=== PATIENT | female | born 1945 | race Caucasian/White ===

== ENCOUNTER 2018-02-18 11:00 | Outpatient (RCR) | payer MEDICARE, SELFPAY | END 2018-02-18 11:01 | disposition home or self-care (01) | LOC: PT 11:00 | PROVIDERS: Visit Provider Orthopaedic Surgery Adult Reconstructive Orthopaedic Surgery | DX: I89.0 Lymphedema, not elsewhere classified (principal) | CPT/HCPCS: 97140; 97162; 97760 ==

== ENCOUNTER → 2018-02-18 11:51 | Outpatient (CLI) | payer MEDICARE, SELFPAY ==
--- NOTE | 2018-02-18 11:57 | XR_ITS ---
XR foot wt bearing LT 3V HISTORY: Foot pain ITS.REASON: pain ORDERING PHYSICIAN: Sofya Delong DPM PATIENT AGE: 72 years COMPARISON: None FINDINGS: There is moderate hallux valgus with a first metatarsophalangeal angle of 35 degrees with osteoarthritis of the first MTP joint and bony hypertrophic changes of the distal aspect of the first metatarsal. There is lateral subluxation of the proximal phalanx of the great toe by approximately 7 mm. There has been prior surgery with pes planus. A medial bone plate is present at the talonavicular region. 2 screws are present as extending from the posterior inferior calcaneus into the talus with fusion of the posterior subtalar joint. An additional screw which extends from the navicular superiorly into the talus is fractured at its superior aspect with mild angulation of the fractured screw posteriorly. Hypertrophic changes are present at the talonavicular joint dorsally. IMPRESSION: 1. Hallux valgus with osteoarthritis and bunion formation. 2. Prior fusion of the posterior talar calcaneal joint and the talonavicular area with a fractured screw within the anterior aspect of the talus extending from the navicular bone with pes planus
--- NOTE | 2018-02-18 11:57 | XR_ITS ---
XR foot wt bearing RT 3V HISTORY: ITS.REASON: Pain ORDERING PHYSICIAN: Sofya Delong DPM PATIENT AGE: 72 years COMPARISON: FINDINGS: There is moderate hallux valgus with first metatarsophalangeal angle of 27 degrees and osteoarthritic change. Metatarsophalangeal joint with bunion formation at the distal aspect of the first metatarsal. Osteoarthritic changes are present at the talonavicular joint with mild lateral and superior subluxation of the navicular with severe pes planus IMPRESSION: 1. Hallux valgus with osteoarthritis and bunion formation. 2. Pes planus
== END ==
PROVIDERS: PCP Internal Medicine Infectious Disease; Visit Provider Podiatrist
DX: M79.671 Pain in right foot (principal); M79.672 Pain in left foot
CPT/HCPCS: 73630

== ENCOUNTER → 2019-06-17 07:18 | Outpatient (CLI) | payer MEDICARE, SELFPAY ==
--- NOTE | 2019-06-17 | CA_ITS ---
APPROVED REPORT Exam: Pharmacologic Technologist: Onofre Sanchez, Ht: 5 ft 4 in Wt: 285 lbs BSA: 2.27 m2 HR: 63 bpm BP: 130/61 mmHg Rhythm: NORMAL SINUS RHYTHM Indications: Pre Op clearance, A-Fib Medical History Medical History: Diabetic ??? Insulin, HTN, Hyperlipidemia, Carotid artery disease, Atrial Fibrillation Medications: Lisinopril,,,,, Asa,,,,, Gabapentin,,,,, SyMBICORT,,,,, Montelukast,,,,, AtorvaASTATIN,,,,, Novalin,,,,, Allergies: No known drug allergies Cardiac Risk Factors: Hyperlipidemia, HTN, FHX of CAD, Diabetes (insulin) Stress Test Details Test: LEXISCAN HR Resting HR: 67 bpm Max Heart Rate (APMHR): 148 bpm Max HR Achieved: 81 bpm Target HR (85% APMHR): 125 bpm % of APMHR: 54 Recovery HR: 72 bpm BP Resting BP: 130.0/61.0 mmHg Max BP: 130.0/61.0 mmHg Recovery BP: 127.0/45.0 mmHg ECG Resting ECG: NORMAL SINUS RHYTHM Clinical Exercise duration: 04:01 min Highest Stage Achieved: Stress ECG Conclusion DURING INFUSION OF LEXISCAN PATIENT HAD MILD MALAISE. NO CHEST PAIN. NO ARRHYTHMIAS/ECTOPY. NO SIGNIFICANT ST-T CHANGES. UNREMARKABLE LEXISCAN STRESS. MYOVIEW IMAGES REPORTED SEPARATELY. Test Summary REST 15:09 . . 67 . 130/ 61 . . Stage 1 01:00 . . 80 . . . . Stage 2 01:00 . . 79 . 118/ 50 . . Stage 3 01:00 . . 72 . 124/ 46 . . Stage 4 01:00 . . 72 . 122/ 48 . . Stage 4 01:01 . . 72 . 122/ 48 . Stop exercise at 04:01 RECOVERY 01:00 . . 70 . . . . RECOVERY 02:00 . . 70 . 127/ 45 . . RECOVERY 03:00 . . 72 . 115/ 46 . . RECOVERY 04:00 . . 69 . 115/ 46 . . RECOVERY 04:46 . . 71 . 122/ 45 . . Electronically signed by : Stephane Morales, 06/17/2019 15:21:11
--- NOTE | 2019-06-17 07:20 | CA_ITS ---
APPROVED REPORT EXAM: Comprehensive 2D, Doppler, and color-flow Echocardiogram Manager Quality: Bess Gregory RDCS Ht: 5 ft 4 in Wt: 289lbs BSA: 2.29 BP: 125/59 mmHg Indications: Shortness of Breath, Atrial Fibrillation, Diabetes, Obesity, CAD, Hyperlipidemia 2D Dimensions RVID Base (AP4) 2.00 cm (M/F) 2.5-4.1 M-Mode Dimensions RVDd 2.08 cm (0.9-2.6) LA Diam 4.20 cm (1.9-4.0) LVDd 5.78 cm (3.5-5.7) Ao Diam 3.10 cm (2.0-3.7) LVDs 4.38 cm (3.5-5.7) AV Cusp 1.90 cm (1.5-2.6) IVSd 0.65 cm (0.6-1.1) PWd 0.79 cm (0.6-1.1) EF (Teich) 47.50% FS 24.20% EDV (Teich) 165.20 mL ESV (Teich) 86.80 mL Tricuspid Valve RVSP 45.00 mmHg Left Ventricle Left atrium is mildly enlarged, left ventricle is normal size, mild concentric left ventricular hypertrophy, visually estimated ejection fraction 55% with no regional wall motion abnormality, diastolic parameters are inconclusive. Right Ventricle Right atrium and right ventricle mildly enlarged with normal contractility. Aortic Valve Aortic valve is minimally thickened and calcified, there is no aortic stenosis, there is no aortic insufficiency. Mitral Valve Mitral valve is grossly normal, there is mild mitral regurgitation. Tricuspid Valve Tricuspid valve is grossly normal, there is mild tricuspid regurgitation. Pulmonic Valve Pulmonic valve is poorly visualized. Great Vessels Aortic root is normal size. Pericardium No significant pericardial effusion noted. Conclusion 1. Mildly enlarged left atrium, normal left ventricular size, mild concentric left ventricular hypertrophy, visually estimated ejection fraction 55% with no regional wall motion abnormality, diastolic parameters are inconclusive. 2. Mildly enlarged right ventricle with normal contractility. 3. Mild mitral and tricuspid regurgitation 4. No significant pericardial effusion noted. Electronically signed by : Stephane Morales, 06/17/2019 14:43:59
--- NOTE | 2019-06-17 07:20 | NM_ITS ---
APPROVED REPORT Exam: Nuclear Stress Test Indication: PALPITATIONS, FATIGUE AND PRE-OP Patient Location: Outpatient Stress Tech: Margot Teodora [place] Tech:Gabbie Eaton SHABBIR RT(R)(N) Ht: 5 ft 4 in Wt: 285 lbs Bra Size: 42C HR: 63 bpm BP: 130/61 mmHg BSA: 2.27 m2 BMI: 48.9 History: PALPITATIONS, FATIGUE AND PRE-OP Procedure: Patient received a 0.4 mg of intravenous Lexiscan, resting heart rate 63 bpm, resting blood pressure 130/61 mmHg, with Lexiscan maximum heart rate achived was 75 bpm which is Less than 85 % of the maximum predicted heart rate and blood pressure was 118/50 mmHg. Electrocardiogram Resting electrocardiogram showed sinus rhythm, with Lexiscan there is less than 1.[address] segment depression noted from the baseline EKG. The EKG portion of the Lexiscan Myoview is nondiagnostic. Cardiac Stress and Resting SPECT Images: Cardiac Stress and Resting SPECT images were obtained using technetium 99m Myoview 30.6 mCi stress and 10.42 mCi at rest. Gated SPECT with analysis of segmental wall motion and calculation of the ejection fraction also done. Cardiac stress and resting SPECT images show decreased tracer activity in the anterior anterolateral and anteroseptal wall which improves on the resting images suggestive of reversible ischemia, computer derived ejection fraction is over 65% with no regional wall motion abnormality, right ventricle is normal size and contractility. Conclusion: 1. The EKG portion of the Lexiscan Myoview is nondiagnostic. 2. Scintigraphic evidence of reversible ischemia involving the anterior anterolateral and anteroseptal wall. Computer derived ejection fraction is over 65% with no regional wall motion abnormality, right ventricle is normal size and contractility. 3. Abnormal Lexiscan Myoview study. Electronically signed by : Stephane Morales, 06/17/2019 15:24:48
--- NOTE | 2019-06-17 10:00 | HMH.ITSHM ---
Current Home Medications as stated by this patient Alicia Royal or marketing representative. [] lisonopril asa montelukast atorvastatin gabapentin novolin symicort
== END ==
PROVIDERS: PCP Internal Medicine Infectious Disease; Visit Provider Internal Medicine
DX: E11.9 Type 2 diabetes mellitus without complications (principal); I10 Essential (primary) hypertension; I25.10 Atherosclerotic heart disease of native coronary artery without angina pectoris; I48.20 Chronic atrial fibrillation, unspecified; R07.9 Chest pain, unspecified; R60.0 Localized edema; Z01.810 Encounter for preprocedural cardiovascular examination; Z79.01 Long term (current) use of anticoagulants; Z79.4 Long term (current) use of insulin; Z79.84 Long term (current) use of oral hypoglycemic drugs
CPT/HCPCS: 78452; 93017; 93306; A9502; J2785

== ENCOUNTER → 2019-07-19 12:37 | Outpatient (CLI) | payer MEDICARE, SELFPAY ==
[2019-07-19 13:34] LABS: Basophils # 0.1 K/mm3 (0-0.2); Basophils % 0.7 % (0.1-2.0); Eosinophils # 0.4 K/mm3 (0.0-0.4); Eosinophils % 3.4 % (0.1-12.0); Hemoglobin 10.2 g/dL (12.2-16.2); Lymphocytes # 2.4 K/mm3 (0.7-4.5); Lymphocytes % 23.5 % (10-50); Mean Corpuscular HGB Conc 29.9 g/dL (31.8-35.4); Mean Corpuscular Hemoglobin 25.3 pg (27.0-31.2); Mean Corpuscular Volume 84.7 fl (81-99); Mean Platelet Volume 7.7 fl (7.4-10.4); Monocytes # 0.5 K/mm3 (0.1-1.0); Monocytes % 5.1 % (1.7-9.3); Neutrophils # 6.9 K/mm3 (1.8-7.8); Neutrophils % 67.3 % (37.0-80.0); Platelet Count 413 K/mm3 (142-424); Red Blood Count 4.01 M/mm3 (4.20-5.40); Red Cell Distribution Width 15.8 % (11.5-17.5); White Blood Count 10.3 K/mm3 (4.8-10.8)
[2019-07-19 16:17] LABS: Anion Gap 15.8 mEq/L (5-15); Blood Urea Nitrogen 25 mg/dL (7-18); Calcium 8.4 mg/dL (8.5-10.1); Carbon Dioxide 25 mmol/L (21.0-32.0); Chloride 107 mmol/L (98-107); Creatinine,Serum 0.83 mg/dL (0.55-1.02); Estimated Glomerular Filt Rate 68 ml/min (>60); GFR (African American) 82 ML/MIN (>60); Glucose 98 mg/dL (74-106); Potassium 4.8 mmoL/L (3.5-5.1); Sodium 143 mmol/L (136-145)
== END ==
PROVIDERS: Visit Provider Urology
DX: I10 Essential (primary) hypertension (principal); I25.10 Atherosclerotic heart disease of native coronary artery without angina pectoris; I48.20 Chronic atrial fibrillation, unspecified; R94.39 Abnormal result of other cardiovascular function study
CPT/HCPCS: 36415; 80048; 85025

== ENCOUNTER 2019-07-26 13:57 | Outpatient (RCR) | payer MEDICARE, SELFPAY | END 2019-07-26 13:59 | disposition home or self-care (01) | LOC: PT 13:57 | PROVIDERS: Visit Provider Internal Medicine | DX: Z95.5 Presence of coronary angioplasty implant and graft (principal) | CPT/HCPCS: 93798 ==

== ENCOUNTER → 2020-04-08 11:31 | Outpatient (CLI) | payer MEDICARE, SELFPAY ==
[2020-04-08 15:22] LABS: Coronavirus 19 IgG Antibody Positive (Negative); Coronavirus 19 IgM Antibody Negative (Negative)
--- NOTE | 2020-04-10 08:57 | PC.NURSE ---
PATIENT IGG POSITIVE - REQUIRED FOR PRE TESTING FOR IN LAB SLEEP STUDY. CONTACTED XENIA FLORES OKAYED TO CONTINUE WITH SLEEP STUDY LONG PATIENT IS ASYMPATMATIC - CONTACTED PATIENT IS OKAYED TO CONTINUE WITH SLEEP STUDY.....
== END ==
PROVIDERS: Visit Provider Specialist
DX: Z20.828 Contact with and (suspected) exposure to other viral communicable diseases (principal)
CPT/HCPCS: 36415; 86328

== ENCOUNTER → 2020-04-10 19:49 | Outpatient (CLI) | payer MEDICARE, SELFPAY | PROVIDERS: PCP Physician Assistant; Visit Provider Specialist | DX: Z01.818 Encounter for other preprocedural examination (principal); G47.33 Obstructive sleep apnea (adult) (pediatric); R06.83 Snoring | CPT/HCPCS: 95810 ==

== ENCOUNTER → 2020-05-26 08:32 | Outpatient (CLI) | payer MEDICARE, SELFPAY ==
--- NOTE | 2020-05-26 08:34 | CA_ITS ---
APPROVED REPORT EXAM: Comprehensive 2D, Doppler, and color-flow Echocardiogram Electrical Products Sales Engineer: Carmen Bennett RVT Ht: 5 ft 4 in Wt: 274lbs BSA: 2.24 BP: 143/71 mmHg Indications: AFIB,EDEMA,OBESITY,CAD,HTN,HLD 2D Dimensions LVOT 1.82 cm (M/F) 1.5-2.5 M-Mode Dimensions RVDd 2.94 cm (0.9-2.6) LVDd 4.75 cm (3.5-5.7) LVDs 3.18 cm (3.5-5.7) IVSd 1.13 cm (0.6-1.1) PWd 0.97 cm (0.6-1.1) EF (Teich) 61.60% FS 33.10% EDV (Teich) 104.90 mL ESV (Teich) 40.30 mL Left Ventricle Left atrium is mildly enlarged, left ventricle is normal size, mild concentric left ventricular hypertrophy, visually estimated ejection fraction 55% with no regional wall motion abnormality, diastolic parameters are inconclusive. Right Ventricle Right atrium and right ventricle are mildly enlarged with normal contractility. Aortic Valve Aortic valve is minimally thickened and fibrosed, there is no aortic stenosis or aortic insufficiency. Mitral Valve Mitral valve is grossly normal, there is mild mitral regurgitation Tricuspid Valve Tricuspid valve is grossly normal, there is mild tricuspid regurgitation calculated right ventricular systolic pressure is 50 mmHg. Pulmonic Valve Pulmonic valve is poorly visualized. Great Vessels Aortic root is normal size. Pericardium No significant pericardial effusion noted. Conclusion 1. Biatrial enlargement, normal left ventricular size, mild concentric left ventricular hypertrophy, visually estimated ejection fraction 55% with no regional wall motion abnormality, diastolic parameters are inconclusive. 2. Mildly enlarged right ventricle with normal contractility. 3. Mild mitral and tricuspid regurgitation, calculated right ventricular systolic pressure is 50 mmHg. 4. No significant pericardial effusion noted. Electronically signed by : Stephane Morales, 05/26/2020 14:00:32
== END ==
PROVIDERS: PCP Physician Assistant; Visit Provider Urology
DX: I48.0 Paroxysmal atrial fibrillation (principal)
CPT/HCPCS: 93306

== ENCOUNTER → 2020-08-08 10:53 | Outpatient (CLI) | payer MEDICARE, SELFPAY ==
[2020-08-08 17:51] LABS: Anion Gap 12.9 mEq/L (5-15); Blood Urea Nitrogen 27 mg/dl (7-17); Calcium 9.7 mg/dl (8.4-10.2); Carbon Dioxide 30 mmol/L (22.0-30.0); Chloride 97 mmol/L (98-107); Estimated Glomerular Filt Rate 70 ml/min (>60); GFR (African American) 85 ML/MIN (>60); Glucose 154 mg/dl (74-100); Potassium 4.9 mmoL/L (3.5-5.1); Sodium 135 mmol/L (136-145)
== END ==
PROVIDERS: Visit Provider Urology
DX: E11.9 Type 2 diabetes mellitus without complications (principal); E78.5 Hyperlipidemia, unspecified; I10 Essential (primary) hypertension; I25.10 Atherosclerotic heart disease of native coronary artery without angina pectoris; I48.91 Unspecified atrial fibrillation; R60.0 Localized edema; Z79.01 Long term (current) use of anticoagulants; Z79.4 Long term (current) use of insulin
CPT/HCPCS: 36415; 80048

== ENCOUNTER → 2021-02-01 09:07 | Outpatient (POV) | payer MEDICARE, SELFPAY ==
[2021-02-01 09:34] VITALS: BP 154/98; PULSE 93; RESP 19; O2SAT 95; BMI 47.0
--- NOTE | 2021-02-01 09:54 | HMH.PMCON ---
Assessment and Plan (1) Peripheral neuropathy Status: Chronic Category: Medical Code(s): G62.9 - Polyneuropathy, unspecified (2) Bilateral foot pain Status: Chronic Category: Medical Code(s): M79.671 - Pain in right foot; M79.672 - Pain in left foot (3) Neck pain Status: Chronic Category: Medical Code(s): M54.2 - Cervicalgia - Assessment and plan all Dx Assessment and Plan for all problems:: Patient I had a discussion on treatment options in the clinic. She is not interested in injective therapy for her cervical spine. We did discuss possible implanted devices, however, given her blood glucose level of 405 100, we would not be able to do any type of surgical intervention on the patient. We did discuss stopping her gabapentin and starting Lyrica 75 mg 1 tablet p.o. twice daily. This may be beneficial for her neuropathic pain in her bilateral lower extremities. She is unable to take anti-inflammatories due to anticoagulation therapy. She takes anticoagulation therapy for atrial fibrillation. Patient was scheduled for physical therapy, however, Covid prevented her from completing the treatment. Patient is having pain extensively at this time to the point that physical therapy would likely not be beneficial for her at this time. We will order the patient Lyrica 75 mg 1 tablet p.o. twice daily and see her back in 2 weeks to see if it is helping. We also discussed a compounding cream that she can apply to the area to give her some relief to her neck. We will see the patient back in 2 weeks to reevaluate her symptoms. She has been advised to stop her gabapentin until we can determine if Lyrica is beneficial. Risks and benefits of the medication have been explained in detail to the patient. The patient has been advised to consult with his/her primary care provider and pharmacist regarding drug-drug interaction of medications currently prescribed. Patient has been instructed to contact the clinic with any concerns before the next appointment. Dr. Uribe has reviewed this note and agrees with this plan of care. This note was dictated using voice recognition software and make contain errors or omissions. HPI - Data of Consult Patient: new to practice Consult date: 02/01/21 Requesting Physician: Helen Bueno APRN Primary Care Provider: Chelsey Trejo - Consult Narrative Reason for consult: Bilateral foot pain, neck pain History of present illness: Ms. Royal is a 75 year old female who presents today for consultation for bilateral foot pain. She has had this pain for greater than a year. Patient says that she had deformities to bilateral feet for which she did undergo surgical intervention. She says that after surgery to her right foot, she did suffer from a fall and a fracture to the area that underwent surgical intervention. Unfortunately due to the patient's extensive past medical history, they are unable to repair the fracture. Patient is morbidly obese. She is unable to ambulate due to her bilateral foot pain. She has seen Dr. Horn in the past who did inform the patient that she would need specific shoes, however, was unable to get due to noncoverage of Medicare. Patient does have a history of atrial fibrillation is on 2 blood thinners at this time. She also reports to have blood glucose levels between 405 100. She says that her A1c is between 7 and 8, however. Patient I discussed that we would be very limited in doing any type of surgical intervention for the patient such as DRG or SCS due to her uncontrolled blood post levels. We did discuss her medications. The patient is currently on gabapentin 600 mg 2 tablets p.o. daily and Cymbalta. She says that she has been on gabapentin for many years which is no longer effective for her pain. She says she is having a burning sensation to her bilateral feet. She has swelling that is noted to be added 2+ today. She does deny any color changes, however. [place]
== END ==
PROVIDERS: PCP Physician Assistant; Visit Provider Clinical Nurse Specialist Family Health
DX: G62.9 Polyneuropathy, unspecified (principal); M79.671 Pain in right foot; M79.672 Pain in left foot; M54.2 Cervicalgia
CPT/HCPCS: 99202; G0463

== ENCOUNTER → 2021-02-15 11:18 | Outpatient (POV) | payer MEDICARE, SELFPAY ==
[2021-02-15 12:00] VITALS: BP 125/95; PULSE 69; RESP 20; O2SAT 96; BMI 58.3
--- NOTE | 2021-02-15 12:01 | HMH.PAINSOAP ---
[facility] Pain Management SOAP Note Subjective:: Patient is a 75-year-old white female who presents today for follow-up. Patient was seen in the clinic on 02/01/2021. She is being treated in the clinic for bilateral foot pain, neck pain and peripheral neuropathy. Patient has deformities to bilateral feet for which she has undergone surgical intervention and continues to have significant pain. She suffered from a fall and a fracture to her right foot and underwent surgical intervention and continues to have significant pain. Patient was previously on gabapentin for which she did not get much relief. She has seen Dr. Horn in the past who did inform the patient she would need specific shoes, however, the patient is unable to afford the shoes. She is currently on 2 and type coagulation therapy medications and is not comfortable undergoing injective therapy. She also has blood glucose levels that fluctuate between 200 and 400 which are being managed by her primary care provider. At her last visit, we started the patient on Lyrica 75 mg 1 tablet p.o. twice daily and order compounding cream. Patient says that she has gotten great relief, however, she notices the pain does return mid day. She takes her medication in the morning and before bedtime. The compounding cream is also giving her significant relief. She says her pain is tolerable at this time since starting the medicine. Her pain is a 3 out of 10 today. Review of Systems General: No recent weight changes, no fever, no sleep disturbances Respiratory: No cough, no shortness of air, no recurring pulmonary infections Cardiovascular/peripheral vascular: No chest pain, no palpitations, no edema, no shortness of breath Gastrointestinal: No new onset incontinence, normal bowel movements reported Genitourinary: No new onset incontinence Musculoskeletal: Bilateral foot pain Psychiatric: Normal mood/affect Neurological: Weakness lower extremities, balance issues Objective:: Physical exam General: Alert and oriented x3, no acute distress, pleasant and cooperative, [on room air] Lungs: Respirations even and unlabored, symmetrical chest expansion Eyes: PERRL Musculoskeletal: Movement of bilateral feet somewhat guarded secondary to pain, deep tendon reflexes normal, strength in upper and lower extremities [4/5], [abnormal gait noted] Neurological: Speech clear, supervisor travel information center equal, no gross sensory deficit Assessment:: Peripheral neuropathy, bilateral foot pain, neck pain Plan:: Patient is doing well overall with her medication regimen that was started at her last visit. She is noticing the medicine to be wearing off mid day, however. We will increase her Lyrica to 75 mg 1 tablet p.o. 3 times daily. She will continue with her compounding cream. We will plan to see the patient back in 3 months for reevaluation of her symptoms. She has been instructed to contact clinic if she has any concerns before next appointment. Risks and benefits of the medication have been explained in detail to the patient. The patient has been advised to consult with his/her primary care provider and pharmacist regarding drug-drug interaction of medications currently prescribed. Patient has been instructed to contact the clinic with any concerns before the next appointment. Dr. Uribe has reviewed this note and agrees with this plan of care. This note was dictated using voice recognition software and make contain errors or omissions. [facility] History I have reviewed the patient's past medical history: Yes Medical History: Reports:: Asthma, Atrial Fibrillation, Cancer, Coronary Artery Disease, Diabetes Mellitus Type 2, Hyperlipidemia, Hypertension *Have you ever received a pneumonia vaccine?: Yes *Have you received a flu vaccine this season?: No Other Medical History: Reports: Arthritis, Sinus Problems Laterality Cases: Left: Carpal Tunnel Release, Right: Lumpectomy, Bilateral: Tonsillectomy, Other Other Surgeries: Yes: Card
== END ==
PROVIDERS: PCP Physician Assistant; Visit Provider Clinical Nurse Specialist Family Health
DX: M79.671 Pain in right foot (principal); M54.2 Cervicalgia; G62.9 Polyneuropathy, unspecified; M79.672 Pain in left foot
CPT/HCPCS: 99212; G0463

== ENCOUNTER → 2021-05-08 09:15 | Outpatient (CLI) | payer MEDICARE, SELFPAY ==
[2021-05-08 09:40] LABS: Basophils # 0.1 K/mm3 (0-0.2); Basophils % 0.5 % (0.1-2.0); Eosinophils # 0.6 K/mm3 (0.0-0.4); Eosinophils % 5.3 % (0.1-12.0); Hematocrit 36.7 % (37.0-47.0); Lymphocytes # 2.4 K/mm3 (0.7-4.5); Lymphocytes % 21.1 % (10-50); Mean Corpuscular HGB Conc 29.8 g/dL (31.8-35.4); Mean Corpuscular Hemoglobin 25.9 pg (27.0-31.2); Mean Corpuscular Volume 86.8 fl (81-99); Mean Platelet Volume 7.7 fl (7.4-10.4); Monocytes # 0.7 K/mm3 (0.1-1.0); Monocytes % 5.8 % (1.7-9.3); Neutrophils # 7.8 K/mm3 (1.8-7.8); Neutrophils % 67.3 % (37.0-80.0); Platelet Count 361 K/mm3 (142-424); Red Blood Count 4.23 M/mm3 (4.20-5.40); Red Cell Distribution Width 15.8 % (11.5-17.5); White Blood Count 11.5 K/mm3 (4.8-10.8)
[2021-05-08 11:25] LABS: Free T4 (Free Thyroxine) 1.38 ng/dl (0.78-2.19)
[2021-05-08 12:18] LABS: Chloride 100 mmol/L (98-107); Sodium 137 mmol/L (136-145)
[2021-05-08 12:19] LABS: Potassium 4.4 mmoL/L (3.5-5.1)
[2021-05-08 12:21] LABS: Alanine Aminotransferase 15 U/L (12-78); Albumin Level 3.8 g/dl (3.5-5.0); Alkaline Phosphatase 108 U/L (38-126); Anion Gap 14.4 mEq/L (5-15); Aspartate Amino Transferase 20 U/L (14-36); Bilirubin,Indirect 0.3 mg/dL (0.0-0.9); Bilirubin,Total 0.3 mg/dl (0.2-1.3); Bilirubin,Unconjugated 0.3 mg/dL (0.0-1.1); Blood Urea Nitrogen 19 mg/dl (7-17); Carbon Dioxide 27 mmol/L (22.0-30.0); Cholesterol 137 mg/dl (140-200); Estimated Glomerular Filt Rate 98 ml/min (>60); GFR (African American) 118 ML/MIN (>60); Total Protein,Serum 6.5 g/dl (6.3-8.2); Triglycerides 80 mg/dl (30-150); VLDL Cholesterol 16 mg/dL (0-40)
[2021-05-08 12:22] LABS: Calcium 8.8 mg/dl (8.4-10.2); Chol/HDL Ratio 1.9 (1-3.5); Glucose 325 mg/dl (74-100); HDL Cholesterol 73 mg/dl (40-60)
[2021-05-08 12:33] LABS: Direct LDL Cholesterol 48.78 mg/dL (100-129)
[2021-05-08 12:52] LABS: Thyroid Stimulating Hormone 1.94 uIU/mL (0.465-4.68)
== END ==
PROVIDERS: Visit Provider Physician Assistant
DX: I10 Essential (primary) hypertension (principal); I25.10 Atherosclerotic heart disease of native coronary artery without angina pectoris; I48.20 Chronic atrial fibrillation, unspecified; R60.0 Localized edema; Z79.01 Long term (current) use of anticoagulants; Z82.49 Family history of ischemic heart disease and other diseases of the circulatory system
CPT/HCPCS: 36415; 80048; 80061; 80076; 84439; 84443; 85025

== ENCOUNTER → 2021-06-12 10:15 | Outpatient (POV) | payer MEDICARE, SELFPAY | PROVIDERS: Visit Provider Dermatology | DX: Z00.00 Encounter for general adult medical examination without abnormal findings (principal) ==

== ENCOUNTER → 2021-08-21 08:41 | Outpatient (POV) | payer MEDICARE, SELFPAY ==
[2021-08-21 08:58] VITALS: BP 145/79; PULSE 112; RESP 18; O2SAT 96; BMI 48.9
--- NOTE | 2021-08-21 09:14 | HMH.PAINSOAP ---
[facility] Pain Management SOAP Note Subjective:: Patient is a 75-year-old white female who presents today for follow-up. Patient was last seen in the clinic on 02/15/2021. On August 02, the patient was being lifted from outside of a vehicle to inside a van. She is in a motorized wheelchair and does require a lift on the vehicle. Unfortunately, the lift malfunctioned dropping the patient face forward onto concrete. She was taken to [facility]. The daughter reports that the patient did have a fractured nose. She was having neck pain at that time. She did undergo x-rays of her head and chest since the fall. Patient says that she is having significant pain in her neck mid back and low back area. She is having difficulty turning her head or moving. She does rate her pain a 10 out of 10. Her primary care did give her a short-term dose of Axtell. Patient is very pleasant with no symptoms or neuropathic pain status post. Her foot pain, but does say that the back pain is excruciating. She has not had any x-rays of her cervical, thoracic, or lumbar spine. She will likely stay with imaging. Physical therapy is coming into the patient's home as well as OT therapy since the fall. Patient was advised by physical therapy to return to the clinic for x-rays to rule out any compression fractures. She has been taking Tylenol arthritis along with Axtell Review of Systems General: No recent weight changes, no fever, no sleep disturbances Respiratory: No cough, no shortness of air, no recurring pulmonary infections Cardiovascular/peripheral vascular: No chest pain, no palpitations, no edema, no shortness of breath Gastrointestinal: No new onset incontinence, normal bowel movements reported Genitourinary: No new onset incontinence Musculoskeletal: [] Neck pain, mid back pain, low back pain Psychiatric: [Normal mood/affect] Neurological: Wheelchair-bound Objective:: Physical exam General: Alert and oriented x3, no acute distress, pleasant and cooperative Lungs: Respirations even and unlabored, symmetrical chest expansion Eyes: PERRL Musculoskeletal: Flexion and extension of cervical, thoracic, lumbar [spine] somewhat guarded secondary to pain, [antalgic gait noted] Neurological: Speech clear, no gross sensory deficit Assessment:: Status post fall, neck pain, mid back pain, low back pain Plan:: We will send the patient for imaging. We will order x-ray of cervical, thoracic, lumbar spine to rule out any fractures. If negative for fractures, she may need an MRI lumbar spine. Her pain is at its worst to the low back area. We will also order her a 1 month dose of Axtell 5 mg 1 tablet p.o. 3 times daily as needed moderate pain. We will contact the patient following the x-rays to review with the family. [phone] Risks and benefits of the medication have been explained in detail to the patient. The patient does understand the risk of dependence on the medication when given over a prolonged period. Patient has been advised of risks of oversedation with the prescribed medication. Narcan has been offered to the paitent in the event of oversedation. Patient has been advised that a family member should also be educated regarding administration of Narcan. The patient has been advised to consult with his/her primary care provider and pharmacist regarding drug-drug interaction of medications currently prescribed. Patient has been prescribed a controlled substance after being counseled on the medication, medication safety, and possible side effects. ESTRELLITA report has been obtained and reviewed prior to prescription and found to be appropriate. Opioid contract was reviewed and signed by the patient, and that they have agreed to all of the terms set forth by our compliance program. Patient has been instructed to contact the clinic with any concerns before the next appointment. Dr. Uribe has reviewed this note and agrees with this
--- NOTE | 2021-08-21 09:18 | XR_ITS ---
PROCEDURE: XR MULTIPLE SPINE 6+V CLINICAL INDICATION: RECENT FALL, SEVERE BACK PAIN COMPARISON: No exams were available for comparison FINDINGS: Cervical spine: Prominent facet hypertrophic changes are present from C2 to C7. Cervical spine is incompletely visualized on the lateral view only well seen to the C4 level with a faint outline of C5 and C6 which are normal and alignment. Of the visualized cervical spine no obvious fracture is evident. Thoracic spine: Mild upper thoracic curvature convex right. Normal alignment. No acute fracture or dislocation. There is mild degenerative disc disease in the mid and lower thoracic spine Lumbar spine:. Minimal lumbar curvature convex left. Facet arthritic changes are present at L3-L4 and L5 with degenerative disc disease present at L5-S1. There is mild wedge compression changes involving the superior endplate of L4 without obvious retropulsion. This is age indeterminate. IMPRESSION: Multilevel degenerative changes. Please see above for detailed description. Mild wedging of L4 with loss of height of approximately 15-20 percent age indeterminate. No obvious retropulsion Dictated by: Jose Lawler MD 08/21/2021 17:28 Jose Lawler MD in OV 08/21/2021 17:28
== END ==
PROVIDERS: Visit Provider Clinical Nurse Specialist Family Health
DX: M54.2 Cervicalgia (principal); M54.6 Pain in thoracic spine; M54.59 Other low back pain; W19.XXXS Unspecified fall, sequela
CPT/HCPCS: 72084; 99212; G0463

== ENCOUNTER → 2021-08-28 09:12 | Outpatient (CLI) | payer MEDICARE, SELFPAY ==
--- NOTE | 2021-08-28 09:21 | MR_ITS ---
PROCEDURE INFORMATION: Exam: MR Lumbar Spine Without Contrast Exam date and time: 08/28/2021 9:21 AM Age: 75 years old Clinical indication: Patient HX: Severe low back pain, l4 compression FX TECHNIQUE: Imaging protocol: Multiplanar magnetic resonance images of the lumbar spine without intravenous contrast. COMPARISON: CR XR MULTIPLE SPINE 6+V 08/21/2021 9:35 AM FINDINGS: Vertebrae: There is a central compression deformity, possibly related to a Schmorl's node, in the L4 vertebral body. There is 45% maximum loss of vertebral body height at this level. There is T2 hyperintensity in the L4 vertebral body mainly surrounding the Schmorl's node, and in the superior endplate. Additionally, there is Modic type 1 change in the opposing endplates at L3. There are hemangiomas at T12, L1, L2, L3, and S2. Spinal cord: The conus medullaris is normal in appearance terminating at the level of L1/2. L1-L2: There is a shallow disc bulge, bilateral facet arthropathy and ligamentum flavum infolding. The spinal canal and neural foramina are adequate. L2-L3: There is a shallow disc bulge, bilateral facet arthropathy and ligamentum flavum infolding. The spinal canal and neural foramina are adequate. L3-L4: There is a broad based disc bulge, bilateral facet arthropathy and ligamentum flavum infolding. This results in moderate central canal stenosis. Neural foramina are adequate. L4-L5: There is a broad based disc bulge, bilateral facet arthropathy and ligamentum flavum infolding. The spinal canal and neural foramina are adequate. L5-S1: There is a broad based disc bulge, bilateral facet arthropathy and ligamentum flavum infolding. The central canal and right neural foramina are adequate. There is mild left neural foraminal stenosis. Soft tissues: Unremarkable. IMPRESSION: 1. Central compression deformity at L4, with 45% maximum loss of vertebral body height. There is associated marrow edema. This finding may be related to progression of a large Schmorl's node in the superior endplate. 2. Multilevel lumbar spondylosis. 3. Moderate spinal stenosis at L3/4.
== END ==
LOC: RAD 09:13
PROVIDERS: PCP Emergency Medicine; Visit Provider Clinical Nurse Specialist Family Health
DX: S32.04 Fracture of fourth lumbar vertebra (principal)
CPT/HCPCS: 72148; 76376

== ENCOUNTER → 2021-08-30 08:37 | Outpatient (POV) | payer MEDICARE, SELFPAY ==
--- NOTE | 2021-08-30 09:59 | HMH.PAINSOAP ---
[facility] Pain Management SOAP Note Subjective:: Patient is a 75-year-old white female who is following up via telehealth medicine today. She was seen in the clinic on 08/21/2021 due to an incident of falling from a motorized car lift. She was in her wheelchair when the lift malfunctioned, dropping the patient face forward onto concrete. She was taken to [facility] and was noted to have a fractured nose at that time. She was having neck pain as well. She did have x-rays of head and chest post fall. She is having mid and low back pain. She is wheelchair-bound. X-ray was ordered. MRI was obtained due to worsening pain. Patient was noted to have an L4 compression fracture. The results of MRI were discussed with Dr. Uribe. Dr. Uribe did schedule the patient for kyphoplasty this upcoming week. Patient daughter was very concerned about patient's pain. The patient was started on [place] while in the clinic at last visit, 5 mg 1 tablet p.o. 3 times daily. She did contact the clinic very upset and adamant that the patient received increased oral medication. The office staff did discuss this with Dr. Uribe and Dr. Uribe did feel a concern of giving the patient further medication due to the patient's age and debilitation. The patient says she is continuing to have significant pain rating the pain a 7 or 8 out of 10 with minimal relief and minimal sleep due to pain. She is agreeable to proceeding with kyphoplasty, but is asking for increased medication. Review of Systems General: No recent weight changes, no fever, no sleep disturbances Respiratory: No cough, no shortness of air, no recurring pulmonary infections Cardiovascular/peripheral vascular: No chest pain, no palpitations, no edema, no shortness of breath Gastrointestinal: No new onset incontinence, normal bowel movements reported Genitourinary: No new onset incontinence Musculoskeletal: Low back pain made worse with movement Psychiatric: [Normal mood/affect] Neurological: Chronic weakness bilateral lower extremities Objective:: Physical exam General: Alert and oriented x3, no acute distress, pleasant and cooperative Assessment:: Degenerative disc disease lumbar spine with lumbar radiculopathy symptoms, compression fracture L4, Plan:: Dr. Uribe was contacted today regarding the patient's worsening pain. He does not feel appropriate to proceed with increasing patient's medication due to debilitation age. He is concerned for oversedation and high risk of falls. She is currently on [place] 5 mg 1 tablet p.o. 3 times daily. She also takes pregabalin 75 mg 1 tablet p.o. 3 times daily by her primary care provider. We will schedule the patient for kyphoplasty for L4 compression fracture. The patient is on Xarelto. We will seek approval for the patient to hold her Xarelto before proceeding with the procedure. She has been advised. The patient will also be given a brace to wear for stabilization until she is able to undergo kyphoplasty. Family has been advised we are unable to increase the patient's medication per Dr. Uribe. Patient has been instructed to contact the clinic with any concerns before the next appointment. Dr. Uribe has reviewed this note and agrees with this plan of care. This note was dictated using voice recognition software and make contain errors or omissions. [facility] History I have reviewed the patient's past medical history: Yes Medical History: Reports:: Asthma, Atrial Fibrillation, Cancer, Coronary Artery Disease, Diabetes Mellitus Type 2, Hyperlipidemia, Hypertension *Have you ever received a pneumonia vaccine?: Yes *Have you received a flu vaccine this season?: Yes Other Medical History: Reports: Arthritis, Sinus Problems Laterality Cases: Left: Carpal Tunnel Release, Right: Lumpectomy, Bilateral: Tonsillectomy, Other Other Surgeries: Yes: Cardiac Catheterization, Cholecystectomy, Colonoscopy, Coronary Stent, Tubal Ligation Amputation: No Fractures: Yes (Right el
--- NOTE | 2021-08-31 12:37 | PC.NURSE ---
Received verbal order from Dr. Herr, via [facility], approving patient to hold Plavix for 8 days prior to procedure and Xarleto for 4 days prior to procedure. Pt's daughter notified.
== END ==
PROVIDERS: Visit Provider Clinical Nurse Specialist Family Health
DX: M51.16 Intervertebral disc disorders with radiculopathy, lumbar region (principal); M48.56XA Collapsed vertebra, not elsewhere classified, lumbar region, initial encounter for fracture
CPT/HCPCS: 99212; G0463

== ENCOUNTER → 2021-09-04 08:53 | Outpatient (CLI) | payer MEDICARE, SELFPAY ==
[2021-09-04 09:28] LABS: Basophils # 0.1 K/mm3 (0-0.2); Basophils % 0.6 % (0.1-2.0); Eosinophils # 0.6 K/mm3 (0.0-0.4); Eosinophils % 5.7 % (0.1-12.0); Hematocrit 35.8 % (37.0-47.0); Hemoglobin 10.8 g/dL (12.2-16.2); Lymphocytes # 2.7 K/mm3 (0.7-4.5); Lymphocytes % 25.6 % (10-50); Mean Corpuscular HGB Conc 30.1 g/dL (31.8-35.4); Mean Corpuscular Hemoglobin 24.2 pg (27.0-31.2); Mean Corpuscular Volume 80.3 fl (81-99); Mean Platelet Volume 7.7 fl (7.4-10.4); Monocytes # 0.7 K/mm3 (0.1-1.0); Monocytes % 6.8 % (1.7-9.3); Neutrophils # 6.4 K/mm3 (1.8-7.8); Neutrophils % 61.3 % (37.0-80.0); Platelet Count 443 K/mm3 (142-424); Red Blood Count 4.45 M/mm3 (4.20-5.40); Red Cell Distribution Width 17.4 % (11.5-17.5); White Blood Count 10.4 K/mm3 (4.8-10.8)
[2021-09-04 10:21] LABS: Anion Gap 14.2 mEq/L (5-15); Blood Urea Nitrogen 15 mg/dl (7-17); Calcium 9.4 mg/dl (8.4-10.2); Carbon Dioxide 29 mmol/L (22.0-30.0); Chloride 98 mmol/L (98-107); Estimated Glomerular Filt Rate 98 ml/min (>60); GFR (African American) 118 ML/MIN (>60); Glucose 198 mg/dl (74-100); Potassium 5.2 mmoL/L (3.5-5.1); Sodium 136 mmol/L (136-145)
== END ==
PROVIDERS: Visit Provider Anesthesiology
DX: Z01.812 Encounter for preprocedural laboratory examination (principal); Z11.52 Encounter for screening for COVID-19; S32.04 Fracture of fourth lumbar vertebra
CPT/HCPCS: 36415; 80048; 85025; C9803; U0003; U0005

== ENCOUNTER 2021-09-05 07:04 | Day surgery (SDC) | payer MEDICARE, SELFPAY ==
[2021-09-03 09:44] VITALS: BMI 48.0
[2021-09-05] VITALS (9 sets, daily range): BP systolic 144–194; BP diastolic 58–92; PULSE 72–92; RESP 18–19; TEMP 36.2; O2SAT 96–98
--- NOTE | 2021-09-05 10:43 | P.OP_ITS ---
Date of procedure: 09/05/21 Pre-op Diagnosis:: L4 compression fracture Post-op Diagnosis:: Same Procedure performed:: L4 kyphoplasty Surgeon:: Ronal Uribe MD PATENT LEATHER SORTER:: Kuldeep Hughes Anesthesia: MAC Estimated blood loss (mL): 5 Clinical Note:: Patient is a pleasant 75-year-old white female who we are seeing for new onset L4 compression fracture. This occurred when she was dropped from her motorized car lift. MRI and x-ray noted a L4 compression fracture with edema. She has bracing in place. She has been off her Plavix for 7 days. She presents for L4 kyphoplasty today. Operative findings:: none Operative note:: Informed consent was obtained and risks and benefits of the procedure was explained to the patient. Patient was taken to the OR and was placed prone on the procedure table. The patient was prepped and draped in sterile fashion. I used 2 C arms for AP and lateral view of the L4 vertebral body. The skin and subcutaneous tissues were anesthetized using lidocaine. Bone access trochars were placed through the LEFT and RIGHT pedicle and advanced into the vertebral body. After accessing the vertebral body a balloon was inserted first on the LEFT side followed by the RIGHT side with approximately 3 mL of contrast placed in each balloon with good insufflation. After adequate spread of contrast through the balloon, the balloons were deflated and cement was introduced first on the LEFT side with placement of approximately 4 mL of cement with good spread throughout the vertebral body and then on the RIGHT side was approximately 4 mL cement with good spread throughout the vertebral body. There was no extrusion of cement through the lateral patterson, anterior or posterior patterson. Also no extrusion through superior or inferior patterson. The bone access trochars were removed and dressing was placed. The patient was taken back to recovery in stable condition. She had good resolution of her back pain 5 minutes after the procedure. She tolerated the procedure well with no complications and was discharged home neurologically intact. Condition: stable Disposition: PACU Complications:: None
--- NOTE | 2021-09-05 11:32 | P.PN_ITS ---
[facility] Anesthesia Checklist - Structural Data Admitted From: Home Planned Operative Procedure/s: kyphoplasty Consent for Planned Operative Procedure(s) Verified: Yes - Additional verifications Anesthesia Reactions: No Hx Blood Transfusions: No - Airway Assessment C-Spine Mobility Assessed: Yes TMJ Mobility Assessed: Yes Dentition: Partials - Neurological Assessment Level of Consciousness: Awake, Alert, Appropriate - Anesthesia Plan Anesthesia Risk discussed: Yes Anesthesia Plan: Verified ASA Class: III Anesthesia Type: MAC [facility] History I have reviewed the patient's past medical history: Yes Medical History: Reports:: Asthma, Atrial Fibrillation, Cancer, Coronary Artery Disease, Diabetes Mellitus Type 2, Hyperlipidemia, Hypertension Denies:: Diabetes Mellitus Type 1, Internal Pacemaker, MRSA, Seizures *Have you ever received a pneumonia vaccine?: Yes *Have you received a flu vaccine this season?: Yes Other Medical History: Reports: Arthritis, Sinus Problems Anesthesia experience/problems:: none Laterality Cases: Left: Carpal Tunnel Release, Right: Lumpectomy, Bilateral: Tonsillectomy, Total Knee Replacement, Other Other Surgeries: Yes: Cardiac Catheterization, Cholecystectomy, Colonoscopy, Coronary Stent, Tubal Ligation. No: Pacemaker Amputation: No Fractures: Yes (Right elbow) - *Social History Last grade of school completed: High school graduate Smoking Status: Never smoker Alcohol Intake: never Alcohol Intake Frequency:: other Substance Use Type: denies use *Occupational Status:: unemployed Housing: house Household Members: children, spouse *Travel in the last 8 weeks: None Family Hx:: Hyperlipidemia, Hypertension, Cancer, Heart Attack
[2022-05-30 10:56] LABS: POC Glucose,Bedside 208 (70-110)
== END 2021-09-05 12:43 | disposition home or self-care (01) ==
LOC: OR 07:06
PROVIDERS: PCP Emergency Medicine; Visit Provider Anesthesiology
DX: M80.08XA Age-related osteoporosis with current pathological fracture, vertebra(e), initial encounter for fracture (principal); M48.56XA Collapsed vertebra, not elsewhere classified, lumbar region, initial encounter for fracture; I25.10 Atherosclerotic heart disease of native coronary artery without angina pectoris; R60.9 Edema, unspecified; J45.909 Unspecified asthma, uncomplicated; I48.91 Unspecified atrial fibrillation; E11.9 Type 2 diabetes mellitus without complications; E78.5 Hyperlipidemia, unspecified; I10 Essential (primary) hypertension; Z85.9 Personal history of malignant neoplasm, unspecified; Z83.438 Family history of other disorder of lipoprotein metabolism and other lipidemia; Z82.49 Family history of ischemic heart disease and other diseases of the circulatory system; Z82.3 Family history of stroke; Z80.9 Family history of malignant neoplasm, unspecified
CPT/HCPCS: 22514; 82962; 96374; J2704; J3370; Q9966

== ENCOUNTER → 2021-09-18 10:25 | Outpatient (POV) | payer MEDICARE, SELFPAY ==
[2021-09-18 10:44] VITALS: BP 158/63; PULSE 91; RESP 18; O2SAT 94; BMI 48.0
--- NOTE | 2021-09-18 12:13 | HMH.PAINSOAP ---
[facility] Pain Management SOAP Note Subjective:: Patient is a 75-year-old white female who presents today for follow-up. The patient had a kyphoplasty on 09/05/2021. She had a fall from a van lift. She was in a wheelchair when the lift malfunctioned dropping the patient face forward. She did have a fractured nose and was noted to have a L4 compression fracture. Patient says she got 5 days of relief following the kyphoplasty. She says the pain has now returned to the same area once again. Pain is minimal with out movement. She does say, however, any movement worsens the pain. Pain is much like prior to the kyphoplasty. She has not resumed physical therapy since the kyphoplasty. The pain is significant at this time. The pain is 10. She is managed with [place] 5 mg 1 tablet p.o. 3 times daily, but notes the medicine to be wearing off quickly. She is on Plavix and Xarelto and is diabetic. Patient denies any changes in bowel or bladder habit and denies any numbness and tingling into lower extremities. Pain is primarily in the low back area made worse with movement. Review of Systems General: No recent weight changes, no fever, no sleep disturbances Respiratory: No cough, no shortness of air, no recurring pulmonary infections Cardiovascular/peripheral vascular: No chest pain, no palpitations, no edema, no shortness of breath Gastrointestinal: No new onset incontinence, normal bowel movements reported Genitourinary: No new onset incontinence Musculoskeletal: Low back pain made worse with movement Psychiatric: [Normal mood/affect] Neurological: [Denies weakness in extremities], [denies balance issues] Objective:: Physical exam General: Alert and oriented x3, no acute distress, pleasant and cooperative Lungs: Respirations even and unlabored, symmetrical chest expansion Eyes: PERRL Musculoskeletal: Flexion and extension of lumbar [spine] somewhat guarded secondary to pain, wheelchair bound at this time Neurological: Speech clear, no gross sensory deficit Assessment:: Degenerative disc disease lumbar spine with lumbar radiculopathy symptoms, status post kyphoplasty for L4 compression fracture Plan:: Patient was discussed with Dr. Uribe. He would like to proceed with an L4-L5 lumbar epidural steroid injection. We will also increase the patient's [place] to 5 mg 1 tablet p.o. 4 times daily. She has been advised to use the medication with caution and only as needed. The patient will take the medication along with pregabalin that is prescribed by Dr. Carey. She does understand she is at a high risk for oversedation along with increased risk for dependence on the medication. We will plan to decrease the medication following her lumbar epidural steroid injection. We will plan to see the patient back after the injection for further evaluation. She does understand she will need to hold her Plavix and Xarelto. Dr. Herr's office does prescribe this medication has approved her in the past to hold the medication. Patient has also been advised that she will likely need to obtain a DEXA scan from her primary care provider to rule out osteoporosis. She does say she has not had any recent scans performed. Risks and benefits of the medication have been explained in detail to the patient. The patient does understand the risk of dependence on the medication when given over a prolonged period. Patient has been advised of risks of oversedation with the prescribed medication. Narcan has been offered to the paitent in the event of oversedation. Patient has been advised that a family member should also be educated regarding administration of Narcan. The patient has been advised to consult with his/her primary care provider and pharmacist regarding drug-drug interaction of medications currently prescribed. Patient has been prescribed a controlled substance after being counseled on the medication, medication safety, and possible side effects
== END ==
PROVIDERS: Visit Provider Clinical Nurse Specialist Family Health
DX: M51.16 Intervertebral disc disorders with radiculopathy, lumbar region (principal); Z98.1 Arthrodesis status
CPT/HCPCS: 99212; G0463

== ENCOUNTER 2021-09-28 10:30 | Day surgery (SDC) | payer MEDICARE, SELFPAY ==
[2021-09-28 10:45] VITALS: BP 142/77; PULSE 83; RESP 18; TEMP 36.8; O2SAT 94; BMI 48.0
--- NOTE | 2021-09-28 11:43 | HMH.PMPROC ---
- Procedure Date: 09/28/21 Time: 11:43 Anesthesiologist:: Ronal Uribe MD Complications:: None Pre-procedure Diagnosis:: Degenerative disc disease of lumbar spine with lumbar radiculopathy symptoms Post-procedure Diagnosis:: Same Indications for Procedure:: Patient is a pleasant 75-year-old white female who we are treating for low back pain with lumbar radiculopathy symptoms. She has previously had a kyphoplasty at the L4 vertebral body. She is having some increasing back pain which may be due to degenerative changes. She has been off her Plavix and Xarelto for 1 week. She presents for lumbar pleural steroid injection today. Procedure Details:: Informed consent was obtained and the risk and benefits of the procedure was explained to the patient. The patient was taken to the procedure room. The patient was placed prone on the procedure table. The patient was prepped and draped in sterile fashion. C-arm fluoroscopy was used to view the lumbar spine. Skin and subcutaneous tissues were anesthetized using lidocaine. I placed an 18-gauge epidural needle and advanced into the L4-L5 interspace using fluoroscopic guidance and [id number] to air. After confirmation of needle placement in the epidural space with dye I injected 2 mL of lidocaine 1.5% with Depo-Medrol 80 mg. Patient tolerated the procedure well with no complications. Plan and Disposition:: We will follow-up with her in 2 weeks. Will reevaluate symptoms at that time. If she does not get much relief we may need to do an repeat MRI to make sure there is not another compression fracture.
[2021-09-28 11:45] VITALS: BP 158/96; BP 178/100; PULSE 61; PULSE 84; RESP 18; RESP 20; O2SAT 97; O2SAT 99
[2021-09-28 11:48] VITALS: BP 156/78; PULSE 90; RESP 18; O2SAT 97
== END 2021-09-28 11:45 | disposition home or self-care (01) ==
LOC: SC.PAINP 10:31
PROVIDERS: PCP Emergency Medicine; Visit Provider Anesthesiology
DX: M51.16 Intervertebral disc disorders with radiculopathy, lumbar region (principal); I25.10 Atherosclerotic heart disease of native coronary artery without angina pectoris; E78.5 Hyperlipidemia, unspecified; I10 Essential (primary) hypertension; I48.91 Unspecified atrial fibrillation; E11.9 Type 2 diabetes mellitus without complications
CPT/HCPCS: 62323; J1040

== ENCOUNTER → 2021-10-18 09:25 | Outpatient (POV) | payer MEDICARE, SELFPAY ==
[2021-10-18 09:58] VITALS: BP 148/75; PULSE 63; RESP 18; O2SAT 96; BMI 48.9
--- NOTE | 2021-10-18 11:48 | HMH.PAINSOAP ---
[facility] Pain Management SOAP Note Subjective:: Patient is a very pleasant 75-year-old white female who presents today presents today for follow-up and medication refills. She is currently being treated for degenerative disease of the lumbar spine with lumbar radiculopathy. Currently being prescribed hydrocodone 5 mg 1 tablet 4 times daily which she states is helping control her overall chronic pain symptoms. She previously has undergone a lumbar epidural steroid injection at L4-L5 with Dr. ANGELICA Blount on September 28, 2021 and she notes 70 to 80% pain relief in guards to her low back and leg pain. However, she states that she continues to experience pain in the lateral aspect of her right leg. She states that the epidural injection never helped to treat this pain. She states that she had a very difficult time during this procedure to get into the correct position and could not get onto the table for fluoroscopy in the procedural suite. Of note, the patient has previously undergone a kyphoplasty at L4 vertebral body. Rates her pain today as a 7 out of 10. Objective:: General: Alert and oriented x3, no acute distress, pleasant and cooperative Lungs: Resps E/U, symmetric chest expansion Eyes: PERRL Musculoskeletal: limited flexion and extension of the lumbar spine secondary to pain. Deep tendon reflexes were normal in bilateral lower extremities. Motor exam was grossly intact in the bilateral lower extremities. She is sitting comfortably in a manual wheelchair. Tenderness to palpation over the right greater trochanteric bursa. Neurological: Speech is clear, oil tester equal, no gross sensory deficits Assessment:: Trochanteric bursitis of the right lower extremity Degenerative disc disease of lumbar spine with lumbar radiculopathy L4 vertebral compression fracture status post kyphoplasty Plan:: I discussed with the patient that she would benefit from undergoing a trochanteric bursa injection on the right to help with her trochanteric bursitis dated pain as I believe this is currently her primary pain generator. I will also continue to refill the [place] 5 mg 1 tablet p.o. 4 times daily #120 for a 1 month supply to help with her chronic pain symptoms. I will follow up with her for the above injection at the next available appointment. I will also schedule her for a 1 month follow-up appointment as well as for medication refills. [facility] #[id number] and prior drug screens were reviewed and appropriate. [facility] History Medical History: Reports:: Asthma, Atrial Fibrillation, Cancer, Coronary Artery Disease, Diabetes Mellitus Type 2, Hyperlipidemia, Hypertension Denies:: Diabetes Mellitus Type 1, Internal Pacemaker, MRSA, Seizures *Have you ever received a pneumonia vaccine?: Yes *Have you received a flu vaccine this season?: Yes Other Medical History: Reports: Arthritis, Sinus Problems Laterality Cases: Left: Carpal Tunnel Release, Right: Breast Biopsy, Lumpectomy, Bilateral: Tonsillectomy, Other Other Surgeries: Yes: Cardiac Catheterization, Cholecystectomy, Colonoscopy, Coronary Stent, Tubal Ligation. No: Pacemaker Amputation: No Fractures: Yes (Right elbow) - *Social History Smoking Status: Never smoker Alcohol Intake: never Alcohol Intake Frequency:: other Substance Use Type: denies use *Occupational Status:: unemployed Housing: house Household Members: children, spouse *Travel in the last 8 weeks: None Family Hx:: Other
== END ==
PROVIDERS: Visit Provider Anesthesiology Pain Medicine
DX: M70.61 Trochanteric bursitis, right hip (principal); M51.16 Intervertebral disc disorders with radiculopathy, lumbar region; M48.56XA Collapsed vertebra, not elsewhere classified, lumbar region, initial encounter for fracture; Z98.890 Other specified postprocedural states
CPT/HCPCS: 99212; G0463

== ENCOUNTER 2021-11-12 17:46 | Observation (INO) | payer MEDICARE, SELFPAY ==
[2021-11-12 17:47] VITALS: BP 160/83; PULSE 131; RESP 18; TEMP 36.9; O2SAT 99; BMI 48.9
--- NOTE | 2021-11-12 17:56 | XR_ITS ---
PROCEDURE INFORMATION: Exam: XR Chest Exam date and time: 11/12/2021 5:56 PM Age: 76 years old Clinical indication: Shortness of breath and other: AMS TECHNIQUE: Imaging protocol: XR of the chest. Views: 1 view. COMPARISON: CR XR CHEST PORTABLE 10/29/2019 6:23 AM FINDINGS: Limitations: Suboptimal technique related to patient positioning severely degrades images and limits evaluation. Lungs: Low lung volumes. Ground-glass opacity throughout the right lung is at least in part due to summation artifact related to patient rotation. Pleural spaces: No pleural effusion. No pneumothorax. Heart/Mediastinum: Cardiomediastinal silouhette is grossly unchanged accounting for differences in technique. Bones/joints: No definite acute osseous abnormality. Soft tissues: Unremarkable. IMPRESSION: No convincing evidence of acute cardiopulmonary disease within the limits of this exam.
[2021-11-12 18:18] LABS: Chloride 104 mmol/L (98-107); Potassium 3.9 mmoL/L (3.5-5.1); Sodium 136 mmol/L (136-145)
[2021-11-12 18:21] LABS: Alanine Aminotransferase 14 U/L (12-78); Albumin Level 3.9 g/dl (3.5-5.0); Albumin/Globulin Ratio 1.3 (1.1-1.8); Alkaline Phosphatase 98 U/L (38-126); Anion Gap 11.9 mEq/L (5-15); Aspartate Amino Transferase 20 U/L (14-36); Bilirubin,Total 0.8 mg/dl (0.2-1.3); Blood Urea Nitrogen 18 mg/dl (7-17); Calcium 7.9 mg/dl (8.4-10.2); Carbon Dioxide 24 mmol/L (22.0-30.0); Creatinine Clearance Estimated 42 mL/min (50-200); Estimated Glomerular Filt Rate 82 ml/min (>60); GFR (African American) 99 ML/MIN (>60); Globulin 3.1 g/dL (1.3-3.2); Glucose 156 mg/dl (74-100)
[2021-11-12 18:31] LABS: Microscopic, Urine URINE MICROSCOPIC (MICROSCOPIC)
[2021-11-12 18:43] LABS: Appearance,Urine CLOUDY (Clear); Bilirubin,Urine Negative (Negative); Blood, Urine 2+ (Negative); Color,Urine YELLOW (Yellow); Glucose,Urine (UA) Negative (Negative); Ketones,Urine 1+ (Negative); Leukocyte Esterase,Urine 2+ (Negative); Nitrate,Urine POSITIVE (Negative); PH,Urine 5.5 (5.0-8.5); Protein,Urine 1+ (Negative); Specific Gravity, Urine >= 1.030 (1.005-1.030); Urobilinogen,Urine 0.2 EU/dl (0.2)
--- NOTE | 2021-11-12 18:49 | PC.NURSE ---
Updated family on POC
[2021-11-12 18:58] LABS: Basophils % 0.3 % (0.1-2.0); Eosinophils # 0.1 K/mm3 (0.0-0.4); Eosinophils % 0.6 % (0.1-12.0); Hematocrit 31.6 % (37.0-47.0); Hemoglobin 9.6 g/dL (12.2-16.2); Lymphocytes # 1.2 K/mm3 (0.7-4.5); Mean Corpuscular HGB Conc 30.3 g/dL (31.8-35.4); Mean Corpuscular Hemoglobin 24.2 pg (27.0-31.2); Mean Corpuscular Volume 79.9 fl (81-99); Mean Platelet Volume 8.3 fl (7.4-10.4); Monocytes # 0.8 K/mm3 (0.1-1.0); Monocytes % 5.9 % (1.7-9.3); Neutrophils # 11.1 K/mm3 (1.8-7.8); Neutrophils % 84.1 % (37.0-80.0); Platelet Count 379 K/mm3 (142-424); Red Blood Count 3.96 M/mm3 (4.20-5.40); White Blood Count 13.2 K/mm3 (4.8-10.8)
[2021-11-12 19:08] LABS: Bacteria,Urine 2+ /lpf; WBC,Urine TNTC #/hpf (0-3); Yeast,Urine 2+ /lpf
[2021-11-12 19:09] LABS: Coronavirus 19, PCR Not Detected (NotDetected); Influenza A, PCR Not Detected (NotDetected); Influenza B, PCR Not Detected (NotDetected)
--- NOTE | 2021-11-12 19:28 | HMH.ITSTN ---
took a measurement of scanner opening and patient and unable to do the scan here due to patient size -- will bump sides of scanner and stop the scan. discussed with ER so she was made aware
[2021-11-12 19:32] LABS: Magnesium 1.1 mg/dl (1.6-2.3)
[2021-11-12 19:45] LABS: NT Pro Brain Natriuretic Pep. 1450 pg/mL (0-450)
[2021-11-12 19:47] LABS: Lactic Acid 1.1 mmol/L (0.7-2.1)
[2021-11-12 19:49] LABS: Troponin I 0.01 ng/ml (0.00-0.034)
--- NOTE | 2021-11-12 21:24 | HMH.EDGENADL ---
ED Disposition Clinical Impression: Urinary tract infection Qualifiers: Urinary tract infection type: site unspecified Hematuria presence: with hematuria Qualified Code(s): N39.0 - Urinary tract infection, site not specified; R31.9 - Hematuria, unspecified Disposition: Admitted As Inpatient Condition on Discharge: Undetermined Instructions: DI for Altered Mental Status Referrals: Jamil Carey MD [Primary Care Provider] - - Critical Care Critical Care Time: No Attestation: On 11/12/21, the high probability of a clinically significant, sudden or life threatening deterioration of the following system(s) required my full and direct attention, intervention and personal management. The time I documented below is in addition to time spent performing reported procedures but includes the following listed in this critical care notation. Medical Decision Making - Medical Records Medical records reviewed: Yes: I reviewed the patient's medical records. - Compa Inquiry Pt receiving controlled substance: No Vital Signs: 11/12/21 17:47 Temperature 98.5 F Temperature Source Oral Pulse Rate [Left Radial] 131 H Respiratory Rate 18 Blood Pressure [Right Arm] 160/83 H Blood Pressure Mean [Right Arm] 108 02 Sat by Pulse Oximetry 99 - Lab Data Lab results reviewed: Yes: I reviewed the patient's lab results. Lab Results 11/12/21 17:45: WBC 13.2 H, RBC 3.96 L, Hgb 9.6 L, Hct 31.6 L, MCV 79.9 L, MCH 24.2 L, MCHC 30.3 L, RDW 17.0, Plt Count 379, MPV 8.3, Neut % (Auto) 84.1 H, Lymph % (Auto) 9.0 L, [place] % (Auto) 5.9, Eos % (Auto) 0.6, Baso % (Auto) 0.3, Neut # (Auto) 11.1 H, Lymph # (Auto) 1.2, [place] # (Auto) 0.8, Eos # (Auto) 0.1, Baso # (Auto) 0.0 11/12/21 17:45: Sodium 136, Potassium 3.9, Chloride 104, Carbon Dioxide 24, Anion Gap 11.9, BUN 18 H, Creatinine 0.70, Estimated Creat Clear 42, Estimated GFR 82, Est GFR ( Amer) 99, Glucose 156 H, Calcium 7.9 L, Total Bilirubin 0.8, AST 20, ALT 14, Alkaline Phosphatase 98, Total Protein 7.0, Albumin 3.9, Globulin 3.1, Albumin/Globulin Ratio 1.3 11/12/21 17:45: Magnesium 1.1 L, Troponin I 0.01, NT-Pro-B Natriuret Pep 1450 H 11/12/21 17:45: Lactate 1.1 11/12/21 18:26: Urine Color Yellow, Urine Appearance Cloudy, Urine pH 5.5, Ur Specific Home >= 1.030, Urine Protein 1+, Urine Glucose (UA) Negative, Urine Ketones 1+, Urine Blood 2+, Urine Nitrate Positive, Urine Bilirubin Negative, Urine Urobilinogen 0.2, Ur Leukocyte Esterase 2+ A, Urine RBC 10-20, Urine WBC Tntc, Ur Squamous Epith Cells None, Urine Bacteria 2+, Urine Yeast 2+ 11/12/21 19:02: SARS-CoV-2 (PCR) Not detected, Influenza A Untype (PCR) Not detected, Influenza Type B (PCR) Not detected Result diagrams: 11/12/21 17:45 11/12/21 17:45 Orders (Tests/Meds): ED MEDICATIONS Generic Name Dose Route Start Last Admin Trade Name Freq PRN Reason Stop Dose Admin Ceftriaxone Sodium 2 gm/ 100 mls @ 200 mls/hr 11/12/21 19:45 11/12/21 20:03 Sodium Chloride IV 11/26/21 19:44 200 mls/hr Q12H OSEI Administration Morphine Sulfate 4 mg 11/12/21 21:23 Morphine 2mg/Ml Syringe IV 11/12/21 21:24 ONCE ONE Sodium Chloride 10 ml 11/12/21 17:57 Sodium Chloride 0.9% 10ml Flush Syringe IV 12/12/21 17:56 NEEDED PRN Maintain IV Site ORDERS Category Date Time Status CT abdomen pelvis w con Stat Cat Scan 11/12/21 19:06 Ordered CTA Chest [CT angio chest PE protocol] Stat Cat Scan 11/12/21 19:08 Ordered Troponin I Q3H Lab 11/12/21 22:15 Ordered Troponin I Q3H Lab 11/13/21 01:15 Ordered Blood Culture Stat Micro 11/12/21 17:45 Received Urine Culture Stat Micro 11/12/21 18:26 Received Medical Decision Narrative: Patient is a 76-year-old female presenting with a chief complaint of altered mental status and associated fatigue for the past few days. Patient is very and healthy at baseline and essentially immobile secondary to morbid obesity. Additionally, she has chronic pain due
--- NOTE | 2021-11-12 22:02 | PC.NURSE ---
report called to Ela
[2021-11-12 22:08] VITALS: BP 138/51; PULSE 100; RESP 18; TEMP 36.9; O2SAT 95
--- NOTE | 2021-11-12 22:12 | PC.NURSE ---
patient up to floor via stretcher at this time.
[2021-11-12 22:22] VITALS: BMI 60.7
[2021-11-12 22:30] VITALS: O2SAT 91
[2021-11-12 22:32] VITALS: BP 138/57; PULSE 110; RESP 20; TEMP 36.8; O2SAT 91
[2021-11-12 23:11] VITALS: O2SAT 92
[2021-11-13 03:27] VITALS: BP 115/58; PULSE 96; RESP 20; TEMP 36.5; O2SAT 90
[2021-11-13 04:41] VITALS: BMI 60.4
--- NOTE | 2021-11-13 05:00 | PC.NURSE ---
PT HAS SLEPT SOME TONIGHT,MEDICATED X 1 FOR NECK PAIN,PT LUNGS CLEAR ALL FRONT,RESP.EVEN AND UNLABORED.GONZALEZ CATH PATENT AND DRAINING DARK YELLOW URINE,MECHE-CARE THIS MORE AND GONZALEZ CARE.LEGS VERY EDEMATOUS.IV INFUSING WITHOUT DIFF.HAVE BEEN ASSISTING PT WITH TURNS
[2021-11-13 06:30] VITALS: O2SAT 90
[2021-11-13 06:37] LABS: POC Glucose,Bedside 168 (70-110)
[2021-11-13 07:14] LABS: Alanine Aminotransferase 13 U/L (12-78); Albumin Level 3.5 g/dl (3.5-5.0); Albumin/Globulin Ratio 1.3 (1.1-1.8); Alkaline Phosphatase 75 U/L (38-126); Anion Gap 8.7 mEq/L (5-15); Aspartate Amino Transferase 18 U/L (14-36); Bilirubin,Total 0.7 mg/dl (0.2-1.3); Blood Urea Nitrogen 18 mg/dl (7-17); Carbon Dioxide 26 mmol/L (22.0-30.0); Chloride 105 mmol/L (98-107); Creatinine Clearance Estimated 42 mL/min (50-200); Estimated Glomerular Filt Rate 97 ml/min (>60); GFR (African American) 118 ML/MIN (>60); Globulin 2.7 g/dL (1.3-3.2); Glucose 168 mg/dl (74-100); Potassium 3.7 mmoL/L (3.5-5.1); Sodium 136 mmol/L (136-145); Total Protein,Serum 6.2 g/dl (6.3-8.2)
--- NOTE | 2021-11-13 07:25 | P.CONPHA_ITS ---
[facility] Pharm[facility] VTE Monitoring - Patient Demographics Admission date: 11/13/21 Report Date: 11/13/21 Time: 07:25 Allergies/Adverse Reactions: Patient Allergies Penicillins Allergy (Unknown, Verified 10/22/21 11:01) Height: 1.63 m Weight: 160.628 kg Patient Problems: Current Active Problems Urinary tract infection (Acute) - VTE Risk Labs: VTE Related Lab Results Hgb 9.6 g/dL (12.2-16.2) L 11/12/21 17:45 Hct 31.6 % (37.0-47.0) L 11/12/21 17:45 Plt Count 379 K/mm3 (142-424) 11/12/21 17:45 BUN 18 mg/dl (7-17) H 11/13/21 05:44 Creatinine 0.60 mg/dl (0.52-1.04) 11/13/21 05:44 Estimated Creat Clear 42 mL/min (50-200) 11/13/21 05:44 Was VTE Risk Assessment Performed: Yes VTE Score: 6 VTE Risk Level: Moderate Risk Clinical Trial Participant: No - Prophylaxis VTE Prophylaxis Ordered?: Yes Types of VTE Prophylaxis: TEDS Knee High
--- NOTE | 2021-11-13 07:43 | HMH.PHAINT ---
Home med rec complete
[2021-11-13 08:00] VITALS: BP 118/60; PULSE 71; PULSE 76; RESP 20; RESP 22; TEMP 36.4; O2SAT 93; O2SAT 94
--- NOTE | 2021-11-13 10:13 | HMH.HP ---
*Admission Date: 11/13/21 *Chief complaint: Altered Mental Status *History of present illness: 76-year-old female patient presents to the [facility] emergency department via EMS for reports of increased confusion, shortness of breath, and fatigue for the past several days. Daughter is with patient reports that she has been at home she has increasingly gotten more confused and has been unable to care for herself. Her daughter also reports she has had multiple orthopedic surgeries to her feet and is up only with assistance and now usually only transfers to bedside commode. Upon presentation to the emergency department she did require supplemental oxygen and attempt was made to have a chest CTA to rule out PE, but patient was unable to fit into CT scanner. Blood cell count is elevated and UA has positive leukocytes and positive bacteria, She did receive 2 g of ceftriaxone in the emergency department [facility] History I have reviewed the patient's past medical history: Yes Medical History: Reports:: Asthma, Atrial Fibrillation, Cancer, Coronary Artery Disease, Diabetes Mellitus Type 2, Hyperlipidemia, Hypertension Denies:: Diabetes Mellitus Type 1, Internal Pacemaker, MRSA, Seizures *Have you ever received a pneumonia vaccine?: Yes *Have you received a flu vaccine this season?: Yes Other Medical History: Reports: Arthritis, Cataracts, Chemotherapy, Sinus Problems, Other (OBESITY,JESSICA) Laterality Cases: Left: Carpal Tunnel Release, Right: Breast Biopsy, Lumpectomy, Bilateral: Tonsillectomy, Other Other Surgeries: Yes: Cardiac Catheterization, Cholecystectomy, Colonoscopy, Coronary Stent, Tubal Ligation. No: Pacemaker Amputation: No Fractures: Yes (Right elbow) - *Social History Smoking Status: Never smoker Alcohol Intake: never Alcohol Intake Frequency:: other Substance Use Type: denies use *Occupational Status:: retired Housing: house Household Members: children *Travel in the last 8 weeks: None Family Hx:: Other Review of Systems - Review of Systems Review of systems:: pertinent systems reviewed and negative unless documented below - Constitutional Reports fatigue, Reports fever(s) - Eyes Denies blurry vision, Denies double vision - ENT Denies dizziness, Denies difficulty swallowing - *Cardiovascular Reports chest pain, Reports chest pain at rest, Reports shortness of breath - *Respiratory Reports shortness of breath, Denies chest congestion, Denies cough - *Gastrointestinal Reports nausea, Denies abdominal pain, Denies feeling full early - *Musculoskeletal Reports abnormal walking, Reports joint pain, Reports deformity, Reports muscle weakness - *Neurologic Reports confusion, Denies localized weakness - Psychiatric Denies lack of enjoyment, Denies anxiety - Endocrine Denies cold intolerance, Denies excessive sweating - Hematologic/Lymphatic Denies easy bleeding, Denies easy bruising - Allergic/Immunologic Denies GI upset with certain foods, Denies throat swelling Meds Home Medications Medication Instructions Recorded Confirmed Type atorvastatin 80 mg tablet 80 mg PO HS 06/08/19 11/12/21 History montelukast 10 mg tablet 10 mg PO HS 02/14/20 11/12/21 History metformin 500 mg tablet 1,000 mg PO BID 90 Days #360 tab 08/09/20 11/12/21 History albuterol sulfate 2.5 mg INHALATION NEEDED PRN ml 10/26/20 11/12/21 History insulin human U-100 NPH-regulr 40 unit SQ BID ml 10/26/20 11/12/21 History 70-30 mix 100 unit/mL subcutaneous susp cetirizine 10 mg tablet 10 mg PO DAILY 11/07/20 11/12/21 History duloxetine 30 mg capsule,delayed 60 mg PO DAILY 11/07/20 11/12/21 History release Clopidogrel Bisulfate [Plavix] 75 mg PO DAILY 09/03/21 11/12/21 History Fluticasone/Umeclidin/Vilanter 1 puffs IH DAILY 09/03/21 11/12/21 History [Trelegy Ellipta 200/62.5/25mcg Inhaler] Metoprolol Succinate [Metoprolol 50 mg PO DAILY 09/03/21 11/12/21 History Succinate 50mg Tablet*] Pregaba
[2021-11-13 10:17] LABS: Hemoglobin A1C 9.6 % (4.0-6.0)
--- NOTE | 2021-11-13 11:25 | HMH.OTEV ---
OT Inpatient Evaluation Rehab OT IP Evaluation Start: 11/13/21 09:36 Freq: ONCE Status: Complete Protocol: Document 11/13/21 11:11 [facility] (Rec: 11/13/21 11:25 [facility] [id number]) Rehab OT IP Assessment Subjective History Pt oriented x 3 on arrival. Pt agreeable to engage in therapy evaluation. Pt's daughter present during therapy evaluation. Pt admitted via Ed on 11/12/21 due to UTI. Prior to being in the hospital she lived at home with her daughter. Pt required assistance with all ADLs and was dependent on her daughter for completion of IADLs. Pt has a motorized w/c she uses. Pt explains prior to being in the hospital she was able to transfer herself from surface to surface with assistance. The following information was copied from history and physical report: Patient is a 76-year-old female presenting with a chief complaint of altered mental status and associated fatigue for the past few days. Patient is very and healthy at baseline and essentially immobile secondary to morbid obesity. Additionally, she has chronic pain due to orthopedic injuries. Initially, patient required supplemental oxygen for appropriate SPO2 but was hemodynamically stable and afebrile here. Per daughter, she had a T-max at home of 103 . Patient was evaluated with CBC, CMP, lactic acid, chest x -ray, UA and COVID-19 screen. I wanted to evaluate patient with CT PE protocol and CT abdomen pelvis but patient will not fit into the CT scanner. Lab work shows leukocytosis with white blood
--- NOTE | 2021-11-13 11:31 | HMH.PTEV ---
Physical Therapy Evaluation Rehab PT IP Evaluation Start: 11/13/21 09:35 Freq: ONCE Status: Active Protocol: Document 11/13/21 11:26 [facility] (Rec: 11/13/21 11:31 [facility] [id number]) Subjective/History History History 76 yowf adm to [facility] with UTI and AMS. Pt reports she lives with daughter, ramp to enter the home, is non-ambulatory using a motorized w/c for all mobility, requires assist for all activity at baseline. Subjective Subjective Pt reports feeling better overall, more alert, close to baseline mobility. Rehab PT IP Eval Objective Appearance Patient Behavior Appropriate Patient Orientation Person,Place,Time Difficulty following instructions none Speech Pattern Clear Ambulation Patient Able to Ambulate No Balance Ability to Arise Unable Sitting Balance Leans or slides in chair Dynamic Sitting Balance Ability Fair Transfers Bed Transfer Ability Moderate x 2 (50% assist) Rehab PT IP prob,goals,plan Problems Date of Evaluation: 11/13/21 PT IP Problems Bed Mobility,Transfers Rehab Potential Rehab Potential Fair Plan PT Intervention Plan Bed Mobility,Transfers, Therapeutic Exercise PT Plan Frequency BID Duration LOS Discharge Goals Bed Transfer Ability Moderate x 1 (50% assist) Sit to Stand Chair Transfer Ability Moderate x 1 (50% assist) Discharge Plan PT Discharge Plan Pt appears to be basically at baseline for all mobility at this time as she was significantly limited prior to adm. Pt is most appropriate for SNF placement, but can return home with family assist if it is available. G -code Required No Eval Complexity Eval Charge Codes 13215 - High Complexity PHYSICIAN CERTIFICATION: I certify the specified therapy services for Alicia Royal are required, authorized, and reviewed every 30 days.
[2021-11-13 11:49] LABS: POC Glucose,Bedside 236 (70-110)
[2021-11-13 12:17] VITALS: BMI 60.2
--- NOTE | 2021-11-13 15:21 | SW/DCPLANNER ---
Addendum entered by Brandie Peterson RN 11/14/21 10:51: Daughter and patient states a need for hospital bed. Spoke with [facility] and faxed information. Home health referral sent to [facility]. CORAL Nuñez Original Note: I spoke with patient and her daughter this AM during rounds. The plan for this patient once medically stable for discharge is to return home with her daughter. Daughter has stated that she is not interested in placement for this patient. Daughter is interested in home health services (previously used [facility]) and does need a hospital bed at home. I will continue to follow up with this patient/family until medically stable for discharge. Home health services will be set up at time of discharge.
[2021-11-13 17:02] LABS: POC Glucose,Bedside 266 (70-110)
[2021-11-13 19:30] VITALS: BP 144/71; PULSE 100; RESP 20; TEMP 36.4; O2SAT 92
[2021-11-14] VITALS: BP 141/75; PULSE 81; RESP 20; TEMP 36.3; O2SAT 95
[2021-11-14 04:51] VITALS: BMI 61.4
[2021-11-14 06:10] LABS: POC Glucose,Bedside 229 (70-110)
[2021-11-14 06:31] VITALS: O2SAT 98
[2021-11-14 06:45] LABS: Basophils # 0.1 K/mm3 (0-0.2); Basophils % 0.6 % (0.1-2.0); Eosinophils # 0.4 K/mm3 (0.0-0.4); Eosinophils % 5.2 % (0.1-12.0); Hematocrit 31.1 % (37.0-47.0); Hemoglobin 9.2 g/dL (12.2-16.2); Lymphocytes # 2.1 K/mm3 (0.7-4.5); Lymphocytes % 25.4 % (10-50); Mean Corpuscular HGB Conc 29.7 g/dL (31.8-35.4); Mean Corpuscular Hemoglobin 24.7 pg (27.0-31.2); Mean Corpuscular Volume 83.1 fl (81-99); Mean Platelet Volume 8.6 fl (7.4-10.4); Monocytes # 0.8 K/mm3 (0.1-1.0); Monocytes % 9.4 % (1.7-9.3); Neutrophils # 4.9 K/mm3 (1.8-7.8); Neutrophils % 59.4 % (37.0-80.0); Platelet Count 348 K/mm3 (142-424); Red Blood Count 3.73 M/mm3 (4.20-5.40); Red Cell Distribution Width 16.7 % (11.5-17.5); White Blood Count 8.2 K/mm3 (4.8-10.8)
[2021-11-14 07:16] LABS: Anion Gap 8.6 mEq/L (5-15); Blood Urea Nitrogen 25 mg/dl (7-17); Calcium 8.3 mg/dl (8.4-10.2); Carbon Dioxide 28 mmol/L (22.0-30.0); Chloride 103 mmol/L (98-107); Creatinine Clearance Estimated 42 mL/min (50-200); Estimated Glomerular Filt Rate 54 ml/min (>60); GFR (African American) 65 ML/MIN (>60); Glucose 236 mg/dl (74-100); Potassium 4.6 mmoL/L (3.5-5.1); Sodium 135 mmol/L (136-145)
[2021-11-14 07:39] VITALS: BP 139/74; PULSE 77; RESP 18; TEMP 36.5; O2SAT 96
[2021-11-14 08:00] VITALS: PULSE 77; O2SAT 96
--- NOTE | 2021-11-14 10:04 | CARE MANAGER ---
Patient has medical condition which requires frequent positioning/changes of the body in ways not feasible with an ordinary bed in order to alleviate pain. CORAL Nuñez
--- NOTE | 2021-11-14 10:52 | HMH.DCSUM ---
General - General Admission date:: 11/12/21 Discharge date: 11/14/21 HPI HPI: 76-year-old female patient presents to the [facility] emergency department via EMS for reports of increased confusion, shortness of breath, and fatigue for the past several days. Daughter is with patient reports that she has been at home she has increasingly gotten more confused and has been unable to care for herself. Her daughter also reports she has had multiple orthopedic surgeries to her feet and is up only with assistance and now usually only transfers to bedside commode. Upon presentation to the emergency department she did require supplemental oxygen and attempt was made to have a chest CTA to rule out PE, but patient was unable to fit into CT scanner. Blood cell count is elevated and UA has positive leukocytes and positive bacteria, She did receive 2 g of ceftriaxone in the emergency department Hospital Course Hospital Course: Abnormal Lab Results 11/13/21 11:16: POC Glucose 236 H 11/13/21 16:40: POC Glucose 266 H 11/14/21 05:33: POC Glucose 229 H 11/14/21 05:46: RBC 3.73 L, Hgb 9.2 L, Hct 31.1 L, MCH 24.7 L, MCHC 29.7 L, [place] % (Auto) 9.4 H 11/14/21 05:46: Sodium 135 L, BUN 25 H D, Estimated GFR 54 L, Glucose 236 H, Calcium 8.3 L Microbiology 11/12/21 18:26 Urine,Catheterized Urine Culture - Final Klebsiella pneumoniae Ordering Physician: Jade Haynes MD Date of Service: 11/12/21 Procedure(s): XR chest portable Accession Number(s): [id number] cc: Mary Cheatham MD; Jamil Carey MD~ PROCEDURE INFORMATION: Exam: XR Chest Exam date and time: 11/12/2021 5:56 PM Age: 76 years old Clinical indication: Shortness of breath and other: AMS TECHNIQUE: Imaging protocol: XR of the chest. Views: 1 view. COMPARISON: CR XR CHEST PORTABLE 10/29/2019 6:23 AM FINDINGS: Limitations: Suboptimal technique related to patient positioning severely degrades images and limits evaluation. Lungs: Low lung volumes. Ground-glass opacity throughout the right lung is at least in part due to summation artifact related to patient rotation. Pleural spaces: No pleural effusion. No pneumothorax. Heart/Mediastinum: Cardiomediastinal silouhette is grossly unchanged accounting for differences in technique. Bones/joints: No definite acute osseous abnormality. Soft tissues: Unremarkable. IMPRESSION: No convincing evidence of acute cardiopulmonary disease within the limits of this exam. Discharge plan: uti- sensitive to levaquin will dc on levaquin 750mg po q48 start in 2 days. dose given today. Objective Vital signs: Temp Pulse Resp BP Pulse Ox 97.7 F 77 18 139/74 96 11/14/21 07:39 11/14/21 08:00 11/14/21 07:39 11/14/21 07:39 11/14/21 08:00 no acute distress, obese - *Routine HEENT Exam Head: Present: normocephalic Eye: Present: PERRL ENT: Present: mucous membranes moist - *Routine Neck Exam Present: supple - *Routine Respiratory Exam Present: CTA bilaterally - *Routine Cardiovascular Exam Present: RRR - *Routine Abdominal Exam Present: soft, normoactive bowel sounds. Absent: tenderness - *Routine Extremities Exam Present: edema - *Routine Skin Exam Present: warm. Absent: rash - *Routine Neurological Exam Present: alert, oriented X3 Results Labs on day of discharge: Labs from last 24 hours 11/14/21 11/14/21 11/14/21 05:46 05:46 05:33 WBC 8.2 D RBC 3.73 L Hgb 9.2 L Hct 31.1 L MCV 83.1 MCH 24.7 L MCHC 29.7 L RDW 16.7 Plt Count 348 MPV 8.6 Neut % (Auto) 59.4 Lymph % (Auto) 25.4 [place] % (Auto) 9.4 H Eos % (Auto) 5.2 Baso % (Auto) 0.6 Neut # (Auto) 4.9 Lymph # (Auto) 2.1 [place] # (Auto) 0.8 Eos # (Auto) 0.4 Baso # (Auto) 0.1 Sodium 135 L Potassium 4.6 D Chloride 103 Carbon Dioxide 28 Anion Gap 8.6 BU
[2021-11-14 11:04] LABS: POC Glucose,Bedside 298 (70-110)
--- NOTE | 2021-11-14 12:46 | HMH.PHAINT ---
Discharge counseling complete. Informed pt and telehealth coordinator of new medication, purpose, how to take, and possible side effects. Both understood and had no questions or concerns.
--- NOTE | 2021-11-16 14:21 | CARE MANAGER ---
Called patient since she discharged from the hospital and she is doing well. Her daughter states that she has her medications and all her DME was delivered. No needs at this time.
== END 2021-11-14 13:25 | disposition home or self-care (01) ==
LOC: ER 17:49 → 2ND 21:33
PROVIDERS: Nurse Practitioner Family; Admitting Provider Emergency Medicine; Emergency Provider Emergency Medicine; PCP Emergency Medicine; Visit Provider Emergency Medicine
DX: N39.0 Urinary tract infection, site not specified (principal); E11.9 Type 2 diabetes mellitus without complications; Z79.4 Long term (current) use of insulin; Z79.01 Long term (current) use of anticoagulants; Z79.899 Other long term (current) drug therapy; Z20.822 Contact with and (suspected) exposure to COVID-19; I48.0 Paroxysmal atrial fibrillation; I25.10 Atherosclerotic heart disease of native coronary artery without angina pectoris; E78.5 Hyperlipidemia, unspecified; E66.01 Morbid (severe) obesity due to excess calories; Z68.44 Body mass index [BMI] 60.0-69.9, adult; Z95.5 Presence of coronary angioplasty implant and graft; I89.0 Lymphedema, not elsewhere classified; R06.9 Unspecified abnormalities of breathing
CPT/HCPCS: G0378; 36415; 71045; 80048; 80053; 81001; 82962; 83036; 83605; 83735; 83880; 84484; 85025; 87040; 87086; 87088; 87186; 94640; 94760; 94761; 96365; 96367; 97110; 97163; 97166; 97530; 99285; C9803; J0696; J1956; U0003; U0005

== ENCOUNTER → 2021-12-06 10:55 | Outpatient (POV) | payer MEDICARE, SELFPAY ==
[2021-12-06 11:16] VITALS: BP 123/77; PULSE 81; RESP 20; O2SAT 94; BMI 60.7
--- NOTE | 2021-12-06 12:02 | HMH.PAINSOAP ---
[facility] Pain Management SOAP Note Subjective:: Patient is a pleasant 76-year-old female who is here for medication refill and follow-up. Patient is currently being treated for degenerative disc disease of lumbar spine with lumbar radiculopathy symptoms, status post kyphoplasty, bilateral feet pain. Patient is being managed with 5 mg 4 times a day as prescribed at his clinic. Patient has Lyrica 75 mg 3 times a day as prescribed by Dr. Carey. Patient denies any side effects from the medications. Patient denies any changes to the location and type of pain. Patient states that this is adequately helping manage their pain. Rates pain as 6 out of 10. Compa number [id number] with an active morphine equivalent 0. Drug screens have been reviewed and appropriate. Patient has also been complaining of worsening neck pain patient states that she has been in and out of the hospital says that she cannot turn her head to her right side because of pain. Due to the patient's comorbidities and body habitus, patient is unable to get any injections. We are managing this patient with oral medications at this time. Review of Systems: General: No recent weight changes, no fever, no sleep disturbances Respiratory: No cough, no shortness of air, no recurring pulmonary infections Cardiovascular/peripheral vascular: No chest pain, no palpitations, no edema, no shortness of breath Gastrointestinal: No new onset incontinence, normal bowel movements reported Genitourinary: No new onset incontinence Musculoskeletal: Low back pain, neck pain Psychiatric: [Normal mood/affect] Neurological: [Denies weakness in extremities], [denies balance issues] Objective:: Physical Exam: General: Alert and oriented x3, no acute distress, pleasant and cooperative, [on room air]; patient presents today on wheelchair. Lungs: Respirations even and unlabored, symmetrical chest expansion Eyes: PERRL Musculoskeletal: Flexion and extension of cervical and lumbar [spine] somewhat guarded secondary to pain, [antalgic gait noted] Neurological: Speech clear, no gross sensory deficit Assessment:: Degenerative disc disease of the cervical and lumbar spine with cervical lumbar radiculopathy symptoms Bilateral feet pain Plan:: We will continue the patient's Osgood 5 mg 4 times a day. We will provide the patient with 1 month of refills. We would like to see the patient back in [] for follow-up and reevaluation of chronic pain syndrome. For neck pain, since we cannot do any injections at this time, I will start her on some lidocaine patches to help with some of her discomfort. Patient has been advised of risks of oversedation with the prescribed medication. Narcan has been offered to the patient in the event of oversedation. Patient has been advised that a family member should also be educated regarding administration of Narcan. Patient has been instructed to contact the clinic with any concerns before the next appointment. Dr. Uribe has reviewed this note and agrees with this plan of care. This note was dictated using voice recognition software and make contain errors or omissions. [facility] History Medical History: Reports:: Asthma, Atrial Fibrillation, Cancer, Coronary Artery Disease, Diabetes Mellitus Type 2, Hyperlipidemia, Hypertension Denies:: Diabetes Mellitus Type 1, Internal Pacemaker, MRSA, Seizures *Have you ever received a pneumonia vaccine?: Yes *Have you received a flu vaccine this season?: Yes Other Medical History: Reports: Arthritis, Cataracts, Chemotherapy, Sinus Problems, Other (OBESITY,JESSICA) Laterality Cases: Left: Carpal Tunnel Release, Right: Breast Biopsy, Lumpectomy, Bilateral: Tonsillectomy, Other Other Surgeries: Yes: Cardiac Catheterization, Cholecystectomy, Colonoscopy, Coronary Stent, Tubal Ligation. No: Pacemaker Amputation: No Fractures: Yes (Right elbow) - *Social History Smoking Status: Never smoker Alcohol Intake: never Alcohol Intake Frequency:: other Substa
== END ==
PROVIDERS: Visit Provider Student in an Organized Health Care Education/Training Program
DX: M50.10 Cervical disc disorder with radiculopathy, unspecified cervical region (principal); M79.672 Pain in left foot; M79.671 Pain in right foot; M51.16 Intervertebral disc disorders with radiculopathy, lumbar region
CPT/HCPCS: 99212; G0463

== ENCOUNTER → 2021-12-18 07:53 | Outpatient (CLI) | payer MEDICARE, SELFPAY ==
--- NOTE | 2021-12-18 07:54 | CA_ITS ---
APPROVED REPORT EXAM: Comprehensive 2D, Doppler, and color-flow Echocardiogram Fuel Handler: Cristin Lees CRT Ht: 5 ft 4 in Wt: 350lbs BSA: 2.48 BP: 140/83 mmHg Indications: Diabetes, Atrial Fibrillation (chronic), Peripheral Edema, Hyperlipidemia, Hypertension/HDD, Pt scanned in motorized wheelchair, unable to get on stretcher. 2D Dimensions LVOT 1.89 cm (M/F) 1.5-2.5 LA Volume 54.00 mL LA Volume Index 21.80 mL/m2 (M/F) 16-34 M-Mode Dimensions RVDd 3.46 cm (0.9-2.6) LA Diam 4.61 cm (1.9-4.0) LVDd 4.07 cm (3.5-5.7) Ao Diam 3.56 cm (2.0-3.7) LVDs 2.96 cm (3.5-5.7) IVSd 1.63 cm (0.6-1.1) PWd 1.33 cm (0.6-1.1) EF (Teich) 53.50% FS 27.30% EDV (Teich) 72.90 mL TAPSE 1.92 (<1.7) ESV (Teich) 33.90 mL LV Diastology E Decel Time 243.00 (160-240 msec) E/A Ratio 0.87 Aortic Valve AO Peak GR. 6.80 mmHg Mitral Valve MV E Max Monty. 41.00 (40-130 cm/s) MV A Velocity 47.00 (40-130 cm/s) E/A Ratio 0.87 MV Decel. Time 243.00 (160-240 ms) MV PHT 71.00 ms Pulmonary Valve PV Peak Velocity 243.00 (50-150 cm/s) Tricuspid Valve TR P. Velocity 294.00 cm/s RAP Estimate 10.00 mmHg RVSP 44.60 mmHg Left Ventricle Technically difficult study, left atrium is mildly enlarged, left ventricle normal size, mild concentric left ventricular hypertrophy, estimated ejection fraction 55% with no regional wall motion abnormality, diastolic parameters are inconclusive. Right Ventricle Right atrium and right ventricle mildly enlarged with normal contractility. Aortic Valve Aortic valve is minimally thickened and fibrosed, there is no aortic stenosis or aortic insufficiency. Mitral Valve Mitral valve is grossly normal, there is mild mitral regurgitation. Tricuspid Valve Tricuspid grossly normal, there is mild tricuspid regurgitation, calculated right ventricular systolic pressure 30 mmHg. Pulmonic Valve Pulmonic valve is poorly visualized. Great Vessels Aortic root is normal size. Inferior vena cava is mildly dilated without significant inspiratory collapse. Pericardium No significant pericardial effusion. Conclusion 1. Technically difficult study because of the patient factors and poor acoustic windows. Mild biatrial enlargement, normal left ventricular size, mild concentric left ventricular hypertrophy, estimated ejection fraction 55% with no regional wall motion abnormality, diastolic parameters are inconclusive. 2. Mildly enlarged right ventricle with normal contractility. 3. Mild mitral and tricuspid regurgitation, calculated right ventricular systolic pressure 30 mmHg. 4. Inferior vena cava is mildly dilated without significant inspiratory collapse. 5. No significant pericardial effusion noted. Electronically signed by : Stephane Morales MD 12/19/2021 06:12:48
== END ==
LOC: RT 07:54
PROVIDERS: PCP Emergency Medicine; Visit Provider Internal Medicine
DX: E11.69 Type 2 diabetes mellitus with other specified complication (principal); E78.2 Mixed hyperlipidemia; I10 Essential (primary) hypertension; I25.10 Atherosclerotic heart disease of native coronary artery without angina pectoris; I48.20 Chronic atrial fibrillation, unspecified; R06.00 Dyspnea, unspecified; Z79.01 Long term (current) use of anticoagulants; Z79.4 Long term (current) use of insulin
CPT/HCPCS: 93306

== ENCOUNTER → 2021-12-24 15:28 | Outpatient (CLI) | payer MEDICARE, SELFPAY ==
[2021-12-24 17:09] LABS: Chloride 96 mmol/L (98-107)
[2021-12-24 17:10] LABS: Sodium 137 mmol/L (136-145)
[2021-12-24 17:12] LABS: Blood Urea Nitrogen 37 mg/dl (7-17); Estimated Glomerular Filt Rate 54 ml/min (>60); GFR (African American) 65 ML/MIN (>60)
[2021-12-24 17:13] LABS: Carbon Dioxide 32 mmol/L (22.0-30.0); Glucose 241 mg/dl (74-100)
[2021-12-24 17:14] LABS: Calcium 10.1 mg/dl (8.4-10.2)
[2021-12-24 22:33] LABS: Anion Gap 13.8 mEq/L (5-15); Potassium 4.8 mmoL/L (3.5-5.1)
== END ==
PROVIDERS: Visit Provider Physician Assistant
DX: E11.69 Type 2 diabetes mellitus with other specified complication (principal); E78.2 Mixed hyperlipidemia; I10 Essential (primary) hypertension; I25.10 Atherosclerotic heart disease of native coronary artery without angina pectoris; I48.20 Chronic atrial fibrillation, unspecified; Z79.01 Long term (current) use of anticoagulants; Z79.84 Long term (current) use of oral hypoglycemic drugs
CPT/HCPCS: 36415; 80048

== ENCOUNTER → 2022-01-14 10:58 | Outpatient (POV) | payer MEDICARE, SELFPAY ==
[2022-01-14 11:43] VITALS: BP 145/78; PULSE 58; RESP 20; TEMP 36.5; O2SAT 93; BMI 54.9
--- NOTE | 2022-01-14 14:44 | HMH.PAINSOAP ---
[facility] Pain Management SOAP Note Subjective:: Patient is a pleasant 76-year-old female who is here for medication refill and follow-up. Patient is currently being treated for degenerative disc disease of lumbar spine with lumbar radiculopathy symptoms, status post kyphoplasty, bilateral feet pain. Patient is being managed with [place] 5 mg 4 times a day that is prescribed at his clinic. Patient is also prescribed Lyrica 75 mg 3 times a day by an outside provider. Patient denies any side effects from the medications. Patient denies any changes to the location and type of pain. Patient states that this is adequately helping manage their pain. Rates pain as 8 out of 10. [facility] number [id number] with an active morphine equivalent 0 Review of Systems: General: No recent weight changes, no fever, no sleep disturbances Respiratory: No cough, no shortness of air, no recurring pulmonary infections Cardiovascular/peripheral vascular: No chest pain, no palpitations, no edema, no shortness of breath Gastrointestinal: No new onset incontinence, normal bowel movements reported Genitourinary: No new onset incontinence Musculoskeletal: Low back pain Psychiatric: [Normal mood/affect] Neurological: [Denies weakness in extremities], [denies balance issues] . Drug screens have been reviewed and appropriate. Objective:: Physical Exam: General: Alert and oriented x3, no acute distress, pleasant and cooperative Lungs: Respirations even and unlabored, symmetrical chest expansion Eyes: PERRL Musculoskeletal: Flexion and extension of lumbar [spine] somewhat guarded secondary to pain, [antalgic gait noted] Neurological: Speech clear, no gross sensory deficit Assessment:: Degenerative disc disease of lumbar spine with lumbar radiculopathy symptoms, bilateral feet pain Plan:: We will continue the patient's [place] 5 mg 4 times a day. We will provide the patient with 1 month of refills. We would like to see the patient back in 1 month for follow-up and reevaluation of chronic pain syndrome. Patient is also been complaining of worsening neck pain. She due to patient's comorbidities and body habitus, patient is unable to get any injective therapy at this time. We will continue to manage this patient with oral pain medications. She has also been using [id number] patches that seems to help. Patient has been advised of risks of oversedation with the prescribed medication. Narcan has been offered to the patient in the event of oversedation. Patient has been advised that a family member should also be educated regarding administration of Narcan. Patient has been instructed to contact the clinic with any concerns before the next appointment. Dr. Uribe has reviewed this note and agrees with this plan of care. This note was dictated using voice recognition software and make contain errors or omissions. [facility] History Medical History: Reports:: Asthma, Atrial Fibrillation, Cancer, Coronary Artery Disease, Diabetes Mellitus Type 2, Hyperlipidemia, Hypertension Denies:: Diabetes Mellitus Type 1, Internal Pacemaker, MRSA, Seizures *Have you ever received a pneumonia vaccine?: Yes *Have you received a flu vaccine this season?: Yes Other Medical History: Reports: Arthritis, Cataracts, Chemotherapy, Sinus Problems, Other Laterality Cases: Left: Carpal Tunnel Release, Right: Breast Biopsy, Lumpectomy, Bilateral: Tonsillectomy, Other Other Surgeries: Yes: Cardiac Catheterization, Cholecystectomy, Colonoscopy, Coronary Stent, Tubal Ligation. No: Pacemaker Amputation: No Fractures: Yes (Right elbow) - *Social History Smoking Status: Never smoker Alcohol Intake: never Alcohol Intake Frequency:: other Substance Use Type: denies use *Occupational Status:: retired Housing: house Household Members: children *Travel in the last 8 weeks: None Family Hx:: Other
== END ==
PROVIDERS: Visit Provider Student in an Organized Health Care Education/Training Program
DX: M51.16 Intervertebral disc disorders with radiculopathy, lumbar region (principal)
CPT/HCPCS: 99212; G0463

== ENCOUNTER → 2022-02-14 10:53 | Outpatient (POV) | payer MEDICARE, SELFPAY ==
[2022-02-14 11:56] VITALS: BP 146/63; PULSE 67; RESP 18; TEMP 36.6; O2SAT 98; BMI 57.1
--- NOTE | 2022-02-14 14:03 | HMH.PAINSOAP ---
[facility] Pain Management SOAP Note Subjective:: Patient is a pleasant 76-year-old female who is here for medication refill and follow-up. Patient is currently being treated for degenerative disc disease of lumbar spine with lumbar radiculopathy symptoms, status post kyphoplasty, bilateral feet pain. Patient is being managed with [place] 5 mg 4 times a day that is prescribed by our clinic. Patient is also prescribed Lyrica 75 mg 3 times a day by an outside provider. Patient denies any side effects from the medications. Patient denies any changes to the location and type of pain. Patient states that this is adequately helping manage their pain. Rates pain as 3 out of 10. [facility] number [id number] with an active morphine equivalent 20. Drug screens have been reviewed and appropriate. Review of Systems: General: No recent weight changes, no fever, no sleep disturbances Respiratory: No cough, no shortness of air, no recurring pulmonary infections Cardiovascular/peripheral vascular: No chest pain, no palpitations, no edema, no shortness of breath Gastrointestinal: No new onset incontinence, normal bowel movements reported Genitourinary: No new onset incontinence Musculoskeletal: Low back pain Psychiatric: [Normal mood/affect] Neurological: [Denies weakness in extremities], [denies balance issues] Objective:: Physical Exam: General: Alert and oriented x3, no acute distress, pleasant and cooperative Lungs: Respirations even and unlabored, symmetrical chest expansion Eyes: PERRL Musculoskeletal: Flexion and extension of lumbar [spine] somewhat guarded secondary to pain, [antalgic gait noted] Neurological: Speech clear, no gross sensory deficit Assessment:: Degenerative disease of lumbar spine with lumbar radiculopathy symptoms, status post kyphoplasty Plan:: We will continue the patient's [place] 5 mg 4 times a day. Patient also states that we started her Lyrica but for some reason her PCP has been continuing it. Patient wants us to know if we can continue this medication. We can certainly continue her Lyrica 75 mg 3 times a day. We will provide the patient with 1 month of refills. We would like to see the patient back in 1 month for follow-up and reevaluation of chronic pain syndrome. Patient has been instructed to contact the clinic with any concerns before the next appointment. Dr. Uribe has reviewed this note and agrees with this plan of care. This note was dictated using voice recognition software and make contain errors or omissions. [facility] History Medical History: Reports:: Asthma, Atrial Fibrillation, Cancer, Coronary Artery Disease, Diabetes Mellitus Type 2, Hyperlipidemia, Hypertension Denies:: Diabetes Mellitus Type 1, Internal Pacemaker, MRSA, Seizures *Have you ever received a pneumonia vaccine?: Yes *Have you received a flu vaccine this season?: Yes Other Medical History: Reports: Arthritis, Cataracts, Chemotherapy, Sinus Problems, Other Laterality Cases: Left: Carpal Tunnel Release, Right: Breast Biopsy, Lumpectomy, Bilateral: Tonsillectomy, Other Other Surgeries: Yes: Cardiac Catheterization, Cholecystectomy, Colonoscopy, Coronary Stent, Tubal Ligation. No: Pacemaker Amputation: No Fractures: Yes (Right elbow) - *Social History Smoking Status: Never smoker Alcohol Intake: never Alcohol Intake Frequency:: other Substance Use Type: denies use *Occupational Status:: other Housing: house Household Members: children *Travel in the last 8 weeks: None Family Hx:: Other
[2022-02-20 11:28] LABS: Acetone <0.010 g/dL (0.000-0.010); Butalbital <1 ug/mL (1-10); Chlordiazepoxide <0.1 ug/mL (0.1-0.9); Diazepam <0.1 ug/mL (0.1-0.9); Ethanol <0.010 g/dL (0.000-0.010); Isopropanol <0.010 g/dL (0.000-0.010); Pentobarbital <1 ug/mL (1-5)
[2022-02-28 22:23] LABS: Oxymorphone GS/MS Negative (.)
== END ==
PROVIDERS: Visit Provider Student in an Organized Health Care Education/Training Program
DX: Z79.891 Long term (current) use of opiate analgesic (principal); M51.16 Intervertebral disc disorders with radiculopathy, lumbar region
CPT/HCPCS: 36415; 80306; 80307; 99212; G0463

== ENCOUNTER → 2022-03-14 13:01 | Outpatient (POV) | payer MEDICARE, SELFPAY ==
[2022-03-14 13:44] VITALS: BP 95/71; PULSE 81; RESP 20; TEMP 36.4; O2SAT 96; BMI 56.6
--- NOTE | 2022-03-14 15:08 | HMH.PAINSOAP ---
[facility] Pain Management SOAP Note Subjective:: Patient is a pleasant 76-year-old female who is here for medication refill and follow-up. Patient is currently being treated for degenerative disease of lumbar spine with lumbar radiculopathy symptoms, status post kyphoplasty, bilateral feet pain secondary to chronic lymphedema. Patient is being managed with Jeff 5 mg 4 times a day that is prescribed by our clinic. Patient is also prescribed Lyrica 75 mg 3 times a day by an outside provider.. Patient denies any side effects from the medications. Patient denies any changes to the location and type of pain. Patient states that this is adequately helping manage their pain. Rates pain as 10 out of 10. [facility] number [id number] with an active morphine equivalent 20. Drug screens have been reviewed and appropriate. Review of Systems: General: No recent weight changes, no fever, no sleep disturbances Respiratory: No cough, no shortness of air, no recurring pulmonary infections Cardiovascular/peripheral vascular: No chest pain, no palpitations, no edema, no shortness of breath Gastrointestinal: No new onset incontinence, normal bowel movements reported Genitourinary: No new onset incontinence Musculoskeletal: Low back pain, bilateral feet pain Psychiatric: [Normal mood/affect] Neurological: [Denies weakness in extremities], [denies balance issues] Objective:: Physical Exam: General: Alert and oriented x3, no acute distress, pleasant and cooperative Lungs: Respirations even and unlabored, symmetrical chest expansion Eyes: PERRL Musculoskeletal: Flexion and extension of lumbar [spine] somewhat guarded secondary to pain, [antalgic gait noted] Neurological: Speech clear, no gross sensory deficit Assessment:: Degenerative disc disease of lumbar spine with lumbar radiculopathy symptoms, status post kyphoplasty, bilateral feet pain secondary to lymphedema Plan:: Patient presents today complaining of worsening pain especially on her feet. She does have severe lymphedema on bilateral lower extremities. She has been evaluated by a lymphedema clinic who says that there is nothing to do due to the severity of her lymphedema. She has been having issues with mobility. She is currently moving around on a wheelchair. On exam today patient is in very low spirit. We will continue the patient's Jeff 5 mg 4 times a day. Will provide 1 month of refill. She has been having increasing peripheral neuropathic pain. I do recommend increasing the patient's lyrica to lyrica 100mg TID. Patient has been instructed to contact the clinic with any concerns before the next appointment. Dr. Uribe has reviewed this note and agrees with this plan of care. This note was dictated using voice recognition software and make contain errors or omissions. [facility] History Medical History: Reports:: Asthma, Atrial Fibrillation, Cancer, Coronary Artery Disease, Diabetes Mellitus Type 2, Hyperlipidemia, Hypertension Denies:: Diabetes Mellitus Type 1, Internal Pacemaker, MRSA, Seizures *Have you ever received a pneumonia vaccine?: Yes *Have you received a flu vaccine this season?: Yes Other Medical History: Reports: Arthritis, Cataracts, Chemotherapy, Sinus Problems, Other Laterality Cases: Left: Carpal Tunnel Release, Right: Breast Biopsy, Lumpectomy, Bilateral: Tonsillectomy, Other Other Surgeries: Yes: Cardiac Catheterization, Cholecystectomy, Colonoscopy, Coronary Stent, Tubal Ligation. No: Pacemaker Amputation: No Fractures: Yes (Right elbow) - *Social History Smoking Status: Never smoker Alcohol Intake: never Alcohol Intake Frequency:: other Substance Use Type: denies use *Occupational Status:: other Housing: house Household Members: children *Travel in the last 8 weeks: None Family Hx:: Other
== END ==
PROVIDERS: Visit Provider Student in an Organized Health Care Education/Training Program
DX: M51.16 Intervertebral disc disorders with radiculopathy, lumbar region (principal); I89.0 Lymphedema, not elsewhere classified
CPT/HCPCS: 99212; G0463

== ENCOUNTER → 2022-04-11 09:14 | Outpatient (POV) | payer MEDICARE, SELFPAY ==
--- NOTE | 2022-04-11 09:45 | HMH.PAINSOAP ---
[facility] Pain Management SOAP Note Subjective:: Patient is a pleasant 76-year-old female that presents today for a telehealth visit and medication refill. We are currently treating the patient for degenerative disc disease of lumbar spine with lumbar radiculopathy symptoms, status post kyphoplasty, bilateral feet pain secondary to chronic lymphedema. Patient rates her pain today a 10 out of 10. She states that this is an overall soreness and states it just hurts . Patient states that she has had 2 falls in the last week. She states both of those were getting up to go to the restroom. Patient is currently taking fluid pills which have increased her use of the bathroom. She is using a bedside commode. Her daughter states that these were a slow gradual slide down to the floor. Daughter stated that she did not go to the doctor following each of these falls. She stated that she was not concerned for any fractures due to how she slid down. Daughter states that she does have bruising from the falls. Patient does think that her pain today is more due to soreness lingering from these falls. She states that her legs have continued to have nerve pain stating numbness and tingling that make her legs feel weak when she tries to stand . She is currently being managed with [place] 5 mg 4 times a day and Lyrica 75 mg 3 times a day. Patient denies any side effects from these medications. Patient states that these medications are adequately helping manage her pain. Patient's daughter stated that her last Lyrica was refilled by her primary care because pharmacy contacted them. The daughter would like for us to continue prescribing her [place] and her Lyrica. Her Compa is [id number]. It has been reviewed and appropriate. Review of Systems: General: No recent weight changes, no fever, no sleep disturbances Respiratory: No cough, no shortness of air, no recurring pulmonary infections Cardiovascular/peripheral vascular: No chest pain, no palpitations, no edema, no shortness of breath Gastrointestinal: No new onset incontinence, normal bowel movements reported Genitourinary: No new onset incontinence Musculoskeletal: Low back pain, bilateral leg pain Psychiatric: [Normal mood/affect] Neurological: [Denies weakness in extremities], [denies balance issues] Objective:: General: Alert and oriented x3, pleasant and cooperative Lungs: Patient is able to say complete sentences without dyspnea Neurological: Speech clear Assessment:: Degenerative disc disease of lumbar spine with lumbar radiculopathy symptoms, status post kyphoplasty, bilateral feet pain secondary to chronic lymphedema Plan:: Patient is having worsening low back pain that radiates into her legs at today's visit. I have discussed with the patient regarding keeping her current medication regimen. I will refill the patient's [place] 5 mg 4 times a day and Lyrica 75 mg 3 times a day. I will provide a 1 month supply of this medication. Patient will follow-up in 1 month. Patient will return to in clinic visit in 1 month for follow-up and medication refill. Patient has been advised of risks of oversedation with the prescribed medication. Narcan has been offered to the patient in the event of oversedation. Patient has been advised that a family member should also be educated regarding administration of Narcan. Patient has been instructed to contact the clinic with any concerns before the next appointment. Dr. Uribe has reviewed this note and agrees with this plan of care. This note was dictated using voice recognition software and make contain errors or omissions. [facility] History I have reviewed the patient's past medical history: Yes Medical History: Reports:: Asthma, Atrial Fibrillation, Cancer, Coronary Artery Disease, Diabetes Mellitus Type 2, Hyperlipidemia, Hypertension Denies:: Diabetes Mellitus Type 1, Internal Pacemaker, MRSA, Seizures *Have you ever received a pneumonia vaccine?: Yes *Have you rece
== END ==
PROVIDERS: Visit Provider Nurse Practitioner Family
DX: M51.16 Intervertebral disc disorders with radiculopathy, lumbar region (principal); I89.0 Lymphedema, not elsewhere classified
CPT/HCPCS: 99212; G0463

== ENCOUNTER → 2022-05-09 09:53 | Outpatient (POV) | payer MEDICARE, SELFPAY ==
--- NOTE | 2022-05-09 09:55 | A.OFFVIS_ITS ---
[facility] Pain Management SOAP Note Subjective:: Patient is a pleasant 76-year-old female who presents today via telehealth visit for follow-up and medication refill. Patient is currently at her home during this visit. We are treating the patient for degenerative disc disease of lumbar spine with lumbar radiculopathy symptoms, status post kyphoplasty, bilateral feet pain secondary to chronic lymphedema. Patient rates her pain at 10+ today she states she is having pain primarily in her feet and legs and describes it as a aching, throbbing sensation that just hurts. She has had a history of falls in the past. Patient is currently on fluid pills and her daughter states that she has been using the restroom frequently. She does state that the edema in her mom's bilateral legs has almost doubled she feels like over the last month. She said she does have open wounds on bilateral legs and the fluid is seeping out. Patient also states that she has started having some urinary burning when she uses the restroom. Patient denies any new trauma or injury to the site. She denies any change in the location or type of pain she experiences. Patient is currently managed with pregabalin 75 mg 3 times a day and [place]cad[place] 5 mg 4 times a day. Patient denies any side effects from these medications. She states these medications are adequately managing her pain. She is requesting a refill of these medications at today's visit. Her Compa is [id number] with a morphine equivalent of 20. It has been reviewed and appropriate. Objective:: General: Alert and oriented x3, pleasant and cooperative Lungs: Patient is able to say complete sentences without dyspnea Neurological: Speech clear Assessment:: Degenerative disc disease of lumbar spine with lumbar radiculopathy symptoms, status post kyphoplasty, bilateral feet pain secondary to chronic lymphedema Plan:: Patient is having significant pain in her bilateral legs and feet. I have discussed with the daughter and recommended the patient go to the ER for evaluation of her symptoms. Per the patient and her daughters report of symptoms, the patient may benefit from a short-term admission into the hospital. I will reorder the patient's Lyrica 75 mg 3 times a day and hydrocodone 5 mg 4 times a day and provide a 1 month supply of this medication. Patient will follow-up in 1 month. Daughter states she would keep us updated if her mother is admitted. Patient will return to clinic for an in office visit in 1 month for reevaluation of symptoms and medication refill. Telehealth visit lasted 10 minutes. Patient has been advised of risks of oversedation with the prescribed medication. Narcan has been offered to the patient in the event of oversedation. Patient has been advised that a family member should also be edu cated regarding administration of Narcan. Patient has been instructed to contact the clinic with any concerns before the next appointment. Dr. Uribe has reviewed this note and agrees with this plan of care. This note was dictated using voice recognition software and make contain errors or omissions. [facility] Medical History (Updated 12/10/21 @ 09:24 by Kate Metz RN) Dyspnea Social History Smoking Status: Never smoker second hand exposure: No alcohol intake: never substance use type: denies use current occupational status: other Travel in the last 8 weeks: Inside the [place] household members: children housing: house current occupational exposures/hazards: No caffeine: Yes
== END | disposition home or self-care (01) ==
PROVIDERS: Visit Provider Nurse Practitioner Family
DX: M51.16 Intervertebral disc disorders with radiculopathy, lumbar region (principal); I89.0 Lymphedema, not elsewhere classified
CPT/HCPCS: 99212; G0463

== ENCOUNTER 2022-05-10 10:11 | Observation (INO) | payer MEDICARE, SELFPAY ==
[2022-05-10] VITALS (13 sets, daily range): BP systolic 115–153; BP diastolic 64–93; PULSE 63–99; RESP 15–20; TEMP 36.4–36.6; O2SAT 88–100; BMI 57.6; BMI 68.1
--- NOTE | 2022-05-10 10:37 | XR_ITS ---
FINAL REPORT CLINICAL HISTORY: soa COMPARISON: November 12, 2021 FINDINGS: A single portable view of the chest was obtained. There is cardiomegaly. The mediastinum is within normal limits. No acute pulmonary abnormality is identified. The bony thorax is intact. IMPRESSION: No active cardiopulmonary disease. Reviewed, Interpreted and Dictated by Ronaldo Joe III, MD Transcribed by Lyn Richter Authenticated and [facility]
--- NOTE | 2022-05-10 11:00 | PC.NURSE ---
pt moved to room 4 from room 5 d/t lower bed for comfort for transfer out of .
[2022-05-10 11:08] LABS: Basophils # 0.1 K/mm3 (0-0.2); Basophils % 0.6 % (0.1-2.0); Eosinophils # 0.5 K/mm3 (0.0-0.4); Eosinophils % 5.9 % (0.1-12.0); Hematocrit 31.1 % (37.0-47.0); Hemoglobin 9.5 g/dL (12.2-16.2); Lymphocytes # 1.8 K/mm3 (0.7-4.5); Lymphocytes % 20.8 % (10-50); Mean Corpuscular HGB Conc 30.6 g/dL (31.8-35.4); Mean Corpuscular Hemoglobin 24.7 pg (27.0-31.2); Mean Corpuscular Volume 80.5 fl (81-99); Mean Platelet Volume 8.1 fl (7.4-10.4); Monocytes # 0.7 K/mm3 (0.1-1.0); Monocytes % 7.8 % (1.7-9.3); Neutrophils # 5.4 K/mm3 (1.8-7.8); Neutrophils % 64.9 % (37.0-80.0); Platelet Count 337 K/mm3 (142-424); Red Blood Count 3.86 M/mm3 (4.20-5.40); Red Cell Distribution Width 18.3 % (11.5-17.5); White Blood Count 8.4 K/mm3 (4.8-10.8)
[2022-05-10 11:10] LABS: Alanine Aminotransferase 18 U/L (12-78); Albumin Level 4.1 g/dl (3.5-5.0); Albumin/Globulin Ratio 1.3 (1.1-1.8); Alkaline Phosphatase 119 U/L (38-126); Aspartate Amino Transferase 29 U/L (14-36); Bilirubin,Total 0.5 mg/dl (0.2-1.3); Blood Urea Nitrogen 25 mg/dl (7-17); Calcium 8.1 mg/dl (8.4-10.2); Carbon Dioxide 28 mmol/L (22.0-30.0); Chloride 103 mmol/L (98-107); Creatinine Clearance Estimated 42 mL/min (50-200); Estimated Glomerular Filt Rate 70 ml/min (>60); GFR (African American) 85 ML/MIN (>60); Globulin 3.1 g/dL (1.3-3.2); Glucose 177 mg/dl (74-100); Sodium 141 mmol/L (136-145); Total Protein,Serum 7.2 g/dl (6.3-8.2)
[2022-05-10 11:12] LABS: Microscopic, Urine URINE MICROSCOPIC (MICROSCOPIC)
[2022-05-10 11:12] LABS: INR 1.52 (0.9-1.1)
[2022-05-10 11:16] LABS: Appearance,Urine CLOUDY (Clear); Bilirubin,Urine Negative (Negative); Blood, Urine TRACE-I (Negative); Color,Urine YELLOW (Yellow); Glucose,Urine (UA) Negative (Negative); Ketones,Urine Negative (Negative); Leukocyte Esterase,Urine 2+ (Negative); Nitrate,Urine POSITIVE (Negative); PH,Urine 5.5 (5.0-8.5); Protein,Urine TRACE (Negative); Specific Gravity, Urine >= 1.030 (1.005-1.030); Urobilinogen,Urine 0.2 EU/dl (0.2)
--- NOTE | 2022-05-10 11:20 | PC.NURSE ---
assisted pt in bed at this time. crockett inserted and urine sent to the lab
[2022-05-10 11:23] LABS: NT Pro Brain Natriuretic Pep. 2230 pg/mL (0-450); Troponin I < 0.01 ng/ml (0.00-0.034)
--- NOTE | 2022-05-10 11:24 | ECG_ITS ---
APPROVED REPORT Exam: Resting ECG HR:80 bpm ECG Measurements Heart Rate 80 AXES QRSd 101 QRS -13 QT 398 T 79 QTc 433 Conclusion ATRIAL FIBRILLATION LOW QRS VOLTAGE IN PRECORDIAL LEADS [QRS DEFLECTION < 1.0 mV IN CHEST LEADS] PATTERN CONSISTENT WITH PULMONARY DISEASE NONSPECIFIC T-WAVE ABNORMALITY ABNORMAL ECG UNCONFIRMED REPORT Electronically signed by : Cruz Tsai MD 05/12/2022 15:27:37
--- NOTE | 2022-05-10 11:27 | PC.NURSE ---
portable xr at bedside
[2022-05-10 11:40] LABS: Coronavirus 19, PCR Not Detected (NotDetected); Influenza A, PCR Not Detected (NotDetected); Influenza B, PCR Not Detected (NotDetected)
[2022-05-10 11:42] LABS: Bacteria,Urine 1+ /lpf; Mucus,Urine Trace /lpf; RBC,Urine Occasional #/hpf (0-3); Squamous Epithelial Cell,Urine Occasional #/hpf (0-5); WBC,Urine TNTC #/hpf (0-3)
--- NOTE | 2022-05-10 12:03 | HMH.EDGENADL ---
Discharge Plan Disposition Patient Disposition: Admitted As Inpatient Condition: Good Chief Complaint: Skin/Abscess/Foreign Body Clinical Impressions Clinical Impression: Volume overload, Acute UTI (urinary tract infection) Discharge ED Provider: Alicia Pillai General Adult HPI General Chief complaint: Skin/Abscess/Foreign Body Stated complaint: Rash, weakness, hard to swallow Time Seen by Provider: 05/10/22 10:28 Mode of Arrival: Wheelchair Source of Information: Patient Limitations: No Limitations Description of Symptoms (Recalled from ER Triage Doc. by RN): pt to ed c/o weeping blisters on legs, edema and recent incontinence. daughter at the bedside states cardiology put pt on lasix to decrease fluid on legs and pt has been incontinent since. daughter states pt has had yeast collection in joint folds that they have not been able to clear. History of Present Illness HPI narrative: The patient is a 76 year old female with a history of afib on xarelto and CAD who presents with generalized weakness, pain, and swelling. History is obtained from patient and daughter. Patient has a history of a nonhealing foot fracture and is non weight bearing in the right leg. She is morbidly obese and also has bilateral lymphedema. Normally, she is able to transfer without assistance on her left leg. However for the past few days patient has had worsening weakness and leg swelling which has prevented her from doing so. She lives at home with her daughter who has had a hard time taking care of her due to this at home. Patient also notes some dysuria. No chest pain or shortness of breath, headache, abdominal pain. She does complain of a rash under her breasts and pannus which she has been treating with medication for magalis. She notes that one of her legs is weeping fluid. No fevers. Related Data Home Medications Medication Instructions Recorded Confirmed atorvastatin 80 mg tablet 80 mg PO HS Cholesterol 06/08/19 05/10/22 montelukast 10 mg tablet 10 mg PO HS Asthma 02/14/20 05/10/22 (Singulair) insulin human U-100 NPH-regulr 40 unit SQ BID Diabetes 10/26/20 05/10/22 70-30 mix 100 unit/mL subcutaneous susp (Novolin 70/30 U-100 Insulin) cetirizine 10 mg tablet (Zyrtec) 10 mg PO DAILY Allergy symptoms 11/07/20 05/10/22 clopidogrel 75 mg tablet 75 mg PO DAILY PLATELET INHIBITOR 09/03/21 05/10/22 metoprolol succinate 50 mg 50 mg PO DAILY Hypertension 01/14/22 05/10/22 tablet,extended release 24 hr spironolactone 50 mg tablet 50 mg PO BID Fluid 01/14/22 05/10/22 furosemide 40 mg tablet 40 mg PO BID Fluid 03/14/22 05/10/22 budesonide-formoterol HFA 160 2 inh inhalation BID Breathing 05/10/22 05/10/22 mcg-4.5 mcg/actuation aerosol problems inhaler (Symbicort) duloxetine 60 mg capsule,delayed 60 mg PO DAILY MOOD 05/10/22 05/10/22 release hydrocodone 5 mg-acetaminophen 325 1 tab PO QID Pain 05/10/22 05/10/22 mg tablet metformin 1,000 mg tablet 1,000 mg PO BID Diabetes 05/10/22 05/10/22 rivaroxaban 20 mg tablet 20 mg PO QPMWITHMEAL Blood thinner 05/10/22 05/10/22 Previous Rx's Medication Instructions Recorded pregabalin 75 mg capsule 75 mg PO TID Pain #90 caps 05/09/22 Allergies Allergy/AdvReac Type Severity Reaction Status Date / Time Penicillins Allergy Unknown Verified 12/24/21 15:04 [facility] Medical History (Updated 05/10/22 @ 14:33 by Alicia Pillai MD) Dyspnea Social History Smoking Status: Never smoker second hand exposure: No alcohol intake: never substance use type: denies use current occupational status: other Travel in the last 8 weeks: Inside the [place] household members: children housing: house current occupational exposures/hazards: No caffeine: Yes ROS Obtained: Yes Systems reviewed as appropriate & no additional complaints except as documented Physical Exam General General appearance: alert, in no apparent distress and obese Head Head exam: atraumatic
--- NOTE | 2022-05-10 13:02 | PC.NURSE ---
rounded on pt at this time. no needs voiced. daughter remains at bedside
--- NOTE | 2022-05-10 13:09 | PC.NURSE ---
ER MD speaking with ER MD who is crop consultant for service pts.
--- NOTE | 2022-05-10 13:12 | CA_ITS ---
APPROVED REPORT EXAM: Comprehensive 2D, Doppler, and color-flow Echocardiogram Railroad Surveyor: Laura Brush RT(R) Ht: 5 ft 4 in Wt: 336lbs BSA: 2.44 BP: 153/76 mmHg Indications: weakness, CAD, chronic AFIB, DM, HTN, obesity, edema, seeping legs 2D Dimensions LA Volume 88.00 mL LA Volume Index 36.06 mL/m2 (M/F) 16-34 M-Mode Dimensions RVDd 3.45 cm (0.9-2.6) LA Diam 4.88 cm (1.9-4.0) LVDd 4.52 cm (3.5-5.7) Ao Diam 2.78 cm (2.0-3.7) LVDs 3.49 cm (3.5-5.7) IVSd 0.76 cm (0.6-1.1) PWd 0.80 cm (0.6-1.1) EF (Teich) 45.90% FS 22.80% EDV (Teich) 93.40 mL ESV (Teich) 50.50 mL Tricuspid Valve TR P. Velocity 420.00 cm/s RAP Estimate 15.00 mmHg RVSP 85.60 mmHg Left Ventricle Left atrium is mildly enlarged, left ventricle is normal size, mild concentric left ventricular hypertrophy, estimated ejection fraction 55% with no regional wall motion abnormality, diastolic parameters are inconclusive. Right Ventricle Right atrium and right ventricle are moderately enlarged, contractility of the right ventricle is normal. Aortic Valve Aortic valve is minimally thickened and fibrosed there is no aortic stenosis or aortic insufficiency. Mitral Valve Mitral valve leaflets are minimally thickened, there is mild mitral regurgitation. Tricuspid Valve Tricuspid valve grossly normal, there is moderate tricuspid regurgitation, calculated right ventricular systolic pressure 64 mmHg. Pulmonic Valve Pulmonic valve is poorly visualized. Great Vessels Aortic root is normal size. Inferior vena cava is poorly visualized. Pericardium No significant pericardial effusion noted. Conclusion 1. Biatrial enlargement, normal left ventricular size, mild concentric left ventricular hypertrophy, estimated ejection fraction 55% with no regional wall motion abnormality, diastolic parameters are inconclusive. 2. Moderately enlarged right ventricle with normal contractility. 3. Mild mitral and moderate tricuspid regurgitation, calculated right ventricular systolic pressure 64 mmHg. 4. No significant pericardial effusion noted. 5. Inferior vena cava is poorly visualized. Electronically signed by : Stephane Morales MD 05/10/2022 14:35:09
--- NOTE | 2022-05-10 13:14 | PC.NURSE ---
notified care management of admission, spoke with yisel
--- NOTE | 2022-05-10 13:14 | PC.NURSE ---
notified CV lab of echo order, spoke with teo
--- NOTE | 2022-05-10 13:51 | HMH.PHAINT1 ---
Pharmacy Intervention Comments: MEDICATION RECONCILIATION COMPLETED ON PATIENT USING EXTERNAL FILL HISTORY FROM PHARMACY. -MIKAYLA SANCHEZ, CHARLEYD
--- NOTE | 2022-05-10 14:46 | PC.NURSE ---
Lala Rn on phone to give report
--- NOTE | 2022-05-10 14:49 | PC.NURSE ---
sarath tesfaye at BS
--- NOTE | 2022-05-10 14:50 | PC.NURSE ---
called report to sarah renee rn on the floor
--- NOTE | 2022-05-10 14:56 | PC.NURSE ---
600MLemptied from [facility]
--- NOTE | 2022-05-10 14:57 | EXP.CARD.CON ---
History of Present Illness History of Present Illness Consult date: 05/10/22 Requesting physician: Maurice Evans Consult reason: shortness of breath Chief complaint: UTI, CHF Additional Medical History:: 1. Hypertension A. ECHO, 1.? Biatrial enlargement, normal left ventricular size, mild concentric left ventricular hypertrophy, estimated ejection fraction 55% with no regional wall motion abnormality, diastolic parameters are inconclusive. 2.? Moderately enlarged right ventricle with normal contractility. 3.? Mild mitral and moderate tricuspid regurgitation, calculated right ventricular systolic pressure 64 mmHg. 4.? No significant pericardial effusion noted. 5.? Inferior vena cava is poorly visualized. Electronically signed by : Stephane Morales MD? 05/10/2022 14:35:09 2. Coronary artery disease with history of stenting 06/29/2019 [facility], IMPRESSION Greater than 50% stenosis in the left main artery Successful stenting of the ostial left main artery severe stenosis reduced to 0% with one drug-eluting stent Severe stenosis in the large first diagonal artery with moderate stenosis in the mid LAD Successful stenting of the proximal LAD extending into the large first diagonal artery severe disease reduced to 10% with one drug-eluting stent Successful angioplasty of the mid LAD moderate disease reduced to less than 10% with angioplasty Normal ejection fraction Normal left ventricular end-diastolic pressure PLAN 1. Dual antiplatelet therapy 2. Risk factor modification 3. LDL less than 55 4. Cardiac rehabilitation 5. Avoidance of tobacco products Electronically signed by : Gordon Herr, ? 06/29/2019 11:33:31 3. Atrial fibrillation is chronic and rate controlled.A/C Xarelto. Denies any bleeding issues. A. She saw Dr. Dominguez in the past and he stated she wasn't a candidate for JORGE occluder since she is tolerating a/c well. 4. HLD-LDL goal<55, LDL is 48 in 05/2021. Pt is on a statin. 5. JESSICA present but currenly not treated. Managed by Dr. Marquez, her machine has been recalled and she is having trouble getting another replacement. 6. DM present and controlled by PCP. A. Diabetic peripheral neuropathy 7. History of bilateral ankle fractures, s/p surgery 8. Lymphedema, stage IV History of present illness: 76-year-old white female admitted through the emergency department for UTI but also noted to have volume overload with an elevated BNP without chest x-ray evidence of CHF. Echocardiogram was performed today to evaluate the patient's ejection fraction, which remains normal. RVSP noted to be 64 millimeters of mercury. Patient has a longstanding history of lower extremity swelling due to lymphedema, coronary artery disease, atrial fibrillation and diabetes. Chronic anemia, stable with hemoglobin 9.5 [facility] Medical History (Updated 05/10/22 @ 14:33 by Alicia Pillai MD) Dyspnea Social History Smoking Status: Never smoker second hand exposure: No alcohol intake: never substance use type: denies use current occupational status: other Travel in the last 8 weeks: [place] the [place] household members: children housing: house current occupational exposures/hazards: No caffeine: Yes Review of Systems Review of Systems Review of systems:: pertinent systems reviewed and negative unless documented below *Cardiovascular Cardiovascular: Reports dyspnea, Reports dyspnea on exertion, Reports edema and Reports leg edema *Respiratory Respiratory: Reports dyspnea and Reports dyspnea on exertion Exam Data for Last 24 hours Vital signs and Labs for Last 24 Hours: Temp Pulse Resp BP Pulse Ox 97.9 F 69 16 125/71 95 05/10/22 10:29 05/10/22 13:31 05/10/22 13:31 05/10/22 13:31 05/10/22 13:31 Laboratory Results - last 24 hr 05/10/22 10:55: PT 16.0 H, INR 1.52 H 05/10/22 10:55: Sodium 141, Potassium 4.0, Chloride 103, Carbon Dioxide 28, Anion Gap 1
--- NOTE | 2022-05-10 15:03 | PC.NURSE ---
per second floor they are changing pt assigned room to room 200 states they have noted registration and are getting things switched around
--- NOTE | 2022-05-10 15:34 | PC.NURSE ---
SPOKE WITH EMS
--- NOTE | 2022-05-10 15:37 | EXP.HP ---
History of Present Illness *Admission Date: 05/10/22 *Reason for visit:: Weakness, leg swelling *History of present illness: The patient is a 76 year old female with a history of afib on xarelto and CAD who presents with generalized weakness, pain, and swelling. History is obtained from patient and daughter. Patient has a history of a nonhealing foot fracture and is non weight bearing in the right leg. She is morbidly obese and also has bilateral lymphedema. Normally, she is able to transfer without assistance on her left leg. However for the past few days patient has had worsening weakness and leg swelling which has prevented her from doing so. She lives at home with her daughter who has had a hard time taking care of her due to this at home. Patient also notes some dysuria. No chest pain or shortness of breath, headache, abdominal pain. She does complain of a rash under her breasts and pannus which she has been treating with medication for magalis. She notes that one of her legs is weeping fluid. No fevers. (above as per ER physician) The patient was evaluated in the emergency room and her BNP was found to be elevated from baseline. Her chest x-ray was unremarkable. UA was concerning for UTI. She was given Rocephin for the UTI and 1 mg of Dilaudid for foot pain. A Do was placed and she was given Lasix for diuresis. An echo and cardiology consult were also ordered. 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 Lymphedema Morbid obesity with BMI of 60.0-69.9, adult Peripheral neuropathy Surgical History History of breast biopsy History of carpal tunnel release History of cholecystectomy History of colonoscopy History of coronary artery stent placement History of tubal ligation Hx of tonsillectomy Family History (Updated 05/10/22 @ 16:17 by Teresa Rodriguez RN) Family history of asthma Family history of myocardial infarction Lung cancer Social History (Updated 05/10/22 @ 16:18 by Key Rodriguez, RN) Smoking Status: Never smoker second hand exposure: No alcohol intake: never substance use type: denies use current occupational status: other Travel in the last 8 weeks: [place] the [place] household members: children housing: house current occupational exposures/hazards: No caffeine: Yes Review of Systems Constitutional Constitutional: Denies chills, Reports fatigue, Denies fever(s), Denies headache(s) and Reports weakness Eyes Eyes: Denies blurry vision and Denies diplopia ENT Ears, Nose, Mouth, and Throat: Denies headache(s), Denies nasal congestion, Denies sore throat and Denies vertigo *Cardiovascular Cardiovascular: Denies chest pain, Reports dyspnea and Reports leg edema *Respiratory Respiratory: Denies cough and Reports dyspnea *Gastrointestinal Gastrointestinal: Denies abdominal pain, Denies loose stools, Denies nausea and Denies vomiting *Genitourinary Genitourinary: Denies difficulty voiding and Denies dysuria *Musculoskeletal Musculoskeletal: Reports arthralgias (bilateral feet) Integumentary/Breasts Skin/Breast: Reports erythema (in skin folds) *Neurologic Neurologic: Denies headache(s), Denies vertigo and Reports weakness Endocrine Endocrine: Reports fatigue Meds Home Medications and Allergies Home Medications Medication Instructions Recorded Confirmed Type atorvastatin 80 mg tablet 80 mg PO HS Cholesterol 06/08/19 05/10/22 History montelukast 10 mg tablet 10 mg PO HS Asthma 02/14/20 05/10/22 History (Singulair) insulin human U-100 NPH-regulr 40 unit SQ BID Diabetes 10/26/20 05/10/22 History 70-30 mix 100 unit/mL subcutaneous susp (Novol
--- NOTE | 2022-05-10 15:48 | PC.NURSE ---
BEING TRANSPORTED TO FLOOR
--- NOTE | 2022-05-10 15:56 | P.CONPHA_ITS ---
[facility] Pharmacy VTE Monitoring Patient Demographics Admission date: 05/10/22 Report Date: 05/10/22 Time: 15:56 Patient Allergies Penicillins Allergy (Unknown, Verified 12/24/21 15:04) Height: 1.63 m Weight: 152.407 kg Current Active Problems (Updated 05/10/22 @ 15:47 by VARGHESE Hall) Lymphedema (Chronic) DM2 (diabetes mellitus, type 2) (Chronic) CAD (coronary artery disease) (Chronic) long-term current use of anticoagulant (Chronic) HTN (hypertension) (Chronic) HLD (hyperlipidemia) (Chronic) Peripheral neuropathy (Chronic) Bilateral foot pain (Chronic) Volume overload (Acute) Acute UTI (urinary tract infection) (Acute) Edema of both lower extremities (Chronic) Chronic a-fib (Chronic) VTE Risk Labs: VTE Related Lab Results Hgb 9.5 g/dL (12.2-16.2) L 05/10/22 10:55 Hct 31.1 % (37.0-47.0) L 05/10/22 10:55 Plt Count 337 K/mm3 (142-424) 05/10/22 10:55 PT 16.0 seconds (10.1-12.5) H 05/10/22 10:55 INR 1.52 (0.9-1.1) H 05/10/22 10:55 BUN 25 mg/dl (7-17) H 05/10/22 10:55 Creatinine 0.80 mg/dl (0.52-1.04) 05/10/22 10:55 Estimated Creat Clear 42 mL/min (50-200) 05/10/22 10:55 Prophylaxis VTE Prophylaxis Ordered?: Yes Types of VTE Prophylaxis: Pharmacological Pharmacologic Type: Other (XARELTO)
--- NOTE | 2022-05-10 17:57 | PC.WOUNDNOTE ---
REDNESS NOTED TO ABDOMINAL FOLD REDNESS AND MOISTURE UNDER LEFT BREAST SMALL BLISTER NOTED TO LLE
[2022-05-11] VITALS (8 sets, daily range): BP systolic 117–141; BP diastolic 60–67; PULSE 55–94; RESP 16–18; TEMP 36.4–37.3; O2SAT 94–99; BMI 66.8
--- NOTE | 2022-05-11 04:00 | PC.NURSE ---
Addendum entered by Madiha Robert RN 05/11/22 06:58: telemetry reveals atrial fib with controlled rate. Original Note: pt rested well through the night, VSS, 02 sat was 88% on room air at start of shift and placed on 2L pnc then weaned to 1L pnc with 02 sats 98%; FSBS 107 checked prior to giving scheduled insulin, pt is alert and oriented x4, pt is bedbound and ble with lymphedema noted, f/c to bsd with clear yellow urine noted, pt denied pain through the night, pt requires assist to turn and encouraged to turn q2, noted redness under skin folds, no other issues noted at this time.
[2022-05-11 07:40] LABS: Basophils % 0.3 % (0.1-2.0); Eosinophils # 0.2 K/mm3 (0.0-0.4); Eosinophils % 1.9 % (0.1-12.0); Hematocrit 29.8 % (37.0-47.0); Hemoglobin 9.3 g/dL (12.2-16.2); Lymphocytes # 1.2 K/mm3 (0.7-4.5); Lymphocytes % 11.7 % (10-50); Mean Corpuscular HGB Conc 31.1 g/dL (31.8-35.4); Mean Corpuscular Hemoglobin 25.2 pg (27.0-31.2); Mean Platelet Volume 7.9 fl (7.4-10.4); Monocytes # 0.6 K/mm3 (0.1-1.0); Monocytes % 6.1 % (1.7-9.3); Neutrophils # 8.4 K/mm3 (1.8-7.8); Neutrophils % 80.1 % (37.0-80.0); Platelet Count 296 K/mm3 (142-424); Red Blood Count 3.68 M/mm3 (4.20-5.40); Red Cell Distribution Width 18.3 % (11.5-17.5); White Blood Count 10.4 K/mm3 (4.8-10.8)
[2022-05-11 07:50] LABS: Anion Gap 9.1 mEq/L (5-15); Blood Urea Nitrogen 26 mg/dl (7-17); Calcium 8.2 mg/dl (8.4-10.2); Carbon Dioxide 32 mmol/L (22.0-30.0); Chloride 103 mmol/L (98-107); Creatinine Clearance Estimated 42 mL/min (50-200); Estimated Glomerular Filt Rate 70 ml/min (>60); GFR (African American) 85 ML/MIN (>60); Glucose 51 mg/dl (74-100); Potassium 4.1 mmoL/L (3.5-5.1); Sodium 140 mmol/L (136-145)
[2022-05-11 08:38] LABS: POC Glucose,Bedside 61 (70-110)
--- NOTE | 2022-05-11 09:09 | PC.NURSE ---
Courtesy tech round: Pt was pulled up in bed with 2 assist. Pt states they are comfortable and voiced no other requests at this time.
--- NOTE | 2022-05-11 09:47 | EXP.PN ---
Subjective *Date: 05/11/22 *Time: 09:47 Interval history: States she did not sleep very well last night, she was cold all night. O2 sats dropped to 88% and nasal oxygen was applied. She did not have her CPAP last night but family has brought her unit and this morning. She denies respiratory distress. No cough. No complaints of pain. Cardiology consult and recommendations noted. Exam Data for Last 24 hours Vital signs and Labs for Last 24 Hours: Temp Pulse Resp BP Pulse Ox 97.9 F 80 18 141/63 H 99 05/11/22 07:36 05/11/22 07:36 05/11/22 07:36 05/11/22 07:36 05/11/22 07:36 Laboratory Results - last 24 hr 05/10/22 10:55: PT 16.0 H, INR 1.52 H 05/10/22 10:55: Sodium 141, Potassium 4.0, Chloride 103, Carbon Dioxide 28, Anion Gap 14.0, BUN 25 H, Creatinine 0.80, Estimated Creat Clear 42, Estimated GFR 70, Est GFR ( Amer) 85, Glucose 177 H, Calcium 8.1 L, Total Bilirubin 0.5, AST 29, ALT 18, Alkaline Phosphatase 119, Troponin I < 0.01, NT-Pro-B Natriuret Pep 2230 H, Total Protein 7.2, Albumin 4.1, Globulin 3.1, Albumin/Globulin Ratio 1.3 05/10/22 10:55: WBC 8.4, RBC 3.86 L, Hgb 9.5 L, Hct 31.1 L, MCV 80.5 L, MCH 24.7 L, MCHC 30.6 L, RDW 18.3 H, Plt Count 337, MPV 8.1, Neut % (Auto) 64.9, Lymph % (Auto) 20.8, Rhea % (Auto) 7.8, Eos % (Auto) 5.9, Baso % (Auto) 0.6, Neut # (Auto) 5.4, Lymph # (Auto) 1.8, Rhea # (Auto) 0.7, Eos # (Auto) 0.5 H, Baso # (Auto) 0.1 05/10/22 11:00: Urine Color Yellow, Urine Appearance Cloudy, Urine pH 5.5, Ur Specific [place] >= 1.030, Urine Protein Trace, Urine Glucose (UA) Negative, Urine Ketones Negative, Urine Blood Trace-i, Urine Nitrate Positive, Urine Bilirubin Negative, Urine Urobilinogen 0.2, Ur Leukocyte Esterase 2+ A, Urine RBC Occasional, Urine WBC Tntc, Ur Squamous Epith Cells Occasional, Urine Bacteria 1+, Urine Mucus Trace 05/10/22 11:35: SARS-CoV-2 (PCR) Not detected, Influenza A Untype (PCR) Not detected, Influenza Type B (PCR) Not detected 05/11/22 07:23: WBC 10.4, RBC 3.68 L, Hgb 9.3 L, Hct 29.8 L, MCV 81.0, MCH 25.2 L, MCHC 31.1 L, RDW 18.3 H, Plt Count 296, MPV 7.9, Neut % (Auto) 80.1 H, Lymph % (Auto) 11.7, Rhea % (Auto) 6.1, Eos % (Auto) 1.9, Baso % (Auto) 0.3, Neut # (Auto) 8.4 H, Lymph # (Auto) 1.2, Rhea # (Auto) 0.6, Eos # (Auto) 0.2, Baso # (Auto) 0.0 05/11/22 07:23: Sodium 140, Potassium 4.1, Chloride 103, Carbon Dioxide 32 H, Anion Gap 9.1, BUN 26 H, Creatinine 0.80, Estimated Creat Clear 42, Estimated GFR 70, Est GFR ( Amer) 85, Glucose 51 L D, Calcium 8.2 L 05/11/22 08:28: POC Glucose 61 L I & O for Last 24 hours: Intake & Output 05/08/22 05/09/22 05/10/22 05/11/22 11:59 11:59 11:59 11:59 Intake Total 840 / 840 Output Total 2115 / 2115 Balance -1275 / -1275 Weight 336 lb 391 lb 5.128 oz Microbiology Reports for the Last 24 Hours: Microbiology 05/10/22 11:00 Urine,Catheterized Urine Culture - Preliminary Gram Negative Rods Constitutional Comments: She is alert and oriented. Color is good. Lungs are clear anteriorly. Heart is irregularly irregular. Extremities with massive lymphedema Assessment and Plan *Assessment and plan (1) Acute UTI (urinary tract infection): Status: Acute Category: Medical Code(s): N39.0 - Urinary tract infection, site not specified (2) Volume overload: Status: Acute Qualifiers: Hypervolemia type: unspecified Qualified Code(s): E87.70 - Fluid overload, unspecified Category: Medical Code(s): E87.70 - Fluid overload, unspecified (3) Peripheral neuropathy: Status: Chronic Category: Medical Code(s): G62.9 - Polyneuropathy, unspecified (4) Lymphedema: Status: Chronic Category: Medical Code(s): I89.0 - Lymphedema, not elsewhere classified (5) HLD (hyperlipidemia): Status: Chronic Qualifiers: Hyperlipidemia type: mixed hyperlipidemia Qualified Code(s): E78.2 - M
--- NOTE | 2022-05-11 15:44 | HMH.PTEV ---
Physical Therapy Evaluation Rehab PT IP Evaluation Start: 05/11/22 09:00 Freq: ONCE Status: Active Protocol: Document 05/11/22 15:39 PHOALFRED (Rec: 05/11/22 15:44 PHORNE [id number]) Subjective/History History History 76 yowf adm to [facility] with UTI and general weakness. Pt reports she has not ambulated in ~ 3-4 yrs. Her baseline mobility is transfer from bed to [facility] [place] [place] with assist from her family. She reports having a motorized w/c at [facility] and no steps to enter the home. She lives with her daughter. She presents as morbidly obese with signs and symptoms of Lipidema throughout B LE and 2 + pitting edema to B feet. Subjective Subjective I've got a sore throat. Rehab PT IP Eval Objective Appearance Patient Behavior Appropriate Patient Orientation Person,Place,Time Difficulty following instructions none Speech Pattern Clear Ambulation Patient Able to Ambulate No Balance Ability to Arise Able, uses arms to help Sitting Balance Leans or slides in chair Dynamic Sitting Balance Ability Good Transfers Bed Transfer Ability Maximum x 1 (75% assist) Rehab PT IP prob,goals,plan Problems Date of Evaluation: 05/11/22 PT IP Problems Bed Mobility,Transfers Rehab Potential Rehab Potential Fair Plan PT Intervention Plan Bed Mobility,Transfers, Therapeutic Exercise,Other PT Plan Frequency BID Duration LOS Discharge Goals Bed Transfer Ability Moderate x 2 (50% assist) Sit to Stand Chair Transfer Ability Maximum x 2 (75% assist) Discharge Plan PT Discharge Plan Pt is currently most appropriate for SNF placement and if she returned home she would be at high risk for falls, wounds, injury or . G -code Required No Eval Complexity Eval Charge Codes 67880 - High Complexity PHYSICIAN CERTIFICATION: I certify the specified therapy services for Alicia Royal are required, authorized, and reviewed every 30 days.
--- NOTE | 2022-05-11 16:23 | PC.NURSE ---
contacted Dr. Evans regarding pt c/o increased pain. New orders received
[2022-05-12] VITALS (7 sets, daily range): BP systolic 112–174; BP diastolic 40–86; PULSE 60–105; RESP 16–18; TEMP 36.4–36.7; O2SAT 88–100; BMI 63.4
--- NOTE | 2022-05-12 04:10 | PC.NURSE ---
no changes from previous assessment, telemetry reveals atrial fib, pt rested most of the night, f/c patent to bsd w/ clear yellow urine noted, no other issues noted at this time, 02 at 1L pnc with o2 sats 98-99%; pt alert and oriented x4, no acute distress noted, VSS
[2022-05-12 05:49] LABS: POC Glucose,Bedside 135 (70-110)
[2022-05-12 08:26] LABS: Basophils # 0.1 K/mm3 (0-0.2); Basophils % 0.6 % (0.1-2.0); Eosinophils # 0.4 K/mm3 (0.0-0.4); Eosinophils % 3.7 % (0.1-12.0); Hematocrit 29.8 % (37.0-47.0); Hemoglobin 9.5 g/dL (12.2-16.2); Lymphocytes # 1.5 K/mm3 (0.7-4.5); Lymphocytes % 15.7 % (10-50); Mean Corpuscular Hemoglobin 25.7 pg (27.0-31.2); Mean Corpuscular Volume 80.4 fl (81-99); Mean Platelet Volume 8.8 fl (7.4-10.4); Monocytes # 0.8 K/mm3 (0.1-1.0); Monocytes % 8.2 % (1.7-9.3); Neutrophils % 71.8 % (37.0-80.0); Platelet Count 327 K/mm3 (142-424); Red Blood Count 3.71 M/mm3 (4.20-5.40); Red Cell Distribution Width 18.1 % (11.5-17.5); White Blood Count 9.7 K/mm3 (4.8-10.8)
[2022-05-12 08:35] LABS: Anion Gap 8.6 mEq/L (5-15); Blood Urea Nitrogen 20 mg/dl (7-17); Calcium 8.7 mg/dl (8.4-10.2); Carbon Dioxide 36 mmol/L (22.0-30.0); Chloride 99 mmol/L (98-107); Creatinine Clearance Estimated 42 mL/min (50-200); Estimated Glomerular Filt Rate 82 ml/min (>60); GFR (African American) 99 ML/MIN (>60); Glucose 55 mg/dl (74-100); Potassium 3.6 mmoL/L (3.5-5.1); Sodium 140 mmol/L (136-145)
[2022-05-12 09:20] LABS: POC Glucose,Bedside 82 (70-110)
--- NOTE | 2022-05-12 11:18 | EXP.PN ---
Subjective *Date: 05/12/22 *Time: : Interval history: She rested a little better last night but did not wear her CPAP. Otherwise no new complaints. Exam Data for Last 24 hours Vital signs and Labs for Last 24 Hours: Temp Pulse Resp BP Pulse Ox 98.0 F 75 18 120/46 L 98 05/12/22 08:00 05/12/22 08:00 05/12/22 08:00 05/12/22 08:00 05/12/22 08:00 Laboratory Results - last 24 hr 05/11/22 19:51: POC Glucose 135 H 05/12/22 08:05: WBC 9.7, RBC 3.71 L, Hgb 9.5 L, Hct 29.8 L, MCV 80.4 L, MCH 25.7 L, MCHC 32.0, RDW 18.1 H, Plt Count 327, MPV 8.8, Neut % (Auto) 71.8, Lymph % (Auto) 15.7, Drew % (Auto) 8.2, Eos % (Auto) 3.7, Baso % (Auto) 0.6, Neut # (Auto) 7.0, Lymph # (Auto) 1.5, Drew # (Auto) 0.8, Eos # (Auto) 0.4, Baso # (Auto) 0.1 05/12/22 08:05: Sodium 140, Potassium 3.6, Chloride 99, Carbon Dioxide 36 H, Anion Gap 8.6, BUN 20 H, Creatinine 0.70, Estimated Creat Clear 42, Estimated GFR 82, Est GFR ( Amer) 99, Glucose 55 L, Calcium 8.7 05/12/22 09:12: POC Glucose 82 I & O for Last 24 hours: Intake & Output 05/09/22 05/10/22 05/11/22 05/12/22 11:59 11:59 11:59 11:59 Intake Total 840 / 840 1200 / 1200 Output Total 2115 / 2115 8155 / 8155 Balance -1275 / -1275 -6955 / -6955 Weight 336 lb 391 lb 5.128 oz 371 lb 7.662 oz Microbiology Reports for the Last 24 Hours: Microbiology 05/10/22 11:00 Urine,Catheterized Urine Culture - Final Escherichia coli Constitutional Comments: She is lying in bed and appears in no acute distress. Color slightly pale. Lungs are clear anteriorly. Heart tones are distant. Abdomen morbidly obese nontender. Extremities with massive lipedema but seem to be less tight today. No erythema. Urine culture is growing E. coli Assessment and Plan *Assessment and plan (1) Acute UTI (urinary tract infection): Status: Acute Category: Medical Code(s): N39.0 - Urinary tract infection, site not specified (2) Volume overload: Status: Acute Qualifiers: Hypervolemia type: unspecified Qualified Code(s): E87.70 - Fluid overload, unspecified Category: Medical Code(s): E87.70 - Fluid overload, unspecified (3) Peripheral neuropathy: Status: Chronic Category: Medical Code(s): G62.9 - Polyneuropathy, unspecified (4) HLD (hyperlipidemia): Status: Chronic Qualifiers: Hyperlipidemia type: mixed hyperlipidemia Qualified Code(s): E78.2 - Mixed hyperlipidemia Category: Medical Code(s): E78.5 - Hyperlipidemia, unspecified (5) Edema of both lower extremities: Status: Chronic Category: Medical Code(s): R60.0 - Localized edema (6) DM2 (diabetes mellitus, type 2): Status: Chronic Qualifiers: Diabetes mellitus complication status: with other specified complication Diabetes mellitus 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
--- NOTE | 2022-05-12 15:27 | PC.NURSE ---
pt is currently up in the recliner. She has been showered and bed changed by nursing. folds are reddened but look better than yesterday. bottom is c/d/i/ keira in place and patent. pt currently on RA sating 95%
[2022-05-13] VITALS: PULSE 90; O2SAT 94
[2022-05-13 01:07] LABS: POC Glucose,Bedside 232 (70-110)
[2022-05-13 03:36] VITALS: BP 118/49; PULSE 75; RESP 16; TEMP 36.7; O2SAT 98
[2022-05-13 04:00] VITALS: PULSE 60
--- NOTE | 2022-05-13 04:22 | PC.NURSE ---
no acute distress this shift, pt is alert and oriented x4, BLE lymphedema, f/c to bsd with clear yellow urine noted, no changes from previous assessment, vss, telemetry reveals atrial fib with controlled rate, pt questioned whether pain doctor will see her since she is in the hospital, morning fsbs have been hyperglycemic 40-60, 30 units of scheduled insulin given instead of 40 per pt request, no other issue noted at this time.
[2022-05-13 05:00] VITALS: BMI 62.2
[2022-05-13 08:00] VITALS: BP 129/55; PULSE 79; PULSE 90; RESP 18; TEMP 37.3; O2SAT 95
--- NOTE | 2022-05-13 09:17 | SW/DCPLANNER ---
Addendum entered by Sheri Espinoza 05/13/22 14:15: Per Supriya sampson/ Scott this patient has been approved and can be accepted today pending negative COVID swab. I will follow up with Dr Evans regarding discharge today or tomorrow. Addendum entered by Sheri Espinoza 05/13/22 09:50: [facility]/ [facility] has stated that she can start a precert on this patient. Patient/family is agreeable to placement at [facility] [place] and precert will be started today. Original Note: I spoke with this patient/daughter regarding plans once medically stable for discharge. Patient and daughter reside at home today: daughter stated that prior to becoming ill patient could transfer from bed to wheelchair independently. Patient is interested in placement at [facility] or [facility]. I have faxed patient information to both facilities. Daughter stated that if we are not able to find placement for this patient they would be interested in returning home with home health services. The plan for this patient is to be ready for discharge tomorrow pending no setbacks.
[2022-05-13 09:24] LABS: POC Glucose,Bedside 248 (70-110)
--- NOTE | 2022-05-13 10:46 | EXP.CARD.PN ---
Subjective Subjective Date: 05/13/22 Time: 09:30 Principal diagnosis: CHF Interval history: This is a 76-year-old white female who presented to the emergency department for UTI but was noted to have volume overload and an elevated LVEDP and a chest x-ray with CHF. The patient has been started on IV Lasix and Dr. Herr wanted the patient diuresed down to her creatinine bumped to around 1.5. Her creatinine still remains normal today. She states that her shortness of breath is better than it was when she came in on Friday but she is still having shortness of breath. She states that she still feels edematous all over and does not really feel like this is improved any She states that prior to coming in on Friday she was having some sharp chest pain intermittently but this is currently resolved. She denies any fever, chills, nausea, vomiting, diarrhea. Exam Data for Last 24 hours Vital signs and Labs for Last 24 Hours: Temp Pulse Resp BP Pulse Ox 99.1 F 79 18 129/55 L 95 05/13/22 08:00 05/13/22 08:00 05/13/22 08:00 05/13/22 08:00 05/13/22 08:00 Laboratory Results - last 24 hr 05/12/22 20:42: POC Glucose 232 H 05/13/22 09:17: POC Glucose 248 H I & O for Last 24 hours: Intake & Output 05/10/22 05/11/22 05/12/22 05/13/22 23:59 23:59 23:59 23:59 Intake Total 360 / 360 1200 / 1200 920 / 1040 480 / 480 Output Total 890 / 1790 7825 / 8625 92065 / 81042 200 / 200 Balance -530 / -1430 -6625 / -7425 -81727 / -9915 280 / 280 Weight 396 lb 9.785 oz 391 lb 5.128 oz 371 lb 7.662 oz 364 lb 10.313 oz Radiology Reports for the Last 24 Hours: Echo shows: 1.? Biatrial enlargement, normal left ventricular size, mild concentric left ventricular hypertrophy, estimated ejection fraction 55% with no regional wall motion abnormality, diastolic parameters are inconclusive. 2.? Moderately enlarged right ventricle with normal contractility. 3.? Mild mitral and moderate tricuspid regurgitation, calculated right ventricular systolic pressure 64 mmHg. 4.? No significant pericardial effusion noted. 5.? Inferior vena cava is poorly visualized. Constitutional Constitutional: no acute distress and morbidly obese *Routine HEENT Exam Head: Present normocephalic and atraumatic ENT: Present mucous membranes moist *Routine Neck Exam Neck: Present supple, full ROM and normal carotid upstroke; Absent JVD, carotid bruit or lymphadenopathy *Routine Respiratory Exam Respiratory: Present diminished air movement, normal respiratory effort, able to speak in complete sentences and symmetric chest movement *Routine Cardiovascular Exam Cardiovascular: Present RRR, Normal S1 and Normal S2; Absent murmur or gallop *Routine Abdominal Exam Abdominal: Present soft and normoactive bowel sounds; Absent tenderness, distended or organomegaly *Routine Extremities Exam Extremities: Present edema (The patient has gross lymphedema bilaterally), full ROM, pulses intact and normal capillary refill; Absent cyanosis or clubbing *Routine Skin Exam Skin: Present intact and warm; Absent erythema *Routine Neurological Exam Neurological: Present alert, oriented X3 and CN II-XII intact; Absent sensory deficit or motor deficit Routine Psychiatric Exam Psychiatric: Present normal affect Progress Note: A&P Assessment and plan (1) Edema of both lower extremities: Status: Chronic (2) Volume overload: Status: Acute (3) Acute UTI (urinary tract infection): Status: Acute (4) Peripheral neuropathy: Status: Chronic (5) HLD (hyperlipidemia): Status: Chronic (6) DM2 (diabetes mellitus, type 2): Status: Chronic (7) CAD (coronary artery disease): Status: Chronic (8) Chronic a-fib: Status: Chronic (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
[2022-05-13 12:00] VITALS: BP 148/70; PULSE 80; PULSE 86; RESP 18; TEMP 36.9; O2SAT 94
--- NOTE | 2022-05-13 13:58 | EXP.PN ---
Subjective *Date: 05/13/22 *Time: 21:23 Interval history: Patient was seen this AM; she states her breathing is better; she has ongoing back/neck pain. she denies CP.She did get OOB yesterday via lift; the lift and chair hurt her back. she is eating without problems; She continues with Do cath with good diuresis Exam Data for Last 24 hours Vital signs and Labs for Last 24 Hours: Temp Pulse Resp BP Pulse Ox 98.4 F 86 18 148/70 H 94 L 05/13/22 12:00 05/13/22 12:00 05/13/22 12:00 05/13/22 12:00 05/13/22 12:00 Laboratory Results - last 24 hr 05/12/22 20:42: POC Glucose 232 H 05/13/22 09:17: POC Glucose 248 H I & O for Last 24 hours: Intake & Output 05/11/22 05/12/22 05/13/22 05/14/22 11:59 11:59 11:59 11:59 Intake Total 840 / 840 1400 / 1400 720 / 720 Output Total 2115 / 2115 8155 / 8155 88438 / 90776 Balance -1275 / -1275 -6755 / -6755 -26253 / -55881 Weight 391 lb 5.128 oz 371 lb 7.662 oz 364 lb 10.313 oz Constitutional Constitutional: no acute distress and obese (morbid) *Routine Respiratory Exam Respiratory: Present CTA bilaterally (A&P) *Routine Cardiovascular Exam Cardiovascular: Present irregular rhythm *Routine Abdominal Exam Abdominal: Present normoactive bowel sounds and obese; Absent tenderness *Routine Extremities Exam Extremities: Absent calf tenderness or tenderness Comments: lymphaedema; wrinkied skin *Routine Neurological Exam Neurological: Present alert and oriented X3 Assessment and Plan *Assessment and plan (1) E. coli UTI (urinary tract infection): Status: Acute Category: Medical Code(s): N39.0 - Urinary tract infection, site not specified; B96.20 - Unspecified Escherichia coli [E. coli] as the cause of diseases classified elsewhere (2) Volume overload: Status: Acute Qualifiers: Hypervolemia type: unspecified Qualified Code(s): E87.70 - Fluid overload, unspecified Category: Medical Code(s): E87.70 - Fluid overload, unspecified (3) JESSICA (obstructive sleep apnea): Status: Acute Category: Medical Code(s): G47.33 - Obstructive sleep apnea (adult) (pediatric) (4) Morbid obesity with BMI of 60.0-69.9, adult: Status: Acute Category: Medical Code(s): E66.01 - Morbid (severe) obesity due to excess calories; Z68.44 - Body mass index [BMI] 60.0-69.9, adult (5) Impaired mobility and activities of daily living: Status: Acute Category: Medical Code(s): Z74.09 - Other reduced mobility; Z78.9 - Other specified health status (6) DM2 (diabetes mellitus, type 2): Status: Chronic Qualifiers: Diabetes mellitus complication status: with other specified complication Diabetes mellitus snf insulin use: with vermin exterminator use Qualified Code(s): E11.69 - Type 2 diabetes mellitus with other specified complication; Z79.4 - half-way (current) use of insulin Category: Medical Code(s): E11.9 - Type 2 diabetes mellitus without complications (7) CAD (coronary artery disease): Status: Chronic Qualifiers: Associated angina: without angina Coronary Disease-Associated Artery/Lesion type: [place] artery [place] vs. transplanted heart: [place] heart Qualified Code(s): I25.10 - Atherosclerotic heart disease of [place] coronary artery without angina pectoris Category: Medical Code(s): I25.10 - Atherosclerotic heart disease of [place] coronary artery without angina pectoris (8) long term current use of anticoagulant: Status: Chronic Category: Medical Code(s): Z79.01 - long term (current) use of anticoagulants (9) HTN (hypertension): Status: Chronic Qualifiers: Hypertension type: unspecified Qualified Code(s): I10 - Essential (primary) hypertension Category: Medical Code(s): I10 - Essential (primary) hypertension (10) HLD (hyperlipidemia): Status: Chronic Qualifier
--- NOTE | 2022-05-13 14:18 | DIET.NUTRFU ---
RD reviewed weights, admitted with wt of 179kg and now 165kg s/p lasix tx. Reviewing previous admits, back in December she was as low as 145kg, which maybe her dry wt. They are giving her more lasix today. Patient does believe her edema is improving.
--- NOTE | 2022-05-13 14:33 | PC.NURSE ---
rounded on patient. patient asleep in bed. family at bedside. no questions or concerns from them noted at that time. call light within reach. encouraged them to let us know if htey have nay concerns orn needs.
[2022-05-13 14:40] LABS: Coronavirus 19, PCR Not Detected (NotDetected); Influenza A, PCR Not Detected (NotDetected); Influenza B, PCR Not Detected (NotDetected)
--- NOTE | 2022-05-13 14:46 | EXP.DC.SUM ---
General Admission date:: 05/10/22 Discharge date: 05/13/22 HPI HPI HPI: The patient is a 76 year old female with a history of afib on xarelto and CAD who presents with generalized weakness, pain, and swelling. History is obtained from patient and daughter. Patient has a history of a nonhealing foot fracture and is non weight bearing in the right leg. She is morbidly obese and also has bilateral lymphedema. Normally, she is able to transfer without assistance on her left leg. However for the past few days patient has had worsening weakness and leg swelling which has prevented her from doing so. She lives at home with her daughter who has had a hard time taking care of her due to this at home. Patient also notes some dysuria. No chest pain or shortness of breath, headache, abdominal pain. She does complain of a rash under her breasts and pannus which she has been treating with medication for magalis. She notes that one of her legs is weeping fluid. No fevers. (above as per ER physician) The patient was evaluated in the emergency room and her BNP was found to be elevated from baseline. Her chest x-ray was unremarkable. UA was concerning for UTI. She was given Rocephin for the UTI and 1 mg of Dilaudid for foot pain. A Do was placed and she was given Lasix for diuresis. An echo and cardiology consult were also ordered. Exam Data for Last 24 hours Vital signs and Labs for Last 24 Hours: Temp Pulse Resp BP Pulse Ox 98.4 F 86 18 148/70 H 94 L 05/13/22 12:00 05/13/22 12:00 05/13/22 12:00 05/13/22 12:00 05/13/22 12:00 Laboratory Results - last 24 hr 05/12/22 20:42: POC Glucose 232 H 05/13/22 09:17: POC Glucose 248 H I & O for Last 24 hours: Intake & Output 05/11/22 05/12/22 05/13/22 05/14/22 11:59 11:59 11:59 11:59 Intake Total 840 / 840 1400 / 1400 720 / 720 Output Total 2115 / 2115 8155 / 8155 33342 / 57044 Balance -1275 / -1275 -6755 / -6755 -10206 / -10757 Weight 391 lb 5.128 oz 371 lb 7.662 oz 364 lb 10.313 oz Narrative: Constitutional Constitutional: no acute distress and obese (morbid) *Routine Respiratory Exam Respiratory: Present CTA bilaterally (A&P) *Routine Cardiovascular Exam Cardiovascular: Present irregular rhythm *Routine Abdominal Exam Abdominal: Present normoactive bowel sounds and obese; Absent tenderness *Routine Extremities Exam Extremities: Absent calf tenderness or tenderness Comments: lymphaedema; wrinkied skin *Routine Neurological Exam Neurological: Present alert and oriented X3 Results Data Completed and Pending Labs on day of discharge: Labs from last 24 hours 05/13/22 05/12/22 09:17 20:42 POC Glucose 248 H 232 H DS: Diagnosis Discharge Diagnosis (1) Shortness of Breath: Status: Acute (2) Lymphedema: Status: Acute (3) JESSICA (obstructive sleep apnea): Status: Acute (4) Morbid obesity with BMI of 60.0-69.9, adult: Status: Acute (5) Impaired mobility and activities of daily living: Status: Acute (6) DM2 (diabetes mellitus, type 2): Status: Chronic (7) CAD (coronary artery disease): Status: Chronic (8) prison current use of anticoagulant: Status: Chronic (9) HTN (hypertension): Status: Chronic (10) HLD (hyperlipidemia): Status: Chronic (11) Peripheral neuropathy: Status: Chronic (12) Bilateral foot pain: Status: Chronic (13) Neck pain: Status: Chronic (14) Chronic a-fib: Status: Chronic (15) E. coli UTI (urinary tract infection): Status: Acute (16) Volume overload: Status: Acute (17) Edema of both lower extremities: Status: Chronic Meds Home Medications and Allergies Home Medications Medication Instructions Recorded Confirmed Type atorvastatin 80 mg tablet 80 mg PO HS Cholesterol 06/08/19 05/10/22 History montelukast 10 mg tablet 10 mg PO HS Asthma 02/14/20 05/10/22 History (Singulair) insulin human U-100 INTERNAL CARVER
--- NOTE | 2022-05-13 15:08 | EXP.DC.SUM ---
General Admission date:: 05/10/22 Discharge date: 05/13/22 HPI HPI HPI: The patient is a 76 year old female with a history of afib on xarelto and CAD who presents with generalized weakness, pain, and swelling. History is obtained from patient and daughter. Patient has a history of a nonhealing foot fracture and is non weight bearing in the right leg. She is morbidly obese and also has bilateral lymphedema. Normally, she is able to transfer without assistance on her left leg. However for the past few days patient has had worsening weakness and leg swelling which has prevented her from doing so. She lives at home with her daughter who has had a hard time taking care of her due to this at home. Patient also notes some dysuria. No chest pain or shortness of breath, headache, abdominal pain. She does complain of a rash under her breasts and pannus which she has been treating with medication for magalis. She notes that one of her legs is weeping fluid. No fevers. (above as per ER physician) The patient was evaluated in the emergency room and her BNP was found to be elevated from baseline.? Her chest x-ray was unremarkable.? UA was concerning for UTI.? She was given Rocephin for the UTI and 1 mg of Dilaudid for foot pain.? A Do was placed and she was given Lasix for diuresis.? An echo and cardiology consult were also ordered. Hospital Course Hospital Course Hospital Course: Patient was started on Rocephin for her UTI. She was seen by cardiology after admission who recommended starting IV Lasix twice daily While continuing spironolactone 50 mg twice daily. She was to remain on Xarelto and metoprolol as well as Plavix. She wore her CPAP some nights. She denied respiratory distress although her O2 sats did drop in the 80s during one night and nasal oxygen was applied. She had no cough. She was lifted to a chair and did not enjoy.She did eat without problems. She diuresed well with the Lasix. Care management was involved with placement postdischarge. A bed was secured at [facility] [place]. And on she was felt stable to be transferred to [facility] for ongoing care. Cardiology also saw her on this date and increased her Lasix to 80 mg twice daily. She will be followed by the physicians at the rehab center with ongoing evaluation of her renal function. Also to note that her echocardiogram showed right ventricular systolic pressure elevation at 64 mmHg requiring diuresis. Urine culture did grow E. coli. Electrolytes and renal function did remain stable during hospitalization. She will continue with an antibiotic for her UTI. She will continue with monitoring of her diabetes as well. See the medicine sheet for additional meds. Also should see data for testing results. Exam Data for Last 24 hours Vital signs and Labs for Last 24 Hours: Temp Pulse Resp BP Pulse Ox 98.4 F 86 18 148/70 H 94 L 05/13/22 12:00 05/13/22 12:00 05/13/22 12:00 05/13/22 12:00 05/13/22 12:00 Laboratory Results - last 24 hr 05/12/22 20:42: POC Glucose 232 H 05/13/22 09:17: POC Glucose 248 H I & O for Last 24 hours: Intake & Output 05/11/22 05/12/22 05/13/22 05/14/22 11:59 11:59 11:59 11:59 Intake Total 840 / 840 1400 / 1400 720 / 720 Output Total 2115 / 2115 8155 / 8155 65762 / 97655 Balance -1275 / -1275 -6755 / -6755 -82637 / -95634 Weight 391 lb 5.128 oz 371 lb 7.662 oz 364 lb 10.313 oz Narrative: Constitutional Constitutional: no acute distress and obese (morbid) *Routine Respiratory Exam Respiratory: Present CTA bilaterally (A&P) *Routine Cardiovascular Exam Cardiovascular: Present irregular rhythm *Routine Abdominal Exam Abdominal: Present normoactive bowel sounds and obese; Absent tenderness *Routine Extremities Exam Extremities: Absent calf tenderness or tenderness Comments: lymphaedema; wrinkied skin *Routine Neurological Exam Neurological: Present alert and oriented X3 Results Data Completed and Pending
--- NOTE | 2022-05-13 15:22 | PC.NURSE ---
PT IS RESTING IN BED. PT WAS UP IN CHAIR FOR A FEW HOURS THIS SHIFT HOWEVER PT WAS NOT HAPPY OVER HAVING TO SIT UP LONG SHE DID. PT WAS ASSISTED BACK TO BED WITH THE LIFT THIS AFTERNOON. LUNG SOUNDS DIMINISHED. ABDOMEN SOFT/OBESE WITH HYPOACTIVE BOWEL SOUNDS. EATING AND DRINKING WELL. 3+ PITTING EDEMA NOTED TO BLE. REDNESS NOTED TO SKIN FOLDS. WILL CONTINUE TO MONITOR.
== END 2022-05-13 17:58 ==
LOC: ER 10:42 → 2ND 13:53
PROVIDERS: Admitting Provider Family Medicine; Emergency Provider Emergency Medicine; PCP Emergency Medicine; Visit Provider Family Medicine
DX: N39.0 Urinary tract infection, site not specified (principal); E11.9 Type 2 diabetes mellitus without complications; Z79.4 Long term (current) use of insulin; I89.0 Lymphedema, not elsewhere classified; I48.20 Chronic atrial fibrillation, unspecified; I25.10 Atherosclerotic heart disease of native coronary artery without angina pectoris; E66.01 Morbid (severe) obesity due to excess calories; Z68.44 Body mass index [BMI] 60.0-69.9, adult; Z79.01 Long term (current) use of anticoagulants; Z79.899 Other long term (current) drug therapy; E87.70 Fluid overload, unspecified; Z74.09 Other reduced mobility; I50.9 Heart failure, unspecified; Z20.822 Contact with and (suspected) exposure to COVID-19
CPT/HCPCS: G0378; 36415; 51702; 71045; 80048; 80053; 81001; 82962; 83880; 84484; 85025; 85610; 87086; 87088; 87186; 93005; 93306; 94760; 94761; 97163; 97530; 99285; C9803; J0696; U0003; U0005

== ENCOUNTER → 2022-06-10 13:07 | Outpatient (POV) | payer MEDICARE, SELFPAY ==
[2022-06-10 13:44] VITALS: BP 101/80; PULSE 73; RESP 18; TEMP 35.6; O2SAT 96; BMI 52.2
--- NOTE | 2022-06-10 15:56 | EXP.PAIN.SOA ---
[facility] Pain Management SOAP Note Subjective:: Patient is a pleasant 76-year-old female who is here for medication refill and follow-up. Patient is currently being treated for degenerative disease of lumbar spine with lumbar radiculopathy symptoms, status post kyphoplasty, bilateral feet pain secondary to chronic lymphedema. Patient is being managed with Enterprise 5 mg 4 times a day and pregabalin 75 mg 3 times a day. Patient denies any side effects from the medications. Patient denies any changes to the location and type of pain. Patient states that this is adequately helping manage their pain. Rates pain as 10 out of 10. [facility] number [id number] with an active morphine equivalent 0. Drug screens have been reviewed and appropriate. Patient was recently admitted to the hospital because of worsening bilateral feet pain. They were able to pull out 9 L of fluid from her leg. She has been discharged and is doing physical therapy now. Review of Systems: General: No recent weight changes, no fever, no sleep disturbances Respiratory: No cough, no shortness of air, no recurring pulmonary infections Cardiovascular/peripheral vascular: No chest pain, no palpitations, no edema, no shortness of breath Gastrointestinal: No new onset incontinence, normal bowel movements reported Genitourinary: No new onset incontinence Musculoskeletal: Low back pain Psychiatric: [Normal mood/affect] Neurological: [Denies weakness in extremities], [denies balance issues] Objective:: Physical Exam: General: Alert and oriented x3, no acute distress, pleasant and cooperative Lungs: Respirations even and unlabored, symmetrical chest expansion Eyes: PERRL Musculoskeletal: Flexion and extension of lumbar [spine] somewhat guarded secondary to pain, [antalgic gait noted] Neurological: Speech clear, no gross sensory deficit Assessment:: Degenerative disc disease of lumbar spine with lumbar radiculopathy symptoms, status post kyphoplasty, bilateral feet pain secondary to chronic lymphedema Plan:: We will continue the patient's Enterprise 5 mg 4 times a day and pregabalin 75 mg 3 times a day. We will provide the patient with 1 month of refills. We would like to see the patient back in 1 month for follow-up and reevaluation of chronic pain syndrome. We will see the patient as a telehealth visit next month. Patient has been advised of risks of oversedation with the prescribed medication. Narcan has been offered to the patient in the event of oversedation. Patient has been advised that a family member should also be educated regarding administration of Narcan. Patient has been instructed to contact the clinic with any concerns before the next appointment. Dr. Uribe has reviewed this note and agrees with this plan of care. This note was dictated using voice recognition software and make contain errors or omissions. [facility] Medical History (Updated 06/10/22 @ 15:23 by Teresa Rodríguez APRN) Afib Asthma Breast cancer, left CAD (coronary artery disease) DM2 (diabetes mellitus, type 2) Foot fracture, right History of left heart catheterization HLD (hyperlipidemia) HTN (hypertension) Lipedema assisted current use of anticoagulant Morbid obesity with BMI of 60.0-69.9, adult JESSICA (obstructive sleep apnea) Peripheral neuropathy Surgical History History of breast biopsy History of carpal tunnel release History of cholecystectomy History of colonoscopy History of coronary artery stent placement History of tubal ligation Hx of tonsillectomy Family History (Updated 05/10/22 @ 16:17 by Teresa Rodriguez RN) Other Family history of asthma Family history of myocardial infarction Lung cancer Social History (Updated 06/10/22 @ 14:33 by Brandy Ritter RN) Smoking Status: Never smoker second hand exposure: No alcohol intake: never substance use type: denies use current occupational status: disabled Travel in the last 8 wee
== END | disposition home or self-care (01) ==
PROVIDERS: Visit Provider Student in an Organized Health Care Education/Training Program
DX: M51.16 Intervertebral disc disorders with radiculopathy, lumbar region (principal); M79.671 Pain in right foot; M79.672 Pain in left foot; Z79.899 Other long term (current) drug therapy
CPT/HCPCS: 99212; G0463

== ENCOUNTER 2022-06-10 13:36 | Emergency (ER) | payer MEDICARE, SELFPAY ==
[2022-06-10 13:47] VITALS: BP 129/73; PULSE 99; RESP 18; TEMP 36.8; O2SAT 97; BMI 52.2
[2022-06-10 14:20] VITALS: BP 129/73; PULSE 99; RESP 18; TEMP 36.8; O2SAT 97; BMI 52.2
--- NOTE | 2022-06-10 14:55 | EXP.UTC ---
Discharge Plan Disposition Patient Disposition: Home, Self-Care Condition: Good Prescriptions Prescriptions: No Action Novolin 70/30 U-100 Insulin 100 unit/mL (70-30) suspension 40 unit SQ BID atorvastatin 80 mg tablet 80 mg PO HS montelukast [Singulair] 10 mg tablet 10 mg PO HS cetirizine [Zyrtec] 10 mg tablet 10 mg PO DAILY metoprolol succinate 50 MG tablet extended release 24 hr 50 mg PO DAILY spironolactone 50 MG tablet 50 mg PO BID clopidogrel 75 MG tablet 75 mg PO DAILY metformin 1,000 mg tablet 1,000 mg PO BID duloxetine 60 mg capsule,delayed release(DR/EC) 60 mg PO DAILY budesonide-formoterol [Symbicort] 160-4.5 mcg/actuation HFA aerosol inhaler 2 inh INHALATION BID Label Comments: INHALE 2 PUFFS BY MOUTH TWICE DAILY rivaroxaban 20 mg tablet 20 mg PO QPMWITHMEAL furosemide 40 MG tablet 40 mg PO DIRECTED Qty: 90 0RF Rx Instructions: Take 80mg qAM and 40mg qPM hydrocodone-acetaminophen 5-325 mg tablet 1 tab PO QID Qty: 12 0RF pregabalin 75 MG capsule 75 mg PO TID Qty: 12 0RF Referrals Follow up/Referrals: Jamil Carey MD [Primary Care Provider] - See instructions Activity Restrictions/Add. Instructions Additional Instructions/Restrictions: Suture instructions: ?You have required stitches today. Please read the following instructions so you know how to care for them: ?1. Keep wound area dry for the first 24 hours. 2?? May clean gently with mild soap and water, after 48 hours to prevent crusting over suture knots. 3. You may shower if your provider gives permission but do not take a bath until the skin is healed.. 4. Never leave a wet dressing or Band-Aid on your stitches as this allows bacteria to reach the area and may cause infection. Band-aids can cause the wound to sweat and not recommended to wear for long periods of time Watch for signs of infection: ? Increasing redness, tenderness or warmth around the suture site ? Unusual swelling around the site ? Appearance of pus around each suture or any red streaks ? Fever If you develop any of the above signs or symptoms of infection, Follow up with Family Physician immediately 5. Suture removal in _7-10___days 6. Return to [facility] or follow up with family doctor for removal. This can be done by any medical provider dur?ing regular hours on Friday through Friday, by appointment. Clinical Impressions Clinical Impression: Laceration Instructions Patient Instructions: DI for Laceration Repair, DI for Laceration Repair -- Simple Discharge ED Provider: Teresa Rodríguez [facility] [place] HPI General Stated complaint: Cut LT leg on truck 06/10 12p @home Mode of Arrival: Ambulatory Source of Information: Patient Limitations: No Limitations Time Seen by Provider: 06/10/22 14:58 Description of Symptoms (Recalled from Triage Doc. by RN): PATIENT C/O LACERATION TO LLE. SHE STATES SHE CUT IT ON THE METAL FRAME ON HER BED WHILE GETTING INTO HER CHAIR. SHE REPORTS SHE IS ON XERLTO AND PLAVIX. UNSURE IF TDAP IS UP TO DATE HEENT Symptoms (Recalled from RN notes): No Resp Symptoms (Recalled from RN notes): No Skin Symptoms (Recalled from RN notes): Yes MS Symptoms (Recalled from RN notes): No Functional Status (Recalled from RN notes): WNL History of Present Illness Provider Complaint: Patient states that she hit her left lower leg on the bedrail while she was getting into her wheelchair earlier and has laceration to left lower leg that they noticed when she got into the vehicle States that she is on blood thinner but hey noticed it looked like she may need stitches so they brought her in to get it checked out Related Data Home Medications Medication Instructions Recorded Confirmed atorvastatin 80 mg tablet 80 mg PO HS Cholesterol 06/08/19 06/10/22 montelukast 10 mg tablet 10 mg PO HS Asthma 02/14/20 06/10/22 (Singulair) insulin human U-100 NPH-regulr 40 unit SQ BID Diabetes
[2022-06-10 15:26] VITALS: BP 129/73; PULSE 99; RESP 18; TEMP 36.8; O2SAT 97
== END 2022-06-10 15:33 | disposition home or self-care (01) ==
PROVIDERS: Emergency Provider Nurse Practitioner; PCP Emergency Medicine
DX: S81.812A Laceration without foreign body, left lower leg, initial encounter (principal); I10 Essential (primary) hypertension; I48.91 Unspecified atrial fibrillation; I25.10 Atherosclerotic heart disease of native coronary artery without angina pectoris; E78.5 Hyperlipidemia, unspecified; E11.40 Type 2 diabetes mellitus with diabetic neuropathy, unspecified; G47.33 Obstructive sleep apnea (adult) (pediatric); E66.01 Morbid (severe) obesity due to excess calories; J45.909 Unspecified asthma, uncomplicated; Z79.01 Long term (current) use of anticoagulants; Z79.02 Long term (current) use of antithrombotics/antiplatelets; Z79.1 Long term (current) use of non-steroidal anti-inflammatories (NSAID); Z79.4 Long term (current) use of insulin; Z79.84 Long term (current) use of oral hypoglycemic drugs; Z79.899 Other long term (current) drug therapy; Z68.44 Body mass index [BMI] 60.0-69.9, adult; Z88.0 Allergy status to penicillin; Z23 Encounter for immunization; Z95.5 Presence of coronary angioplasty implant and graft; Z82.49 Family history of ischemic heart disease and other diseases of the circulatory system; Z80.9 Family history of malignant neoplasm, unspecified; Z82.5 Family history of asthma and other chronic lower respiratory diseases; W26.9XXA Contact with unspecified sharp object(s), initial encounter
CPT/HCPCS: 12001; 90471; 90715; 99212; 99213; G0463

== ENCOUNTER 2022-06-19 15:28 | Emergency (ER) | payer MEDICARE, SELFPAY ==
[2022-06-19] VITALS (9 sets, daily range): BP systolic 89–134; BP diastolic 64–98; PULSE 57–114; RESP 18–20; TEMP 36.7; O2SAT 93–98; BMI 47.3
--- NOTE | 2022-06-19 15:36 | XR_ITS ---
FINAL REPORT CLINICAL HISTORY: cough, SOA COMPARISON: 05/10/2022 FINDINGS: A single portable view of the chest was obtained. The heart size and pulmonary vascularity are within normal limits. The mediastinum is within normal limits. No acute pulmonary abnormality is identified. The bony thorax is intact. IMPRESSION: No active cardiopulmonary disease. Reviewed, Interpreted and Dictated by Ronaldo Joe III, MD Transcribed by Lyn Richter Authenticated and . [facility]
[2022-06-19 16:14] LABS: Coronavirus 19, PCR Not Detected (NotDetected); Influenza A, PCR Not Detected (NotDetected); Influenza B, PCR Not Detected (NotDetected)
[2022-06-19 16:16] LABS: Basophils # 0.1 K/mm3 (0-0.2); Basophils % 0.7 % (0.1-2.0); Eosinophils # 0.2 K/mm3 (0.0-0.4); Eosinophils % 1.3 % (0.1-12.0); Hematocrit 39.6 % (37.0-47.0); Hemoglobin 12.7 g/dL (12.2-16.2); Lymphocytes # 3.6 K/mm3 (0.7-4.5); Lymphocytes % 24.4 % (10-50); Mean Corpuscular HGB Conc 32.1 g/dL (31.8-35.4); Mean Corpuscular Hemoglobin 24.4 pg (27.0-31.2); Monocytes # 0.7 K/mm3 (0.1-1.0); Neutrophils % 68.4 % (37.0-80.0); Platelet Count 544 K/mm3 (142-424); Red Cell Distribution Width 17.1 % (11.5-17.5); White Blood Count 14.6 K/mm3 (4.8-10.8)
[2022-06-19 16:23] LABS: Alanine Aminotransferase 26 U/L (12-78); Albumin Level 4.3 g/dl (3.5-5.0); Albumin/Globulin Ratio 1.1 (1.1-1.8); Alkaline Phosphatase 174 U/L (38-126); Anion Gap 20.9 mEq/L (5-15); Aspartate Amino Transferase 37 U/L (14-36); Bilirubin,Total 0.7 mg/dl (0.2-1.3); Blood Urea Nitrogen 65 mg/dl (7-17); Carbon Dioxide 29 mmol/L (22.0-30.0); Chloride 89 mmol/L (98-107); Creatinine Clearance Estimated 25 mL/min (50-200); Estimated Glomerular Filt Rate 29 ml/min (>60); GFR (African American) 35 ML/MIN (>60); Glucose 212 mg/dl (74-100); Potassium 4.9 mmoL/L (3.5-5.1); Sodium 134 mmol/L (136-145); Total Protein,Serum 8.3 g/dl (6.3-8.2)
--- NOTE | 2022-06-19 16:23 | HMH.EDGENADL ---
Discharge Plan Disposition Patient Disposition: Home, Self-Care Condition: Good Prescriptions Prescriptions: New azithromycin 500 mg tablet 500 mg PO DAILY 5 Days Qty: 5 0RF methylprednisolone [Medrol (Nimesh)] 4 mg tablets,dose pack 4 mg PO QID Qty: 21 0RF No Action Novolin 70/30 U-100 Insulin 100 unit/mL (70-30) suspension 40 unit SQ BID atorvastatin 80 mg tablet 80 mg PO HS montelukast [Singulair] 10 mg tablet 10 mg PO HS cetirizine [Zyrtec] 10 mg tablet 10 mg PO DAILY furosemide 40 mg tablet 40 mg PO DIRECTED Qty: 270 0RF Rx Instructions: Take 80mg qAM and 40mg qPM metoprolol succinate 50 MG tablet extended release 24 hr 50 mg PO DAILY spironolactone 50 MG tablet 50 mg PO BID hydrocodone-acetaminophen 5-325 mg tablet 1 tab PO QID PRN (Reason: Pain) pregabalin [Lyrica] 75 mg capsule 75 mg PO TID clopidogrel 75 MG tablet 75 mg PO DAILY metformin 1,000 mg tablet 1,000 mg PO BID duloxetine 60 mg capsule,delayed release(DR/EC) 60 mg PO DAILY budesonide-formoterol [Symbicort] 160-4.5 mcg/actuation HFA aerosol inhaler 2 inh INHALATION BID Label Comments: INHALE 2 PUFFS BY MOUTH TWICE DAILY rivaroxaban 20 mg tablet 20 mg PO QPMWITHMEAL Referrals Follow up/Referrals: Jamil Carey MD [Primary Care Provider] - See instructions Activity Restrictions/Add. Instructions Additional Instructions/Restrictions: You were evaluated in the emergency department today for cough and shortness of breath. Please continue using your inhalers at home. You also have an acute kidney injury. Please follow-up with your primary care provider over the next 48 hours for lab recheck. Return to the emergency department for any new or worsening symptoms. network support specialist your prescriptions and take them as prescribed. Clinical Impressions Clinical Impression: ROBE (acute kidney injury) Asthma exacerbation Qualifiers: Asthma severity: unspecified severity Asthma persistence: unspecified Qualified Code(s): J45.901 - Unspecified asthma with (acute) exacerbation Instructions Patient Instructions: DI for Chronic Bronchitis, Acute Kidney Injury, DI for Shortness of Breath Discharge ED Provider: Adelita Farfan General Adult HPI General Chief complaint: Shortness of Breath/Dyspnea Stated complaint: congestion, cough, low 02 Time Seen by Provider: 06/19/22 15:31 Mode of Arrival: Wheelchair Source of Information: Patient Limitations: No Limitations Description of Symptoms (Recalled from ER Triage Doc. by RN): pt to sent to ER for evalution r/t SOA, wheezing noted by home health nurse, and cough. Pt reports has been coughing and SOA for approx 1 month but has worsened in th past couple of days. Pt states no fevers. Pt states cough is not productive. Pt reports she did a neb treatment at home not long prior to arrival of home health nurse. History of Present Illness HPI narrative: This patient is a 76-year-old female with a history of morbid obesity, type 2 diabetes, CAD, hypertension, hyperlipidemia, lymphedema, chronic A. fib, JESSICA, and asthma presented to the emergency department for evaluation of cough and wheezing. Patient states that this has been present for approximately 1 month, however it has worsened over the last few days. She states she always gets allergies this time of year. She states that she has been having some left-sided chest pain that is worse with coughing. It is sharp in nature. Nothing seems to make it better. She is been doing breathing treatments at home with some improvement in her shortness of air, however her cough is still persistent. She denies any fevers, chills, abdominal pain, nausea, vomiting, changes bowel movements, or other concerns. She has chronic swelling, however it is significantly improved and she is actually lost weight. She does have a history of blood clots, but she states that she is c
--- NOTE | 2022-06-19 16:27 | ECG_ITS ---
APPROVED REPORT Exam: Resting ECG HR:112 bpm ECG Measurements Heart Rate 112 AXES QRSd 99 QRS -20 QT 313 T 17 QTc 379 Conclusion ATRIAL FIBRILLATION WITH RAPID VENTRICULAR RESPONSE MINIMAL VOLTAGE CRITERIA FOR LVH, CONSIDER NORMAL VARIANT [MEETS CRITERIA IN ONE OF: R(aVL), S(V1), R(V5), R(V5/V6)+S(V1)] ABNORMAL RHYTHM ECG UNCONFIRMED REPORT Electronically signed by : Cruz Tsai MD 06/19/2022 21:55:15
[2022-06-19 16:29] LABS: D-Dimer 0.76 ug/mL (0.0-0.5)
[2022-06-19 16:32] LABS: NT Pro Brain Natriuretic Pep. 757 pg/mL (0-450)
--- NOTE | 2022-06-19 16:32 | PC.NURSE ---
RESP CALLED FOR DUO NEB
[2022-06-19 16:39] LABS: Troponin I 0.01 ng/ml (0.00-0.034)
[2022-06-19 16:42] LABS: Activated Partial Thrombo Time 39.7 seconds (22.8-30.6); INR 1.19 (0.9-1.1); Prothrombin Time 12.7 seconds (10.1-12.5)
--- NOTE | 2022-06-19 17:48 | PC.NURSE ---
pt in restroom at this time.
--- NOTE | 2022-06-19 19:42 | PC.NURSE ---
report given to arsalanrn
[2022-06-19 20:19] LABS: Troponin I 0.01 ng/ml (0.00-0.034)
== END 2022-06-19 20:28 | disposition home or self-care (01) ==
PROVIDERS: Emergency Provider Emergency Medicine; PCP Emergency Medicine
DX: N17.9 Acute kidney failure, unspecified (principal); J45.901 Unspecified asthma with (acute) exacerbation; Z79.84 Long term (current) use of oral hypoglycemic drugs; Z79.4 Long term (current) use of insulin; Z79.899 Other long term (current) drug therapy; Z88.0 Allergy status to penicillin; E11.9 Type 2 diabetes mellitus without complications; I25.10 Atherosclerotic heart disease of native coronary artery without angina pectoris; I10 Essential (primary) hypertension; E78.5 Hyperlipidemia, unspecified; I48.20 Chronic atrial fibrillation, unspecified; E66.9 Obesity, unspecified; G47.30 Sleep apnea, unspecified
CPT/HCPCS: 71045; 80053; 83880; 84484; 85025; 85378; 85610; 85730; 93005; 94640; 96365; 96367; 96375; 99285; C9803; J0456; J0696; U0003; U0005

== ENCOUNTER → 2022-07-08 14:03 | Outpatient (POV) | payer MEDICARE, SELFPAY ==
--- NOTE | 2022-07-08 14:57 | EXP.PAIN.SOA ---
[facility] Pain Management SOAP Note Subjective:: Patient is a pleasant 76-year-old female who presents today via telehealth for medication refill and follow-up. This audio visit is occurring in the patient's home. Patient is currently being treated for degenerative disc disease of lumbar spine with lumbar radiculopathy symptoms, status post kyphoplasty, bilateral feet pain secondary to chronic lymphedema. Today the patient rates her pain a 7 out of 10. Patient states the pain still is in her low back as well as her bilateral legs. Patient denies any new trauma. Patient's daughter does state that she has had a few times where her legs have gotten weak and she slowly sits down on the floor. Patient denies any true falls. Patient was admitted last month to the hospital and did have a 100 pound weight loss of fluid and is doing much better with her mobility and lymphedema at today's visit. Patient is currently managed with [place] 5 mg 4 times a day and pregabalin 75 mg 3 times a day. Patient denies any new side effects from these medications. Patient states she has chronic urinary issues such as UTI and is on multiple medications for this. Patient states these medications do adequately help manage her pain symptoms. Patient is requesting refills at today's visit. Her Compa is [id number] with a morphine equivalent of 20. It has been reviewed and appropriate. Review of Systems: General: No recent weight changes, no fever, no sleep disturbances Respiratory: No cough, no shortness of air, no recurring pulmonary infections Cardiovascular/peripheral vascular: No chest pain, no palpitations, no edema, no shortness of breath Gastrointestinal: No new onset incontinence, normal bowel movements reported Genitourinary: No new onset incontinence Musculoskeletal: Low back pain, bilateral leg pain Psychiatric: [Normal mood/affect] Neurological: [Denies weakness in extremities], [denies balance issues] Objective:: Physical Exam: General: Alert and oriented x3, no acute distress, pleasant and cooperative Lungs: Respirations even and unlabored, symmetrical chest expansion Eyes: PERRL Musculoskeletal: Flexion and extension of lumbar [spine] somewhat guarded secondary to pain, [antalgic gait noted] Neurological: Speech clear, no gross sensory deficit Assessment:: Degenerative disc 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 I will refill the patient's Trenton 5 mg 4 times a day and provide a 1 month supply of this medication as well as her pregabalin 75 mg 3 times a day. Patient will follow-up in clinic in 1 month. Patient will return to clinic in 1 month for reevaluation of symptoms, medication refill and follow-up. This telehealth visit lasted approximately [id number]. Patient has been advised of risks of oversedation with the prescribed medication. Narcan has been offered to the patient in the event of oversedation. Patient has been advised that a family member should also be educated regarding administration of Narcan. Patient has been instructed to contact the clinic with any concerns before the next appointment. Dr. Uribe has reviewed this note and agrees with this plan of care. This note was dictated using voice recognition software and make contain errors or omissions. 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
== END | disposition home or self-care (01) ==
PROVIDERS: Visit Provider Nurse Practitioner Family
DX: M51.16 Intervertebral disc disorders with radiculopathy, lumbar region (principal); I89.0 Lymphedema, not elsewhere classified
CPT/HCPCS: 99212; G0463

== ENCOUNTER 2022-07-28 09:20 | Emergency (ER) | payer MEDICARE, SELFPAY ==
[2022-07-28] VITALS (16 sets, daily range): BP systolic 110–139; BP diastolic 39–65; PULSE 47–79; RESP 20–22; TEMP 36.7; O2SAT 92–97; BMI 49.9
[2022-07-28 09:37] LABS: POC Glucose,Bedside 170 (70-110)
--- NOTE | 2022-07-28 09:43 | XR_ITS ---
PROCEDURE INFORMATION: Exam: XR Chest Exam date and time: 07/28/2022 10:25 AM Age: 76 years old Clinical indication: Other: Altered mental status work up; Additional info: AMS TECHNIQUE: Imaging protocol: Radiologic exam of the chest. Views: 1 view. COMPARISON: CR XR CHEST PORTABLE 06/19/2022 3:57 PM FINDINGS: Lungs: Questionable left retrocardiac infiltrate but findings are limited secondary to patient positioning. Slight obscuration of the medial left hemidiaphragm. Pleural spaces: Unremarkable. No pleural effusion. No pneumothorax. Heart/Mediastinum: Unremarkable. No cardiomegaly. Bones/joints: Mild degenerative changes of the shoulder joints. IMPRESSION: Questionable left retrocardiac infiltrate but findings are limited secondary to patient positioning. Slight obscuration of the medial left hemidiaphragm.
--- NOTE | 2022-07-28 09:43 | CT_ITS ---
PROCEDURE INFORMATION: Exam: CT Head Without Contrast Exam date and time: 07/28/2022 10:08 AM Age: 76 years old Clinical indication: Stroke-like symptoms; Altered mental status/memory loss; Additional info: AMS TECHNIQUE: Imaging protocol: Computed tomography of the head without contrast. Radiation optimization: All CT scans at this facility use at least one of these dose optimization techniques: automated exposure control; mA and/or kV adjustment per patient size (includes targeted exams where dose is matched to clinical indication); or iterative reconstruction. Other technique: STROKE PROTOCOL was implemented. COMPARISON: No relevant prior studies available. FINDINGS: Brain: Prominent sulci. Patchy hypodensity of the cerebral white matter which are nonspecific but likely secondary to microangiopathic changes. Densely calcified mass left frontal lobe near the convexity measuring 2.3 cm. Cerebral ventricles: The ventricles are prominent secondary to diffuse volume loss/atrophy. Paranasal sinuses: Visualized sinuses are unremarkable. No fluid levels. Mastoid air cells: Visualized mastoid air cells are well aerated. Bones/joints: Unremarkable. No acute fracture. Soft tissues: Unremarkable. IMPRESSION: 1. Chronic age related changes but no evidence of acute intracranial pathology. 2. Densely calcified mass left frontal lobe near the convexity measuring 2.3 cm, most likely a meningioma. These findings were discussed with Jerry Orta at 10:25 a.m. on EST. ASSESSMENT: ASPECTS (Connie Stroke Program Early CT Score) is 10.
--- NOTE | 2022-07-28 09:46 | HMH.EDGENADL ---
Discharge Plan Disposition Patient Disposition: Xfer Other Condition: Fair Prescriptions Prescriptions: New azithromycin 500 mg tablet 500 mg PO DAILY 3 Days Qty: 3 0RF No Action Novolin 70/30 U-100 Insulin 100 unit/mL (70-30) suspension 40 unit SQ BID atorvastatin 80 mg tablet 80 mg PO HS montelukast [Singulair] 10 mg tablet 10 mg PO HS cetirizine [Zyrtec] 10 mg tablet 10 mg PO DAILY furosemide 40 mg tablet 40 mg PO DIRECTED Qty: 270 0RF Rx Instructions: Take 80mg qAM and 40mg qPM magnesium oxide 400 mg magnesium tablet 400 mg PO DAILY Qty: 30 1RF clopidogrel 75 mg tablet 75 mg PO DAILY Qty: 90 1RF metoprolol succinate 50 MG tablet extended release 24 hr 50 mg PO DAILY spironolactone 50 MG tablet 50 mg PO BID hydrocodone-acetaminophen 5-325 mg tablet 1 tab PO QID PRN (Reason: Pain) 30 Days Qty: 120 0RF pregabalin [Lyrica] 75 mg capsule 75 mg PO TID 30 Days Qty: 90 0RF metformin 1,000 mg tablet 1,000 mg PO BID duloxetine 60 mg capsule,delayed release(DR/EC) 60 mg PO DAILY budesonide-formoterol [Symbicort] 160-4.5 mcg/actuation HFA aerosol inhaler 2 inh INHALATION BID Label Comments: INHALE 2 PUFFS BY MOUTH TWICE DAILY rivaroxaban 20 mg tablet 20 mg PO QPMWITHMEAL Referrals Follow up/Referrals: Jamil Carey MD [Primary Care Provider] - See instructions Clinical Impressions Clinical Impression: Altered mental status Stand Alone Forms Stand Alone Forms: Transfer Record - ED Discharge ED Provider: Jerry Fitzgerald General Adult HPI General Chief complaint: Weakness Stated complaint: Confusion, tremors, slurred speech Time Seen by Provider: 07/28/22 09:33 History of Present Illness HPI narrative: Patient presents, according to daughter, with a 1 and half week history of altered mental status. She has episodic weakness where she may have shaking and arm.. She also has some more pronounced weakness on the right side of her body compared to the left which is new. The daughter also states he is complaining of pain for the last few days to her toes. Symptoms are described as moderate and without exacerbating alleviating factors. Related Data Home Medications Medication Instructions Recorded Confirmed atorvastatin 80 mg tablet 80 mg PO HS Cholesterol 06/08/19 07/03/22 montelukast 10 mg tablet 10 mg PO HS Asthma 02/14/20 07/03/22 (Singulair) insulin human U-100 NPH-regulr 40 unit SQ BID Diabetes 10/26/20 07/03/22 70-30 mix 100 unit/mL subcutaneous susp (Novolin 70/30 U-100 Insulin) cetirizine 10 mg tablet (Zyrtec) 10 mg PO DAILY Allergy symptoms 11/07/20 07/03/22 metoprolol succinate 50 mg 50 mg PO DAILY Hypertension 01/14/22 07/03/22 tablet,extended release 24 hr spironolactone 50 mg tablet 50 mg PO BID Fluid 01/14/22 07/03/22 budesonide-formoterol HFA 160 2 inh inhalation BID Breathing 05/10/22 07/03/22 mcg-4.5 mcg/actuation aerosol problems inhaler (Symbicort) duloxetine 60 mg capsule,delayed 60 mg PO DAILY MOOD 05/10/22 07/03/22 release metformin 1,000 mg tablet 1,000 mg PO BID Diabetes 05/10/22 07/03/22 rivaroxaban 20 mg tablet 20 mg PO QPMWITHMEAL Blood thinner 05/10/22 07/03/22 Previous Rx's Medication Instructions Recorded furosemide 40 mg tablet 40 mg PO DIRECTED Fluid #270 06/18/22 tabs magnesium oxide 400 mg PO DAILY #30 tabs 07/02/22 clopidogrel 75 mg tablet 75 mg PO DAILY 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 Medical History (Reviewed 07/28/22 @ 09:48
[2022-07-28 09:56] LABS: Basophils # 0.1 K/mm3 (0-0.2); Basophils % 0.6 % (0.1-2.0); Eosinophils # 0.3 K/mm3 (0.0-0.4); Eosinophils % 2.6 % (0.1-12.0); Hematocrit 36.5 % (37.0-47.0); Hemoglobin 10.5 g/dL (12.2-16.2); Lymphocytes # 2.8 K/mm3 (0.7-4.5); Lymphocytes % 25.2 % (10-50); Mean Corpuscular HGB Conc 28.7 g/dL (31.8-35.4); Mean Corpuscular Hemoglobin 23.5 pg (27.0-31.2); Mean Corpuscular Volume 81.8 fl (81-99); Mean Platelet Volume 7.2 fl (7.4-10.4); Monocytes # 0.7 K/mm3 (0.1-1.0); Monocytes % 6.4 % (1.7-9.3); Neutrophils # 7.2 K/mm3 (1.8-7.8); Neutrophils % 65.3 % (37.0-80.0); Platelet Count 377 K/mm3 (142-424); Red Blood Count 4.46 M/mm3 (4.20-5.40); Red Cell Distribution Width 17.6 % (11.5-17.5)
[2022-07-28 10:07] LABS: Alanine Aminotransferase 29 U/L (12-78); Albumin Level 4.3 g/dl (3.5-5.0); Albumin/Globulin Ratio 1.4 (1.1-1.8); Alkaline Phosphatase 164 U/L (38-126); Aspartate Amino Transferase 40 U/L (14-36); Bilirubin,Total 0.6 mg/dl (0.2-1.3); Blood Urea Nitrogen 78 mg/dl (7-17); Calcium 9.8 mg/dl (8.4-10.2); Carbon Dioxide 32 mmol/L (22.0-30.0); Chloride 89 mmol/L (98-107); Estimated Glomerular Filt Rate 18 ml/min (>60); GFR (African American) 22 ML/MIN (>60); Globulin 3.1 g/dL (1.3-3.2); Glucose 175 mg/dl (74-100); Sodium 135 mmol/L (136-145); Total Protein,Serum 7.4 g/dl (6.3-8.2)
[2022-07-28 10:08] LABS: Lactic Acid 0.9 mmol/L (0.7-2.1)
--- NOTE | 2022-07-28 10:15 | PC.NURSE ---
PT RETURNED FROM CT. PORTABLE CHEST XRAY AT BEDSIDE.
[2022-07-28 10:21] LABS: NT Pro Brain Natriuretic Pep. 2220 pg/mL (0-450)
[2022-07-28 10:22] LABS: Troponin I < 0.01 ng/ml (0.00-0.034)
--- NOTE | 2022-07-28 10:28 | PC.NURSE ---
Dr Fitzgerald speaking with [employer]
[2022-07-28 11:10] LABS: Microscopic, Urine URINE MICROSCOPIC (MICROSCOPIC)
[2022-07-28 11:30] LABS: Appearance,Urine CLEAR (Clear); Bilirubin,Urine Negative (Negative); Blood, Urine Negative (Negative); Color,Urine YELLOW (Yellow); Glucose,Urine (UA) Negative (Negative); Ketones,Urine Negative (Negative); Leukocyte Esterase,Urine 1+ (Negative); Nitrate,Urine Negative (Negative); PH,Urine 7.5 (5.0-8.5); Protein,Urine Negative (Negative)
[2022-07-28 11:42] LABS: Bacteria,Urine Trace /lpf; RBC,Urine Occasional #/hpf (0-3)
--- NOTE | 2022-07-28 12:03 | PC.NURSE ---
dr duuqe speaking with Dr Arabella Herr hospitalist
--- NOTE | 2022-07-28 12:28 | PC.NURSE ---
[facility] called for neuro surgery, images power shared, they are to return call when images are viewed
--- NOTE | 2022-07-28 12:57 | PC.NURSE ---
charter and tour bus driver at bedside
--- NOTE | 2022-07-28 13:06 | PC.NURSE ---
dr duque speaking with [facility]
--- NOTE | 2022-07-28 13:16 | PC.NURSE ---
pt accepted to ER per Dr. Rousseau
--- NOTE | 2022-07-28 13:50 | PC.NURSE ---
report called to luis m martin at ER at this time [place] [facility] notified of transport
--- NOTE | 2022-07-28 14:36 | PC.NURSE ---
transport delayed r/t [facility] had an emergent call that they are transporting to [place]. Pt and family updated at this time, notified will be approx 2 hours before able to transport pt.
--- NOTE | 2022-07-28 15:14 | PC.NURSE ---
checked on pt at this time, daughter at BS, states no needs at this time
--- NOTE | 2022-07-28 17:16 | PC.NURSE ---
report given to banner at this time.
--- NOTE | 2022-07-28 17:17 | PC.NURSE ---
[facility] here for transfer
--- NOTE | 2022-07-28 17:18 | PC.NURSE ---
catheter bag emptied for transport 1200 cc collected
== END 2022-07-28 17:16 | disposition other institution (70) ==
PROVIDERS: Emergency Provider Emergency Medicine; PCP Emergency Medicine
DX: R41.82 Altered mental status, unspecified (principal); R53.1 Weakness; R47.81 Slurred speech; R25.1 Tremor, unspecified; I12.9 Hypertensive chronic kidney disease with stage 1 through stage 4 chronic kidney disease, or unspecified chronic kidney disease; N18.9 Chronic kidney disease, unspecified; E11.22 Type 2 diabetes mellitus with diabetic chronic kidney disease; E11.40 Type 2 diabetes mellitus with diabetic neuropathy, unspecified; E78.5 Hyperlipidemia, unspecified; G47.33 Obstructive sleep apnea (adult) (pediatric); J45.909 Unspecified asthma, uncomplicated; E66.01 Morbid (severe) obesity due to excess calories; Z79.01 Long term (current) use of anticoagulants; Z79.02 Long term (current) use of antithrombotics/antiplatelets; Z79.84 Long term (current) use of oral hypoglycemic drugs; Z79.4 Long term (current) use of insulin; Z79.899 Other long term (current) drug therapy; Z95.5 Presence of coronary angioplasty implant and graft; Z68.44 Body mass index [BMI] 60.0-69.9, adult; Z82.49 Family history of ischemic heart disease and other diseases of the circulatory system; Z82.5 Family history of asthma and other chronic lower respiratory diseases; Z80.3 Family history of malignant neoplasm of breast
CPT/HCPCS: 70450; 71045; 80053; 81001; 82962; 83605; 83880; 84484; 85025; 87040; 87086; 87088; 87186; 99285

== ENCOUNTER 2022-08-05 11:15 | Emergency (ER) | payer MEDICARE, SELFPAY ==
[2022-08-05 11:17] VITALS: BP 147/52; PULSE 56; RESP 18; TEMP 36.8; O2SAT 98; BMI 51.5
--- NOTE | 2022-08-05 11:22 | PC.NURSE ---
ER at BS for patient eval. Idalia RN at BS for triage
--- NOTE | 2022-08-05 11:50 | PC.NURSE ---
ER had spoke with pharmacist nica on recommendations for antibiotic treatment r/t pt culture results from [facility]
[2022-08-05 11:58] LABS: Basophils # 0.1 K/mm3 (0-0.2); Basophils % 0.6 % (0.1-2.0); Eosinophils # 0.4 K/mm3 (0.0-0.4); Eosinophils % 4.7 % (0.1-12.0); Hematocrit 35.1 % (37.0-47.0); Hemoglobin 10.9 g/dL (12.2-16.2); Lymphocytes # 2.7 K/mm3 (0.7-4.5); Lymphocytes % 29.1 % (10-50); Mean Corpuscular Hemoglobin 24.3 pg (27.0-31.2); Mean Corpuscular Volume 78.4 fl (81-99); Mean Platelet Volume 8.6 fl (7.4-10.4); Monocytes # 0.6 K/mm3 (0.1-1.0); Monocytes % 5.9 % (1.7-9.3); Neutrophils # 5.6 K/mm3 (1.8-7.8); Neutrophils % 59.6 % (37.0-80.0); Platelet Count 351 K/mm3 (142-424); Red Blood Count 4.48 M/mm3 (4.20-5.40); Red Cell Distribution Width 18.6 % (11.5-17.5); White Blood Count 9.4 K/mm3 (4.8-10.8)
--- NOTE | 2022-08-05 12:00 | HMH.EDGENADL ---
Discharge Plan Disposition Patient Disposition: Home, Self-Care Condition: Good Prescriptions Prescriptions: New clindamycin HCl 300 mg capsule 300 mg PO TID 7 Days Qty: 21 0RF No Action Novolin 70/30 U-100 Insulin 100 unit/mL (70-30) suspension 40 unit SQ BID atorvastatin 80 mg tablet 80 mg PO HS montelukast [Singulair] 10 mg tablet 10 mg PO HS cetirizine [Zyrtec] 10 mg tablet 10 mg PO DAILY furosemide 40 mg tablet 40 mg PO DIRECTED Qty: 270 0RF Rx Instructions: Take 80mg qAM and 40mg qPM magnesium oxide 400 mg magnesium tablet 400 mg PO DAILY Qty: 30 1RF clopidogrel 75 mg tablet 75 mg PO DAILY Qty: 90 1RF metoprolol succinate 50 MG tablet extended release 24 hr 50 mg PO DAILY spironolactone 50 MG tablet 50 mg PO BID hydrocodone-acetaminophen 5-325 mg tablet 1 tab PO QID PRN (Reason: Pain) 30 Days Qty: 120 0RF pregabalin [Lyrica] 75 mg capsule 75 mg PO TID 30 Days Qty: 90 0RF metformin 1,000 mg tablet 1,000 mg PO BID duloxetine 60 mg capsule,delayed release(DR/EC) 60 mg PO DAILY budesonide-formoterol [Symbicort] 160-4.5 mcg/actuation HFA aerosol inhaler 2 inh INHALATION BID Label Comments: INHALE 2 PUFFS BY MOUTH TWICE DAILY rivaroxaban 20 mg tablet 20 mg PO QPMWITHMEAL azithromycin 500 mg tablet 500 mg PO DAILY 3 Days Qty: 3 0RF Referrals Follow up/Referrals: Jamil Carey MD [Primary Care Provider] - See instructions Activity Restrictions/Add. Instructions Additional Instructions/Restrictions: Please follow-up with your primary care physician within the next 1 to 2 days. You have been prescribed clindamycin due to your positive blood cultures please take as prescribed. You will be called and notified if your repeat blood cultures are positive. Please return for any concerning symptoms such as fevers, nausea and vomiting, lethargy or any other concerns. Clinical Impressions Clinical Impression: Encounter for medical assessment Print Language Print Language: Cypriot Discharge ED Provider: Patricia Ashford Adult HPI General Chief complaint: Recheck/Abnormal Lab/Rx Stated complaint: culture report from Time Seen by Provider: 08/05/22 14:08 Mode of Arrival: Wheelchair Source of Information: Patient Limitations: No Limitations Description of Symptoms (Recalled from ER Triage Doc. by RN): Pt daughter reports was call by lastnight told that pt had a positive blood culture and was going to need IV antibiotics and to come back to . Pt daughter states she spoke with Dr. Hernandez office today states they were told pt would need to be seen in the hospital and need antibiotics for the culture result. Pt daughter reports does not want to go back to . Pt daughter reports pt d/c from on Friday, states pt has been doing well, alert, oriented x3 during triage. History of Present Illness HPI narrative: Genny is a 76 yo female w/ PMH for morbid obesity, CKD, COPD, HTN, HLD, and chronic afib presenting to the ED due to positive blood cultures. Patient recently admitted to for encephalopathy. Patient is doing much better however she was informed today that she had positive blood cultures for sporolactobacillus. Patient called by and informed to come to emergency department for IV abx. Patient reports she refuses to go back to prompting her visit here. Patients daughter spoke with Dr. Carey office today who prompted her to come to ED for evaluation and repeat cultures. Patient is currently alert and oriented. Has been afebrile and reports she feels great. complaint: positive blood cultures Related Data Home Medications Medication Instructions Recorded Confirmed atorvastatin 80 mg tablet 80 mg PO HS Cholesterol 06/08/19 07/03/22 montelukast 10 mg tablet 10 mg PO HS Asthma 02/14/20 07/03/22 (Singulair) insulin human U-100 NPH-regulr 40 unit SQ BID Diabetes 10/26/20 11
[2022-08-05 12:02] LABS: Chloride 101 mmol/L (98-107); Potassium 3.5 mmoL/L (3.5-5.1); Sodium 136 mmol/L (136-145)
--- NOTE | 2022-08-05 12:02 | PC.NURSE ---
Faxed over a cover page sheet to have records sent from [facility]
[2022-08-05 12:05] LABS: Alanine Aminotransferase 23 U/L (12-78); Albumin Level 4.1 g/dl (3.5-5.0); Albumin/Globulin Ratio 1.4 (1.1-1.8); Alkaline Phosphatase 115 U/L (38-126); Anion Gap 8.5 mEq/L (5-15); Aspartate Amino Transferase 30 U/L (14-36); Bilirubin,Total 0.5 mg/dl (0.2-1.3); Blood Urea Nitrogen 46 mg/dl (7-17); Calcium 9.7 mg/dl (8.4-10.2); Carbon Dioxide 30 mmol/L (22.0-30.0); Creatinine Clearance Estimated 38 mL/min (50-200); Estimated Glomerular Filt Rate 48 ml/min (>60); GFR (African American) 59 ML/MIN (>60); Glucose 159 mg/dl (74-100); Total Protein,Serum 7.1 g/dl (6.3-8.2)
--- NOTE | 2022-08-05 13:21 | PC.NURSE ---
lunch tray ordered for pt
--- NOTE | 2022-08-05 13:55 | PC.NURSE ---
ER MD states spoke with pharmacy and they have came up with a POC of PO antibiotics for pt. ER at BS at this time
[2022-08-05 14:08] VITALS: BP 146/61; PULSE 53; RESP 18; TEMP 36.8; O2SAT 100
--- NOTE | 2022-08-05 15:13 | HMH.EDGENADL ---
Discharge Plan Disposition Patient Disposition: Home, Self-Care Condition: Good Prescriptions Prescriptions: New clindamycin HCl 300 mg capsule 300 mg PO TID 7 Days Qty: 21 0RF No Action Novolin 70/30 U-100 Insulin 100 unit/mL (70-30) suspension 40 unit SQ BID atorvastatin 80 mg tablet 80 mg PO HS montelukast [Singulair] 10 mg tablet 10 mg PO HS cetirizine [Zyrtec] 10 mg tablet 10 mg PO DAILY furosemide 40 mg tablet 40 mg PO DIRECTED Qty: 270 0RF Rx Instructions: Take 80mg qAM and 40mg qPM magnesium oxide 400 mg magnesium tablet 400 mg PO DAILY Qty: 30 1RF clopidogrel 75 mg tablet 75 mg PO DAILY Qty: 90 1RF metoprolol succinate 50 MG tablet extended release 24 hr 50 mg PO DAILY spironolactone 50 MG tablet 50 mg PO BID hydrocodone-acetaminophen 5-325 mg tablet 1 tab PO QID PRN (Reason: Pain) 30 Days Qty: 120 0RF pregabalin [Lyrica] 75 mg capsule 75 mg PO TID 30 Days Qty: 90 0RF metformin 1,000 mg tablet 1,000 mg PO BID duloxetine 60 mg capsule,delayed release(DR/EC) 60 mg PO DAILY budesonide-formoterol [Symbicort] 160-4.5 mcg/actuation HFA aerosol inhaler 2 inh INHALATION BID Label Comments: INHALE 2 PUFFS BY MOUTH TWICE DAILY rivaroxaban 20 mg tablet 20 mg PO QPMWITHMEAL azithromycin 500 mg tablet 500 mg PO DAILY 3 Days Qty: 3 0RF Referrals Follow up/Referrals: Jamil Carey MD [Primary Care Provider] - See instructions Activity Restrictions/Add. Instructions Additional Instructions/Restrictions: Please follow-up with your primary care physician within the next 1 to 2 days. You have been prescribed clindamycin due to your positive blood cultures please take as prescribed. You will be called and notified if your repeat blood cultures are positive. Please return for any concerning symptoms such as fevers, nausea and vomiting, lethargy or any other concerns. Clinical Impressions Clinical Impression: Encounter for medical assessment Print Language Print Language: Mosotho Discharge ED Provider: Patricia Ashford Adult HPI General Chief complaint: Recheck/Abnormal Lab/Rx Stated complaint: culture report from [facility] Mode of Arrival: Wheelchair Source of Information: Patient Limitations: No Limitations Description of Symptoms (Recalled from ER Triage Doc. by RN): Pt daughter reports was call by [facility] lastnight told that pt had a positive blood culture and was going to need IV antibiotics and to come back to . Pt daughter states she spoke with Dr. Hernandez office today states they were told pt would need to be seen in the hospital and need antibiotics for the culture result. Pt daughter reports does not want to go back to . Pt daughter reports pt d/c from [facility] on Friday, states pt has been doing well, alert, oriented x3 during triage. Related Data Home Medications Medication Instructions Recorded Confirmed atorvastatin 80 mg tablet 80 mg PO HS Cholesterol 06/08/19 07/03/22 montelukast 10 mg tablet 10 mg PO HS Asthma 02/14/20 07/03/22 (Singulair) insulin human U-100 NPH-regulr 40 unit SQ BID Diabetes 10/26/20 07/03/22 70-30 mix 100 unit/mL subcutaneous susp (Novolin 70/30 U-100 Insulin) cetirizine 10 mg tablet (Zyrtec) 10 mg PO DAILY Allergy symptoms 11/07/20 07/03/22 metoprolol succinate 50 mg 50 mg PO DAILY Hypertension 01/14/22 07/03/22 tablet,extended release 24 hr spironolactone 50 mg tablet 50 mg PO BID Fluid 01/14/22 07/03/22 budesonide-formoterol HFA 160 2 inh inhalation BID Breathing 05/10/22 07/03/22 mcg-4.5 mcg/actuation aerosol problems inhaler (Symbicort) duloxetine 60 mg capsule,delayed 60 mg PO DAILY MOOD 05/10/22 07/03/22 release metformin 1,000 mg tablet 1,000 mg PO BID Diabetes 05/10/22 07/03/22 rivaroxaban 20 mg tablet 20 mg PO QPMWITHMEAL Blood thinner 05/10/22 07/03/22 Previous Rx's Medication Instructions Recorded furosemide 40 mg tabl
== END 2022-08-05 14:08 | disposition home or self-care (01) ==
PROVIDERS: Emergency Provider Student in an Organized Health Care Education/Training Program; PCP Emergency Medicine
DX: Z02.89 Encounter for other administrative examinations (principal)
CPT/HCPCS: 80053; 83605; 85025; 87040; 99282

== ENCOUNTER → 2022-09-05 11:04 | Outpatient (POV) | payer MEDICARE, SELFPAY ==
--- NOTE | 2022-09-05 11:45 | EXP.PAIN.SOA ---
[facility] Pain Management SOAP Note Subjective:: Patient is a pleasant 76-year-old female who presents today for medication refill and follow-up. We are currently treating the patient for degenerative disc disease of lumbar spine with lumbar radiculopathy symptoms, status post kyphoplasty, bilateral feet pain secondary to chronic lymphedema. Today the patient rates her pain a 5 out of 10. Patient states that she previously has been under the weather over the last couple of months. Patient states that she was admitted to the hospital back around June due to waking up and having strokelike symptoms. Patient states she did have confusion and speech difficulty. 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 Patient was seen at and stated that she was overmedicated and had nothing to do with the tumor. Patient states they did take her off all her medications that may have caused any additional drowsiness. Patient states she has struggled following that change and had chronic pain related issues. Patient's daughter is present with her today during our visit and states right now she is back to her regular medication dosages of pregabalin 75 mg 3 times a day and [place] 5 mg 4 times a day. Patient does state by the end of the day after the 3 doses of pregabalin she does feel like that she is drowsy. Patient is requesting an adjustment of this medication for that reason. Her Compa is [id number]. It is been reviewed and appropriate. Review of Systems: General: No recent weight changes, no fever, no sleep disturbances Respiratory: No cough, no shortness of air, no recurring pulmonary infections Cardiovascular/peripheral vascular: No chest pain, no palpitations, no edema, no shortness of breath Gastrointestinal: No new onset incontinence, normal bowel movements reported Genitourinary: No new onset incontinence Musculoskeletal: Low back pain, leg pain Psychiatric: [Normal mood/affect] Neurological: [Denies weakness in extremities], [denies balance issues] Objective:: Physical Exam: General: Alert and oriented x3, no acute distress, pleasant and cooperative Lungs: Respirations even and unlabored, symmetrical chest expansion Eyes: PERRL Musculoskeletal: Flexion and extension of lumbar [spine] somewhat guarded secondary to pain, [antalgic gait noted] Neurological: Speech clear, no gross sensory deficit ORT score updated with minimal risk of 0 Assessment:: Degenerative disc disease of lumbar spine with lumbar radiculopathy symptoms, status post kyphoplasty, bilateral feet pain secondary to chronic lymphedema Plan:: Patient continues to experience significant pain in her back and legs however she is doing well with her current medication regimen. I will refill the patient's [place] 5 mg 4 times a day and provide a 1 month supply of this medication. I will alter her pregabalin to 75 mg twice daily and provide a 1 month supply of this medication. Patient will return to clinic in 1 month via telehealth visit for reevaluation of symptoms and medication refill. Patient has been advised of risks of oversedation with the prescribed medication. Narcan has been offered to the patient in the event of oversedation. Patient has been advised that a family member should also be educated regarding administration of Narcan. Patient has been instructed to contact the clinic with any concerns before the next appointment. Dr. Uribe has reviewed this note and agrees with this plan of care. This note was dictated using voice recognition software and make contain errors or omissions. [facility] Disclaimer: The information contained in this section may have been updated after the patient was seen, as this information can be updated by other users. Medical History Afib Asthma Breast cancer, left CAD (coronary artery disease) CKD (chronic kidney disease) DM2 (diabetes mellitus, type 2)
[2022-09-05 12:29] VITALS: BP 138/54; PULSE 51; RESP 18; O2SAT 96; BMI 51.5
== END | disposition home or self-care (01) ==
PROVIDERS: PCP Emergency Medicine; Visit Provider Nurse Practitioner Family
DX: M51.16 Intervertebral disc disorders with radiculopathy, lumbar region (principal); M79.671 Pain in right foot; M79.672 Pain in left foot
CPT/HCPCS: 99212; G0463

== ENCOUNTER → 2022-09-05 11:37 | Outpatient (CLI) | payer MEDICARE, SELFPAY ==
[2022-09-10 16:12] LABS: Acetone <.010 g/dL (0.000-0.010); Butalbital <1 ug/mL (1-10); Chlordiazepoxide <0.1 ug/mL (0.1-0.9); Diazepam <0.1 ug/mL (0.1-0.9); Ethanol <.010 g/dL (0.000-0.010); Isopropanol <.010 g/dL (0.000-0.010); Pentobarbital <1 ug/mL (1-5)
[2022-09-17 10:50] LABS: Oxymorphone GS/MS Negative (.)
== END ==
PROVIDERS: PCP Emergency Medicine; Visit Provider Nurse Practitioner Family
DX: Z79.891 Long term (current) use of opiate analgesic (principal)
CPT/HCPCS: 36415; 80306; 80307; 99212; G0463

== ENCOUNTER → 2022-11-07 13:25 | Outpatient (POV) | payer MEDICARE, SELFPAY ==
--- NOTE | 2022-11-07 14:08 | EXP.PAIN.SOA ---
[facility] Pain Management SOAP Note Subjective:: Patient is a pleasant 77-year-old female who presents today for follow-up and medication refill. We are currently treating the patient for degenerative disc disease of lumbar spine with lumbar radiculopathy symptoms, status post kyphoplasty, bilateral feet pain secondary to chronic lymphedema. Today she rates her pain a 10 out of 10. Patient denies any new trauma or injury. Patient denies any change location or type of pain she experiences. Patient states that today is her birthday and that she has been up and on her feet since early this morning. She states that she did go get her hair done and that is the reason why she is having increased pain. Patient is currently managed with pregabalin 75 mg twice a day and [place] 5 mg 4 times a day. Patient denies any side effects from this medication. She previously had increased drowsiness when she was taking the pregabalin 3 times a day however since we decreased her medication dosage she denies any other issues. She was prescribed compounding cream in the past however she states that she did not get significant relief with this. Her Compa is [id number]. Its been reviewed and appropriate. Review of Systems: General: No recent weight changes, no fever, no sleep disturbances Respiratory: No cough, no shortness of air, no recurring pulmonary infections Cardiovascular/peripheral vascular: No chest pain, no palpitations, no edema, no shortness of breath Gastrointestinal: No new onset incontinence, normal bowel movements reported Genitourinary: No new onset incontinence Musculoskeletal: Low back pain, feet pain Psychiatric: [Normal mood/affect] Neurological: [Denies weakness in extremities], [denies balance issues] Objective:: Physical Exam: General: Alert and oriented x3, no acute distress, pleasant and cooperative Lungs: Respirations even and unlabored, symmetrical chest expansion Eyes: PERRL Musculoskeletal: Flexion and extension of lumbar [spine] somewhat guarded secondary to pain, [antalgic gait noted] Neurological: Speech clear, no gross sensory deficit Assessment:: Degenerative disc disease of lumbar spine with lumbar radiculopathy symptoms, status post kyphoplasty, bilateral feet pain secondary to chronic lymphedema Plan:: Patient is doing well with her current medication regimen. I will send refills for her [place] 5 mg 4 times a day and pregabalin 75 mg twice a day and provide a 1 month supply of this medication. Patient will return to clinic in 1 month for reevaluation of symptoms, medication refill and follow-up. Patient has been advised of risks of oversedation with the prescribed medication. Narcan has been offered to the patient in the event of oversedation. Patient has been advised that a family member should also be educated regarding administration of Narcan. Patient has been instructed to contact the clinic with any concerns before the next appointment. Dr. Uribe has reviewed this note and agrees with this plan of care. This note was dictated using voice recognition software and make contain errors or omissions. [facility] Disclaimer: The information contained in this section may have been updated after the patient was seen, as this information can be updated by other users. 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
[2022-11-07 15:46] VITALS: BP 160/85; PULSE 86; RESP 18; O2SAT 97; BMI 51.5
== END | disposition home or self-care (01) ==
PROVIDERS: PCP Emergency Medicine; Visit Provider Nurse Practitioner Family
DX: M51.16 Intervertebral disc disorders with radiculopathy, lumbar region (principal); M79.671 Pain in right foot; M79.672 Pain in left foot
CPT/HCPCS: 99212; G0463

== ENCOUNTER → 2022-12-12 08:24 | Outpatient (POV) | payer MEDICARE, SELFPAY ==
[2022-12-12 08:49] VITALS: BP 143/65; PULSE 68; RESP 18; O2SAT 95; BMI 51.5
--- NOTE | 2022-12-12 08:50 | EXP.PAIN.SOA ---
[facility] Pain Management SOAP Note Subjective:: Patient is a pleasant 77-year-old female who presents today for medication refill and follow-up. We are currently treating the patient for degenerative disc disease of lumbar spine with lumbar radiculopathy symptoms status post kyphoplasty, bilateral feet pain secondary to chronic lymphedema. Today she rates her pain a 4 out of 10. Patient denies any new trauma or injury. She states her pain continues to be in her low back and legs. She does states she is doing well on her medication. She is currently managed with pregabalin 75 mg twice a day and [place] 5 mg 4 times a day. Patient denies any side effects from these medications. She states she has gotten the compounding cream in the past however it did not improve her symptoms. Her Compa is [id number]. Its been reviewed and appropriate. Review of Systems: General: No recent weight changes, no fever, no sleep disturbances Respiratory: No cough, no shortness of air, no recurring pulmonary infections Cardiovascular/peripheral vascular: No chest pain, no palpitations, no edema, no shortness of breath Gastrointestinal: No new onset incontinence, normal bowel movements reported Genitourinary: No new onset incontinence Musculoskeletal: Low back pain Psychiatric: [Normal mood/affect] Neurological: [Denies weakness in extremities], [denies balance issues] Objective:: Physical Exam: General: Alert and oriented x3, no acute distress, pleasant and cooperative Lungs: Respirations even and unlabored, symmetrical chest expansion Eyes: PERRL Musculoskeletal: Flexion and extension of lumbar [spine] somewhat guarded secondary to pain, [antalgic gait noted] Neurological: Speech clear, no gross sensory deficit Assessment:: Degenerative disc disease of lumbar spine with lumbar radiculopathy symptoms, status post kyphoplasty, bilateral feet pain secondary to chronic lymphedema Plan:: Patient is doing well with her current medication regimen. I will refill her [place] 5 mg 4 times a day and pregabalin 75 mg twice a day and provide a 1 month supply of this medication. Patient will return to clinic in 1 month for reevaluation of symptoms, medication refill and follow-up. Patient has been advised of risks of oversedation with the prescribed medication. Narcan has been offered to the patient in the event of oversedation. Patient has been advised that a family member should also be educated regarding administration of Narcan. Patient has been instructed to contact the clinic with any concerns before the next appointment. Dr. Uribe has reviewed this note and agrees with this plan of care. This note was dictated using voice recognition software and make contain errors or omissions. [facility] Disclaimer: The information contained in this section may have been updated after the patient was seen, as this information can be updated by other users. 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) Lipedema intermediate current use of anticoagulant Morbid obesity with BMI of 60.0-69.9, adult JESSICA (obstructive sleep apnea) Peripheral neuropathy Surgical History History of breast biopsy History of carpal tunnel release History of cholecystectomy History of colonoscopy History of coronary artery stent placement History of tubal ligation Hx of tonsillectomy Family History Other Family history of asthma Family history of myocardial infarction Lung cancer Social History Smoking Status: Never smoker second hand exposure: No alcohol intake: never substance use type: denies use cu
== END | disposition home or self-care (01) ==
PROVIDERS: PCP Emergency Medicine; Visit Provider Nurse Practitioner Family
DX: M51.16 Intervertebral disc disorders with radiculopathy, lumbar region (principal); M79.671 Pain in right foot; M79.672 Pain in left foot
CPT/HCPCS: 99212; G0463

== ENCOUNTER → 2023-01-09 13:50 | Outpatient (POV) | payer MEDICARE, SELFPAY ==
[2023-01-09 14:10] VITALS: BP 149/42; PULSE 57; RESP 18; O2SAT 97; BMI 48.9
--- NOTE | 2023-01-09 14:21 | EXP.PAIN.SOA ---
[facility] Pain Management SOAP Note Subjective:: Patient is a pleasant 77-year-old female who presents today for medication refill and follow-up. We are currently treating the patient for degenerative disc disease of lumbar spine with lumbar radiculopathy symptoms, status post kyphoplasty, bilateral feet pain secondary to chronic lymphedema.. Today she rates her pain a 3 out of 10. Patient denies any new trauma or injury or any change to the pain she currently experiences. She is currently managed with pregabalin 75 mg twice a day and [place] 5 mg 4 times a day. Patient denies any side effects from this medication her Compa is [id number]. Its been reviewed and appropriate. Review of Systems: General: No recent weight changes, no fever, no sleep disturbances Respiratory: No cough, no shortness of air, no recurring pulmonary infections Cardiovascular/peripheral vascular: No chest pain, no palpitations, no edema, no shortness of breath Gastrointestinal: No new onset incontinence, normal bowel movements reported Genitourinary: No new onset incontinence Musculoskeletal: Low back pain Psychiatric: [Normal mood/affect] Neurological: [Denies weakness in extremities], [denies balance issues] Objective:: Physical Exam: General: Alert and oriented x3, no acute distress, pleasant and cooperative Lungs: Respirations even and unlabored, symmetrical chest expansion Eyes: PERRL Musculoskeletal: Flexion and extension of lumbar [spine] somewhat guarded secondary to pain, [antalgic gait noted] Neurological: Speech clear, no gross sensory deficit Assessment:: Degenerative disc disease of lumbar spine with lumbar radiculopathy symptoms, status post kyphoplasty, bilateral feet pain secondary to chronic lymphedema Plan:: Patient is doing well with her current medication regimen. I will refill her [place] 5 mg 4 times a day and pregabalin 75 mg twice a day and provide a 1 month supply of this medication. Patient will return to clinic in 1 month for reevaluation of symptoms, medication refill and follow-up. Patient has been advised of risks of oversedation with the prescribed medication. Narcan has been offered to the patient in the event of oversedation. Patient has been advised that a family member should also be educated regarding administration of Narcan. Patient has been instructed to contact the clinic with any concerns before the next appointment. Dr. Uribe has reviewed this note and agrees with this plan of care. This note was dictated using voice recognition software and make contain errors or omissions. [facility] Disclaimer: The information contained in this section may have been updated after the patient was seen, as this information can be updated by other users. 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) Lipedema retirement current use of anticoagulant Morbid obesity with BMI of 60.0-69.9, adult JESSICA (obstructive sleep apnea) Peripheral neuropathy Surgical History History of breast biopsy History of carpal tunnel release History of cholecystectomy History of colonoscopy History of coronary artery stent placement History of tubal ligation Hx of tonsillectomy Family History Other Family history of asthma Family history of myocardial infarction Lung cancer Social History Smoking Status: Never smoker second hand exposure: No alcohol intake: never substance use type: denies use current occupational status: disabled Travel in the last 8 weeks: None household members: children housing: house current occupational exposures/hazards: No
== END | disposition home or self-care (01) ==
PROVIDERS: PCP Emergency Medicine; Visit Provider Nurse Practitioner Family
DX: M51.16 Intervertebral disc disorders with radiculopathy, lumbar region (principal); Z98.890 Other specified postprocedural states; M79.671 Pain in right foot; M79.672 Pain in left foot
CPT/HCPCS: 99212; G0463

== ENCOUNTER → 2023-01-09 14:21 | Outpatient (CLI) | payer MEDICARE, SELFPAY ==
[2023-01-14 11:14] LABS: Acetone <.010 g/dL (0.000-0.010); Butalbital <1 ug/mL (1-10); Chlordiazepoxide <0.1 ug/mL (0.1-0.9); Diazepam <0.1 ug/mL (0.1-0.9); Ethanol <.010 g/dL (0.000-0.010); Isopropanol <.010 g/dL (0.000-0.010); Pentobarbital <1 ug/mL (1-5)
== END ==
PROVIDERS: Nurse Practitioner Family; PCP Emergency Medicine; Visit Provider Anesthesiology
DX: Z79.891 Long term (current) use of opiate analgesic (principal)
CPT/HCPCS: 36415; 80306; 99212; G0463

== ENCOUNTER 2023-02-21 09:18 | Emergency (ER) | payer MEDICARE, SELFPAY ==
[2023-02-21 09:30] VITALS: BP 134/59; PULSE 78; RESP 20; TEMP 36.6; O2SAT 95; BMI 48.0
--- NOTE | 2023-02-21 09:36 | XR_ITS ---
FINAL REPORT CLINICAL HISTORY: pain and swelling FINDINGS: Right forearm Two views were obtained. There is no acute fracture or dislocation. There are mild hypertrophic changes of the radial head which may be due to old trauma or osteoarthritis. No soft tissue abnormality is identified. IMPRESSION: Mild hypertrophic changes of the radial head as above. Reviewed, Interpreted and Dictated by Stephon Cardona MD Transcribed by Kendal Branch Authenticated and [facility]
--- NOTE | 2023-02-21 09:36 | XR_ITS ---
FINAL REPORT CLINICAL HISTORY: pain and swelling FINDINGS: Right wrist Three views were obtained. There is no acute fracture or dislocation. There are mskh-co-pjmnafgu hypertrophic changes at the basilar joint. There is soft tissue swelling over the dorsum of the wrist best seen on the lateral view. There is no evidence of bony erosion or periosteal reaction. IMPRESSION: Changes of osteoarthritis. Reviewed, Interpreted and Dictated by Stephon Cardona MD Transcribed by Kendal Branch Authenticated and . [facility]
--- NOTE | 2023-02-21 09:36 | XR_ITS ---
FINAL REPORT CLINICAL HISTORY: pain and swelling FINDINGS: Right hand Three views were obtained. There is no acute fracture or dislocation. There are wcot-ve-cumtatir hypertrophic changes at the DIP and PIP joints consistent with osteoarthritis. No soft tissue abnormality is identified. IMPRESSION: Changes of osteoarthritis. Reviewed, Interpreted and Dictated by Stephon Cardona MD Transcribed by Kendal Branch Authenticated and [facility]
--- NOTE | 2023-02-21 09:42 | EXP.UTC ---
Discharge Plan Disposition Patient Disposition: Home, Self-Care Condition: Good Prescriptions Prescriptions: New colchicine 0.6 mg capsule 0.6 mg PO DIRECTED Qty: 6 0RF Rx Instructions: Take 1.2mg (2 of the 0.6mg capsules) now then wait one hour and take (1) 0.6mg capsule and do not take anymore wait 3 days and may repeat if still having pain No Action Novolin 70/30 U-100 Insulin 100 unit/mL (70-30) suspension 40 unit SQ BID atorvastatin 80 mg tablet 80 mg PO HS montelukast [Singulair] 10 mg tablet 10 mg PO HS cetirizine [Zyrtec] 10 mg tablet 10 mg PO DAILY levetiracetam 750 mg tablet 750 mg PO BID albuterol sulfate 2.5 mg /3 mL (0.083 %) solution for nebulization 2.5 mg inhalation ONCE PRN albuterol sulfate 90 mcg/actuation HFA aerosol inhaler 2 puff inhalation Q4-6H PRN Spiriva Respimat 1.25 mcg/actuation mist 2 puff inhalation DAILY furosemide 40 mg tablet 40 mg PO DIRECTED Qty: 270 0RF Rx Instructions: Take 80mg qAM and 40mg qPM rivaroxaban 20 mg tablet 20 mg PO QPMWITHMEAL Qty: 30 4RF metoprolol succinate 50 mg tablet extended release 24 hr 50 mg PO DAILY Qty: 90 3RF metformin 1,000 mg tablet 1,000 mg PO BID duloxetine 60 mg capsule,delayed release(DR/EC) 60 mg PO DAILY hydrocodone-acetaminophen 5-325 mg tablet 1 tab PO QID PRN (Reason: Pain) 30 Days Qty: 120 0RF pregabalin [Lyrica] 75 mg capsule 75 mg PO BID 30 Days Qty: 60 0RF Referrals Follow up/Referrals: Jamil Carey MD [Primary Care Provider] - See instructions Activity Restrictions/Add. Instructions Additional Instructions/Restrictions: Take medication as prescribed Follow up with your Family Doctor if symptoms persist Return if needed Take your prescribed pain medication as prescribed Straight to ER if any life threatening symptoms Clinical Impressions Clinical Impression: Gout attack Qualifiers: Gout site: wrist Gout etiology: unspecified cause Laterality: right Qualified Code(s): M10.9 - Gout, unspecified Instructions Patient Instructions: Gout, DI for Gout, [place] Discharge ED Provider: Teresa Rodríguez [facility] HPI General Stated complaint: right hand pain/swelling, no known accident Mode of Arrival: Ambulatory Source of Information: Patient Limitations: No Limitations Time Seen by Provider: 02/21/23 09:42 Description of Symptoms (Recalled from Triage Doc. by RN): PATIENT C/O RIGHT HAND, WRIST, AND FOREARM PAIN SINCE THIS MORNING. SHE IS UNSURE IF SHE INJURED IT WHILE SLEEPING LAST NIGHT. REDNESS AND TENDERNESS NOTED TO WRIST AREA HEENT Symptoms (Recalled from RN notes): No Resp Symptoms (Recalled from RN notes): No Skin Symptoms (Recalled from RN notes): No MS Symptoms (Recalled from RN notes): Yes Functional Status (Recalled from RN notes): WNL History of Present Illness Provider Complaint: Patient states that she woke up this morning with pain in her hand and wrist area that goes up to her forearm Does not recall injurying it but unsure if she may have hit it in the night on her hospital bed States that she noticed her wrist looked a little red and warm to the touch so she came in to get it checked States that hurts when she touches it Related Data Home Medications Medication Instructions Recorded Confirmed atorvastatin 80 mg tablet 80 mg PO HS Cholesterol 06/08/19 01/22/23 montelukast 10 mg tablet 10 mg PO HS Asthma 02/14/20 01/22/23 (Singulair) insulin human U-100 NPH-regulr 40 unit SQ BID Diabetes 10/26/20 01/22/23 70-30 mix 100 unit/mL subcutaneous susp (Novolin 70/30 U-100 Insulin) cetirizine 10 mg tablet (Zyrtec) 10 mg PO DAILY Allergy symptoms 11/07/20 01/22/23 duloxetine 60 mg capsule,delayed 60 mg PO DAILY MOOD 05/10/22 01/22/23 release metformin 1,000 mg tablet 1,000 mg PO BID Diabetes 05/10/22 01/22/23 albuterol sulfate 2.5 mg/3 mL 2.5 mg inhalation ONCE PRN 01/22/23 01/22/23 (0.083 %) so
[2023-02-21 11:48] VITALS: BP 134/59; PULSE 78; RESP 20; TEMP 36.6; O2SAT 95
== END 2023-02-21 11:56 | disposition home or self-care (01) ==
PROVIDERS: Emergency Provider Nurse Practitioner; PCP Emergency Medicine
DX: M10.031 Idiopathic gout, right wrist (principal); E11.40 Type 2 diabetes mellitus with diabetic neuropathy, unspecified; I12.9 Hypertensive chronic kidney disease with stage 1 through stage 4 chronic kidney disease, or unspecified chronic kidney disease; N18.9 Chronic kidney disease, unspecified; I25.10 Atherosclerotic heart disease of native coronary artery without angina pectoris; E78.5 Hyperlipidemia, unspecified; E66.01 Morbid (severe) obesity due to excess calories; G47.33 Obstructive sleep apnea (adult) (pediatric); J45.909 Unspecified asthma, uncomplicated; Z79.4 Long term (current) use of insulin
CPT/HCPCS: 73090; 73110; 73130; 84550; 96372; 99212; 99214; G0463

== ENCOUNTER → 2023-02-27 08:53 | Outpatient (POV) | payer MEDICARE, SELFPAY ==
[2023-02-27 09:01] VITALS: BP 178/68; PULSE 56; RESP 18; O2SAT 97; BMI 48.9
--- NOTE | 2023-02-27 09:06 | EXP.PAIN.SOA ---
[facility] Pain Management SOAP Note Subjective:: Patient is a pleasant 77-year-old female who presents today for 1 month follow-up and medication refill. We are currently treating the patient for degenerative disc disease of lumbar spine with lumbar radiculopathy symptoms, status post kyphoplasty, bilateral feet pain related to chronic lymphedema. Today she rates her pain a 4 out of 10. Patient denies any new trauma or injury. Patient denies any change to location or type of pain she experiences. She did state that she had a recent flareup of gout in her right wrist however it is doing much better today. She is currently managed with pregabalin 75 mg twice a day and [place] 5 mg 4 times a day. Patient denies any side effects from these medications. Her Compa is [id number]. Its been reviewed and appropriate. Review of Systems: General: No recent weight changes, no fever, no sleep disturbances Respiratory: No cough, no shortness of air, no recurring pulmonary infections Cardiovascular/peripheral vascular: No chest pain, no palpitations, no edema, no shortness of breath Gastrointestinal: No new onset incontinence, normal bowel movements reported Genitourinary: No new onset incontinence Musculoskeletal: Bilateral leg pain, low back pain Psychiatric: [Normal mood/affect] Neurological: [Denies weakness in extremities], [denies balance issues] Objective:: Physical Exam: General: Alert and oriented x3, no acute distress, pleasant and cooperative Lungs: Respirations even and unlabored, symmetrical chest expansion Eyes: PERRL Musculoskeletal: Flexion and extension of lumbar [spine] somewhat guarded secondary to pain, [antalgic gait noted] Neurological: Speech clear, no gross sensory deficit Assessment:: Degenerative disc disease of lumbar spine with lumbar radiculopathy symptoms, status post kyphoplasty, bilateral feet pain related to chronic lymphedema Plan:: Patient is doing well on her current medications. I will refill her [place] 5 mg 4 times a day and pregabalin 75 mg twice a day and provide a 1 month supply of this medication. Patient will return to clinic in 1 month for reevaluation of symptoms and medication refill. Patient has been advised of risks of oversedation with the prescribed medication. Narcan has been offered to the patient in the event of oversedation. Patient has been advised that a family member should also be educated regarding administration of Narcan. Patient has been instructed to contact the clinic with any concerns before the next appointment. Dr. Uribe has reviewed this note and agrees with this plan of care. This note was dictated using voice recognition software and make contain errors or omissions. [facility] Disclaimer: The information contained in this section may have been updated after the patient was seen, as this information can be updated by other users. 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) Lipedema residential current use of anticoagulant Morbid obesity with BMI of 60.0-69.9, adult JESSICA (obstructive sleep apnea) Peripheral neuropathy Surgical History History of breast biopsy History of carpal tunnel release History of cholecystectomy History of colonoscopy History of coronary artery stent placement History of tubal ligation Hx of tonsillectomy Family History Other Family history of asthma Family history of myocardial infarction Lung cancer Social History Smoking Status: Never smoker second hand exposure: No alcohol intake: never substance use type: denies use current occupational status:
== END | disposition home or self-care (01) ==
PROVIDERS: PCP Emergency Medicine; Visit Provider Nurse Practitioner Family
DX: M51.16 Intervertebral disc disorders with radiculopathy, lumbar region (principal); Z98.1 Arthrodesis status; I89.0 Lymphedema, not elsewhere classified; M79.671 Pain in right foot; M79.672 Pain in left foot
CPT/HCPCS: 99212; G0463

== ENCOUNTER → 2023-04-02 09:14 | Outpatient (POV) | payer MEDICARE, SELFPAY ==
--- NOTE | 2023-04-02 09:47 | EXP.PAIN.SOA ---
[facility] Pain Management SOAP Note Subjective:: Patient is a pleasant 77-year-old female who presents today for follow-up and medication refill. We are currently treating the patient for degenerative disc disease of lumbar spine with lumbar radiculopathy symptoms, status post kyphoplasty, bilateral feet pain related to chronic lymphedema. Today she rates her pain a 7 out of 10. Patient states that she is currently experiencing symptoms of gout in her right hand and that she has been put on medication for this. Patient also states that this morning she did have some issues with her blood sugar that she did not eat as well yesterday and when she got up that she went ahead and gave herself her insulin and she dropped into the 40s. Patient states she was able to drink some orange juice and get it back up. Patient is currently managed with pregabalin 75 mg twice a day and [place] 5 mg 4 times a day. Patient denies any side effects from this medication. Her Compa is [id number]. Its been reviewed and appropriate. Review of Systems: General: No recent weight changes, no fever, no sleep disturbances Respiratory: No cough, no shortness of air, no recurring pulmonary infections Cardiovascular/peripheral vascular: No chest pain, no palpitations, no edema, no shortness of breath Gastrointestinal: No new onset incontinence, normal bowel movements reported Genitourinary: No new onset incontinence Musculoskeletal: Low back pain right hand pain Psychiatric: [Normal mood/affect] Neurological: [Denies weakness in extremities], [denies balance issues] Objective:: Physical Exam: General: Alert and oriented x3, no acute distress, pleasant and cooperative Lungs: Respirations even and unlabored, symmetrical chest expansion Eyes: PERRL Musculoskeletal: Flexion and extension of lumbar [spine] somewhat guarded secondary to pain, [antalgic gait noted] Neurological: Speech clear, no gross sensory deficit Assessment:: Degenerative disc disease of lumbar spine with lumbar radiculopathy symptoms, status post kyphoplasty, bilateral feet pending related to chronic lymphedema Plan:: I will send in a refill of the patient's [place] 5 mg 4 times a day and increase her pregabalin 75 mg to 3 times a day and provide a 1 month supply of this medication patient will return to clinic in 1 month for reevaluation of symptoms, medication refill and follow-up. Patient has been advised of risks of oversedation with the prescribed medication. Mikhail has been offered to the patient in the event of oversedation. Patient has been advised that a family member should also be educated regarding administration of Narcan. Patient has been instructed to contact the clinic with any concerns before the next appointment. Dr. Uribe has reviewed this note and agrees with this plan of care. This note was dictated using voice recognition software and make contain errors or omissions. [facility] Disclaimer: The information contained in this section may have been updated after the patient was seen, as this information can be updated by other users. 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) Lipedema [facility] current use of anticoagulant Morbid obesity with BMI of 60.0-69.9, adult JESSICA (obstructive sleep apnea) Peripheral neuropathy Surgical History History of breast biopsy History of carpal tunnel release History of cholecystectomy History of colonoscopy History of coronary artery stent placement History of tubal ligation Hx of tonsillectomy Family History Other Family history of asthma Family history of myocardial infarction Lung cancer Social His
[2023-04-02 12:16] VITALS: BP 118/78; PULSE 63; RESP 20; O2SAT 96; BMI 48.5
== END | disposition home or self-care (01) ==
PROVIDERS: Visit Provider Nurse Practitioner Family
DX: M51.16 Intervertebral disc disorders with radiculopathy, lumbar region (principal); Z98.1 Arthrodesis status; I89.0 Lymphedema, not elsewhere classified; M79.672 Pain in left foot; M79.671 Pain in right foot
CPT/HCPCS: 99212; G0463

== ENCOUNTER → 2023-04-08 11:12 | Outpatient (POV) | payer MEDICARE, SELFPAY | PROVIDERS: Visit Provider Dermatology | DX: Z00.00 Encounter for general adult medical examination without abnormal findings (principal) ==

== ENCOUNTER → 2023-05-09 08:11 | Outpatient (POV) | payer MEDICARE, SELFPAY ==
--- NOTE | 2023-05-09 08:42 | A.OFFVIS_ITS ---
[facility] Pain Management SOAP Note Subjective:: This patient is a very pleasant 77-year-old female that comes our clinic today for medication refill and follow-up. Are currently treating the patient for degenerative disc lumbar spine multilevels. Lumbar radiculopathy, status post kyphoplasty, bilateral feet pain related to chronic lymphedema. Patient rates her pain today 6/10. Patient also deals with insulin-dependent diabetes. We medically manage her with [place] 5 mg 4 times daily. Also, Lyrica 75 mg 1 p.o. 3 times daily. Patient states the medication does help. Decreases her pain by 50+ percent. Objective:: Patient is awake alert [place] x3. No acute distress. Flexion-extension lumbar spine not evaluated secondary to patient being in a wheelchair. Patient is morbidly obese. Ambulation is out of the question. Assessment:: Degenerative disc lumbar spine multilevels. Lumbar radiculopathy. Lumbar postlaminectomy syndrome. Chronic lymphedema. Chronic lower extremity pain. Plan:: We will refill the patient's pain medication. Her Compa #[id number] has been reviewed and appropriate. She will return in 1 month. [facility] Disclaimer: The information contained in this section may have been updated after the patient was seen, as this information can be updated by other users. 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) Lipedema detention current use of anticoagulant Morbid obesity with BMI of 60.0-69.9, adult JESSICA (obstructive sleep apnea) Peripheral neuropathy Surgical History History of breast biopsy History of carpal tunnel release History of cholecystectomy History of colonoscopy History of coronary artery stent placement History of tubal ligation Hx of tonsillectomy Family History Other Family history of asthma Family history of myocardial infarction Lung cancer Social History Smoking Status: Never smoker second hand exposure: No alcohol intake: never substance use type: denies use current occupational status: retired Travel in the last 8 weeks: None household members: children housing: house current occupational exposures/hazards: No caffeine: Yes
[2023-05-09 08:54] VITALS: BP 158/89; PULSE 67; RESP 18; O2SAT 94; BMI 48.5
== END | disposition home or self-care (01) ==
PROVIDERS: PCP Emergency Medicine; Visit Provider Nurse Practitioner Family
DX: M51.16 Intervertebral disc disorders with radiculopathy, lumbar region (principal); M96.1 Postlaminectomy syndrome, not elsewhere classified; I89.0 Lymphedema, not elsewhere classified; M79.604 Pain in right leg; M79.605 Pain in left leg; G89.29 Other chronic pain
CPT/HCPCS: 99212; G0463

== ENCOUNTER → 2023-06-09 08:57 | Outpatient (POV) | payer MEDICARE, SELFPAY ==
--- OUTSIDE RECORDS SUMMARY | 2023-06-09 08:59 | XMS_ITS | Continuity of Care Document ---
Author Name Unknown Address [address] [place] [id number] Organization [facility] Phone Care Team Providers Care Youth Leader Name Role Phone NII QIU I Admitting NII QIU I Primary Attending ABE JOHNSON Primary Care NII QIU I Unavailable ALLERGIES AND ADVERSE REACTIONS ALLERGIES AND ADVERSE REACTIONS Code System Allergy Substance Adverse Reaction Date Reaction (Severity) Comment Status Reported By Updated [place] [id number] SNOMED CT PENICILLINS Adverse reaction to substance active [id number] on May 21, 2018 1:12:26 PM UT RESULTS Patient: CHANDRAKANT Zarate Date of : November 07 LABORATORY RESULTS ORDER 200: IRON/TIBC/ SAT IR ON STUDIES (LOINC: 60803-8) ORDER DATE: April 29, 2023 3:15:00 PM UTC Specimen Source: Serum/Plasm a PERFORMING LAB: [address] [id number] Result Comment: Final Result Date: April 29, 2023 4:05:00 PM UTC (TECH: TH) LOINC TEST FLAG RESULT REFERENCE RANGE UPDA BELLA BY 2498-4 Iron [Mass/volume] in Serum or Plasma L 32 ug/dL 35 ug/dL - 150 ug/dL April 29, 2023 4:05:00 PM UTC (TECH: TH) 2500-7 Iron binding capacity [Mass/volume] in Serum or Plasma N
--- OUTSIDE RECORDS SUMMARY | 2023-06-09 09:00 | XMS_ITS | Continuity of Care Document ---
Author Name Unknown Address [address] [place] [phone] Organization [facility] Phone Care Team Providers Care Vice President Diversity Name Role Phone NII QIU I Admitting NII QIU I Primary Attending ABE JOHNSON Primary Care NII QIU I Unavailable ALLERGIES AND ADVERSE REACTIONS ALLERGIES AND ADVERSE REACTIONS Code System Allergy Substance Adverse Reaction Date Reaction (Severity) Comment Status Reported By [place] [id number] SNOMED CT PENICILLINS Adverse reaction to substance active [id number] on May 21, 2018 1:12:26 PM UTC RESULTS Patient: CHANDRAKANT Zarate Date of : November 07 LABORATORY RESULTS ORDER 400: UA WITH MICROSCOP IC (LOINC: 57390-5) ORDER DATE: April 29, 2023 3:15:00 PM UTC Specimen Source: URINE PERFORMING LAB: [address] [id number] Result Comment: Final Result Date: April 29, 2023 3:31:00 PM UTC (TECH: TH) LOINC TEST FLAG RESULT REFERENCE RANGE UPDA BELLA BY 5778-6 Color of Urine N DRK YELLOW YELLOW Augu 2022 3:31:00 PM UTC (TECH: TH) 5767-9 Appearance of Urine N cloudy CLEAR April 29, 2023 3:31:00 PM UTC (TECH: TH) 5792-7 Glucose [Mass/volume] in Urine by Test strip N
--- OUTSIDE RECORDS SUMMARY | 2023-06-09 09:00 | XMS_ITS | Continuity of Care Document ---
Author Name Unknown Address [address] [place] [phone] Organization [facility] Phone Care Team Providers Care Show Horse Driver Name Role Phone NII IQU I Admitting NII QIU I Primary Attending ABE JOHNSON Primary Care NII QIU I Unavailable ALLERGIES AND ADVERSE REACTIONS ALLERGIES AND ADVERSE REACTIONS Code System Allergy Substance Adverse Reaction Date Reaction (Severity) Comment Status Reported By [place] [id number] SNOMED CT PENICILLINS Adverse reaction to substance active [id number] on May 21, 2018 1:12:26 PM UT RESULTS Patient: CHANDRAKANT Zarate Date of : November 07 LABORATORY RESULTS ORDER 200: IRON/TIBC/ SAT IR ON STUDIES (LOINC: 44568-0) ORDER DATE: April 29, 2023 3:15:00 PM UTC Specimen Source: Serum/Plasm a PERFORMING LAB: [address] [id number] Result Comment: Final Result Date: April 29, 2023 4:05:00 PM UTC (TECH: TH) LOINC TEST FLAG RESULT REFERENCE RANGE UPDA BELLA BY 2498-4 Iron [Mass/volume] in Serum or Plasma L 32 ug/dL 35 ug/dL - 150 ug/dL April 29, 2023 4:05:00 PM UTC (TECH: TH) 2500-7 Iron binding capacity [Mass/volume] in Serum or Plasma N
[2023-06-09 09:40] VITALS: BP 122/77; PULSE 75; RESP 20; BMI 41.1
--- NOTE | 2023-06-09 11:00 | EXP.PAIN.SOA ---
[facility] Pain Management SOAP Note Subjective:: This patient is a very pleasant 77-year-old female that comes our clinic today for medication refills and follow-up. We currently treating the patient for degenerative disc lumbar spine multilevels. Lumbar radiculopathy. Patient is morbidly obese. Patient presents in a wheelchair today secondary to chronic lymphedema bilateral lower extremities. Patient rates her pain today 6/10. Patient is also insulin-dependent diabetic. We medically manage patient with Maxwell 5 mg 1 p.o. 4 times daily. Lyrica 75 mg 1 p.o. 3 times daily. Patient states pain medication decreases pain by 50%. She does not report any side effects from the current medical management. Patient's Compa #[id number] has been reviewed and appropriate. Objective:: Patient is awake alert [place] x3. In no acute distress. Patient presents in a wheelchair today. Patient is nonambulatory. Patient is morbidly obese. Assessment:: Degenerative disc lumbar spine multilevels. Lumbar radiculopathy. Chronic lymphedema bilateral lower extremities. Plan:: We refill the patient's pain medication. Maxwell 5 mg 1 p.o. 4 times daily. Lyrica 75 mg 1 p.o. 3 times daily. Patient will return in 1 month. [facility] Disclaimer: The information contained in this section may have been updated after the patient was seen, as this information can be updated by other users. 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) Lipedema [facility] current use of anticoagulant Morbid obesity with BMI of 60.0-69.9, adult JESSICA (obstructive sleep apnea) Peripheral neuropathy Surgical History History of breast biopsy History of carpal tunnel release History of cholecystectomy History of colonoscopy History of coronary artery stent placement History of tubal ligation Hx of tonsillectomy Family History Other Family history of asthma Family history of myocardial infarction Lung cancer Social History Smoking Status: Never smoker second hand exposure: No alcohol intake: never substance use type: denies use current occupational status: other Travel in the last 8 weeks: None household members: children housing: house current occupational exposures/hazards: No caffeine: Yes
== END | disposition home or self-care (01) ==
PROVIDERS: PCP Emergency Medicine; Visit Provider Nurse Anesthetist, Certified Registered
DX: M51.16 Intervertebral disc disorders with radiculopathy, lumbar region (principal); I89.0 Lymphedema, not elsewhere classified; E66.01 Morbid (severe) obesity due to excess calories; E11.9 Type 2 diabetes mellitus without complications
CPT/HCPCS: 99212; G0463

== ENCOUNTER → 2023-07-10 09:21 | Outpatient (POV) | payer MEDICARE, SELFPAY ==
--- NOTE | 2023-07-10 10:01 | EXP.PAIN.SOA ---
[facility] Pain Management SOAP Note Subjective:: Patient is a pleasant 77-year-old female who presents today for follow-up and medication refill. We are currently treating the patient for degenerative disc disease of lumbar spine with lumbar radiculopathy symptoms, status post kyphoplasty, bilateral feet pain related to chronic lymphedema. Today she rates her pain a 6 out of 10. She does state since our last visit she was hospitalized for 1 day regarding a UTI infection. She does state that she is starting to feel better today and that she is finishing her antibiotic therapy today. Patient is currently managed with pregabalin 75 mg 3x a day and [place] 5 mg 4 times a day. Patient denies any side effects from this medication. Her Compa has been reviewed and appropriate. Review of Systems: General: No recent weight changes, no fever, no sleep disturbances Respiratory: No cough, no shortness of air, no recurring pulmonary infections Cardiovascular/peripheral vascular: No chest pain, no palpitations, no edema, no shortness of breath Gastrointestinal: No new onset incontinence, normal bowel movements reported Genitourinary: No new onset incontinence Musculoskeletal: Low back pain Psychiatric: [Normal mood/affect] Neurological: [Denies weakness in extremities], [denies balance issues] Objective:: Physical Exam: General: Alert and oriented x3, no acute distress, pleasant and cooperative Lungs: Respirations even and unlabored, symmetrical chest expansion Eyes: PERRL Musculoskeletal: Flexion and extension of lumbar [spine] somewhat guarded secondary to pain, [antalgic gait noted] Neurological: Speech clear, no gross sensory deficit Assessment:: Degenerative disc disease of lumbar spine with lumbar radiculopathy symptoms, status post kyphoplasty, bilateral legs/feet pain related to chronic lymphedema Plan:: I will Refill the patient's Hammond 5 mg 4 times a day and pregabalin 75 mg 3 times a day and provide a 1 month supply of this medication. Patient will return to clinic in 1 month for reevaluation of symptoms and plan of care. Patient has been advised of risks of oversedation with the prescribed medication. Narcan has been offered to the patient in the event of oversedation. Patient has been advised that a family member should also be educated regarding administration of Narcan. Patient has been instructed to contact the clinic with any concerns before the next appointment. Dr. Uribe has reviewed this note and agrees with this plan of care. This note was dictated using voice recognition software and make contain errors or omissions. [facility] Disclaimer: The information contained in this section may have been updated after the patient was seen, as this information can be updated by other users. 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 Morbid obesity with BMI of 60.0-69.9, adult JESSICA (obstructive sleep apnea) Peripheral neuropathy Surgical History History of breast biopsy History of carpal tunnel release History of cholecystectomy History of colonoscopy History of coronary artery stent placement History of tubal ligation Hx of tonsillectomy Family History Other Family history of asthma Family history of myocardial infarction Lung cancer Social History Smoking Status: Never smoker second hand exposure: No alcohol intake: never substance use type: denies use current occupational status: other Travel in the last 8 weeks: None household members: children housing: house current
[2023-07-10 12:34] VITALS: BP 157/51; PULSE 48; RESP 18; O2SAT 97; BMI 57.1
== END | disposition home or self-care (01) ==
PROVIDERS: PCP Emergency Medicine; Visit Provider Nurse Practitioner Family
DX: M51.16 Intervertebral disc disorders with radiculopathy, lumbar region (principal); I89.0 Lymphedema, not elsewhere classified; M79.604 Pain in right leg; M79.605 Pain in left leg; M79.671 Pain in right foot; M79.672 Pain in left foot
CPT/HCPCS: 99212; G0463

== ENCOUNTER → 2023-08-20 13:28 | Outpatient (POV) | payer MEDICARE, SELFPAY ==
--- NOTE | 2023-08-20 13:59 | EXP.PAIN.SOA ---
[facility] Pain Management SOAP Note Subjective:: Patient is a pleasant 77-year-old female who presents today for 1 month follow-up and medication refill. We are currently treating the patient for degenerative disc disease of lumbar spine with lumbar radiculopathy symptoms, status post kyphoplasty, bilateral feet pain related to chronic lymphedema. Today she rates her pain a 10 out of 10. Patient denies any new trauma or injury since her last visit. She does state that her UTI has cleared up however she has had a grandson that came home sick and she believes she might have picked up something or respiratory along those lines. Patient states that she has been coughing more and feels like this is aggravating her back symptoms. Patient is currently managed with pregabalin 75 mg 3 times a day and [place] 5 mg 4 times a day. She denies any side effects from this medication. She states it does just take the edge off of her pain. Her Compa has been reviewed and is appropriate. Review of Systems: General: No recent weight changes, no fever, no sleep disturbances Respiratory: No cough, no shortness of air, no recurring pulmonary infections Cardiovascular/peripheral vascular: No chest pain, no palpitations, no edema, no shortness of breath Gastrointestinal: No new onset incontinence, normal bowel movements reported Genitourinary: No new onset incontinence Musculoskeletal: Low back pain Psychiatric: [Normal mood/affect] Neurological: [Denies weakness in extremities], [denies balance issues] Objective:: Physical Exam: General: Alert and oriented x3, no acute distress, pleasant and cooperative Lungs: Respirations even and unlabored, symmetrical chest expansion Eyes: PERRL Musculoskeletal: Flexion and extension of lumbar [spine] somewhat guarded secondary to pain, [antalgic gait noted] Neurological: Speech clear, no gross sensory deficit Assessment:: Degenerative disc disease of lumbar spine with lumbar radiculopathy symptoms, status post kyphoplasty, bilateral feet pain related to chronic lymphedema Plan:: I will refill the patient's pregabalin 75 mg 3 times a day and [place] 5 mg 4 times a day and provide a 1 month supply of this medication. Patient will return to clinic in 1 month for reevaluation of symptoms and medication refill. Patient has been advised of risks of oversedation with the prescribed medication. Narcan has been offered to the patient in the event of oversedation. Patient has been advised that a family member should also be educated regarding administration of Narcan. Patient has been instructed to contact the clinic with any concerns before the next appointment. Dr. Uribe has reviewed this note and agrees with this plan of care. This note was dictated using voice recognition software and make contain errors or omissions. [facility] Disclaimer: The information contained in this section may have been updated after the patient was seen, as this information can be updated by other users. 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) [facility] use of [facility]agulant Morbid obesity with BMI of 60.0-69.9, adult JESSICA (obstructive sleep apnea) Peripheral neuropathy Surgical History History of breast biopsy History of carpal tunnel release History of cholecystectomy History of colonoscopy History of coronary artery stent placement History of tubal ligation Hx of tonsillectomy Family History Other Family history of asthma Family history of myocardial infarction Lung cancer Social History Smoking Status: Never smoker darrin
[2023-08-20 14:41] VITALS: BP 166/58; PULSE 49; RESP 18; O2SAT 92; BMI 51.5
== END | disposition home or self-care (01) ==
PROVIDERS: PCP Emergency Medicine; Visit Provider Nurse Practitioner Family
DX: M51.16 Intervertebral disc disorders with radiculopathy, lumbar region (principal); I89.0 Lymphedema, not elsewhere classified; M79.671 Pain in right foot; M79.672 Pain in left foot
CPT/HCPCS: 99212; G0463

== ENCOUNTER → 2023-09-10 13:26 | Outpatient (POV) | payer MEDICARE, SELFPAY ==
[2023-09-10 13:49] VITALS: BP 139/81; PULSE 53; RESP 18; O2SAT 92; BMI 51.2
--- NOTE | 2023-09-10 14:06 | A.OFFVIS_ITS ---
[facility] Pain Management SOAP Note Subjective:: Patient is a pleasant 77-year-old female who presents today for medication refill. We are currently treating the patient for degenerative disc disease of lumbar spine with lumbar radiculopathy symptoms, status post kyphoplasty, bilateral feet pain related to chronic lymphedema. Today she rates her pain a 10 out of 10. Patient states recently she had had an episode of confusion and worsening pain. Patient's daughter does present today with her. They do state that they did a UA and other blood work with no acute findings. Patient's daughter does state that they ran out of her seizure medication and that she went a day or so without this and that may be that played a role into her sy mptoms. They do state that her symptoms are much better today however when she had her confusion she was getting up more and so today she is experiencing worsening pain in her back and legs. Patient is currently managed with pregabalin 75 mg 3 times a day and Krypton 5 mg 4 times a day. She denies any side effects from these medications. Her Compa has been reviewed and is appropriate. Review of Systems: General: No recent weight changes, no fever, no sleep disturbances Respiratory: No cough, no shortness of air, no recurring pulmonary infections Cardiovascular/peripheral vascular: No chest pain, no palpitations, no edema, no shortness of breath Gastrointestinal: No new onset incontinence, normal bowel movements reported Genitourinary: No new onset incontinence Musculoskeletal: Low back pain, hip pain right-sided Psychiatric: [Normal mood/affect] Neurological: [Denies weakness in extremities], [denies balance issues] Objective:: Physical Exam: General: Alert and oriented x3, no acute distress, pleasant and cooperative Lungs: Respirations even and unlabored, symmetrical chest expansion Eyes: PERRL Musculoskeletal: Flexion and extension of lumbar [spine] somewhat guarded secondary to pain, [antalgic gait noted] point tenderness along right SI Neurological: Speech clear, no gross sensory deficit Assessment:: Degenerative disc disease of lumbar spine with lumbar radiculopathy symptoms, status post kyphoplasty, bilateral feet pain related to chronic lymphedema, right-sided sacroiliitis Plan:: Patient is experiencing worsening pain in her low back and hip along the right side. Patient did have limited range of motion of her lumbar spine with point tenderness at her right SI. Patient is unable to do other exam such as Luz's, Kenny's, Gaenslen's and compression exam due to her chronic lymphedema and instability on her feet. I have discussed with the patient that she may benefit from a SI injection. Risk and benefits were discussed with the patient and at this time we will wait however if her pain continues to worsen I have counseled the patient and her daughter that they can call and schedule this injection over the phone. I will refill the patient's pregabalin 75 mg 3 times a day and Krypton 5 mg 4 times a day and provide a 1 month supply of these medications. Patient will return to clinic in 1 month for reevaluation of symptoms and medication refill. Patient has been advised of risks of oversedation with the prescribed medication. Narcan has been offered to the patient in the event of oversedation. Patient has been advised that a family member should also be educated regarding administration of Narcan. Patient has been instructed to contact the clinic with any concerns before the next appointment. Dr. Uribe has reviewed this note and agrees with this plan of care. This note was dictated using voice recognition software and make contain errors or omissions. [facility] Disclaimer: The information contained in this section may have been updated after the patient was seen, as this information can be updated by other users. 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) Lipedema intermediate current use of anticoagulant Morbid obesity with BMI of 60.0-69.9, adult JESSICA (obstructive sleep apnea) Peripheral neuropathy Surgical History History of breast biopsy History of carpal tunnel release History of cholecystectomy History of colonoscopy History of coronary artery stent placement History of tubal ligation Hx of tonsillectomy Family History Other Family history of asthma Family history of myocardial infarction Lung cancer Social History Smoking Status: Never smoker second hand exposure: No alcohol intake: never substance use type: denies use current occupational status: retired Travel in the last 8 weeks: None household members: children housing: house current occupational exposures/hazards: No caffeine: Yes
== END | disposition home or self-care (01) ==
PROVIDERS: PCP Emergency Medicine; Visit Provider Nurse Practitioner Family
DX: M51.16 Intervertebral disc disorders with radiculopathy, lumbar region (principal); I89.0 Lymphedema, not elsewhere classified; M79.671 Pain in right foot; M79.672 Pain in left foot; M46.1 Sacroiliitis, not elsewhere classified
CPT/HCPCS: 99212; G0463

== ENCOUNTER → 2023-10-09 13:49 | Outpatient (POV) | payer MEDICARE, SELFPAY ==
--- NOTE | 2023-10-09 14:22 | EXP.PAIN.SOA ---
[facility] Pain Management SOAP Note Subjective:: Patient is a pleasant 77-year-old female who presents today for 1 month follow-up and medication refill. We are currently treating the patient for degenerative disc disease of lumbar spine with lumbar radiculopathy symptoms, status post kyphoplasty, bilateral feet pain related to chronic lymphedema. Today she rates her pain a 7 out of 10. She denies any new trauma or injury from our last visit. Patient and daughter report no additional episodes of confusion like what they did at last month's appointment. Patient states overall she is doing fine and maintaining. Patient is currently managed with pregabalin 75 mg 3 times a day and [place] 5 mg 4 times a day. She denies any side effects from these medications. Her Compa has been reviewed and is appropriate. Review of Systems: General: No recent weight changes, no fever, no sleep disturbances Respiratory: No cough, no shortness of air, no recurring pulmonary infections Cardiovascular/peripheral vascular: No chest pain, no palpitations, no edema, no shortness of breath Gastrointestinal: No new onset incontinence, normal bowel movements reported Genitourinary: No new onset incontinence Musculoskeletal: Low back pain Psychiatric: [Normal mood/affect] Neurological: [Denies weakness in extremities], [denies balance issues] Objective:: Physical Exam: General: Alert and oriented x3, no acute distress, pleasant and cooperative Lungs: Respirations even and unlabored, symmetrical chest expansion Eyes: PERRL Musculoskeletal: Flexion and extension of lumbar [spine] somewhat guarded secondary to pain, [antalgic gait noted] Neurological: Speech clear, no gross sensory deficit Assessment:: Degenerative disc disease of lumbar spine with lumbar radiculopathy symptoms, status post kyphoplasty, bilateral feet pain related to chronic lymphedema Plan:: I will refill the patient's pregabalin 75 mg 3 times a day and [place] 5 mg 4 times a day and provide a 1 month supply of these medications. Patient will return to clinic in 1 month for reevaluation of symptoms and plan of care. Risks and benefits of the medication have been explained in detail to the patient. The patient does understand the risk of dependence on the medication when given over a prolonged period. Patient has been advised of risks of oversedation with the prescribed medication. Narcan has been offered to the paitent in the event of oversedation. Patient has been advised that a family member should also be educated regarding administration of Narcan. The patient has been advised to consult with his/her primary care provider and pharmacist regarding drug-drug interaction of medications currently prescribed. Patient has been prescribed a controlled substance after being counseled on the medication, medication safety, and possible side effects. Opioid contract was reviewed and signed by the patient, and that they have agreed to all of the terms set forth by our compliance program. Patient has been instructed to contact the clinic with any concerns before the next appointment. Dr. Uribe has reviewed this note and agrees with this plan of care. This note was dictated using voice recognition software and make contain errors or omissions. [facility] Disclaimer: The information contained in this section may have been updated after the patient was seen, as this information can be updated by other users. 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 Morbid obesity with BMI of 60.0-69.9, adult JESSICA (obstructive sleep apnea) Peripheral neuropathy Surgical History History of breast biopsy History of carpal tunnel release History of cholecystectomy History of colonoscopy History of coronary artery stent placement History of tubal ligation Hx of tonsillectomy Family History Other Family history of asthma Family history of myocardial infarction Lung cancer Social History Smoking Status: Never smoker second hand exposure: No alcohol intake: never substance use type: denies use current occupational status: retired Travel in the last 8 weeks: None household members: children housing: house current occupational exposures/hazards: No caffeine: Yes
[2023-10-09 14:32] VITALS: BP 101/66; PULSE 70; RESP 18; O2SAT 92; BMI 39.4
[2023-10-20 15:26] LABS: 6-Acetylmorphine, Unconjugated Negative (Not Estab.); Codeine, Unconjugated Negative ng/mL (10 - 100); Dihydrocodeine, Unconjugated 3.3 ng/mL (Not Estab.); Expanded Opiates Positive (.); Hydrocodone, Unconjugated 26.5 ng/mL (10 - 100); Hydromorphone, Unconjugated Negative ng/mL (1 - 30); Morphine, Unconjugated Negative ng/mL (21 - 65)
== END | disposition home or self-care (01) ==
PROVIDERS: PCP Emergency Medicine; Visit Provider Nurse Practitioner Family
DX: Z79.891 Long term (current) use of opiate analgesic (principal); M51.16 Intervertebral disc disorders with radiculopathy, lumbar region; I89.0 Lymphedema, not elsewhere classified; M79.671 Pain in right foot; M79.672 Pain in left foot
CPT/HCPCS: 36415; 80356; 80361; 80365; 99212; G0463; G0480

== ENCOUNTER 2023-10-09 14:26 | Outpatient (CLI) | payer MEDICARE, SELFPAY | END 2023-10-09 23:59 | LOC: LAB 14:28 | PROVIDERS: PCP Emergency Medicine; Visit Provider Nurse Practitioner Family | DX: Z79.891 Long term (current) use of opiate analgesic (principal) ==

== ENCOUNTER → 2023-11-06 13:47 | Outpatient (POV) | payer MEDICARE, SELFPAY ==
--- NOTE | 2023-11-06 13:50 | A.OFFVIS_ITS ---
[facility] Pain Management SOAP Note Subjective:: Patient is a pleasant 77-year-old female who presents today for medication refill. We are currently treating the patient for degenerative disc disease of lumbar spine with lumbar radiculopathy symptoms, status post kyphoplasty, bilateral feet pain related to chronic lymphedema. Today she rates her pain a out of 10. Patient denies any new trauma or injury or any change to location or type of pain she experiences from her last visit. She does state today that it is overall a really good day for her general pain. Patient is currently managed with pregabalin 75 mg 3 times a day and [place] 5 mg 4 times a day. She denies any side effects from these medications. Her Compa has been reviewed and is appropriate. Review of Systems: General: No recent weight changes, no fever, no sleep disturbances Respiratory: No cough, no shortness of air, no recurring pulmonary infections Cardiovascular/peripheral vascular: No chest pain, no palpitations, no edema, no shortness of breath Gastrointestinal: No new onset incontinence, normal bowel movements reported Genitourinary: No new onset incontinence Musculoskeletal: Low back pain Psychiatric: [Normal mood/affect] Neurological: [Denies weakness in extremities], [denies balance issues] Objective:: Physical Exam: General: Alert and oriented x3, no acute distress, pleasant and cooperative Lungs: Respirations even and unlabored, symmetrical chest expansion Eyes: PERRL Musculoskeletal: Flexion and extension of lumbar [spine] somewhat guarded secondary to pain, [antalgic gait noted] Neurological: Speech clear, no gross sensory deficit Assessment:: degenerative disc disease of lumbar spine with lumbar radiculopathy symptoms, status post kyphoplasty, bilateral feet pain related to chronic lymphedema Plan:: I will refill the patient's pregabalin 75 mg 3 times a day and [place] 5 mg 4 times a day and provide a 1 month supply of this medication. Patient will return to clinic in 1 month for reevaluation of symptoms and plan of care. Risks and benefits of the medication have been explained in detail to the patient. The patient does understand the risk of dependence on the medication when given over a prolonged period. Patient has been advised of risks of oversedation with the prescribed medication. Narcan has been offered to the paitent in the event of oversedation. Patient has been advised that a family member should also be educated regarding administration of Narcan. The patient has been advised to consult with his/her primary care provider and pharmacist regarding drug-drug interaction of medications currently prescribed. Patient has been prescribed a controlled substance after being counseled on the medication, medication safety, and possible side effects. Opioid contract was reviewed and signed by the patient, and that they have agreed to all of the terms set forth by our compliance program. Patient has been instructed to contact the clinic with any concerns before the next appointment. Dr. Uribe has reviewed this note and agrees with this plan of care. This note was dictated using voice recognition software and make contain errors or omissions. [facility] Disclaimer: The information contained in this section may have been updated after the patient was seen, as this information can be updated by other users. 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 Morbid obesity with BMI of 60.0-69.9, adult JESSICA (obstructive sleep apnea) Peripheral neuropathy Surgical History History of breast biopsy History of carpal tunnel release History of cholecystectomy History of colonoscopy History of coronary artery stent placement History of tubal ligation Hx of tonsillectomy Family History Other Family history of asthma Family history of myocardial infarction Lung cancer Social History Smoking Status: Never smoker second hand exposure: No alcohol intake: never substance use type: denies use current occupational status: other Travel in the last 8 weeks: None household members: children housing: house current occupational exposures/hazards: No caffeine: Yes
[2023-11-06 13:58] VITALS: BP 139/78; PULSE 76; RESP 20; BMI 51.5
== END | disposition home or self-care (01) ==
PROVIDERS: Visit Provider Nurse Practitioner Family
DX: M51.16 Intervertebral disc disorders with radiculopathy, lumbar region (principal); M79.671 Pain in right foot; M79.672 Pain in left foot; I89.0 Lymphedema, not elsewhere classified
CPT/HCPCS: 99212; G0463

== ENCOUNTER 2023-12-29 13:39 | Outpatient (POV) | payer MEDICARE, SELFPAY ==
--- NOTE | 2023-12-29 14:06 | A.OFFVIS_ITS ---
[facility] Pain Management SOAP Note Subjective:: Patient is a pleasant 78-year-old female who presents today for medication refill and follow-up. Today she rates her pain a 6 out of 10. Patient states from our last visit she did end up getting hospitalized at [facility] in ICU for sepsis related to pneumonia. Patient states that she is slowly feeling a little bit better however she has been off her pregabalin in the last few days because she missed her original appointment today. She does also state that she has been experiencing more allergies related to the time of year. Patient is currently managed with pregabalin 75 mg 3 times a day and [place] 5 mg 4 times a day. She denies any side effects from this medication. Her Compa has been reviewed and is appropriate. Review of Systems: General: No recent weight changes, no fever, no sleep disturbances Respiratory: No cough, no shortness of air, no recurring pulmonary infections Cardiovascular/peripheral vascular: No chest pain, no palpitations, no edema, no shortness of breath Gastrointestinal: No new onset incontinence, normal bowel movements reported Genitourinary: No new onset incontinence Musculoskeletal: Low back pain Psychiatric: [Normal mood/affect] Neurological: [Denies weakness in extremities], [denies balance issues] Objective:: Physical Exam: General: Alert and oriented x3, no acute distress, pleasant and cooperative Lungs: Respirations even and unlabored, symmetrical chest expansion Eyes: PERRL Musculoskeletal: Flexion and extension of lumbar [spine] somewhat guarded secondary to pain, [antalgic gait noted] Neurological: Speech clear, no gross sensory deficit Assessment:: Degenerative disc disease of lumbar spine with lumbar radiculopathy symptoms, chronic lymphedema, chronic pain syndrome Plan:: I will refill the patient's [place] 5 mg 4 times a day and pregabalin 75 mg 3 times a day and provide a 1 month supply of this medication. Patient will return to clinic in 1 month for reevaluation of symptoms and plan of care. Risks and benefits of the medication have been explained in detail to the patient. The patient does understand the risk of dependence on the medication when given over a prolonged period. Patient has been advised of risks of oversedation with the prescribed medication. Narcan has been offered to the paitent in the event of oversedation. Patient has been advised that a family member should also be educated regarding administration of Narcan. The patient has been advised to consult with his/her primary care provider and pharmacist regarding drug-drug interaction of medications currently prescribed. Patient has been prescribed a controlled substance after being counseled on the medication, medication safety, and possible side effects. Opioid contract was reviewed and signed by the patient, and that they have agreed to all of the terms set forth by our compliance program. Patient has been instructed to contact the clinic with any concerns before the next appointment. Dr. Uribe has reviewed this note and agrees with this plan of care. This note was dictated using voice recognition software and make contain errors or omissions. [facility] Disclaimer: The information contained in this section may have been updated after the patient was seen, as this information can be updated by other users. 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 Morbid obesity with BMI of 60.0-69.9, adult JESSICA (obstructive sleep apnea) Peripheral neuropathy Surgical History History of breast biopsy History of carpal tunnel release History of cholecystectomy History of colonoscopy History of coronary artery stent placement History of tubal ligation Hx of tonsillectomy Family History Other Family history of asthma Family history of myocardial infarction Lung cancer Social History Smoking Status: Never smoker second hand exposure: No alcohol intake: never substance use type: denies use current occupational status: other Travel in the last 8 weeks: None household members: children housing: house current occupational exposures/hazards: No caffeine: Yes
[2023-12-29 15:44] VITALS: BP 175/84; PULSE 68; RESP 18; O2SAT 97; BMI 51.2
== END 2023-12-29 23:59 | disposition home or self-care (01) ==
PROVIDERS: PCP Emergency Medicine; Visit Provider Nurse Practitioner Family
DX: M51.16 Intervertebral disc disorders with radiculopathy, lumbar region (principal); I89.0 Lymphedema, not elsewhere classified; G89.4 Chronic pain syndrome
CPT/HCPCS: 99212; G0463

== ENCOUNTER 2024-02-09 10:51 | Outpatient (POV) | payer MEDICARE, SELFPAY ==
[2024-02-09 11:25] VITALS: BP 146/56; PULSE 71; RESP 18; TEMP 36.6; O2SAT 98; BMI 51.5
--- NOTE | 2024-02-09 12:06 | EXP.PAIN.SOA ---
[facility] Pain Management SOAP Note Subjective:: Patient is a pleasant 78-year-old female who presents today for medication refill. Today she rates her pain a 10 out of 10. Patient states that she is having a lot of increased pain in her right shoulder with limited range of motion. Patient states that has been going on for the last week or so and states she has not had any injury or trauma. Patient does state that she feels like she may have slept funny however this is her predominant arm. She denies any prior surgery. Patient is currently managed with pregabalin 75 mg 3 times a day and [place] 5 mg 4 times a day. She denies any side effects from this medication. Her Compa has been reviewed and is appropriate. Review of Systems: General: No recent weight changes, no fever, no sleep disturbances Respiratory: No cough, no shortness of air, no recurring pulmonary infections Cardiovascular/peripheral vascular: No chest pain, no palpitations, no edema, no shortness of breath Gastrointestinal: No new onset incontinence, normal bowel movements reported Genitourinary: No new onset incontinence Musculoskeletal: Right shoulder pain Psychiatric: [Normal mood/affect] Neurological: [Denies weakness in extremities], [denies balance issues] Objective:: Physical Exam: General: Alert and oriented x3, no acute distress, pleasant and cooperative Lungs: Respirations even and unlabored, symmetrical chest expansion Eyes: PERRL Musculoskeletal: Flexion and extension of right shoulder somewhat guarded secondary to pain, [antalgic gait noted] Neurological: Speech clear, no gross sensory deficit Assessment:: Degenerative disc disease of lumbar spine with lumbar radiculopathy symptoms, chronic lymphedema, chronic pain syndrome Plan:: Patient is experiencing worsening pain throughout her right shoulder with limited range of motion. I have discussed with the patient that she may benefit from a right shoulder intra-articular injection. Risk and benefits were discussed with patient and she would like to proceed forward with this plan of care. Patient has tried and failed conservative therapy with continued at home exercising and stretching. Patient is not a candidate currently for physical therapy due to her chronic lymphedema symptoms. I will refill the patient's pregabalin and [place] and provide a 1 month supply of this medication. Patient will be scheduled for a right shoulder intra-articular injection. Patient has been instructed to contact the clinic with any concerns before the next appointment. Dr. Uribe has reviewed this note and agrees with this plan of care. This note was dictated using voice recognition software and make contain errors or omissions. [facility] Disclaimer: The information contained in this section may have been updated after the patient was seen, as this information can be updated by other users. 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 Morbid obesity with BMI of 60.0-69.9, adult JESSICA (obstructive sleep apnea) Peripheral neuropathy Surgical History History of breast biopsy History of carpal tunnel release History of cholecystectomy History of colonoscopy History of coronary artery stent placement History of tubal ligation Hx of tonsillectomy Family History Other Family history of asthma Family history of myocardial infarction Lung cancer Social History Smoking Status: Never smoker second hand exposure: No alcohol intake: never substance use type: denies use current occupational status: disabled Travel in the last 8 weeks: None household members: children housing: house current occupational exposures/hazards: No caffeine: Yes
[2024-02-19 08:25] LABS: Miscellaneous Test SCANNED IMAGE
== END 2024-02-09 23:59 | disposition home or self-care (01) ==
PROVIDERS: PCP Emergency Medicine; Visit Provider Nurse Practitioner Family
DX: M51.16 Intervertebral disc disorders with radiculopathy, lumbar region (principal); I89.0 Lymphedema, not elsewhere classified; G89.4 Chronic pain syndrome
CPT/HCPCS: 36415; 99212; G0463

== ENCOUNTER 2024-04-26 09:32 | Outpatient (POV) | payer MEDICARE, SELFPAY ==
[2024-04-26 10:05] VITALS: BP 169/94; PULSE 76; RESP 16; O2SAT 98; BMI 51.5
--- NOTE | 2024-04-26 10:13 | A.OFFVIS_ITS ---
[facility] Disclaimer: The information contained in this section may have been updated after the patient was seen, as this information can be updated by other users. 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 Morbid obesity with BMI of 60.0-69.9, adult JESSICA (obstructive sleep apnea) Peripheral neuropathy Surgical History History of breast biopsy History of carpal tunnel release History of cholecystectomy History of colonoscopy History of coronary artery stent placement History of tubal ligation Hx of tonsillectomy Family History Other Family history of asthma Family history of myocardial infarction Lung cancer Social History Smoking Status: Never smoker second hand exposure: No alcohol intake: never substance use type: denies use current occupational status: unemployed Travel in the last 8 weeks: None household members: children housing: house current occupational exposures/hazards: No caffeine: Yes PM Subjective & Objective Subjective Subjective:: Patient is a pleasant 78-year-old female who presents today for medication refill and follow-up. Today she rates her pain a 6 out of 10. Patient denies any new trauma or injury. She does state that she continues to have worsening pain in her low back and legs. Patient states she has also had a recent fall but denies any significant injury. Patient does state that she is interested in injections if possible. Patient states that it is going all the way from her low back to her feet. Patient is currently managed with pregabalin 75 mg 3 times a day and [place] 5 mg 4 times a day. She denies any side effects from this medication. Patient did miss her last appointment and ended up running out of her Lyrica and feels like this may have aggravated her overall symptoms. Her Compa has been reviewed and is appropriate. Review of Systems: General: No recent weight changes, no fever, no sleep disturbances Respiratory: No cough, no shortness of air, no recurring pulmonary infections Cardiovascular/peripheral vascular: No chest pain, no palpitations, no edema, no shortness of breath Gastrointestinal: No new onset incontinence, normal bowel movements reported Genitourinary: No new onset incontinence Musculoskeletal: Low back pain Psychiatric: [Normal mood/affect] Neurological: [Denies weakness in extremities], [denies balance issues] Pain at rest (0-10 scale): 6 Objective Objective:: Physical Exam: General: Alert and oriented x3, no acute distress, pleasant and cooperative Lungs: Respirations even and unlabored, symmetrical chest expansion Eyes: PERRL Musculoskeletal: Flexion and extension of lumbar [spine] somewhat guarded secondary to pain, [antalgic gait noted] Neurological: Speech clear, no gross sensory deficit Has patient had previous pain injection?: No Conservative treatment options previously tried: Home exercise plan Length of treatment: Longer than 6 weeks Meds Home Medications and Allergies Home Medications ?Medication ?Instructions ?Recorded ?Confirmed ?Type atorvastatin 80 mg tablet 80 mg PO HS Cholesterol 06/08/19 04/26/24 History montelukast 10 mg tablet 10 mg PO HS Asthma 02/14/20 04/26/24 History (Singulair) cetirizine 10 mg tablet (Zyrtec) 10 mg PO DAILY Allergy symptoms 11/07/20 04/26/24 History duloxetine 60 mg capsule,delayed 60 mg PO DAILY MOOD 05/10/22 04/26/24 History release albuterol sulfate 2.5 mg/3 mL 2.5 mg inhalation ONCE PRN 01/22/23 04/26/24 History (0.083 %) solution for nebulization Breathing Problems albuterol sulfate 90 mcg/actuation 2 puff inhalation Q4-6H PRN 01/22/23 04/26/24 History aerosol inhaler Breathing Problems levetiracetam 750 mg tablet 750 mg PO BID SEIZURES 01/22/23 04/26/24 History tiotropium bromide 1.25 2 puff inhalation DAILY Breathing 01/22/23 04/26/24 History mcg/actuation mist for inhalation Problems (Spiriva Respimat) colchicine 0.6 mg capsule 0.6 mg PO DIRECTED GOUT 02/27/23 04/26/24 History allopurinol 100 mg tablet 100 mg PO DAILY 07/28/23 04/26/24 History ferrous sulfate 325 mg (65 mg 325 mg PO DAILY 07/28/23 04/26/24 History iron) tablet insulin human U-100 NPH-regulr 45 unit SQ BID Diabetes 07/28/23 04/26/24 History 70-30 mix 100 unit/mL subcutaneous susp (Novolin 70/30 U-100 Insulin) furosemide 40 mg tablet See Rx Instructions .Route 09/08/23 04/26/24 Rx .COMPLEX #270 tabs metoprolol succinate 50 mg See Rx Instructions .Route 11/24/23 04/26/24 Rx tablet,extended release 24 hr .COMPLEX #90 tabs rivaroxaban 20 mg tablet 20 mg PO QPMWITHMEAL Blood thinner 01/23/24 04/26/24 Rx #90 tabs hydrocodone 5 mg-acetaminophen 325 1 tab PO QID PRN Pain 30 days #120 02/09/24 04/26/24 Rx mg tablet tabs pregabalin 75 mg capsule (Lyrica) 75 mg PO TID #90 caps 02/09/24 04/26/24 Rx pregabalin 75 mg capsule 75 mg PO TID #90 caps 03/10/24 04/26/24 Rx New Prescriptions to Start Prescriptions: Allergies Allergy/AdvReac Type Severity Reaction Status Date / Time Penicillins Allergy Unknown Verified 07/28/23 09:50 Assessment and Plan *Assessment and plan (1) Degenerative disc disease, lumbar: Status: Acute Category: Medical Code(s): M51.36 - Other intervertebral disc degeneration, lumbar region Plan I did discuss with the patient that I would recommend a lumbar epidural however we have tried to get this injection done in the past and she was unable to get on the pain table in order to do with C arm. I did discuss with the patient that we can try a muscle relaxer with a 2-week dose of baclofen 5 mg 3 times daily as needed as well as send in a new order of a different type of compounded cream. I will refill the patient's pregabalin and provide a 3-month supply of this medication and a 1 month supply of her [place]. Patient will return to clinic in 1 month for reevaluation of symptoms and plan of care. Risks and benefits of the medication have been explained in detail to the patient. The patient does understand the risk of dependence on the medication when given over a prolonged period. Patient has been advised of risks of oversedation with the prescribed medication. Narcan has been offered to the paitent in the event of oversedation. Patient has been advised that a family member should also be educated regarding administration of Narcan. The patient has been advised to consult with his/her primary care provider and pharmacist regarding drug-drug interaction of medications currently prescribed. Patient has been prescribed a controlled substance after being counseled on the medication, medication safety, and possible side effects. Opioid contract was reviewed and signed by the patient, and that they have agreed to all of the terms set forth by our compliance program. Patient has been instructed to contact the clinic with any concerns before the next appointment. Dr. Uribe has reviewed this note and agrees with this plan of care. This note was dictated using voice recognition software and make contain errors or omissions.
== END 2024-04-26 23:59 | disposition home or self-care (01) ==
PROVIDERS: PCP Emergency Medicine; Visit Provider Nurse Practitioner Family
DX: M51.36 Other intervertebral disc degeneration, lumbar region (principal); E11.9 Type 2 diabetes mellitus without complications; Z79.4 Long term (current) use of insulin; I25.10 Atherosclerotic heart disease of native coronary artery without angina pectoris; I10 Essential (primary) hypertension; Z95.5 Presence of coronary angioplasty implant and graft; Z79.01 Long term (current) use of anticoagulants; E66.01 Morbid (severe) obesity due to excess calories; Z68.44 Body mass index [BMI] 60.0-69.9, adult
CPT/HCPCS: 99212; G0463

== ENCOUNTER 2024-08-09 11:04 | Outpatient (POV) | payer MEDICARE, SELFPAY ==
--- NOTE | 2024-08-09 11:10 | EXP.PAIN.SOA ---
[facility] Disclaimer: The information contained in this section may have been updated after the patient was seen, as this information can be updated by other users. 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 Morbid obesity with BMI of 60.0-69.9, adult JESSICA (obstructive sleep apnea) Peripheral neuropathy Surgical History History of breast biopsy History of carpal tunnel release History of cholecystectomy History of colonoscopy History of coronary artery stent placement History of tubal ligation Hx of tonsillectomy Family History Other Family history of asthma Family history of myocardial infarction Lung cancer Social History Smoking Status: Never smoker second hand exposure: No alcohol intake: never substance use type: denies use current occupational status: unemployed Travel in the last 8 weeks: None household members: children housing: house current occupational exposures/hazards: No caffeine: Yes PM Subjective & Objective Subjective Subjective:: Patient is a pleasant 78-year-old female who presents today for medication refill. Today she rates her pain a 3 out of 10. Patient denies any new trauma or injury. She does state that her primary care did order her some physical therapy so they are working with her to get up daily and this is helping some. She is currently managed with pregabalin 75 mg 3 times a day and [place] 5 mg 4 times a day. She denies any side effects from this medication. Her Compa has been reviewed and is appropriate. Review of Systems: General: No recent weight changes, no fever, no sleep disturbances Respiratory: No cough, no shortness of air, no recurring pulmonary infections Cardiovascular/peripheral vascular: No chest pain, no palpitations, no edema, no shortness of breath Gastrointestinal: No new onset incontinence, normal bowel movements reported Genitourinary: No new onset incontinence Musculoskeletal: Low back pain Psychiatric: [Normal mood/affect] Neurological: [Denies weakness in extremities], [denies balance issues] Pain at rest (0-10 scale): 3 Objective Objective:: Physical Exam: General: Alert and oriented x3, no acute distress, pleasant and cooperative Lungs: Respirations even and unlabored, symmetrical chest expansion Eyes: PERRL Musculoskeletal: Flexion and extension of lumbar [spine] somewhat guarded secondary to pain, [antalgic gait noted] Neurological: Speech clear, no gross sensory deficit Has patient had previous pain injection?: No Conservative treatment options previously tried: Prescription medications Length of treatment: Longer than 12 weeks Meds Home Medications and Allergies Home Medications ?Medication ?Instructions ?Recorded ?Confirmed ?Type atorvastatin 80 mg tablet 80 mg PO HS Cholesterol 06/08/19 04/26/24 History montelukast 10 mg tablet 10 mg PO HS Asthma 02/14/20 04/26/24 History (Singulair) cetirizine 10 mg tablet (Zyrtec) 10 mg PO DAILY Allergy symptoms 11/07/20 04/26/24 History duloxetine 60 mg capsule,delayed 60 mg PO DAILY MOOD 05/10/22 04/26/24 History release albuterol sulfate 2.5 mg/3 mL 2.5 mg inhalation ONCE PRN 01/22/23 04/26/24 History (0.083 %) solution for nebulization Breathing Problems albuterol sulfate 90 mcg/actuation 2 puff inhalation Q4-6H PRN 01/22/23 04/26/24 History aerosol inhaler Breathing Problems levetiracetam 750 mg tablet 750 mg PO BID SEIZURES 01/22/23 04/26/24 History tiotropium bromide 1.25 2 puff inhalation DAILY Breathing 01/22/23 04/26/24 History mcg/actuation mist for inhalation Problems (Spiriva Respimat) colchicine 0.6 mg capsule 0.6 mg PO DIRECTED GOUT 02/27/23 04/26/24 History allopurinol 100 mg tablet 100 mg PO DAILY 07/28/23 04/26/24 History ferrous sulfate 325 mg (65 mg 325 mg PO DAILY 07/28/23 04/26/24 History iron) tablet insulin human U-100 NPH-regulr 45 unit SQ BID Diabetes 07/28/23 04/26/24 History 70-30 mix 100 unit/mL subcutaneous susp (Novolin 70/30 U-100 Insulin) furosemide 40 mg tablet See Rx Instructions .Route 09/08/23 04/26/24 Rx .COMPLEX #270 tabs metoprolol succinate 50 mg See Rx Instructions .Route 11/24/23 04/26/24 Rx tablet,extended release 24 hr .COMPLEX #90 tabs rivaroxaban 20 mg tablet 20 mg PO QPMWITHMEAL Blood thinner 01/23/24 04/26/24 Rx #90 tabs pregabalin 75 mg capsule 75 mg PO TID #90 caps 03/10/24 04/26/24 Rx baclofen 5 mg tablet 5 mg PO TID #42 tabs 04/26/24 Rx hydrocodone 5 mg-acetaminophen 325 1 tab PO QID PRN Pain 30 days #120 08/09/24 Rx mg tablet tabs pregabalin 75 mg capsule (Lyrica) 75 mg PO TID #90 caps 08/09/24 Rx New Prescriptions to Start Prescriptions: hydrocodone-acetaminophen ParkinsonAdelita A pregabalin [Lyrica] ParkinsonAdelita A Allergies Allergy/AdvReac Type Severity Reaction Status Date / Time Penicillins Allergy Unknown Verified 07/28/23 09:50 Assessment and Plan *Assessment and plan (1) Degenerative disc disease, lumbar: Status: Acute Category: Medical Code(s): M51.36 - Other intervertebral disc degeneration, lumbar region (2) Peripheral neuropathy: Status: Chronic Category: Medical Code(s): G62.9 - Polyneuropathy, unspecified Plan We will refill the patient's pregabalin and [place] and provide a 1 month supply of the [place] and a 3-month supply of the pregabalin medications. Patient will return to clinic in 1 month for reevaluation of symptoms and plan of care. Risks and benefits of the medication have been explained in detail to the patient. The patient does understand the risk of dependence on the medication when given over a prolonged period. Patient has been advised of risks of oversedation with the prescribed medication. Narcan has been offered to the paitent in the event of oversedation. Patient has been advised that a family member should also be educated regarding administration of Narcan. The patient has been advised to consult with his/her primary care provider and pharmacist regarding drug-drug interaction of medications currently prescribed. Patient has been prescribed a controlled substance after being counseled on the medication, medication safety, and possible side effects. Opioid contract was reviewed and signed by the patient, and that they have agreed to all of the terms set forth by our compliance program. Patient has been instructed to contact the clinic with any concerns before the next appointment. Dr. Uribe has reviewed this note and agrees with this plan of care. This note was dictated using voice recognition software and make contain errors or omissions.
[2024-08-09 11:30] VITALS: BP 135/59; PULSE 58; RESP 16; O2SAT 90; BMI 47.2
== END 2024-08-09 23:59 | disposition home or self-care (01) ==
PROVIDERS: PCP Emergency Medicine; Visit Provider Nurse Practitioner Family
DX: M51.369 Other intervertebral disc degeneration, lumbar region without mention of lumbar back pain or lower extremity pain (principal); G62.9 Polyneuropathy, unspecified; Z79.899 Other long term (current) drug therapy
CPT/HCPCS: 99212; G0463

== ENCOUNTER 2024-10-18 14:52 | Outpatient (POV) | payer MEDICARE, SELFPAY ==
--- NOTE | 2024-10-18 14:53 | EXP.PAIN.SOA ---
[facility] Disclaimer: The information contained in this section may have been updated after the patient was seen, as this information can be updated by other users. 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 Morbid obesity with BMI of 60.0-69.9, adult JESSICA (obstructive sleep apnea) Peripheral neuropathy Surgical History History of breast biopsy History of carpal tunnel release History of cholecystectomy History of colonoscopy History of coronary artery stent placement History of tubal ligation Hx of tonsillectomy Family History Other Family history of asthma Family history of myocardial infarction Lung cancer Social History Smoking Status: Never smoker second hand exposure: No alcohol intake: never substance use type: denies use current occupational status: other Travel in the last 8 weeks: None household members: children housing: house current occupational exposures/hazards: No caffeine: Yes PM Subjective & Objective Subjective Subjective:: Patient is a pleasant 78-year-old female who presents today for medication refill follow up. Today she rates her pain a 9 out of 10. She does state from our last appointment she did actually end up having to be hospitalized for pneumonia as well as ended up staying a couple days at the [facility] in [place] because of increased depression. Patient is now back at home and she has given verbal consent with her daughter for this audio telehealth appointment. It is occurring at the patient's home. Patient is experiencing worsening earache and sore throat currently which she states is aggravating some of her general pain. Patient does still have the chronic lymphedema in her bilateral lower extremities but does state that she has been having physical therapy at home and that it was working really well. Patient states that she was even sitting up on the side of the bed as of last week without needing additional assistance. Patient's daughter does state that they did start her on a new depression medication however she has only been on it for short period of time. She is currently managed with pregabalin 75 mg 3 times a day and [place] 5 mg 4 times a day. She denies any side effects from this medication. She does state that they did decrease the pregabalin down to once at night while she was hospitalized just to make sure that it was not related to this medication. Patient and daughter state there were no changes from this decrease and felt like the pain was worse due to not having the additional 2 tablets. Her Compa has been reviewed and is appropriate. Review of Systems: General: No recent weight changes, no fever, no sleep disturbances Respiratory: No cough, no shortness of air, no recurring pulmonary infections Cardiovascular/peripheral vascular: No chest pain, no palpitations, no edema, no shortness of breath Gastrointestinal: No new onset incontinence, normal bowel movements reported Genitourinary: No new onset incontinence Musculoskeletal: Bilateral leg pain, earache, sore throat Psychiatric: [Normal mood/affect] Neurological: [Denies weakness in extremities], [denies balance issues] Pain at rest (0-10 scale): 9 Objective Objective:: General: Alert and oriented x3, pleasant and cooperative Lungs: Patient is able to say complete sentences without dyspnea Neurological: Speech clear Has patient had previous pain injection?: No Conservative treatment options previously tried: Prescription medications Length of treatment: Longer than 12 weeks Meds Home Medications and Allergies Home Medications ?Medication ?Instructions ?Recorded ?Confirmed ?Type atorvastatin 80 mg tablet 80 mg PO HS Cholesterol 06/08/19 08/09/24 History montelukast 10 mg tablet 10 mg PO HS Asthma 02/14/20 08/09/24 History (Singulair) cetirizine 10 mg tablet (Zyrtec) 10 mg PO DAILY Allergy symptoms 11/07/20 08/09/24 History duloxetine 60 mg capsule,delayed 60 mg PO DAILY MOOD 05/10/22 08/09/24 History release albuterol sulfate 2.5 mg/3 mL 2.5 mg inhalation ONCE PRN 01/22/23 08/09/24 History (0.083 %) solution for nebulization Breathing Problems albuterol sulfate 90 mcg/actuation 2 puff inhalation Q4-6H PRN 01/22/23 08/09/24 History aerosol inhaler Breathing Problems levetiracetam 750 mg tablet 750 mg PO BID SEIZURES 01/22/23 08/09/24 History tiotropium bromide 1.25 2 puff inhalation DAILY Breathing 01/22/23 08/09/24 History mcg/actuation mist for inhalation Problems (Spiriva Respimat) colchicine 0.6 mg capsule 0.6 mg PO DIRECTED GOUT 02/27/23 08/09/24 History allopurinol 100 mg tablet 100 mg PO DAILY 07/28/23 08/09/24 History ferrous sulfate 325 mg (65 mg 325 mg PO DAILY 07/28/23 08/09/24 History iron) tablet insulin human U-100 NPH-regulr 45 unit SQ BID Diabetes 07/28/23 08/09/24 History 70-30 mix 100 unit/mL subcutaneous susp (Novolin 70/30 U-100 Insulin) furosemide 40 mg tablet See Rx Instructions .Route 09/08/23 08/09/24 Rx .COMPLEX #270 tabs metoprolol succinate 50 mg See Rx Instructions .Route 11/24/23 08/09/24 Rx tablet,extended release 24 hr .COMPLEX #90 tabs pregabalin 75 mg capsule 75 mg PO TID #90 caps 03/10/24 08/09/24 Rx baclofen 5 mg tablet 5 mg PO TID #42 tabs 04/26/24 08/09/24 Rx hydrocodone 5 mg-acetaminophen 325 1 tab PO QID PRN Pain 30 days #120 08/09/24 Rx mg tablet tabs pregabalin 75 mg capsule (Lyrica) 75 mg PO TID #90 caps 08/09/24 Rx rivaroxaban 20 mg tablet (Xarelto) See Rx Instructions .Route 09/30/24 Rx .COMPLEX #90 tabs New Prescriptions to Start Prescriptions: Allergies Allergy/AdvReac Type Severity Reaction Status Date / Time Penicillins Allergy Unknown Verified 07/28/23 09:50 Assessment and Plan *Assessment and plan (1) Degenerative disc disease, lumbar: Status: Acute Category: Medical Code(s): M51.369 - Other intervertebral disc degeneration, lumbar region without mention of lumbar back pain or lower extremity pain Plan I will refill the patient's pregabalin and [place] and provide a 1 month supply of the [place] and pregabalin. Patient was counseled that if she has any worsening symptoms or concerns to immediately call 911 for evaluation and to be transported to the hospital. Patient's daughter does state they are having home health come in. Patient will follow-up in clinic in 1 month for reevaluation of symptoms and plan of care. Patient and daughter were unaware of any additional reasons why the pregabalin was decreased. We will reach out to her primary care for her most updated labs to confirm there was not other issues going on for the reason for the decrease such as altered kidney function. We will reach out to the patient if this is an issue and make changes as needed. Patient was given a choice of telemedicine visit or office visit; patient chose telemedicine/telehealth visit. These telehealth appointments are made on a [id number] scenario generally related to patient being ill and contagious or environmental factors related to ongoing weather patterns that makes it unsafe for travel to our physical office location. Patient is an established patient with their informed consent to treat signed and on file. Patient has given verbal consent for this telehealth appointment however understands that they do have the right to withdraw consent at any time. Patient was counseled regarding risk versus benefits of telehealth appointments. Patient was counseled there may arise limitations to said appointments such as: -The telehealth encounter not yielding sufficient information to make appropriate clinical decision which may require additional in person visits -Technology problems that may delay a medical evaluation and treatment for today's encounter and in rare instances -Security protocols could fail, causing a breach of privacy of personal medical information. Should such an event occur, patient would be promptly notified of any security issues that may arise. Patient acknowledges understanding regarding any and all risk associated with this appointment and would like to proceed forward with the telehealth appointment. This visit is being conducted via telemedicine telehealth ([place]) in accordance with all applicable laws and regulations. Patient is located in [place] and the treating medical provider is located in [place], [place].
== END 2024-10-18 23:59 | disposition home or self-care (01) ==
PROVIDERS: Visit Provider Nurse Practitioner Family
DX: M51.369 Other intervertebral disc degeneration, lumbar region without mention of lumbar back pain or lower extremity pain (principal); Z79.899 Other long term (current) drug therapy
CPT/HCPCS: 99212; G0463

== ENCOUNTER 2024-11-15 08:34 | Outpatient (POV) | payer MEDICARE, SELFPAY ==
--- NOTE | 2024-11-15 08:56 | EXP.PAIN.SOA ---
[facility] Disclaimer: The information contained in this section may have been updated after the patient was seen, as this information can be updated by other users. 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 Morbid obesity with BMI of 60.0-69.9, adult JESSICA (obstructive sleep apnea) Peripheral neuropathy Surgical History History of breast biopsy History of carpal tunnel release History of cholecystectomy History of colonoscopy History of coronary artery stent placement History of tubal ligation Hx of tonsillectomy Family History Other Family history of asthma Family history of myocardial infarction Lung cancer Social History Smoking Status: Never smoker second hand exposure: No alcohol intake: never substance use type: denies use current occupational status: other Travel in the last 8 weeks: None household members: children housing: house current occupational exposures/hazards: No caffeine: Yes PM Subjective & Objective Subjective Subjective:: Patient is a pleasant 79-year-old female who presents today for monthly medication refill with her daughter present for this appointment. Today she rates her pain 4 out of 10. She denies any recent injuries or falls. Patient from her last [place] in office as had several things that have gone on. Patient states at 1 point she was in [facility] for pneumonia and low magnesium at which time she did have a lot of confusion and ended up going to the facility in [place] to work on some psychological issues for about 11 days. Patient states she is back at home and feeling a little bit more like herself. Patient is currently managed from our office pregabalin 75 mg 3 times a day and [place] 5 mg 4 times a day however at our last telehealth appointment we did discuss that we will only wanted her to take the pregabalin once a day due to altered kidney function. Patient states that her primary care doctor so can did have some additional labs done at her home but they never heard the results. She does state that she is going to see him 30 November. Patient denies any other changes. Her Compa has been reviewed and is appropriate. Review of Systems: General: No recent weight changes, no fever, no sleep disturbances Respiratory: No cough, no shortness of air, no recurring pulmonary infections Cardiovascular/peripheral vascular: No chest pain, no palpitations, no edema, no shortness of breath Gastrointestinal: No new onset incontinence, normal bowel movements reported Genitourinary: No new onset incontinence Musculoskeletal: Low back pain Psychiatric: [Normal mood/affect] Neurological: [Denies weakness in extremities], [denies balance issues] Pain at rest (0-10 scale): 4 Objective Objective:: Physical Exam: General: Alert and oriented x3, no acute distress, pleasant and cooperative Lungs: Respirations even and unlabored, symmetrical chest expansion Eyes: PERRL Musculoskeletal: Flexion and extension of lumbar [spine] somewhat guarded secondary to pain, [antalgic gait noted] Neurological: Speech clear, no gross sensory deficit Has patient had previous pain injection?: No Conservative treatment options previously tried: Home exercise plan Length of treatment: Longer than 12 weeks and Physical Therapy Length of treatment: Ongoing home health Meds Home Medications and Allergies Home Medications ?Medication ?Instructions ?Recorded ?Confirmed ?Type atorvastatin 80 mg tablet 80 mg PO HS Cholesterol 06/08/19 08/09/24 History montelukast 10 mg tablet 10 mg PO HS Asthma 02/14/20 08/09/24 History (Singulair) cetirizine 10 mg tablet (Zyrtec) 10 mg PO DAILY Allergy symptoms 11/07/20 08/09/24 History duloxetine 60 mg capsule,delayed 60 mg PO DAILY MOOD 05/10/22 08/09/24 History release albuterol sulfate 2.5 mg/3 mL 2.5 mg inhalation ONCE PRN 01/22/23 08/09/24 History (0.083 %) solution for nebulization Breathing Problems albuterol sulfate 90 mcg/actuation 2 puff inhalation Q4-6H PRN 01/22/23 08/09/24 History aerosol inhaler Breathing Problems levetiracetam 750 mg tablet 750 mg PO BID SEIZURES 01/22/23 08/09/24 History tiotropium bromide 1.25 2 puff inhalation DAILY Breathing 01/22/23 08/09/24 History mcg/actuation mist for inhalation Problems (Spiriva Respimat) colchicine 0.6 mg capsule 0.6 mg PO DIRECTED GOUT 02/27/23 08/09/24 History allopurinol 100 mg tablet 100 mg PO DAILY 07/28/23 08/09/24 History ferrous sulfate 325 mg (65 mg 325 mg PO DAILY 07/28/23 08/09/24 History iron) tablet insulin human U-100 NPH-regulr 45 unit SQ BID Diabetes 07/28/23 08/09/24 History 70-30 mix 100 unit/mL subcutaneous susp (Novolin 70/30 U-100 Insulin) furosemide 40 mg tablet See Rx Instructions .Route 09/08/23 08/09/24 Rx .COMPLEX #270 tabs metoprolol succinate 50 mg See Rx Instructions .Route 11/24/23 08/09/24 Rx tablet,extended release 24 hr .COMPLEX #90 tabs baclofen 5 mg tablet 5 mg PO TID #42 tabs 04/26/24 08/09/24 Rx pregabalin 75 mg capsule (Lyrica) 75 mg PO TID #90 caps 08/09/24 Rx rivaroxaban 20 mg tablet (Xarelto) See Rx Instructions .Route 09/30/24 Rx .COMPLEX #90 tabs hydrocodone 5 mg-acetaminophen 325 1 tab PO QID PRN Pain 30 days #120 10/18/24 Rx mg tablet tabs pregabalin 75 mg capsule 75 mg PO TID #90 caps 10/18/24 Rx New Prescriptions to Start Prescriptions: Allergies Allergy/AdvReac Type Severity Reaction Status Date / Time Penicillins Allergy Unknown Verified 07/28/23 09:50 Assessment and Plan *Assessment and plan (1) Degenerative disc disease, lumbar: Status: Acute Category: Medical Code(s): M51.369 - Other intervertebral disc degeneration, lumbar region without mention of lumbar back pain or lower extremity pain Plan I will refill the patient's pregabalin and [place] and provide a 1 month supply of these medications. Patient and daughter were both counseled to continue to only take the pregabalin once a day until they do have confirmation that her kidney function has returned to a safe level. Patient and daughter acknowledge understanding and agree with plan of care. Patient will return to clinic in 1 month. Risks and benefits of the medication have been explained in detail to the patient. The patient does understand the risk of dependence on the medication when given over a prolonged period. Patient has been advised of risks of oversedation with the prescribed medication. Narcan has been offered to the paitent in the event of oversedation. Patient has been advised that a family member should also be educated regarding administration of Narcan. The patient has been advised to consult with his/her primary care provider and pharmacist regarding drug-drug interaction of medications currently prescribed. Patient has been prescribed a controlled substance after being counseled on the medication, medication safety, and possible side effects. Opioid contract was reviewed and signed by the patient, and that they have agreed to all of the terms set forth by our compliance program. A UDS is needed to verify patient's compliance with our office pain contract. This is ordered based off specific treatments related to chronic pain with the potential to abuse certain medications. Patient has been instructed to contact the clinic with any concerns before the next appointment. Dr. Uribe has reviewed this note and agrees with this plan of care. This note was dictated using voice recognition software and make contain errors or omissions.
[2024-11-15 08:58] VITALS: BP 107/70; PULSE 84; RESP 16; O2SAT 90; BMI 48.0
== END 2024-11-15 23:59 | disposition home or self-care (01) ==
PROVIDERS: PCP Emergency Medicine; Visit Provider Nurse Practitioner Family
DX: M51.369 Other intervertebral disc degeneration, lumbar region without mention of lumbar back pain or lower extremity pain (principal); Z79.899 Other long term (current) drug therapy
CPT/HCPCS: 99212; G0463

== ENCOUNTER 2024-12-16 09:56 | Outpatient (POV) | payer MEDICARE, SELFPAY ==
--- OUTSIDE RECORDS SUMMARY | 2024-12-16 10:00 | XMS_ITS | Continuity of Care Document ---
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 Plan of Treatment Reminders Order Date Submit Date Provider Last Modified By Organization Details Last Modified Time Details Appointments OV EST 15 025 09:00AM Ken Tovar M.D Not available Not available Not available Lab None record ed. Referral None record ed. Procedures None record ed. Surgeries None record ed. Imaging None record ed. Medication Orders None record ed. Patient TargetsNo targets recorded. Patient InstructionsNo instructions recorded. Reason for Referral None Reported. Results Created Date Observation Date Name Description Value Unit Range Abnormal Flag Note LastModifiedBy Organization Detail LastModifiedTime 11/27/1911/26/2024 US, echoc ardio gram, trans thora cic, compl ete, w/ color flow [facility] [address] [place] [address] Phone: Fax: Name: ALICIA STALLINGS Exam Date: 025 : [birth year] Age 79 years Gender : F Access ion: [id number] Physic elif: DIANA BECKWITH [place] Fac[place] HSV: Outpat ient Exam: ECHOCA RDIOGR AM Conclu sions: 1. Normal LV size and functi on. 2. Estima rona left ventri cular ejecti on fracti on is 65-70% . 3. There is mild concen tric left ventri jose hypert rophy. 4. There is no signif icant valvul ar stenos is or regurg itatio n by Dopple r flow analys is. Findin gs: Left Ventri jose:Th e left ventri cular dimens ion is small. There is mild concen tric left ventri jose hypert rophy. No left ventri cular thromb us noted. Normal LV size and functi on. Right Ventri jose:No right ventri cular thromb us is noted. Tricus pid Valve: The tricus pid valve is poorly seen. Aortic Valve: Normal aortic valve struct ure. Pulmon ic Valve: The pulmon ic valve is poorly seen. Aorta: The aortic root is normal . Pulmon amanda Artery :The pulmon amanda artery is not well visual ized. Perica rdium: Normal perica rdium. There is no signif icant perica rdial effusi on. Electr onical ly signed KIERA FAGAN MD 5 2:51 PM Study Data 2D Measur ements LVIDd: 4.11 (4.2-5 .9) cm LVIDs: 3.33 (2.1-4 .0) cm IVSDd: 1.31 (0.6-1 .0) cm IVSDs: 1.49 (0.7-1 .1) cm LVPWd: 1.17 (0.6-1 .0) cm LVPWs: 1.5 (0.9-1 .4) cm Aortic Root:3 .08 (2.0-3 .7) cm LA/AR Ratio: 1.42 FS:18. 98 (25-43 ) % SV:29. 54 (70-10 0) ml SI:13. 09 EDV:74 .65 (67-15 5) ml EDV Index: 33.08 (35-75 ) ml/m2 ESV:45 .11 (22-58 ) ml ESV Index: 19.99 (12-30 ) ml/m2 LA:4.3 8 (3.0-4 .0) cm LV Mass:2 12 (88-22 4) g LV Mass index: 93.94 (49-11 5) g/m2 LVOT Diam:2 .03 (1.8-2 .4) cm M-MODE Measur ements EPSS:0 .64 cm Mitral Valve Mitral P. 32 mmHg Peak E Grad:5 .57 mmHg Peak A Grad:0 .64 mmHg E/A Ratio: 2.95 (.75-1 .5) E/e' Latera l:9.08 (<=8) E/e' Medial :11.8 (<=8) MVA by PHT:3. 24 (4-6) cm2 Tricus pid Valve Legall y authen ticate d by KIA Zarate MD 11-26 15:41: 13 Peak Grad:9 .49 (<=2) mmHg TR Peak Grad:6 .15 mmHg Aortic Valve Peak Grad:7 .84 (<=16) mmHg LVOT P.7 6 mmHg Pulmon ic Valve Peak Grad:6 .25 (<=3) mmHg Report for ALICIA STALLINGS [id number] on 5 Dictat ed By: KIERA ARRIOLA Transc ribed By: HAJA WRIGHT Transc ribed On: 025 3:40 PM Electr onical ly signed by: KIERA ARRIOLA 025 [facility] you [facility] Legall y authen ticate d by KIA Zarate MD 11-26 15:41: 13 CC'ed Logic: Orderi ng Provid er: KIA Zarate Attend ing Provid er: ROQUE Noyola Referr ing Provid er: ROQUE Noyola Admitt ing Provid [facility] [address], [place], [address], 12/06/2024 11:44:42 Result Notes None recorded. Problems Name Problem SNOMED Code Status Onset Date Resolution Date Notes Provider Name and Address Organization Details Recorded Time Obesity 650463318 [facility] [place] 5 10:24:59 Callus of heel 439141441 Active Not Available [facility] 3 10:01:22 Body mass index 40+ - severely obese 320470503 Active Not Available [facility] 3 10:01:22 Exacerbati on of moderate persistent asthma 862740914 Active Not Available [facility] 3 10:01:22 Dyslipidem ia 840821258 Active Not Available [facility] 3 10:01:22 Recurrent major depressive episodes, mild 974830143 Active Bharat Cooper peter, [place] - [facility] & [place] 5 10:24:19 Pain in cervical spine 203951969 Active Bharat Cooper null, [place]EE[place] - [facility] & [place] 5 10:24:45 Chronic neck pain 8755516610692 Active Not Available [facility] 3 10:01:21 Intertrigo 30511332 Active Bharat Coopergeorgi green, REECE - [facility]NT [facility] & [place] 5 10:35:39 Asymmetric al sensorineu ral hearing loss 124715993 Active Not Available [facility] 3 10:01:22 Breast lump 69174504 Active Not Available [facility] 3 10:01:22 Dupuytren' s contractur e of finger 133642618 Active Not Available [facility] 3 10:01:22 Acute urinary tract infection 837374569 Active Not Available [facility] 3 10:01:22 History of invasive malignant neoplasm of breast 6025361395630 3 Active Not Available [facility] 3 10:01:22 Acute cystitis 63801646 Active Not Available [facility] 3 10:01:22 Pain in right hip joint 0137534426085 02 Active REECE Dao - [facility] & [place] 5 10:24:36 Chronic pain 85173708 Active Not Available [facility] 3 10:01:22 Charcot's joint of foot 897641484 Active Not Available [facility] 3 10:01:22 Peripheral neuropathy due to type 2 diabetes mellitus 8583373545727 Active REECE Dao [facility] & [place] 5 10:24:23 Allergic rhinitis caused by pollen 93915076 Active Not Available [facility] 3 10:01:22 Base allergy Active Not Available [facility] 3 10:01:22 Hearing loss of left ear 150333568 Active Not Available [facility] 3 10:01:22 Lymphedema 995162701 Active REECE Dao [facility] & [place] 5 10:25:19 Mild depression 808445470 Active REECE Dao [facility] & [place] 5 10:25:10 Community acquired pneumonia 488470021 Active Not Available [facility] 3 10:01:22 Mixed hyperlipid emia 735180184 Active Not Available [facility] 3 10:01:22 Ankle pain 216565289 Active Not Available [facility] 3 10:01:22 Abduction deformity of foot 726366293 Active Not Available [facility] 3 10:01:22 Long-term current use of systemic steroid 4005961963039 03 Active Not Available [facility] 3 10:01:22 Paroxysmal atrial fibrillati on 244688104 Active REECE Dao [facility] & [place] 5 10:24:29 Essential hypertensi on 82085836 Active Not Available [facility] 3 10:01:22 Degenerati ve joint disease involving multiple joints 106147533 Active Not Available [facility] 3 10:01:22 Moderate persistent asthma 456280336 Active REECE Dao [place] & [place] 5 10:25:04 Allergic rhinitis 43138915 Active Not Available [facility] 3 10:01:22 Pain in left thumb 1272679779773 100 Active REECE Dao [facility] & [place] 5 10:24:41 Morbid obesity 971754783 Active Bharat green, REECE - [facility] - [place] & [place] 5 10:24:54 Abnormal gait 28369028 Active Not Available [facility] 3 10:01:22 Atrial fibrillati on 32913485 Active Not Available [facility] 3 10:01:22 Bilateral sacroiliit is 5670040308121 9102 Active Not Available [facility] 3 10:01:21 Uncomplica rona severe persistent asthma 120865447 Active Bharat Cooper null, [place] - [facility] - [place] & [place] 5 10:24:11 Obstructiv e sleep apnea syndrome 87164746 Active Bharat Cooper null, REECE - [facility] - [place] & [place] 5 10:24:50 Severe persistent asthma 029933809 Active 2021 Bharat Cooper null, REECE - [facility] - [place] & [place] 5 10:24:14 Dyspnea on exertion 75203726 Active 2021 Not Available [facility] 3 10:01:22 Chronic rhinitis 56254610 Active 2021 Not Available [facility] 3 10:01:22 Mixed anxiety and depressive disorder 380396237 Active 2021 Not Available [facility] 3 10:01:22 Chronic cough 97935747 Active 2022 Not Available [facility] 3 10:01:22 Type 2 diabetes mellitus 06489165 Active 2022 Not Available [facility] 3 10:01:22 Hyperlipid emia 56502765 Active 2022 Not Available [facility] 3 10:01:22 Renal insufficie ncy 555466757 Active 2022 Not Available [facility] 3 10:01:22 Chronic anemia 609523389 Active 2022 Not Available [facility] 3 10:01:21 Seizure disorder 205947309 Active 2022 Not Available [facility] 3 10:01:21 Notes:Some problems listed i n Documents: #[id number], #[id number] could not be added to this patient's chart. Please review these documents and add these problems to the patient's chart manually as needed. Problem Notes None recorded. Procedures Surgical History Date Name Laterality Status Provider Name and Address Organization Details Recorded Time 11/28/19 23 Medicare Annual Wellness Visit Health Risk Assessment completed Latesha Pardini [place] - [facility] - [place] & [place] 11/27/2022 09:18:51 09/01/19 22 Back Surgery completed Latesha Pardini [place] [facility] - [place] & [place] 11/27/2022 09:13:45 07/02/20 19 Stent Placement completed Judith Calvin [place] - [facility] - [place] & [place] 05/14/2024 16:34:06 10/20/19 19 Cataract Surgery completed Judith Calvin [place] - [facility] - [place] & [place] 05/14/2024 16:33:04 09/01/19 18 Stent Placement completed Judith Calvin [place] [facility] - [place] & [place] 05/14/2024 16:34:17 07/13/20 14 Most Recent Mammogram completed Vijaya Yuridia [place] - [facility] - [place] & [place] 11/28/2022 13:31:45 07/14/20 12 Date of Last Colonoscopy completed Vijaya [place]idia [place] [facility] [place] & [place] 11/28/2022 13:32:19 04/23/20 12 Colonoscopy completed Vijaya Y[place]idia [place] [facility] - [place] & [place] 11/28/2022 13:33:36 09/01/19 03 Breast Surgery completed Vijaya [place]idia [place] [facility] - [place] & [place] 11/28/2022 13:26:05 09/01/18 97 Breast [facility] [place] [facility] [facility] [place] 11/27/2022 09:13:45 09/01/18 75 cholecystectomy completed Vijaya Yuridia [place] - [facility] - [place] & [place] 11/28/2022 13:27:39 09/01/18 74 Tubal Ligation completed Vijaya [place]idia [place] [facility] - [place] & [place] 11/28/2022 13:28:24 09/01/18 53 Tonsillectomy/Adeno idectomy completed Judith NEWELL [facility] & [place] 05/14/2024 16:34:27 LASIK completed Latesha NEWELL [facility] & [place] 11/27/2022 09:13:45 Cardiovascular Surgery completed Latesharell NEWELL [facility] & [place] 11/27/2022 09:13:45 Joint Replacement completed L[facility]yler [facility] & [place] 11/27/2022 09:13:45 Knee Surgery completed Vijaya NEWELL [facility] & [place] 11/28/2022 13:29:39 Carpal Tunnel Surgery completed Vijaya NEWELL [facility] & [place] 11/28/2022 13:30:28 Imaging Results None recorded. Procedure Notes None recorded. Medical Equipment None Reported. Allergies Allergen ID Allergen Name Allergen Category Reaction Reaction Severity Criticality Documentation Date Start Date Code Code System Note Provider Name and Address Organization Details Recorded Time 9970 Product containin g penicilli n (product) medicatio n anaphylax is severe high 05/13/2022 59560 8001 SNOMED Michelle Colon [facility] & [place] 5 14:13:35 9971 penicilli n G Not available rash Not available Not available 05/13/2022 7980 RxNorm Beau Herrera [facility] & [place] 2 15:43:05 Medications Name Sig Start Date Stop Date Status Note LastModified by Organization Details LastModified Time xarelto no dispense - new NO DISPENSE 07/17 completed Not Available Not Available Not Available xarelto no dispense - refill NO DISPENSE 07/17 completed Not Available Not Available Not Available furosemide 40 mg tablet active Not Available Not Available Not Available methocarbam ol 500 mg tablet 06/24 completed Not Available Not Available Not Available promethazin e-DM 6.25 mg-15 mg/5 mL oral syrup 12/06 completed Not Available Not Available Not Available Novolin 70/30 U-100 Insulin 100 unit/mL subcutaneou s suspension INJECT 40 UNITS UNDER THE SKIN TWICE DAILY active Not Available Not Available No t Available atorvastati n 80 mg tablet TAKE 1 TABLET EVERY DAY active Not Available Not Available No t Available doxycycline hyclate 100 mg capsule TAKE 1 CAPSULE BY MOUTH TWICE DAILY 11/27 completed Not Available Not Available Not Available clindamycin HCl 300 mg capsule TAKE 1 CAPSULE BY MOUTH EVERY 8 HOURS FOR 10 DAYS 06/13 completed Not Available Not Available Not Available albuterol sulfate 2.5 mg/3 mL (0.083 %) solution for nebulizatio n Inhale 3 mL 4 times a day by nebulizat ion route for 30 days. active Not Available Not Available No t Available cetirizine 10 mg tablet active Not Available Not Available Not Available azithromyci n 250 mg tablet TAKE 2 TABLETS BY MOUTH ON DAY 1, AND THEN TAKE 1 TABLET BY MOUTH ONCE A DAY ON DAY 2 THROUGH DAY 5 12/05 completed Not Available Not Available Not Available metoprolol succinate ER 50 mg tablet,exte nded release 24 hr active Not Available Not Available Not Available hydrocodone 5 mg-acetamin ophen 325 mg tablet TAKE 1 TABLET BY MOUTH 4 TIMES DAILY NEEDED FOR PAIN active Not Available Not Available No t Available donepezil 10 mg tablet TAKE 1/2 TABLET BY MOUTH AT BEDTIME FOR 1 WEEK, THEN ONE THEREAFTE R AT BEDTIME. active Not Available Not Available No t Available allopurinol 100 mg tablet TAKE 1 TABLET EVERY DAY active Not Available Not Available No t Available Plavix 75 mg tablet 1 tablet every day by oral route. active Not Available Not Available No t Available ciprofloxac in 500 mg tablet TAKE 1 TABLET BY MOUTH EVERY 12 HOURS FOR 7 DAYS 06/13 completed Not Available Not Available Not Available quetiapine 100 mg tablet TAKE 1 TABLET BY MOUTH IN THE MORNING AND 2 AT BEDTIME active Not Available Not Available No t Available ofloxacin 0.3 % ear drops 12/21 completed Not Available Not Available Not Available magnesium oxide 400 mg (241.3 mg magnesium) tablet 07/17 completed Not Available Not Available Not Available furosemide 80 mg tablet 11/26 completed Not Available Not Available Not Available Lasix 20 mg tablet Take 1 tablet every day by oral route. 08/07 completed Not Available Not Available Not Available cephalexin 500 mg capsule Take 1 capsule every 6 hours by oral route. 12/21 completed Not Available Not Available Not Available metformin 1,000 mg tablet 06/29 completed Not Available Not Available Not Available clotrimazol e-betametha sone 1 %-0.05 % topical cream 01/08 completed Not Available Not Available Not Available lidocaine 5 % topical patch 06/24 completed Not Available Not Available Not Available gentamicin 0.1 % topical cream 06/29 completed Not Available Not Available Not Available montelukast 10 mg tablet TAKE 1 TABLET EVERY DAY active Not Available Not Available No t Available levetiracet am 750 mg tablet TAKE 1 TABLET TWICE DAILY DIRECTED active Not Available Not Available No t Available cefuroxime axetil 500 mg tablet TAKE 1 TABLET BY MOUTH TWICE DAILY 07/17 completed Not Available Not Available Not Available levofloxaci n 500 mg tablet 12/21 completed Not Available Not Available Not Available levofloxaci n 750 mg tablet TAKE 1 TABLET BY MOUTH EVERY 24 HOURS FOR 4 DAYS 12/21 completed Not Available Not Available Not Available methylpredn isolone 4 mg tablets in a dose pack TAKE BY MOUTH DIRECTED ON INSIDE OF PACKAGE 08/07 completed Not Available Not Available Not Available colchicine 0.6 mg tablet active Not Available Not Available Not Available spironolact one 50 mg tablet Take 1 tablet twice a day by oral route. 07/17 completed Not Available Not Available Not Available Ventolin HFA 90 mcg/actuati on aerosol inhaler 2 {puffs_as _needed}s 6 times a day by inhalatio n route. 2015 active Not Available Not Available Not Avai lable Bactrim DS 800 mg-160 mg tablet Take 1 tablet every 12 hours by oral route. 08/07 completed Not Available Not Available Not Available azithromyci n 500 mg tablet TAKE 1 TABLET BY MOUTH ONCE DAILY FOR 5 DAYS 08/07 completed Not Available Not Available Not Available memantine 10 mg tablet TAKE 1 TABLET BY MOUTH TWICE DAILY active Not Available Not Available No t Available duloxetine 20 mg capsule,del ayed release Take 1 capsule every day by oral route for 90 days. 07/17 completed Not Available Not Available Not Available duloxetine 60 mg capsule,del ayed release TAKE 1 CAPSULE EVERY DAY active Not Available Not Available No t Available [facility] 100,000 unit/gram topical powder APPLY 1 APPLICATI ON EXTERNALL Y TWICE A DAY 2024 active Not Available Not Available Not Avai lable pregabalin 25 mg capsule TAKE 1 CAPSULE BY MOUTH TWICE DAILY 10/03 completed Not Available Not Available Not Available pregabalin 75 mg capsule TAKE 1 CAPSULE BY MOUTH ONCE DAILY FOR NEUROPATH Y active Not Available Not Available No t Available albuterol sulfate (bulk) 06/21 completed Not Available Not Available Not Available Symbicort 160 mcg-4.5 mcg/actuati on HFA aerosol inhaler INHALE 2 PUFFS BY MOUTH TWICE DAILY active Not Available Not Available No t Available FeroSul 325 mg (65 mg iron) tablet TAKE 1 TABLET BY MOUTH ONCE DAILY active Not Available Not Available No t Available Xarelto 20 mg tablet TAKE 1 TABLET BY MOUTH IN THE EVENING WITH MEALS FOR BLOOD THINNER active Not Available Not Available No t Available True Metrix Glucose Test Strip TEST BLOOD SUGAR TWO TIMES DAILY DIRECTED active Not Available Not Available No t Available True Metrix Level 2 solution USE DIRECTED WITH GLUCOSE METER active Not Available Not Available No t Available True Metrix Glucose Test Strip active Not Available Not Available N ot Available colchicine 0.6 mg capsule active Not Available Not Available Not Available Flonase Allergy Relief 50 mcg/actuati on nasal spray,suspe nsion [place] 1 spray every day by intranasa l route. 06/21 completed Not Available Not Available Not Available Spiriva Respimat 1.25 mcg/actuati on solution for inhalation 12/21 completed Not Available Not Available Not Available Vraylar 1.5 mg capsule Take 1 capsule every day by oral route. 10/25 completed Not Available Not Available Not Available True Metrix Air Glucose Meter kit USE DIRECTED active Not Available Not Available No t Available oxygen 2 liters continuou s active Not Available Not Available No t Available baclofen 5 mg tablet 10/06 completed Not Available Not Available Not Available Droplet Insulin Syringe 1 mL 30 gauge x 1/2 USE DIRECTED active Not Available Not Available No t Available Breztri Aerosphere 160 mcg-9mcg-4. 8mcg/actuat ion HFA aerosol inhaler Inhale 2 puffs twice a day by inhalatio n route. 07/17 completed Not Available Not Available Not Available Rica Ellipta 200 mcg-62.5 mcg-25 mcg powder for inhalation 06/24 completed Not Available Not Available Not Available DropSafe Alcohol Prep Pads USE DIRECTED TWO TIMES DAILY active Not Available Not Available No t Available Dexcom G7 Interlocker USE DIRECTED 12/06 completed Not Available Not Available Not Available Dexcom G7 Sensor device USE DIRECTED 12/06 completed Not Available Not Available Not Available Vitals Date Recorded Body height Body mass index (BMI) Body weight Body temperature Oxygen saturation Oxygen saturation in Arterial blood by Pulse oximetry Heart rate Respiratory rate Systolic blood pressure Diastolic blood pressure Provider Name and Address Organization Details Last Updated DateTime 5 167.64 cm 48.3 kg/m2 961622. 12 g 97.4 [degF] 94 % 94 % 71 /min 14 /min 96 mm[Hg] 56 mm[Hg] Latesha Malcolmconcetta [facility] 5 15:05:21 Social History Question Answer Notes LastModified by Organizat ion Details LastModified Time Tobacco Smoking Status Never Smoker Not Available [facility] 07/17/2023 14:35:44 Do You Have An Advance Directive? Yes CHART_MERGE Information n ot available 07/17/2023 What Is Your Level Of Alcohol Consumption? None CHART_MERGE Information not available 07/17/2023 Do You Wear A Helmet When Biking? Yes [email or web address] Information not available 10/06/2024 Are You Blind Or Do You Have Difficulty Seeing? No CHART_MERGE Information n ot available 07/17/2023 What Is Your Level Of Caffeine Consumption? Occasional CHART_MERGE Information not available 07/17/2023 In The 14 Days Before Symptom Onset, Have You Had Close Contact With A Laboratory-confirm ed COVID-19 While That Case Was Ill? No [email or web address] Information n ot available 10/06/2024 In The 14 Days Before Symptom Onset, Have You Had Close Contact With A Person Who Is Under Investigation For COVID-19 While That Person Was Ill? No [email or web address] Information not available 10/06/2024 Have You Been To An Area Known To Be High Risk For COVID-19? No [email or web address] Information not available 10/06/2024 Are You Currently Employed? No [email or web address] Information not available 10/06/2024 Are You Deaf Or Do You Have Serious Difficulty Hearing? No [email or web address] Information not available 10/06/2024 What Type Of Diet Are You Following? REGULAR [email or web address] Information n ot available 10/06/2024 Have You Processed Blood Or Body Fluids From An Ebola Virus Disease Patient Without Appropriate PPE? No [email or web address] Information not available 10/06/2024 Do You Reside In Or Have You Traveled To An Area Where Ebola Virus Transmission Is Active? No [email or web address] Information not available 10/06/2024 Have There Been Any Changes To Your Family Or Social Situation? No [email or web address] Information no t available 10/06/2024 What Is The Fluoride Status Of Your Home? Unknown [email or web address] Information not available 10/06/2024 Are There Any Guns Present In Your Home? No [email or web address] Information not available 10/06/2024 Have You Recently Or Are You Planning To Travel To An Area With Zika Virus? No [email or web address] Information not available 10/06/2024 Do You Use Insect Repellent Routinely? Yes [email or web address] Information not available 10/06/2024 Do You Feel Safe At Home? Yes [email or web address] Information not available 10/06/2024 Do You Have A Medical Power Of Gang Tailer? Yes [email or web address] Information not available 10/06/2024 What Was The Date Of Your Most Recent Tobacco Screening? 06/26/2022 Information not available 05/14/2024 Do You Have Any Pets? No Information not available 10/06/2024 Do You Use Your Seat Belt Or Car Seat Routinely? Yes [email or web address] Information not available 10/06/2024 Are You Passively Exposed To Smoke? No CHART_MERGE Information no t available 07/17/2023 Do You Feel Stressed (tense, Restless, Nervous, Or Anxious, Or Unable To Sleep At Night)? [id number] Information not available 05/14/2024 Do You Use Any Illicit Or Recreational Drugs? No CHART_MERGE Information not available 07/17/2023 Do You Use Sunscreen Routinely? Yes [email or web address] Information not available 10/06/2024 Has Tobacco Cessation Counseling Been Provided? No CHART_MERGE Information not available 07/17/2023 How Many Years Have You Smoked Tobacco? 0 CHART_MERGE Information not available 07/17/2023 Are You Currently In School? No [email or web address] Information not available 10/06/2024 Do You Or Have You Ever Used Any Other Forms Of Tobacco Or Nicotine? No CHART_MERGE Information not available 07/17/2023 Sex: Female Functional Status Question Answer Note LastModified by Organizat ion Details LastModified Time Do you have difficulty walking or climbing stairs? No [email or web address] Information not available 10/06/2024 Do you have transportation difficulties? No [email or web address] Information not available 10/06/2024 Are you able to walk? YESWOREST Information not available 10/06/2024 Do you have difficulty doing errands alone? No [email or web address] Information not available 10/06/2024 Are you able to care for yourself? Yes Information not available 10/06/2024 Do you have difficulty dressing or bathing? No [email or web address] Information not available 10/06/2024 What is your exercise level? None CHART_MERGE Information not available 07/17/2023 Mental Status Question Answer Note LastModified by Organization D etails LastModified Time Do you have difficulty concentrating, remembering or making decisions? No [email or web address] Information no t available 10/06/2024 Family History Relationship Description Onset Age of this Age Resolved Age Notes LastModified by Organization Details LastModified Time Mother Cancerous ulcer [facility] Not available 2024 08:12:07 Mother Burn of larynx [facility] Not available 2024 08:12:07 Mother Family member [facility] Not available 2024 08:12:07 Mother Heart disease Not available 2023 16:37:36 Father Heart disease CHART_MERGE Not available 07/02 14:35:40 Father Myocardial infarction CHART_MERGE Not available 14:35:40 Father Family member [facility] Not available 2024 08:12:07 Medical History Condition Response Diabetes Y Gout Y Obesity Y Vision or Eye Problems Y Arthritis Y Seizures/Epilepsy Y Ear or Hearing Problems Y Congestive Heart Failure (CHF) Y Back Problems Y Kidney or Bladder Problems Y COPD Y Clotting Disorder Y Osteoporosis/Osteopenia Y High Cholesterol Y Heart Disease Y Headaches Y Obstructive Sleep Apnea Y Gynecological History Statement/Question Response Most Recent Mammogram 07/13/2014 Date of Last Colonoscopy 07/14/2012 Obstetrics History GPAL:G 0 P 0 0 0 0 Immunizations Vaccine Type Date Status Note Provider Nam e and Address Organization Details Recorded Time COVID-19, mRNA, LNP-S, PF, 100 mcg/0.5mL dose or 50 mcg/0.25mL dose 1 completed Michelle Colon null, [place] - [facility] - [place] & [place] 10/28/2024 14:13:10 COVID-19, mRNA, LNP-S, PF, 100 mcg/0.5mL dose or 50 mcg/0.25mL dose 1 completed Michelle Colon null, [place] [facility] [place] & [place] 10/28/2024 14:13:10 Tdap 2 completed Michelle Colon null, [place] [facility] [place] 10/28/2024 14:13:10 Influenza, split virus, quadrivalent, PF 0 completed Michelle Colon null, [place] [facility] & [place] 10/28/2024 14:13:10 Influenza, split virus, trivalent, preservative 5 completed Michelle Colon null, [place] [facility] & [place] 10/28/2024 14:13:10 Influenza, adjuvanted, quadrivalent, PF 1 completed Michelle Colon null, [place] [facility] [place] & [place] 10/28/2024 14:13:10 Influenza, split virus, trivalent, PF 7 completed Michelle Colon null, [place] [facility] [place] & [place] 10/28/2024 14:13:10 Influenza, split virus, trivalent, preservative 6 completed Not Available [facility] 10/17/2023 04:24:14 Influenza, split virus, quadrivalent, PF 8 completed Michelle Colon null, [place] [facility] [place] & [place] 10/28/2024 14:13:10 Influenza, split virus, quadrivalent, PF 7 completed Michelle Colon null, [place] [facility] [place] & [place] 10/28/2024 14:13:10 Influenza, split virus, trivalent, preservative 7 completed Not Available [facility] 10/17/2023 04:24:14 Influenza, high-dose, quadrivalent, PF 5 completed Michelle Colon null, [place] [facility] [place] & [place] 10/28/2024 14:12:20 Past Encounters Encounter ID Performer Location Encounter Start Date Encounter Closed Date Diagnosis/Indication Diagnosis SNOMED-CT Code Diagnosis ICD10 Code Diagnosis Note [id number] Jamil Johnson MD [address] [place] [address] 12/06/2024 14:44:46 12/06/2024 15:29:14 Post-discharge follow-up [id number] patient seen at [facility] ED on 11/25/2024 , Discharged on 11/26/24 DX with CHF. Patient was stabilized with IV medication s and discharged . No changes to current medication list. Acute exac erbation of chronic congestive heart failure 207586150 I50.9 patient was admitted for CHF exacerbati on she is currently stable. She has been advised to follow-up as needed and remain compliant on her medication . Health Concerns Section Related Observation LastModified by Organization Detai ls LastModified Time None Recorded Concern Status LastModified by Organization Details LastModified Time None Recorded Payers Encounter Date Sequence Insurance Name Policy Number Policy [employer] Covered Member ID [employer] Member ID Guarantor Name 12/06/2024 1 [employer] (MEDICARE REPLACEMENT/A DVANTAGE - HMO) Alicia Stallings [id number] Alicia Stallings Notes Date Note Type Note Provider Name and Address Organization Details Recorded Time 12/06/2024 text/html patient presents today for hospital follow-up. She was recently admitted for CHF exacerbation. Patient was diuresed. She reports marked improvement in her symptoms. She denies any new issues at this time. Jamil Johnson MD [address] [facility], [place], [address], [place] [facility] [place] & [place] 12/06/2024 15:34:36 OBGyn Episode No OBEpisode recorded.
--- OUTSIDE RECORDS SUMMARY | 2024-12-16 10:00 | XMS_ITS | Continuity of Care Document ---
Author Organization [facility] Phone Care Team Providers Care Storeroom Clerk Name Role Phone TANNER HAMILTON Admitting ABE JOHNSON Primary Care TANNER HAMILTON Primary Attending [phone] TANNER HAMILTON Unavailable [phone] RESULTS Patient: CHANDRAKANT López Date of : November 07 1 LABORATORY RESULTS ORDER 100: COMP METABOLIC PA CHASITY (LOINC: 51442-5) ORDER DATE: October 25, 2024 2:19:00 PM UTC Specimen Source: Serum/Plasm a Specimen Type: Acellular blo od (serum or plasma) specimen PERFORMING LAB: [address] [id number] Result Comment: Final Result Date: October 25, 2024 7:40:00 PM UTC (TECH: KDR) LOINC TEST FLAG RESULT REFERENCE RANGE UPDA BELLA BY 2951-2 Sodium [Moles/volume ] in Serum or Plasma N 142 mmol/L 137 mmol/L - 147 mmol/L October 25, 2024 7:40:00 PM UTC (TECH: KDR) 2823-3 Potassium [Moles/volume] in Serum or Plasma N 4.0 mmol/L 3.5 mmol/L - 5.1 mmol/L October 25, 2024 7:40:00 PM UTC (TECH: KDR) 2075-0 Chloride [Moles/volume] in Serum or Plasma L 94 mmol/L 98 mmol/L - 110 mmol/L October 25, 2024 7:40:00 PM UTC (TECH: KDR) 2027-9 Carbon dioxide, tota l [Moles/volume] in Serum or Plasma H 35 mmol/L 21 mmol/L - 30 mmol/L October 25, 2024 7:40:00 PM UTC (TECH: KDR) 61995-2 Anion gap in Serum o r Plasma N 13 mmol/L 6 mmol/L - 14 mmol/L October 25, 2024 7:40:00 PM UTC (TECH: KDR) 2345-7 Glucose [Mass/volume ] in Serum or Plasma H 163 mg/dL 70 mg/dL - 115 mg/dL October 25, 2024 7:40:00 PM UTC (TECH: KDR) 3094-0 Urea nitrogen [Mass/volume] in Serum or Plasma H 20 mg/dL 7 mg/dL - 17 mg/dL October 25, 2024 7:40:00 PM UTC (TECH: KDR) 2160-0 Creatinine [Mass/volume] in Serum or Plasma N 1.0 mg/dL 0.5 mg/dL - 1.5 mg/dL October 25, 2024 7:40:00 PM UTC (TECH: KDR) 3097-3 Urea nitrogen/Creatinine [Mass Ratio] in Serum or Plasma N 20 10 - 20 October 25, 2024 7:40:00 PM UTC (TECH: KDR) 54755-5 Glomerular filtratio n rate/1.73 sq M.predicted L 58 mL/min >60 October 25, 2024 7:40:00 PM UTC (TECH: KDR) 76278-6 Osmolality of Serum or Plasma by calculation N 301 mOsmol/Kg 275 mOsmol/Kg - 301 mOsmol/Kg October 25, 2024 7:40:00 PM UT (TECH: KDR) 2885-2 Protein [Mass/volume ] in Serum or Plasma N 7.1 g/dL 6.2 g/dL - 8.2 g/dL October 25, 2024 7:40:00 PM UTC (TECH: KDR) 1751-7 Albumin [Mass/volume ] in Serum or Plasma N 4.0 g/dL 3.5 g/dL - 5.0 g/dL October 25, 2024 7:40:00 PM UTC (TECH: KDR) 13954-2 Calcium [Mass/volume ] in Serum or Plasma N 8.7 mg/dL 8.5 mg/dL - 10.8 mg/dL October 25, 2024 7:40:00 PM UTC (TECH: KDR) 1975-2 Bilirubin.total [Mass/volume] in Serum or Plasma N 0.7 mg/dL 0.2 mg/dL - 1.3 mg/dL October 25, 2024 7:40:00 PM UTC (TECH: KDR) 1920-8 Aspartate aminotransferase [Enzymatic activity/volume] in Serum or Plasma N 25 IU/L 14 IU/L - 36 IU/L October 25, 2024 7:40:00 PM UTC (TECH: KDR) 1742-6 Alanine aminotransferase [Enzymatic activity/volume] in Serum or Plasma N 11 IU/L 0 IU/L - 35 IU/L October 25, 2024 7:40:00 PM UTC (TECH: KDR) 01816-0 Alkaline phosphatase.bile [Enzymatic activity/volume] in Serum or Plasma N 105 IU/L 38 IU/L - 126 IU/L October 25, 2024 7:40:00 PM UTC (TECH: KDR) ORDER 200: CBC W/ AUTO DIFF (LOINC: 37256-7) ORDER DATE: October 25, 2024 2:19:00 PM UTC Specimen Source: Serum/Plasm a Specimen Type: Acellular blo od (serum or plasma) specimen PERFORMING LAB: [address] [id number] Result Comment: Final Result Date: October 25, 2024 6:08:00 PM UTC (TECH: BG) LOINC TEST FLAG RESULT REFERENCE RANGE UPDA BELLA BY 6690-2 Leukocytes [#/volume] in Blood by Automated count N 10.97 K/uL 4.5 K/uL - 11.5 K/uL October 25, 2024 6:08:00 PM UTC (TECH: BG) 789-8 Erythrocytes [#/volume] in Blood by Automated count N 4.97 M/uL 4.0 M/uL - 5.4 M/uL October 25, 2024 6:08:00 PM UTC (TECH: BG) 718-7 Hemoglobin [Mass/volume] in Blood N 13.3 g/dL 12.0 g/dL - 15.0 g/dL October 25, 2024 6:08:00 PM UTC (TECH: BG) 4544-3 Hematocrit [Volume Fraction] of Blood by Automated count N 44.3 % 35 % - 49 % October 25, 2024 6:08:00 PM UTC (TECH: BG) 787-2 Erythrocyte mean corpuscular volume [Entitic volume] by Automated count N 89.1 fL 80.0 fL - 100.0 fL October 25, 2024 6:08:00 PM UTC (TECH: BG) 785-6 Erythrocyte mean corpuscular hemoglobin [Entitic mass] by Automated count N 26.8 pg 26.0 pg - 32.0 pg October 25, 2024 6:08:00 PM UTC (TECH: BG) 786-4 Erythrocyte mean corpuscular hemoglobin concentration [Mass/volume] by Automated count L 30.0 g/dL 32.0 g/dL - 36.0 g/dL October 25, 2024 6:08:00 PM UTC (TECH: BG) 788-0 Erythrocyte distribution width [Ratio] by Automated count H 14.9 % 11.5 % - 14.5 % October 25, 2024 6:08:00 PM UTC (TECH: BG) 777-3 Platelets [#/volume] in Blood by Automated count N 331 K/uL 142 K/uL - 424 K/uL October 25, 2024 6:08:00 PM UTC (TECH: BG) 06474-5 Platelet mean volume [Entitic volume] in Blood by Automated count H 10.3 fL 6.8 fL - 10.2 fL October 25, 2024 6:08:00 PM UTC (TECH: BG) 01462-5 Neutrophils/100 leukocytes in Blood N 64.1 % 50 % - 70 % October 25, 2024 6:08:00 PM UTC (TECH: BG) 60878-7 Lymphocytes/100 leukocytes in Blood N 23.4 % 18.0 % - 42.0 % October 25, 2024 6:08:00 PM UTC (TECH: BG) 25217-3 Monocytes/100 leukocytes in Blood N 6.7 % 2.0 % - 11.0 % October 25, 2024 6:08:00 PM UTC (TECH: BG) 72001-0 Eosinophils/100 leukocytes in Blood H 4.7 % 1.0 % - 3.0 % October 25, 2024 6:08:00 PM UTC (TECH: BG) 33954-3 Basophils/100 leukocytes in Blood N 0.7 % 0.0 % - 2.0 % October 25, 2024 6:08:00 PM UTC (TECH: BG) 67510-2 Immature granulocytes/100 leukocytes in Blood by Automated count N 0.4 % 0.0 % - 0.8 % October 25, 2024 6:08:00 PM UTC (TECH: BG) 62034-3 Nucleated cells [#/volume] in Blood N 0.0 % October 25, 2024 6:08:00 PM UTC (TECH: BG) 03216-3 Neutrophils [#/volume] in Blood N 7.02 K/uL October 25, 2024 6:08:00 PM UTC (TECH: BG) 58869-5 Lymphocytes [#/volume] in Blood N 2.57 K/uL October 25, 2024 6:08:00 PM UTC (TECH: BG) 11714-4 Monocytes [#/volume] in Blood N 0.74 K/uL October 25, 2024 6:08:00 PM UTC (TECH: BG) 62645-8 Eosinophils [#/volume] in Blood N 0.52 K/uL October 25, 2024 6:08:00 PM UTC (TECH: BG) 704-7 Basophils [#/volume] in Blood by Automated count N 0.08 K/uL October 25, 2024 6:08:00 PM UTC (TECH: BG) 23309-4 Immature granulocytes [#/volume] in Blood N 0.04 K/uL October 25, 2024 6:08:00 PM UTC (TECH: BG) 21452-0 Nucleated cells [#/volume] in Blood N 0.00 k/uL October 25, 2024 6:08:00 PM UTC (TECH: BG) 74867-5 Manual differential comment [interpretation] in Blood Narrative N NO October 25, 2024 6:08:00 PM UTC (TECH: BG) ORDER 300: TSH (LOINC: 61449 -0) ORDER DATE: October 25, 2024 2:19:00 PM UTC Specimen Source: Serum/Plasm a Specimen Type: Acellular blo od (serum or plasma) specimen PERFORMING LAB: [address] [id number] Result Comment: Final Result Date: October 25, 2024 8:08:00 PM UTC (TECH: KDR) LOINC TEST FLAG [place] [address]-3 Thyrotropin receptor Ab [Units/volume] in Serum by Immunoassay N 2.86 uIU/mL 0.465 uIU/mL - 4.68 uIU/mL October 25, 2024 8:08:00 PM UTC (TECH: KDR) ORDER 400: T4 FREE (LOINC: 3 024-7) ORDER DATE: October 25, 2024 2:19:00 PM UTC Specimen Source: Serum/Plasm a Specimen Type: Acellular blo od (serum or plasma) specimen PERFORMING LAB: [address] [id number] Result Comment: Final Result Date: October 25, 2024 7:46:00 PM UTC (TECH: A/V) LOINC TEST FLAG RESULT REFERENCE RANGE [place] BY 3024-7 Thyroxine (T4) free [Mass/volume] in Serum or Plasma N 1.31 ng/dl 0.78 ng/dl - 2.19 ng/dl October 25, 2024 7:46:00 PM UTC (TECH: A/V) ORDER 500: VITAMIN B12 AND F OLATE (LOINC: 76762-0) ORDER DATE: October 25, 2024 2:19:00 PM UTC Specimen Source: Serum/Plasm a Specimen Type: Acellular blo od (serum or plasma) specimen PERFORMING LAB: [address] [id number] Result Comment: Final Result Date: October 25, 2024 7:44:00 PM UTC (TECH: A/V) LOINC TEST FLAG RESULT REFERENCE RANGE UPDA BELLA BY 2132-9 Cobalamin (Vitamin B12) [Mass/volume] in Serum or Plasma N 859 pg/ml 239 pg/ml - 931 pg/ml October 25, 2024 7:44:00 PM UTC (TECH: A/V) 2284-8 Folate [Mass/volume] in Serum or Plasma N 5.2 ng/ml 2.76 ng/ml October 25, 2024 7:44:00 PM UTC (TECH: A/V) ORDER 600: SED RATE WESTERGR EN (LOINC: 4537-7) ORDER DATE: October 25, 2024 2:19:00 PM UTC Specimen Source: Serum/Plasm a Specimen Type: Acellular blo od (serum or plasma) specimen PERFORMING LAB: [address] [id number] Result Comment: Final Result Date: October 25, 2024 6:46:00 PM [facility] (TECH: AK) LOINC TEST FLAG RESULT REFERENCE RANGE UPDA BELLA BY 4537-7 Erythrocyte sediment ation rate by Westergren method H 28 mm/Hr 0 mm/Hr - 15 mm/Hr Feb ruary 2024 6:46:00 PM [facility] (TECH: [place]) LABORATORY NARRATIVE RESULTS Information is not available RADIOLOGY RESULTS Information is not available PATHOLOGY NARRATIVE RESULTS Information is not available MICROBIOLOGY RESULTS No Micro Labs/Results Exist for Patient BLOOD ADMIN RESULTS Information is not available MEDICATIONS HOME MEDICATIONS Status RXNORM NDC Medication Dose Route Frequency Dates Comments Reported By Updated By Drug Treatment Unknown DISCHARGE MEDICATIONS Status RXNORM NDC Medication Dose Route Frequency Dates Comments Physician Updated By No Discharge Medication Info rmation Available INPATIENT MEDICATIONS Status RXNORM NDC Medication Dose Route Frequency Rat e Quantity Dates Comments Physician Updated By No Inpatient Medication Info rmation Available SOCIAL HISTORY SOCIAL HISTORY SNOMED-CT Social History Element Description Effective Dates Offered Cessation Comment UpdatedBy [id number] Smoking Status Unknown If Ever Smoked SOCIAL HISTORY - Gender Sex: Female SOCIAL HISTORY - Status : status i nformation is not available Intention in Next Year: intention information is not available SOCIAL HISTORY - Sexual Behavior Sexual Orientation Gender Identity SNOMED-CT Description SNO MED -CT Description Activity Level No of Partners Partner Type UpdatedBy Information is not available HEALTH CONCERNS Problems Concern Status Health Concern problem infor mation not available. Smoking Status Status Years Used Consumed packs p er day Health Concern smoking histo ry information not available. Family History Concern Status Health Concern family histor y information not available. ENCOUNTERS ENCOUNTER INFORMATION Reason for Visit LDO Admission October 25, 2024 2:18:00 PM [place] [id number] Discharge October 25, 2024 2:18:00 PM [facility] DISCHARGED TO HOME OR SELF CARE ENCOUNTER DIAGNOSES Notes information is not severino ilable. Code System Diagnosis Onset Date Diagnosis information is not available. ABSTRACT DIAGNOSES Code System Diagnosis Updated By G93.49 ICD10 OTHER ENCEPHALOPATHY [id number] on October 27, 2024 3:40:19 AM [facility] G93.49 ICD10 OTHER ENCEPHALOPATHY [id number] on October 27, 2024 3:40:20 AM [facility] CARE TEAM Care Storeroom Clerk Role TANNER HMAILTON Admitting ABE JOHNSON Primary Care TANNER HAMILTON Primary Attending TANNER HAMILTON Referring CARE TEAM CARE hand straightener Role on Team Status Start Date End Date Update d By JOY Zarate MD Referring normal October 25, 2024 5:00:00 AM [place] October 25, 2024 2:18:00 PM [place] [id number] on October 26, 2024 8:26:09 AM [facility] JOY Zarate MD Attending normal October 25, 2024 5:00:00 AM UT October 25, 2024 2:18:00 PM [place] [id number] on October 26, 2024 8:26:09 AM [facility] JOY Zarate MD Admitting normal October 25, 2024 5:00:00 AM UT October 25, 2024 2:18:00 PM UT [id number] on October 26, 2024 8:26:09 AM [facility] ELIZABETH DANIEL normal October 032024 5:00:00 AM UT October 25, 2024 2:18:00 PM UT [id number] on October 26, 2024 8:26:09 AM [facility]
--- NOTE | 2024-12-16 10:07 | A.OFFVIS_ITS ---
[facility] Disclaimer: The information contained in this section may have been updated after the patient was seen, as this information can be updated by other users. 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 Morbid obesity with BMI of 60.0-69.9, adult JESSICA (obstructive sleep apnea) Peripheral neuropathy Surgical History History of breast biopsy History of carpal tunnel release History of cholecystectomy History of colonoscopy History of coronary artery stent placement History of tubal ligation Hx of tonsillectomy Family History Other Family history of asthma Family history of myocardial infarction Lung cancer Social History Smoking Status: Never smoker second hand exposure: No alcohol intake: never substance use type: denies use current occupational status: other Travel in the last 8 weeks: None household members: children housing: house current occupational exposures/hazards: No caffeine: Yes PM Subjective & Objective Subjective Subjective:: Patient is a pleasant 79-year-old female who presents today for medication refill and follow-up. Today she rates her pain a 2 out of 10. She denies any new trauma or injury. She states overall everything is about the same from our last visit. Patient is currently managed with pregabalin 75 mg once a day and [place] 5 mg 4 times a day. She denies any side effects from this medication. Patient had been previously taking the pregabalin 3 times a day however due to a ltered kidney function. She denies having any additional updated labs since our last visit. Patient denies any other changes. Her Compa has been reviewed and is appropriate. Review of Systems: General: No recent weight changes, no fever, no sleep disturbances Respiratory: No cough, no shortness of air, no recurring pulmonary infections Cardiovascular/peripheral vascular: No chest pain, no palpitations, no edema, no shortness of breath Gastrointestinal: No new onset incontinence, normal bowel movements reported Genitourinary: No new onset incontinence Musculoskeletal: Low back pain Psychiatric: [Normal mood/affect] Neurological: [Denies weakness in extremities], [denies balance issues] Pain at rest (0-10 scale): 3 Objective Objective:: Physical Exam: General: Alert and oriented x3, no acute distress, pleasant and cooperative Lungs: Respirations even and unlabored, symmetrical chest expansion Eyes: PERRL Musculoskeletal: Flexion and extension of lumbar [spine] somewhat guarded secondary to pain, [antalgic gait noted] Neurological: Speech clear, no gross sensory deficit Has patient had previous pain injection?: No Conservative treatment options previously tried: Prescription medications Length of treatment: Longer than 12 weeks Meds Home Medications and Allergies Home Medications ?Medication ?Instructions ?Recorded ?Confirmed ?Type atorvastatin 80 mg tablet 80 mg PO HS Cholesterol 06/08/19 11/15/24 History montelukast 10 mg tablet 10 mg PO HS Asthma 02/14/20 11/15/24 History (Singulair) cetirizine 10 mg tablet (Zyrtec) 10 mg PO DAILY Allergy symptoms 11/07/20 11/15/24 History duloxetine 60 mg capsule,delayed 60 mg PO DAILY MOOD 05/10/22 11/15/24 History release albuterol sulfate 2.5 mg/3 mL 2.5 mg inhalation ONCE PRN 01/22/23 11/15/24 History (0.083 %) solution for nebulization Breathing Problems albuterol sulfate 90 mcg/actuation 2 puff inhalation Q4-6H PRN 01/22/23 11/15/24 History aerosol inhaler Breathing Problems levetiracetam 750 mg tablet 750 mg PO BID SEIZURES 01/22/23 11/15/24 History tiotropium bromide 1.25 2 puff inhalation DAILY Breathing 01/22/23 11/15/24 History mcg/actuation mist for inhalation Problems (Spiriva Respimat) colchicine 0.6 mg capsule 0.6 mg PO DIRECTED GOUT 02/27/23 11/15/24 History allopurinol 100 mg tablet 100 mg PO DAILY 07/28/23 11/15/24 History ferrous sulfate 325 mg (65 mg 325 mg PO DAILY 07/28/23 11/15/24 History iron) tablet insulin human U-100 NPH-regulr 45 unit SQ BID Diabetes 07/28/23 11/15/24 History 70-30 mix 100 unit/mL subcutaneous susp (Novolin 70/30 U-100 Insulin) furosemide 40 mg tablet See Rx Instructions .Route 09/08/23 11/15/24 Rx .COMPLEX #270 tabs metoprolol succinate 50 mg See Rx Instructions .Route 11/24/23 11/15/24 Rx tablet,extended release 24 hr .COMPLEX #90 tabs baclofen 5 mg tablet 5 mg PO TID #42 tabs 04/26/24 11/15/24 Rx pregabalin 75 mg capsule (Lyrica) 75 mg PO TID #90 caps 08/09/24 11/15/24 Rx rivaroxaban 20 mg tablet (Xarelto) See Rx Instructions .Route 09/30/24 11/15/24 Rx .COMPLEX #90 tabs donepezil 10 mg tablet 10 mg PO DIRECTED PARKINSONS 11/15/24 11/15/24 History hydrocodone 5 mg-acetaminophen 325 1 tab PO QID PRN Pain 30 days #120 11/15/24 Rx mg tablet tabs pregabalin 75 mg capsule 75 mg PO DAILY #90 caps 11/15/24 Rx New Prescriptions to Start Prescriptions: Allergies Allergy/AdvReac Type Severity Reaction Status Date / Time Penicillins Allergy Unknown Verified 07/28/23 09:50 Assessment and Plan *Assessment and plan (1) Degenerative disc disease, lumbar: Status: Acute Category: Medical Code(s): M51.369 - Other intervertebral disc degeneration, lumbar region without mention of lumbar back pain or lower extremity pain Plan I will refill the patient's [place] and pregabalin and provide a 1 month supply of this medication. Patient will return to clinic in 1 month. Risks and benefits of the medication have been explained in detail to the patient. The patient does understand the risk of dependence on the medication when given over a prolonged period. Patient has been advised of risks of oversedation with the prescribed medication. Narcan has been offered to the paitent in the event of oversedation. Patient has been advised that a family member should also be educated regarding administration of Narcan. The patient has been advised to consult with his/her primary care provider and pharmacist regarding drug-drug interaction of medications currently prescribed. Patient has been prescribed a controlled substance after being counseled on the medication, medication safety, and possible side effects. Opioid contract was reviewed and signed by the patient, and that they have agreed to all of the terms set forth by our compliance program. A UDS is needed to verify patient's compliance with our office pain contract. This is ordered based off specific treatments related to chronic pain with the potential to abuse certain medications. Patient has been instructed to contact the clinic with any concerns before the next appointment. Dr. Uribe has reviewed this note and agrees with this plan of care. This note was dictated using voice recognition software and make contain errors or omissions.
[2024-12-16 10:08] VITALS: BP 140/71; PULSE 60; RESP 18; O2SAT 97; BMI 51.2
[2024-12-28 11:42] LABS: Miscellaneous Test SCANNED IMAGE
== END 2024-12-16 23:59 | disposition home or self-care (01) ==
PROVIDERS: PCP Emergency Medicine; Visit Provider Nurse Practitioner Family
DX: M51.369 Other intervertebral disc degeneration, lumbar region without mention of lumbar back pain or lower extremity pain (principal); Z79.899 Other long term (current) drug therapy
CPT/HCPCS: 36415; 80307; 99212; G0463

== ENCOUNTER 2025-03-10 15:30 | Outpatient (CLI) | payer MEDICARE, SELFPAY ==
--- OUTSIDE RECORDS SUMMARY | 2025-02-19 03:43 | XMS_ITS | Encounter Summary ---
Author Organization Healthcare Address [address] [place] [address] Care Team Providers Care Child Health Associate Name Role Phone Jamil Carey MD Primary Care Provider [phone] Reason for Referral * Home Health (Routine) - Authorized Specialty Diagnoses / Procedures Referred By Severiano ceron Referred To Contact Home Health Services / Case Management Diagnoses Altered mental status, unspecified altered mental status type Kathie Naqvi MD [address] [place] [address] Phone: tel: fax: Referral ID Status Reason Start Date Expiration Date Visits Requested Visits Authorized [id number] Authorized Specialty Services Required 02/21/2025 08/23/2026 999 999 Reason for Visit * Reason Comments Altered Mental Status * Auth/Cert (Routine) Specialty Diagnoses / Procedures Referred By Severiano ceron Referred To Contact Diagnoses Altered mental status Pneumonia of left lower lobe due to infectious organism Altered mental status, unspecified altered mental status type Pneumonia, Sepsis Kathie Naqvi MD [address] [place] [address] Phone: tel: fax: [facility] [address] [place] [address] Phone: tel: Referral ID Status Reason Start Date Expiration Date Visits Re quested Visits Authorized [id number] 1 1 Encounter Details Date Type Department Care Team (Late st Contact Info) Description 02/19/2025 3:43 AM EDT - 02/21/2025 5:26 PM EDT Hospital Encounter [facility] [address] [place] [address] Benito Chakraborty MD [address] [place] [address] Devonte Geller MD [address] [place] [address] Kathie Naqvi MD [address] [place] [address] Altered mental status, unspecified altered [...] any time in the past [facility], were you homeless or living in a nursing home (including now)? No 02/21/2025 Utilities Answer Date [...] or chew. ergocalciferol (Vitamin D-2) 1.25 MG (41256 UT) capsule Take 1 capsule by mouth 1 time per week. HYDROcodone-aceta minophen ([place]) 5-325 MG tablet Take 1 tablet by [...] PCP name and Address: Jamil Carey MD [address] [place] [address] / [place] [address] Referring provider name and address: Gregoria Farias DO [address] [place] [address] Chief Concern, Brief History of Present Illness, [...] not crush or chew. ergocalciferol 1.25 MG (35734 UT) capsule Commonly known as: Vitamin D-2 Take 1 capsule by mouth 1 time per week. HYDROcodone-acetaminophen 5-325 MG tablet Commonly known as: [place] Take 1 tablet by mouth 4 times [...] Your Medications These medications were sent to [facility] [place], [place] - [address] [facility] [id number] cefuroxime 500 MG tablet Discharge Diagnosis Medical [...] saw and evaluated the patient with the medical/[employer] SALES REPRESENTATIVE/PA student. I discussed the case with the medical/[employer] SALES REPRESENTATIVE/PA student and agree with the findings and [...] From: Daughter Level of Mobility: Non-ambulatory/bed-bound Mobility [place]: Assistance with transfers with device (cara lift [...] Mobility Bed Mobility Exam: Rolling/Turning Level of [place]: Minimum assist (75% patient effort) Physical/Nonphysical Assist: Verbal Cues, Nonverbal cues (demo/gestures) Bed Mobility Exam: Scooting/Bridging Level of [place]: Minimum assist (75% patient's effort) (to scoot towards EOB while seated upright; dependent assist required to scoot towards HOB while supine) Physical/Nonphysical Assist: Verbal Cues, Nonverbal cues (demo/gestures) Bed Mobility Exam: Supine to Sit Level of [place]: Minimum assist (75% patient's effort) Physical/Nonphysical Assist: Set-up required, Verbal Cues, Nonverbal cues (demo/gestures), HOB elevated Bed Mobility Exam: Sit to Supine Level of [place]: Maximum assist (25% patient's effort) Physical/Nonphysical Assist: [...] slides x 5 each AAROM Standardized Assessments [facility] 6-Clicks Mobility Assessment Difficulty patient has turning [...] climbing 3-5 steps with a railing?: Unable [facility] 6-Clicks Mobility Assessment Total : 9 Assessment [...] from Daughter Level of Mobility Non-ambulatory/bed-bound Mobility [place] Assistance with transfers with device (cara lift [...] Touch Sensation Intact BED MOBILITY Level of [place] Physical/Non-physical Assist Adaptive Equipment Utilized Rolling/ Turning [...] Bed rails, Other (drawsheet) TRANSFERS Level of [place] Physical/Non-physical Assist Adaptive Equipment Utilized Sit to Stand Unable to perform (Deferred - pt cara dependent at baseline.) BALANCE Postural Appearance Posture: Stooped posture, Forward head, Rounded shoulders Level of [place] Balance Support Static Sit Contact guard Feet supported, Right upper extremity support, Left upper extremity support Dynamic Sit Minimum assistance Feet supported STANDARDIZED ASSESSMENTS [facility] 6-Click Daily Activities Help from Other: Don/Doff Regular Lower Body Clothings: Total Help From Other: Bathing: Total Help From Other: Toileting: Total Help From Other: Don/Doff Upper Body Clothings: A lot Help From Other: Grooming: Little Help From Other: Eating Meals: None [facility] 6 Click - Daily Activities Score: 12 [...] needed areas of treatment space. Level of [place] Interventions Grooming SBA, Setup Bed level Anticipated, [...] Note Alicia Royal 79 y.o. 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 [facility] Medicine History & Physical Consult to [facility] Consult performed by: Daniele Whittaker MBBS [...] Taken along side nightly 20mg duloxetine HYDROcodone-acetaminophen ([place]) 5-325 MG tablet No dose, route, or [...] Date ANKLE SURGERY N/A Ankle Surgery from [facility] [3] Family History Problem Relation Name Age [...] Ordered Status Ordering Provider 02/19/25637 Consult to [facility] Once Specialty: Internal Medicine Provider: (Not [...] Date ANKLE SURGERY N/A Ankle Surgery from [facility] [3] Family History Problem Relation Name Age [...] 02/19/2025 3:42 AM EDT Patient arrives to [facility] via EMS from OSH. Patient's daughter called EMS for altered mental status, vomiting. Patient has hx of head bleed and has been bed bound for years now. Patient GCS 11 @ OSH, but has improved to GCS 15 on arrival to [facility]. documented in this encounter Plan of Treatment Scheduled Orders Name Type Priority Associated Diagnoses Orde r Schedule Respiratory Culture and Gram Stain Microbiology Routine Once (Lab) for 1 Occurrences starting 02/19/2025 until 02/19/2025 Scheduled Referrals Name Type Priority Associated Diagnoses Order Schedule Discharge Ambulatory referral to [facility] Health Outpatient Referral Routine Altered mental [...] POCT glucose meter (02/21/2025 11:27 AM EDT) [facility] POCT Glucose 291(H) 74 - 99 mg/dL 02/21/2025 11:29 AM EDT [facility] Comment:Accuracy of a glucos e result [...] Comment 02/21/2025 11:29 AM EDT [facility] Mechanical Lead ID Ela Esteban 02/21/2025 11:29 AM EDT [facility]ARE [facility] Device ID [id number] 02/21/2025 11:29 AM EDT [facility] Specimen Type POC Capillary 02/21/2025 11:29 AM EDT [facility] Blood Capillary blood specimen / Unknown 02/21/2025 11:27 AM EDT 02/21/2025 11:29 AM EDT Kathie Naqvi MD LAB POINT OF CA RE TEST DOCKED DEVICE UNSOLICITED RESULTS Final Result Performing Organization Address City/State/[facility] Co de Phone Number [facility]ALTH[facility]ARE LAB [address] [place] [address] * (ABNORMAL) POCT glucose meter (02/21/2025 7:47 [...] 02/21/2025 7:48 AM EDT [facility] Mechanical Lead ID Ela Esteban 02/21/2025 7:48 AM EDT [facility]ALTH[facility]ARE LAB Device ID [id number] 02/21/2025 7:48 AM EDT [facility]ARE [facility] Specimen Type POC Capillary 02/21/2025 7:48 AM EDT [facility] Blood Capillary blood specimen / Unknown 02/21/2025 7:47 AM EDT 02/21/2025 7:48 AM EDT Kathie Naqvi MD LAB POINT OF CA RE TEST DOCKED DEVICE UNSOLICITED RESULTS Final Result [facility] [address] [place] [address] * (ABNORMAL) CBC W/O Differential (02/21/2025 5:37 AM EDT) WBC Count 10.27 3.70 - 10.30 10*3/uL LAB HEMATOLOGY METHOD 02/21/2025 6:08 AM EDT [facility] RBC Count 4.00 3.90 - 5.20 10*6/uL LAB HEMATOLOGY METHOD 02/21/2025 6:08 AM EDT [facility] HGB 10.5(L) 11.2 - 15.7 g/dL LAB HEMATOLOGY METHOD 02/21/2025 6:08 AM EDT [facility] HCT 34.1 34.0 - 45.0 % LAB HEMATOLOGY METHOD 02/21/2025 6:08 AM EDT [facility] Platelet Count 213 155 - 369 10*3/uL LAB HEMATOLOGY METHOD 02/21/2025 6:08 AM EDT [facility] MCV 85 79 - 98 fL LAB HEMATOLOGY METHOD 02/21/2025 6:08 AM EDT [facility] MCH 26.3 26.0 - 32.0 pg LAB HEMATOLOGY METHOD 02/21/2025 6:08 AM EDT [facility] MCHC 30.8 30.7 - 35.5 g/dL LAB HEMATOLOGY METHOD 02/21/2025 6:08 AM EDT [facility] RDW 14.2 11.5 - 14.5 % LAB HEMATOLOGY METHOD 02/21/2025 6:08 AM EDT [facility] MPV 9.9 8.8 - 12.5 fL LAB HEMATOLOGY METHOD 02/21/2025 6:08 AM EDT [facility] nRBC 0.0 <=0.0 per 100 WBCs LAB HEMATOLOGY METHOD 02/21/2025 6:08 AM EDT [facility] Blood Venous blood specimen / Unknown Venipuncture / Unknown 02/21/2025 5:37 AM EDT 02/21/2025 5:53 AM EDT Kathie Naqvi MD LAB BLOOD ORDERABLES Fi nal Result Performing Organization Address City/[facility] Co de Phone Number [facility] [address] [place] [address] * (ABNORMAL) POCT glucose meter (02/20/2025 8:32 [...] for testing. Comment 02/20/2025 8:33 PM EDT [facility] Mechanical Lead ID Fariba Jean 025 8:33 PM EDT [facility] Device ID [id number] 02/20/2025 8:33 PM EDT [facility] Specimen Type POC Capillary 02/20/2025 8:33 PM EDT [facility] Blood Capillary blood specimen / Unknown 02/20/2025 8:32 PM EDT 02/20/2025 8:33 PM EDT Kathie Naqvi MD LAB POINT OF CA RE TEST DOCKED DEVICE UNSOLICITED RESULTS Final Result Performing Organization Address [facility] Co de Phone Number [facility] [address] [place] [address] * (ABNORMAL) POCT glucose meter (02/20/2025 5:16 [...] Comment 02/20/2025 5:23 PM EDT [facility]ALTH[facility]ARE LAB Mechanical Lead ID Josue Cui 02/20/2025 5:23 PM EDT [facility]ALTH[facility]ARE LAB Device ID [id number] 02/20/2025 5:23 PM EDT [facility] Specimen Type POC Capillary 02/20/2025 5:23 PM EDT [facility] Blood Capillary blood specimen / Unknown 02/20/2025 5:16 PM EDT 02/20/2025 5:23 PM EDT Kathie Naqvi MD LAB POINT OF CA RE TEST DOCKED DEVICE UNSOLICITED RESULTS Final Result Performing Organization Address City/[facility]/ZIP Co de Phone Number HEALTHCARE LAB [address] [place] [address] * Methicillin Resistant Staphylococcus aureus (MRSA) by PCR (02/20/2025 1:01 PM EDT) [facility] Methicillin Resistant Staphylococcus aureus (MRSA) by PCR Not Detected Not Detected 02/20/2025 2:50 PM EDT [facility] Swab Both anterior nares / Unknown Non-blood Collection / Unknown 02/20/2025 1:01 PM EDT 02/20/2025 1:26 PM EDT Narrative [facility] - 02/20/2025 2:50 PM EDT This [...] MICROBIOLOGY - GENE RAL ORDERABLES Final Result [facility] [address] [place] [address] * (ABNORMAL) POCT glucose meter (02/20/2025 12:51 [...] 02/20/2025 12:55 PM EDT [facility] Mechanical Lead ID Josue Cui 02/20/2025 12:55 PM EDT [facility] Device ID [id number] 02/20/2025 12:55 PM EDT [facility] Specimen Type POC Capillary 02/20/2025 12:55 PM EDT [facility] Blood Capillary blood specimen / Unknown 02/20/2025 12:51 PM EDT 02/20/2025 12:55 PM EDT Kathie Naqvi MD LAB POINT OF CA RE TEST DOCKED DEVICE UNSOLICITED RESULTS Final Result [facility] [address] [place] [address] * (ABNORMAL) POCT glucose meter (02/20/2025 8:49 AM EDT) [facility] Signature POCT Glucose 263(H) 74 - 99 [...] 02/20/2025 8:55 AM EDT [facility] Mechanical Lead ID Josue Cui 02/20/2025 8:55 AM EDT [facility] Device ID [id number] 02/20/2025 8:55 AM EDT [facility] Specimen Type POC Capillary 02/20/2025 8:55 AM EDT [facility] Blood Capillary blood specimen / Unknown 02/20/2025 8:49 AM EDT 02/20/2025 8:55 AM EDT us Kathie Naqvi MD LAB POINT OF CA RE TEST DOCKED DEVICE UNSOLICITED RESULTS Final Result Performing Organization Address City/[facility]/ZIP Co de Phone Number [facility] [address] [place] [address] * Phosphorus (02/20/2025 1:27 AM EDT) Phosphorus, Plasma 2.6 2.5 - 4.5 mg/dL 02/20/2025 2:06 AM EDT [facility] Blood Venous blood specimen / Unknown Venipuncture / Unknown 02/20/2025 1:27 AM EDT 02/20/2025 1:32 AM EDT Kathie Naqvi MD LAB BLOOD ORDERABLES Fi nal Result Performing Organization Address City/[facility]/ZIP Co de Phone Number [facility] [address] [place] [address] * Magnesium, Plasma (02/20/2025 1:27 AM EDT) Magnesium, Plasma 2.0 1.9 - 2.4 mg/dL 02/20/2025 2:06 AM EDT [facility] Blood Venous blood specimen / Unknown Venipuncture / Unknown 02/20/2025 1:27 AM EDT 02/20/2025 1:32 AM EDT Kathie Naqvi MD LAB BLOOD ORDERABLES Fi nal Result Performing Organization Address City/[facility]/ZIP Co de Phone Number [facility] [address] [place] [address] * (ABNORMAL) Basic metabolic panel (02/20/2025 1:27 AM EDT) Glucose, Plasma 200(H) 74 - 99 mg/dL 02/20/2025 2:06 AM EDT [facility] BUN, Plasma 22 8 - 23 mg/dL 02/20/2025 2:06 AM EDT [facility] Creatinine, Plasma 0.91 0.60 - 1.10 mg/dL 02/20/2025 2:06 AM EDT [facility] BUN/Creatinine Ratio 24 02/20/2025 2:06 AM EDT [facility] Sodium, Plasma 138 136 - 145 mmol/L 02/20/2025 2:06 AM EDT [facility] Potassium, Plasma 4.0 3.6 - 4.9 mmol/L 02/20/2025 2:06 AM EDT [facility] Chloride, Plasma 98 97 - 107 mmol/L 02/20/2025 2:06 AM EDT [facility] CO2, Plasma 27 22 - 29 mmol/L 02/20/2025 2:06 AM EDT [facility] Anion Gap 13 6 - 16 mmol/L 02/20/2025 2:06 AM EDT [facility] Total Calcium, Plasma 9.1 8.9 - 10.2 mg/dL 02/20/2025 2:06 AM EDT [facility] eGFRcr 64.7 mL/min/1.7 3m*2 02/20/2025 2:06 AM EDT [facility] Comment:Reported eGFRcr in m L/min/1.73m2 is based the CKD-EPI 2020 equation that does not use a race coefficient. Blood Venous blood specimen / Unknown Venipuncture / Unknown 02/20/2025 1:27 AM EDT 02/20/2025 1:32 AM EDT Kathie Naqvi MD LAB BLOOD ORDERABLES Fi nal Result [facility] [address] [place] [address] * (ABNORMAL) CBC (02/20/2025 1:27 AM EDT) WBC Count 12.75(H) 3.70 - 10.30 10*3/uL LAB HEMATOLOGY METHOD 02/20/2025 1:43 AM EDT [facility] RBC Count 3.61(L) 3.90 - 5.20 10*6/uL LAB HEMATOLOGY METHOD 02/20/2025 1:43 AM EDT [facility] HGB 9.5(L) 11.2 - 15.7 g/dL LAB HEMATOLOGY METHOD 02/20/2025 1:43 AM EDT [facility] HCT 30.7(L) 34.0 - 45.0 % LAB HEMATOLOGY METHOD 02/20/2025 1:43 AM EDT [facility] Platelet Count 214 155 - 369 10*3/uL LAB HEMATOLOGY METHOD 02/20/2025 1:43 AM EDT [facility] MCV 85 79 - 98 fL LAB HEMATOLOGY METHOD 02/20/2025 1:43 AM EDT [facility] MCH 26.3 26.0 - 32.0 pg LAB HEMATOLOGY METHOD 02/20/2025 1:43 AM EDT [facility] MCHC 30.9 30.7 - 35.5 g/dL LAB HEMATOLOGY METHOD 02/20/2025 1:43 AM EDT [facility] RDW 14.6(H) 11.5 - 14.5 % LAB HEMATOLOGY METHOD 02/20/2025 1:43 AM EDT [facility] MPV 9.9 8.8 - 12.5 fL LAB HEMATOLOGY METHOD 02/20/2025 1:43 AM EDT [facility] nRBC 0.0 <=0.0 per 100 WBCs LAB HEMATOLOGY METHOD 02/20/2025 1:43 AM EDT [facility] Blood Venous blood specimen / Unknown Venipuncture / Unknown 02/20/2025 1:27 AM EDT 02/20/2025 1:33 AM EDT us Kathie Naqvi MD LAB BLOOD ORDERABLES Fi nal Result [facility] [address] [place] [address] * (ABNORMAL) POCT glucose meter (02/19/2025 8:14 [...] Comment 02/19/2025 8:16 PM EDT HEALTHCARE LAB Mechanical Lead ID Fariba Jean 025 8:16 PM EDT [facility] Device ID [id number] 02/19/2025 8:16 PM EDT [facility]ALTH[facility]ARE LAB Specimen Type POC Capillary 02/19/2025 8:16 PM EDT [facility]ARE [facility] Blood Capillary blood specimen / Unknown 02/19/2025 8:14 PM EDT 02/19/2025 8:16 PM EDT Kathie Naqvi MD LAB POINT OF CA RE TEST DOCKED DEVICE UNSOLICITED RESULTS Final Result Performing Organization Address City/State/[facility] Co de Phone Number [facility]ARE LAB [address] [place] [address] * (ABNORMAL) POCT glucose meter (02/19/2025 4:32 PM EDT) [facility] Signature POCT Glucose 193(H) 74 - 99 [...] Comment 02/19/2025 4:34 PM EDT HEALTHCARE LAB Mechanical Lead ID Bridget Cordon 4:34 PM EDT HEALTHCARE LAB Device ID [id number] 02/19/2025 4:34 PM EDT [facility]ALTH[facility]ARE LAB Specimen Type POC Capillary 02/19/2025 4:34 PM EDT [facility] Blood Capillary blood specimen / Unknown 02/19/2025 4:32 PM EDT 02/19/2025 4:34 PM EDT Kathie Naqvi MD LAB POINT OF CA RE TEST DOCKED DEVICE UNSOLICITED RESULTS Final Result Performing Organization Address [facility] de Phone Number HEALTHCARE LAB [address] [place] [address] * (ABNORMAL) POCT glucose meter (02/19/2025 11:50 [...] 02/19/2025 11:52 AM EDT [facility] Mechanical Lead ID Bridget Cordon 11:52 AM EDT [facility] Device ID [id number] 02/19/2025 11:52 AM EDT [facility] Specimen Type POC Capillary 02/19/2025 11:52 AM EDT [facility] Blood Capillary blood specimen / Unknown 02/19/2025 11:50 AM EDT 02/19/2025 11:52 AM EDT Kathie Naqvi MD LAB POINT OF CA RE TEST DOCKED DEVICE UNSOLICITED RESULTS Final Result Performing Organization Address [facility] de Phone Number [facility] [address] [place] [address] * XR Chest 1 View (02/19/2025 10:18 [...] for testing. Comment 02/19/2025 9:18 AM EDT [facility] Mechanical Lead ID Rekha Diaz 02/20/20 9:18 AM EDT [facility] Device ID [id number] 02/19/2025 9:18 AM EDT HEALTHCARE LAB Specimen Type POC Capillary 02/19/2025 9:18 AM EDT [facility] Blood Capillary blood specimen / Unknown 02/19/2025 9:16 AM EDT 02/19/2025 9:18 AM EDT Kathie Naqvi MD LAB POINT OF CA RE TEST DOCKED DEVICE UNSOLICITED RESULTS Final Result [facility] [address] [place] [address] * ECG Adult (02/19/2025 9:04 AM EDT) EKG DIAGNOSIS CLASS Abnormal MUSE ECG Ventricular Rate 57 BPM MUSE ECG Atrial Rate 57 BPM MUSE ECG QRSD Interval 110 ms MUSE ECG QT Interval 460 ms MUSE ECG QTC Interval 447 ms MUSE ECG P [place] 68 degrees MUSE ECG R [place] 0 degrees MUSE ECG T Wave [place] 55 degrees MUSE ECG Diagnosis Atrial fibrillation [...] at day 5 02/24/2025 10:01 AM EDT [facility] Blood Structure of left hand / Unknown Venipuncture / Unknown 02/19/2025 8:51 AM EDT 02/19/2025 9:31 AM EDT Narrative [facility] - 02/24/2025 10:01 AM EDT Low blood volume submitted, results may be compromised Kathie Naqvi MD LAB MICROBIOLOGY - GENE RAL ORDERABLES Final Result [facility] [address] [place] [address] * (ABNORMAL) Blood gas panel, venous (02/19/2025 8:51 AM EDT) pH, Venous 7.37 7.32 - 7.43 LAB HEMATOLOGY METHOD 02/19/2025 9:23 AM EDT [facility] pCO2, Venous 65(HH) 37 - 52 mmHg LAB HEMATOLOGY METHOD 02/19/2025 9:23 AM EDT [facility] pO2, Venous 24(L) 25 - 40 mmHg LAB HEMATOLOGY METHOD 02/19/2025 9:23 AM EDT [facility] SO2, Measured, Venous 38(L) 65 - 80 % LAB HEMATOLOGY METHOD 02/19/2025 9:23 AM EDT [facility] Base Excess, Venous 10.0(H) -2.0 - 3.0 mmol/L LAB HEMATOLOGY METHOD 02/19/2025 9:23 AM EDT [facility] Bicarbonate, Calculated, Venous 37(H) 22 - 26 mmol/L LAB HEMATOLOGY METHOD 02/19/2025 9:23 AM EDT [facility] Hematocrit, Whole Blood 32.9(L) 34.0 - 45.0 % LAB HEMATOLOGY METHOD 02/19/2025 9:23 AM EDT [facility] Sodium, Whole Blood 141 136 - 145 mmol/L LAB HEMATOLOGY METHOD 02/19/2025 9:23 AM EDT [facility] Potassium, Whole Blood 4.3 3.6 - 4.9 mmol/L LAB HEMATOLOGY METHOD 02/19/2025 9:23 AM EDT [facility] Chloride, Whole Blood 95(L) 97 - 107 mmol/L LAB HEMATOLOGY METHOD 02/19/2025 9:23 AM EDT [facility] Glucose, Whole Blood 247(H) 74 - 99 mg/dL LAB HEMATOLOGY METHOD 02/19/2025 9:23 AM EDT [facility] Lactate, Venous, Whole Blood 1.5 0.5 - 2.2 mmol/L LAB HEMATOLOGY METHOD 02/19/2025 9:23 AM EDT [facility] Ionized Calcium, Whole Blood 4.6 4.6 - 5.1 mg/dL LAB HEMATOLOGY METHOD 02/19/2025 9:23 AM EDT [facility] Blood Venous blood specimen / Unknown Venipuncture / Unknown 02/19/2025 8:51 AM EDT 02/19/2025 8:58 AM EDT Kathie Naqvi MD LAB BLOOD ORDERABLES Fi nal Result Performing Organization Address City/[facility]/ZIP Co de Phone Number [facility] [address] [place] [address] * Blood Culture (Aerobic/Anaerobet Set) (02/19/2025 8:33 AM EDT) Culture No growth at day 5 02/24/2025 9:47 AM EDT [facility] Blood Upper limb structure / Unknown Venipuncture / Unknown 02/19/2025 8:33 AM EDT 02/19/2025 9:31 AM EDT Narrative [facility] - 02/24/2025 9:47 AM EDT Low blood volume submitted, results may be compromised Kathie Naqvi MD LAB MICROBIOLOGY - GENE RAL ORDERABLES Final Result Performing Organization Address City/[facility]/[place] [address] * Urinalysis Microscopic Examination (02/19/2025 8:32 AM EDT) Urine Urine specimen obtained by clean catch procedure / Unknown Non-blood Collection / Unknown 02/19/2025 8:32 AM EDT 02/19/2025 8:55 AM EDT Kathie Naqvi MD LAB URINE ORDERABLES Fi nal Result Performing Organization Address City/[facility]/[place] [address] * Urine Verduzco Panel (02/19/2025 8:32 AM EDT) Extra Reflex urine culture not indicated 02/19/2025 11:02 AM EDT [facility] Urine Urine specimen obtained by clean catch procedure / Unknown Non-blood Collection / Unknown 02/19/2025 8:32 AM EDT 02/19/2025 9:03 AM EDT Kathie Naqvi MD LAB URINE ORDERABLES Fi nal Result [facility] [address] [place] [address] * (ABNORMAL) Urinalysis with reflex microscopic (Culture NOT Included) (02/19/2025 8:32 AM EDT) Color, Urine Yellow LAB URINALYSIS - AUTOMATED METHOD 02/19/2025 9:23 AM EDT [facility] Clarity, Urine Clear LAB URINALYSIS - AUTOMATED METHOD 02/19/2025 9:23 AM EDT [facility] Spec Gray, Urine >1.030(H) 1.005 - 1.030 LAB URINALYSIS - AUTOMATED METHOD 02/19/2025 9:23 AM EDT [facility] pH, Urine 6.5 5.0 - 8.0 LAB URINALYSIS - AUTOMATED METHOD 02/19/2025 9:23 AM EDT [facility] Protein, Urine Trace(A) Negative mg/dL LAB URINALYSIS - AUTOMATED METHOD 02/19/2025 9:23 AM EDT [facility] Glucose, Urine Negative Negative mg/dL LAB URINALYSIS - AUTOMATED METHOD 02/19/2025 9:23 AM EDT [facility] Ketones, Urine Trace(A) Negative mg/dL LAB URINALYSIS - AUTOMATED METHOD 02/19/2025 9:23 AM EDT [facility] Blood, Urine Trace(A) Negative LAB URINALYSIS - AUTOMATED METHOD 02/19/2025 9:23 AM EDT [facility] Bilirubin, Urine Negative Negative LAB URINALYSIS - AUTOMATED METHOD 02/19/2025 9:23 AM EDT [facility] Urobilinogen, Urine 0.2 0.2 to 1.0 mg/dL LAB URINALYSIS - AUTOMATED METHOD 02/19/2025 9:23 AM EDT [facility] Leukocytes, Urine Negative Negative LAB URINALYSIS - AUTOMATED METHOD 02/19/2025 9:23 AM EDT [facility] Nitrite, Urine Negative Negative LAB URINALYSIS - AUTOMATED METHOD 02/19/2025 9:23 AM EDT [facility] RBC, Urine 4 - 10(A) 0 to 3 /HPF LAB URINALYSIS - AUTOMATED METHOD 02/19/2025 9:23 AM EDT [facility] Comment:This result was prev iously suppressed from the chart. WBC, Urine 0 - 5 0 to 5 /HPF LAB URINALYSIS - AUTOMATED METHOD 02/19/2025 9:23 AM EDT [facility] Comment:This result was prev iously suppressed from the chart. Squamous Epithelial Cells 0 - 2 0 to 5 /HPF LAB URINALYSIS - AUTOMATED METHOD 02/19/2025 9:23 AM EDT [facility] Comment:This result was prev iously suppressed from the chart. Hyaline Casts 0 - 2 0 to 5 /LPF LAB URINALYSIS - AUTOMATED METHOD 02/19/2025 9:23 AM EDT [facility] Comment:This result was prev iously suppressed from the chart. Bacteria, Urine Negative Negative LAB URINALYSIS - AUTOMATED METHOD 02/19/2025 9:23 AM EDT [facility] Comment:This result was prev iously suppressed from the chart. Urine Urine specimen obtained by clean catch procedure / Unknown Non-blood Collection / Unknown 02/19/2025 8:32 AM EDT 02/19/2025 8:55 AM EDT Kathie Naqvi MD LAB URINE ORDERABLES Fi nal Result [facility] [address] [place] [address] * SARS CoV-2/COVID-19 by PCR - Rapid (02/19/2025 8:32 AM EDT) SARS CoV-2/COVID-1 9 RNA PCR Result Not Detected Not Detected 02/19/2025 10:38 AM EDT [facility] Swab Nasopharyngeal structure / Unknown Non-blood Collection / Unknown 02/19/2025 8:32 AM EDT 02/19/2025 9:37 AM EDT Narrative [facility] - 02/19/2025 10:38 AM EDT This [...] COVID-19. Kathie Naqvi MD LAB MICROBIOLOGY - [facility] ORDERABLES Final Result [facility] [address] [place] [address] * Nasopharyngeal Respiratory Panel (02/19/2025 8:32 AM EDT) Nasopharyngeal Respiratory PCR Interpretation Not Detected for all analytes Not Detected for all analytes 02/19/2025 11:40 AM EDT [facility] Swab Nasopharyngeal structure / Unknown Non-blood Collection / Unknown 02/19/2025 8:32 AM EDT 02/19/2025 9:37 AM EDT Narrative [facility] - 02/19/2025 11:40 AM EDT This [...] Respiratory PCR Panel is performed using the [employer] ePlex instrument. This test is FDA approved for use with Nasopharyngeal swabs only. This test is used for clinical purposes. It should not be regarded as investigational or for research. The [facility] Clinical Microbiology Laboratory is certified under the Clinical Laboratory Improvement Amendments of 1988 (CLIA-88) as qualified to perform high complexity clinical laboratory testing. Kathie Naqvi MD LAB MICROBIOLOGY - GENE RAL ORDERABLES Final Result Performing Organization Address [facility] [place] [address] * Streptococcus pneumoniae and Legionella Urinary Antigen (02/19/2025 8:32 AM EDT) Legionella pneumophila serogroup 1 Antigen Result (Urine) Negative Negative 02/20/2025 6:20 AM EDT [facility] Streptococcus pneumoniae Antigen Result (Urine) Negative Negative 02/20/2025 6:20 AM EDT [facility] Urine Urine specimen obtained by clean catch procedure / Unknown Non-blood Collection / Unknown 02/19/2025 8:32 AM EDT 02/19/2025 9:36 AM EDT Kathie Naqvi MD LAB MICROBIOLOGY - GENE RAL ORDERABLES Final Result Performing Organization Address [facility] [place] [address] * Multi Drug Resistance Test (02/19/2025 8:32 AM EDT) Culture No growth at day 1 02/20/2025 11:17 AM EDT [facility] Swab (Nares and Theodora Rectal) Non-blood Collection / Unknown 02/19/2025 8:32 AM EDT 02/19/2025 9:37 AM EDT Narrative [facility] - 02/20/2025 11:17 AM EDT This test was developed and its performance characteristics determined by the [facility] Clinical [facility]biology [facility]. Although the media is FDA-approved, it is not FDA-approved for all specimen types submitted. The FDA has determined that such clearance or approval is not necessary. This test is used for surveillance purposes. It should not be regarded as investigational or for research. The [facility] Clinical [facility]biology [facility] is certified under the Clinical Laboratory Improvement Amendments of 1988 (CLIA-88) as qualified to perform high complexity clinical laboratory testing. Kathie Naqvi MD LAB MICROBIOLOGY - GENE RAL ORDERABLES Final Result Performing Organization Address [facility] [place] [address] * (ABNORMAL) C-reactive protein (02/19/2025 7:18 AM EDT) CRP, Plasma 38.1(H) <=8.0 mg/L 02/19/2025 10:10 AM EDT [facility] Blood Venous blood specimen / Unknown Venipuncture / Unknown 02/19/2025 7:18 AM EDT 02/19/2025 7:22 AM EDT Narrative [facility] - 02/19/2025 10:10 AM EDT This CRP test is appropriate for assessment of infection, systemic inflammation and/or tissue injury. To assess cardiovascular disease risk order high sensitivity CRP (CRPH). Kathie Naqvi MD LAB BLOOD ORDERABLES Fi nal Result Performing Organization Address [facility] [place] [address] * (ABNORMAL) Procalcitonin (02/19/2025 7:18 AM EDT) Procalcitonin, Plasma 0.10(H) <0.09 ng/mL 02/19/2025 10:10 AM EDT [facility] Blood Venous blood specimen / Unknown Venipuncture / Unknown 02/19/2025 7:18 AM EDT 02/19/2025 7:22 AM EDT Narrative [facility] - 02/19/2025 10:10 AM EDT Procalcitonin [...] predict 28 day mortality risk. Please consult [email or web address] for more information. Test performed at [facility]. Kathie Naqvi MD LAB BLOOD ORDERABLES Fi nal Result Performing Organization Address City/[facility]/[place] [address] * (ABNORMAL) N-Terminal Probnp, Plasma (02/19/2025 7:18 AM EDT) N-Terminal, PROBNP, Plasma 2,448(H) 0 - 1,799 pg/mL 02/19/2025 8:58 AM EDT [facility] Blood Venous blood specimen / Unknown Venipuncture / Unknown 02/19/2025 7:18 AM EDT 02/19/2025 7:22 AM EDT Kathie Naqvi MD LAB BLOOD ORDERABLES Fi nal Result Performing Organization Address City/[facility]/ZIP Co de Phone Number [facility] [address] [place] [address] * (ABNORMAL) Hemoglobin A1c (02/19/2025 7:18 AM EDT) Hemoglobin A1c 7.4(H) <5.7 % 02/19/2025 11:39 AM EDT [facility] Blood Venous blood specimen / Unknown Venipuncture / Unknown 02/19/2025 7:18 AM EDT 02/19/2025 7:22 AM EDT Narrative [facility] - 02/19/2025 11:39 AM EDT HA1C Interpretive Data: Diagnosis of Diabetes: Diabetic > or = 6.5% Pre-diabetic 5.7 to 6.4% Non-diabetic < or = 5.6% Glycemic Targets for Type I and Type II Diabetics: Non- Adults <7.0% Adults <6.0% Children and Adolescents <7.5% Source: [place] [employer]. Standards of medical care in diabetes,2017. Diabetes Care.2017:40 (suppl 1):S1-S135. Kathie Naqvi MD LAB BLOOD ORDERABLES Fi nal Result Performing Organization Address [facility] de Phone Number [facility] [address] [place] [address] * TSH Reflex FT4 (02/19/2025 7:18 AM EDT) Thyroid Stimulating Hormone, Plasma 0.63 0.40 - 4.20 uIU/mL 02/19/2025 8:58 AM EDT [facility] Blood Venous blood specimen / Unknown Venipuncture / Unknown 02/19/2025 7:18 AM EDT 02/19/2025 7:22 AM EDT Kathie Naqvi MD LAB BLOOD ORDERABLES Fi nal Result Performing Organization Address [facility] de Phone Number [facility] [address] [place] [address] * ED HIV 1/2 Antibody/Antigen Screen w/Reflex to HIV 1/2 Differentiation (02/19/2025 7:18 AM EDT) Pathologist [facility] HIV 1 & 2 Antibody/Antigen Screen Non Reactive Non Reactive 02/19/2025 8:28 AM EDT [facility] Comment:Screening for HIV 1 & 2 antibodies, and P24 antigen is NONREACTIVE. No confirmatory testing is required. Blood Venous blood specimen / Unknown Venipuncture / Unknown 02/19/2025 7:18 AM EDT 02/19/2025 7:49 AM EDT Benito Chakraborty MD LAB BLOOD ORDERABLES Final Resu lt Performing Organization Address City/[facility]/ZIP Co de Phone Number [facility] [address] [place] [address] * Hepatitis C Antibody - ED (02/19/2025 7:18 AM EDT) Hepatitis C Antibody Negative Negative 02/19/2025 8:32 AM EDT [facility] Blood Venous blood specimen / Unknown Venipuncture / Unknown 02/19/2025 7:18 AM EDT 02/19/2025 7:49 AM EDT us Benito Chakraborty MD LAB BLOOD ORDERABLES Final Resu lt Performing Organization Address [facility] Co de Phone Number [facility] [address] [place] [address] * Anti Xa Level Unfractionated Heparin (02/19/2025 7:18 AM EDT) Anti Xa Level Unfractionated Heparin 0.86 <1.00 IU/mL 02/19/2025 8:01 AM EDT [facility] Blood Venous blood specimen / Unknown Venipuncture / Unknown 02/19/2025 7:18 AM EDT 02/19/2025 7:22 AM EDT Narrative [facility] - 02/19/2025 8:01 AM EDT Therapeutic Range: UFH Full Dose and ACS/ID protocols*: 0.30 - 0.70 IU/mL UFH Low Dose protocol*: 0.25 - 0.50 IU/mL UFH prophylaxis: Not established us Benito Chakraborty MD LAB BLOOD ORDERABLES Final Resu lt Performing Organization Address City/[facility]/ZIP Co de Phone Number [facility] [address] [place] [address] * (ABNORMAL) PT-INR (02/19/2025 7:18 AM EDT) Prothrombin Time 16.6(H) 12.0 - 14.3 sec 02/19/2025 7:59 AM EDT [facility] INR 1.4(H) 0.9 - 1.1 02/19/2025 7:59 AM EDT [facility] Blood Venous blood specimen / Unknown Venipuncture / Unknown 02/19/2025 7:18 AM EDT 02/19/2025 7:22 AM EDT Narrative [facility] - 02/19/2025 7:59 AM EDT OPTIMAL INR RANGES FOR PATIENT ON ORAL ANTICOAGULANT THERAPY Prevention of venous thromboembolism INR 2.0 to 3.0 In patients with heart disease: Atrial fibrillation INR 2.0 to 3.0 Valvular heart disease INR 2.0 to 3.0 Tissue heart valves INR 2.0 to 3.0 Mechanical prosthetic valves INR 2.5 to 3.5 Prevention of recurrent ID INR 2.5 to 3.5 us Benito Chakraborty MD LAB BLOOD ORDERABLES Final Resu lt [facility] [address] [place] [address] * (ABNORMAL) CBC w/diff (02/19/2025 7:18 AM EDT) WBC Count 16.73(H) 3.70 - 10.30 10*3/uL LAB HEMATOLOGY METHOD 02/19/2025 7:26 AM EDT [facility] RBC Count 4.00 3.90 - 5.20 10*6/uL LAB HEMATOLOGY METHOD 02/19/2025 7:26 AM EDT [facility] HGB 10.6(L) 11.2 - 15.7 g/dL LAB HEMATOLOGY METHOD 02/19/2025 7:26 AM EDT [facility] HCT 34.3 34.0 - 45.0 % LAB HEMATOLOGY METHOD 02/19/2025 7:26 AM EDT [facility] Platelet Count 222 155 - 369 10*3/uL LAB HEMATOLOGY METHOD 02/19/2025 7:26 AM EDT [facility] MCV 86 79 - 98 fL LAB HEMATOLOGY METHOD 02/19/2025 7:26 AM EDT [facility] MCH 26.5 26.0 - 32.0 pg LAB HEMATOLOGY METHOD 02/19/2025 7:26 AM EDT [facility] MCHC 30.9 30.7 - 35.5 g/dL LAB HEMATOLOGY METHOD 02/19/2025 7:26 AM EDT [facility] RDW 14.4 11.5 - 14.5 % LAB HEMATOLOGY METHOD 02/19/2025 7:26 AM EDT [facility] MPV 9.4 8.8 - 12.5 fL LAB HEMATOLOGY METHOD 02/19/2025 7:26 AM EDT [facility] nRBC 0.0 <=0.0 per 100 WBCs LAB HEMATOLOGY METHOD 02/19/2025 7:26 AM EDT [facility] Differential Type Automated LAB HEMATOLOGY METHOD 02/19/2025 7:26 AM EDT [facility] Neutrophils % 85 % LAB HEMATOLOGY METHOD 02/19/2025 7:26 AM EDT [facility] Lymphocytes % 9 % LAB HEMATOLOGY METHOD 02/19/2025 7:26 AM EDT [facility] Monocytes % 5 % LAB HEMATOLOGY METHOD 02/19/2025 7:26 AM EDT [facility] Eosinophils % 0 % LAB HEMATOLOGY METHOD 02/19/2025 7:26 AM EDT [facility] Basophils % 0 % LAB HEMATOLOGY METHOD 02/19/2025 7:26 AM EDT [facility] Immature Granulocytes % 1 % LAB HEMATOLOGY METHOD 02/19/2025 7:26 AM EDT [facility] Neutrophils Absolute 14.37(H) 1.60 - 6.10 10*3/uL LAB HEMATOLOGY METHOD 02/19/2025 7:26 AM EDT [facility] Lymphocytes Absolute 1.46 1.20 - 3.90 10*3/uL LAB HEMATOLOGY METHOD 02/19/2025 7:26 AM EDT [facility] Monocytes Absolute 0.77 0.30 - 0.90 10*3/uL LAB HEMATOLOGY METHOD 02/19/2025 7:26 AM EDT [facility] Eosinophils Absolute 0.01 0.00 - 0.50 10*3/uL LAB HEMATOLOGY METHOD 02/19/2025 7:26 AM EDT [facility] Basophils Absolute 0.04 0.00 - 0.10 10*3/uL LAB HEMATOLOGY METHOD 02/19/2025 7:26 AM EDT [facility] Immature Granulocytes Absolute 0.08(H) 0.00 - 0.06 10*3/uL LAB HEMATOLOGY METHOD 02/19/2025 7:26 AM EDT [facility] Blood Venous blood specimen / Unknown Venipuncture / Unknown 02/19/2025 7:18 AM EDT 02/19/2025 7:22 AM EDT Narrative [facility] - 02/19/2025 7:26 AM EDT Therapeutic decision making should be based on absolute values, rather than percentages. us Benito Chakraborty MD LAB BLOOD ORDERABLES Final Resu lt Performing Organization Address City/[facility]/ZIP Co de Phone Number [facility] [address] [place] [address] * Magnesium (02/19/2025 7:18 AM EDT) Magnesium, Plasma 2.0 1.9 - 2.4 mg/dL 02/19/2025 7:44 AM EDT [facility] Blood Venous blood specimen / Unknown Venipuncture / Unknown 02/19/2025 7:18 AM EDT 02/19/2025 7:22 AM EDT us Benito Chakraborty MD LAB BLOOD ORDERABLES Final Resu lt Performing Organization Address City/[facility] Co de Phone Number [facility] [address] [place] [address] * (ABNORMAL) CMP (02/19/2025 7:18 AM EDT) Glucose, Plasma 249(H) 74 - 99 mg/dL 02/19/2025 7:44 AM EDT [facility] BUN, Plasma 23 8 - 23 mg/dL 02/19/2025 7:44 AM EDT [facility] Creatinine, Plasma 1.07 0.60 - 1.10 mg/dL 02/19/2025 7:44 AM EDT [facility] BUN/Creatinine Ratio 02/19/2025 7:44 AM EDT [facility] Sodium, Plasma 139 136 - 145 mmol/L 02/19/2025 7:44 AM EDT [facility] Potassium, Plasma 4.7 3.6 - 4.9 mmol/L 02/19/2025 7:44 AM EDT [facility] Chloride, Plasma 97 97 - 107 mmol/L 02/19/2025 7:44 AM EDT [facility] CO2, Plasma 30(H) 22 - 29 mmol/L 02/19/2025 7:44 AM EDT [facility] Anion Gap 12 6 - 16 mmol/L 02/19/2025 7:44 AM EDT [facility] Total Calcium, Plasma 9.0 8.9 - 10.2 mg/dL 02/19/2025 7:44 AM EDT [facility] Total Protein 6.7 6.3 - 7.9 g/dL 02/19/2025 7:44 AM EDT [facility] Albumin, Plasma 3.5 3.5 - 5.2 g/dL 02/19/2025 7:44 AM EDT [facility] AST, Plasma 13 10 - 35 U/L 02/19/2025 7:44 AM EDT [facility] ALT, Plasma 7(L) 10 - 35 U/L 02/19/2025 7:44 AM EDT [facility] Alkaline Phosphatase, Plasma 89 46 - 142 U/L 02/19/2025 7:44 AM EDT [facility] Total Bilirubin, Plasma 0.4 0.2 - 1.1 mg/dL 02/19/2025 7:44 AM EDT [facility] eGFRcr 53.3 mL/min/1.7 3m*2 02/19/2025 7:44 AM EDT [facility] Comment:Reported eGFRcr in m L/min/1.73m2 is based the CKD-EPI 2020 equation that does not use a race coefficient. Blood Venous blood specimen / Unknown Venipuncture / Unknown 02/19/2025 7:18 AM EDT 02/19/2025 7:22 AM EDT us Benito Chakraborty MD LAB BLOOD ORDERABLES Final Resu lt [facility] [address] [place] [address] documented in this encounter Visit Diagnoses Diagnosis [...] Given 02/21/2025 8:37 AM EDT 500 mg dllknkjdax-nsxkfdgkeizlr-swlyuyqb 50-325-40 MG per tablet 1 tablet 1 [...] Rekha Diaz RN)210 (Given - Provider: Albertina Ghosh) 09 (Given - Provider: Kenneth Garcia RN)220 (Given - Provider: Michel Pendleton) 0837 (Given - Provider: Eli Claire) PRN Medication Order 02/19/2025 02/20/2025 02/21/2025 acetaminophen (Tylenol) tablet 650 mg 650 mg, Oral, Every 8 hours PRN, Starting on 02/19/25 at 0813, Until Fri02/21/25 at 192, Routine, mild pain 2110 (Given - Provider: Albertina Ghosh) 1124 (Given - Provider: Kenneth Gracia RN) albuterol (Proventil) (2.5 MG/3ML) 0.083% nebulizer [...] documented as of this encounter Care Teams Child Health Associate Relationship Specialty Start Date End Date Jamil Carey MD [address] [place], [place] [id number] PCP - General 10/22/22 documented as of this encounter
--- OUTSIDE RECORDS SUMMARY | 2025-03-10 15:35 | XMS_ITS | Clinical Summary ---
Author Organization [facility] Address [address] [place] [address] Care Team Providers Care Outboard Technician Name Role Phone Jamil Carey MD Primary Care Provider [phone] Radha Russ LPN Unavailable Unavailabl e Allergies Active Allergy Reactions Criticality Noted Date Comments Penicillins Unknown - Patient st ates they do not know rxn details High 09/23/2016 Unknown, childhood allergy per daughter/caregiver Medications rivaroxaban (Xarelto) 20 MG tablet Take 1 tablet by mouth every evening. 07/20/20 19 Active metoprolol succinate XL (Toprol-XL) 50 MG 24 hr tablet Take 1 tablet by mouth every morning. 08/02/20 20 Active magnesium oxide (Mag-Ox) 400 (240 Mg) MG tablet Take 1 tablet by mouth 1 time each day with lunch. 07/02/20 22 Active Symbicort 160-4.5 MCG/ACT inhaler Inhale 2 puffs 2 times a day. 06/04/20 22 Active levETIRAcetam (Keppra) 750 MG tablet Take 1 tablet (750 mg total) by mouth 2 (two) times a day. 60 tablet 11 07/31/20 22 Active insulin NPH-insulin regular (INSULIN NPH ISOPHANE & REGULAR HUMAN INJ) (70-30) 100 UNIT/ML SC injection vial Inject 40 Units under the skin 2 (two) times a day. 30 mL 07/31/20 22 Active HYDROcodone-ac etaminophen ([place]) 5-325 MG tablet Take 1 tablet by mouth 4 times a day as needed. 09/05/19 23 Active pregabalin (Lyrica) 75 MG capsule Take 1 capsule by mouth daily. 09/05/19 23 Active donepezil (Aricept) 10 MG tablet Take 1 tablet by mouth nightly. Active memantine (Namenda) 10 MG tablet Take 1 tablet by mouth 2 times a day. Active QUEtiapine (SEROquel) 100 MG tablet TAKE 1 TABLET BY MOUTH IN THE MORNING AND 2 AT BEDTIME Active atorvastatin (Lipitor) 80 MG tablet Take 1 tablet by mouth daily. Active DULoxetine (Cymbalta) [address] capsule Take 1 capsule by mouth daily. Do not crush or chew. Active cyanocobalamin 2500 MCG tablet Take 1 tablet by mouth daily. Active ergocalciferol (Vitamin D-2) 1.25 MG (75717 UT) capsule Take 1 capsule by mouth 1 time per week. Active metFORMIN (Glucophage) 1000 MG tabletIndicati ons:Type 2 diabetes mellitus without complication, with long-term current use of insulin TAKE 1 TABLET TWICE DAILY WITH MEALS 180 tablet 05/03/20 21 025 Discontinu ed(Entered in Error) albuterol (2.5 MG/3ML) 0.083% nebulizer solution Take 2.5 mg by nebulization every 6 (six) hours if needed. 09/08/19 21 025 Discontinu ed(Entered in Error) DULoxetine (Cymbalta) [address] capsule Take 60 mg by mouth 1 (one) time each day in the morning. Taken along side nightly 20mg duloxetine 12/31/19 21 025 Discontinu ed(Entered in Error) atorvastatin (Lipitor) 80 MG tablet Take 0.5 tablets (40 mg total) by mouth every night. 30 tablet 07/31/20 22 025 Discontinu ed(Entered in Error) acetaminophen (Tylenol) 325 MG tablet Take 2 tablets (650 mg total) by mouth every 6 (six) hours if needed for fever or pain. 100 tablet 07/31/20 22 025 Discontinu ed(Entered in Error) True Metrix Blood Glucose Test test strip 08/24/20 22 025 Discontinu ed(Entered in Error) montelukast (Singulair) 10 MG tablet 08/26/20 22 025 Discontinu ed(Entered in Error) ofloxacin (Floxin) 0.3 % otic solution INSTILL 10 DROPS INTO AFFECTED EAR(S) ONCE DAILY 10/29/19 025 Discontinu ed(Entered in Error) promethazine-d extromethorpha n (Phenergan-DM) 6.25-15 MG/5ML syrup TAKE 5 MLS BY MOUTH EVERY 4 HOURS 10/29/19 025 Discontinu ed(Entered in Error) Spiriva Respimat 1.25 MCG/ACT aerosol solution 10/03/19 025 Discontinu ed(Entered in Error) clindamycin (Cleocin) 300 MG capsule TAKE 1 CAPSULE BY MOUTH THREE TIMES DAILY FOR 7 DAYS 08/05/20 025 Discontinu ed(Entered in Error) cefuroxime (Ceftin) 500 MG tabletIndicati ons:Pneumonia of left lower lobe due to infectious organism Take 1 tablet by mouth 2 times a day for 2 days. 4 tablet 02/22/20 025 Active Problems Problem Noted Date Diagnosed Date Altered mental status 02/19/2025 Meningioma 07/31/2022 History of asthma 07/31/2022 Mass of brain 07/29/2022 Essential (primary) hypertension 08/03/2020 Atrial fibrillation, chronic 07/13/2020 Type 2 diabetes mellitus 03/06/2020 Obesity, morbid, BMI 50 or higher 11/08/2019 Coronary artery disease 11/08/2019 Debility 11/08/2019 Resolved Problems Problem Noted Date Diagnosed Date Resolved Date Seizure 07/31/2022 07/31/2022 ROBE (acute kidney injury) 07/31/2022 Polypharmacy 07/31/2022 07/31/2022 Asthma 05/16/2021 07/31/2022 Plantar fasciitis 03/23/2020 07/31/2022 Chronic prescription opiate use 03/10/2020 07/31/2022 Transient ischemic attack (TIA) 11/09/2019 07/31/2022 DM2 (diabetes mellitus, type 2) 11/08/2019 07/31/2022 Lymphedema 11/08/2019 07/31/2022 Ankle arthritis 05/25/2019 07/31/2022 Abnormal stress test 06/15/2018 022 Overview (05/16/2021): Added automatically from request for surgery [id number] Foot pain 04/18/2017 07/31/2022 Pseudarthrosis after fusion or arthrodesis 03/24/2017 07/31/2022 Ankle pain 08/19/2016 07/31/2022 Posterior tibial tendon dysfunction 08/19/2016 07/31/2022 Encounters Date Type Department Care Team Description 03/07/2025 Patient Outreach [address], [address] [place] [address] Radha Russ LPN Follow-up 02/22/2025 Patient Outreach [address], [facility] [address] [place] [address] Radha Russ LPN TCM Call 02/19/2025 3:43 AM EDT - 02/21/2025 5:26 PM EDT Hospital Encounter [facility] [address] [place] [address] Benito Chakraborty MD Doty, MD Driss Morfin, Kathie Douglas MD Altered mental status, unspecified altered mental status type (Primary Dx); Pneumonia of left lower lobe due to infectious organism Discharge Disposition: Home or Self Care 02/19/2025 Travel 02/18/2025 Orders Only External Location [address] [place] [address] Provider, External 02/18/2025 Orders Only External Location [address] [place] [address] Provider, External from Last 3 Months Immunizations Immunization Administration Dates Next Due Influenza Vaccine, Quadrivalent, Adjuvanted 09/2020 Influenza, high-dose, quadrivalent 09/20/2024 Influenza, injectable, quadr ivalent, preservative free 11/10/2019,06/26/2018,07/15/2017 Influenza, seasonal, injectable 07/10/2016,08/07 Influenza, seasonal, injecta ble, preservative free 09/13/2016 Tdap 06/10/2022 Family History Medical History Relation Name Comments Heart disease Father Heart disease Mother Relation Name Status Comments Father Mother Social History Tobacco Use Types Packs/Day Years Used Date Smoking Tobacco: Never Smokeless Tobacco: Never Tobacco Cessation:Counseling Given: Not Answered Alcohol Use Standard Drinks/Week Comments No 0 [...] any time in the past 12 m [facility], were you homeless or living in a longterm (including now)? No 02/21/2025 Utilities Answer Date [...] not to disclose 2020 10:44 AM EDT Last Filed Vital Signs Vital Sign Reading [...] Mass Index 52.26 02/19/2025 6:20 PM EDT Plan of Treatment Health Maintenance Due Date Last Done Comments [facility]-Bone Density Scan 1945 [facility]-Depression Screening 1945 [facility]-Infant/Child/Adol SDOH Screenings 1945 Diabetes: Dental Exam 1956 [facility]-Pneumococcal Vaccine: 50+ Years (1 of 2 - PCV) 1965 [facility]-Zoster Vaccines (1 of 2) 1996 [facility]-RSV Vaccine: 60+ Years or (1 - 1-dose 75+ series) 2021 [facility]-Medicare Annual Wellness (AWV) 11/28/2023 11/27/2022 [id number] Vaccine ( season) 2024 03/19/2021, 02/08/2021 [facility]-Influenza Vaccine (#1) 05/02/202509/20, 06/01/2021, 11/10/2019, Additional history exists [facility]-Diabetes: Hemoglobin A1C 05/21/2025 02/19/2025, 11/09/2019, 02/13/2019, Additional history exists [facility]- SDOH Screenings 08/23/2025 [facility]-Adult SDOH Screenings 08/23/2025 02/21/2025 [facility]-DTaP,Tdap,and Td Vaccines (2 - Td or Tdap) 06/10/2032 06/10/2022 [facility]-Hepatitis C Screening Completed 02/19/2025 [facility]-Obesity Intervention Completed 02/19/2025, 10/2022 HPV Vaccines Aged Out No longer eligi ble based on patient's age to complete this topic [facility]-HIB Vaccines Aged Out No longer e ligible based on patient's age to complete this topic [facility]-Hepatitis A Vaccines Aged Out No longer eligible based on patient's age to complete this topic [facility]-IPV Vaccines Aged Out No longer e ligible based on patient's age to complete this topic [facility]-Rotavirus Vaccines Aged Out No lo nger eligible based on patient's age to complete this topic Procedures Procedure Name Priority Date/Time Associated Diagnosis [...] UNSOLICITED RESULTS Routine 02/20/2025 8:49 AM EDT PHOSPHORUS, PLASMA Routine 02/20/2025 1: 27 AM EDT MAGNESIUM, PLASMA Routine 02/20/2025 1:2 7 AM EDT BASIC METABOLIC PANEL, PLASMA Routine 02/20/2025 1:27 AM EDT CBC W/O DIFFERENTIAL Routine 02/20/2025 1:27 AM EDT POCT GLUCOSE METER UNSOLICITED RESULTS Routine 02/19/2025 8:14 PM EDT POCT GLUCOSE METER UNSOLICITED RESULTS Routine 02/19/2025 4:32 PM EDT POCT GLUCOSE METER UNSOLICITED RESULTS Routine 02/19/2025 11:50 AM EDT XR CHEST 1 VIEW STAT 02/19/2025 10:18 AM EDT POCT GLUCOSE METER UNSOLICITED RESULTS Routine 02/19/2025 9:16 AM EDT ECG ADULT STAT 02/19/2025 9:04 AM EDT BLOOD GAS PANEL, VENOUS Routine 02/20/20 8:51 AM EDT BLOOD CULTURE (AEROBIC/ANAEROBIC SET) Routine 02/19/2025 8:51 AM EDT BLOOD CULTURE (AEROBIC/ANAEROBIC SET) Routine 02/19/2025 8:33 AM EDT URINALYSIS MICROSCOPIC FOR UA REFLEX Routine 02/19/2025 8:32 AM EDT URINE VERDUZCO PANEL Routine 02/19/2025 8:32 AM EDT URINALYSIS WITH REFLEX MICROSCOPIC Routine 02/19/2025 8:32 AM EDT URINALYSIS WITH REFLEX MICROSCOPIC AND CULTURE Routine 02/19/2025 8:32 AM EDT SARS COV-2/COVID-19 BY PCR - RAPID Routine 02/19/2025 8:32 AM EDT NASOPHARYNGEAL RESPIRATORY PANEL Routine 02/19/2025 8:32 AM EDT STREPTOCOCCUS PNEUMONIAE AND LEGIONELLA URINARY ANTIGEN Routine 02/19/2025 8:32 AM EDT MULTI DRUG RESISTANCE TEST Routine 02/19/2025 8:32 AM EDT C-REACTIVE PROTEIN, PLASMA Add-On 02/19/2025 7:18 AM EDT PROCALCITONIN, PLASMA Add-On 02/19/2025 7:18 AM EDT N-TERMINAL PROBNP, PLASMA Add-On 02/19/2025 7:18 AM EDT HEMOGLOBIN A1C Add-On 02/19/2025 7:18 AM EDT TSH REFLEX FT4 Add-On 02/19/2025 7:18 AM EDT ED HIV 1/2 ANTIBODY/ANTIGEN SCREEN WITH REFLEX TO HIV I/II DIFFERENTIATION STAT 02/19/2025 7:18 AM EDT ED PROTOCOL HIV 1/2 ANTIBODY/ANTIGEN SCREEN W/REFLEX TO HIV 1/2 ANTIBODY DIFFERENTIATION STAT 02/19/2025 7:18 AM EDT HEPATITIS C ANTIBODY - ED W/REFLEX TO HCV QUANT PCR STAT 02/19/2025 7:18 AM EDT ANTI XA LEVEL UNFRACTIONATED HEPARIN STAT 02/19/2025 7:18 AM EDT PROTHROMBIN TIME(PT) / INR STAT 02/19/2025 7:18 AM EDT CBC WITH AUTO DIFFERENTIAL STAT 02/19/2025 7:18 AM EDT MAGNESIUM, PLASMA STAT 02/19/2025 7:1 8 AM EDT COMPREHENSIVE METABOLIC PANEL, PLASMA STAT 02/19/2025 7:[address] NEURO OUTSIDE IMAGES 02/19/20 11:37 PM EDT XR THORACIC OUTSIDE IMAGES 02/18/2025 11:13 PM EDT from Last 3 Months Results * (ABNORMAL) POCT glucose meter (02/21/2025 11:27 AM EDT) Only the most recent of10 resultswithin the time period is included. [facility] POCT Glucose 291(H) 74 - 99 mg/dL 02/21/2025 11:29 AM EDT [facility] Comment:Accuracy of a glucos [...] Comment 02/21/2025 11:29 AM EDT [facility]ARE LAB Home Care Chaplain ID Ela Esteban 02/21/2025 11:29 AM EDT [facility] Device ID [id number] 02/21/2025 11:29 AM EDT [facility] Specimen Type POC Capillary 02/21/2025 11:29 AM EDT [facility] Blood Capillary blood specimen / Unknown 02/21/2025 11:27 AM EDT 02/21/2025 11:29 AM EDT Kathie Naqvi MD LAB POINT OF CA RE TEST DOCKED DEVICE UNSOLICITED RESULTS Final Result [facility] [address] [place] [address] * (ABNORMAL) CBC W/O Differential (02/21/2025 5:37 AM EDT) Only the most recent of2 resultswithin the time period is included. [facility] WBC Count 10.27 3.70 - 10.30 10*3/uL LAB HEMATOLOGY METHOD 02/21/2025 6:08 AM EDT [facility] RBC Count 4.00 3.90 - 5.20 10*6/uL LAB HEMATOLOGY METHOD 02/21/2025 6:08 AM EDT [facility] HGB 10.5(L) 11.2 - 15.7 g/dL LAB HEMATOLOGY METHOD 02/21/2025 6:08 AM EDT [facility] HCT 34.1 34.0 - 45.0 % LAB HEMATOLOGY METHOD 02/21/2025 6:08 AM EDT [facility] Platelet Count 213 155 - 369 10*3/uL LAB HEMATOLOGY METHOD 02/21/2025 6:08 AM EDT [facility] MCV 85 79 - 98 fL LAB HEMATOLOGY METHOD 02/21/2025 6:08 AM EDT [facility] MCH 26.3 26.0 - 32.0 pg LAB HEMATOLOGY METHOD 02/21/2025 6:08 AM EDT [facility] MCHC 30.8 30.7 - 35.5 g/dL LAB HEMATOLOGY METHOD 02/21/2025 6:08 AM EDT [facility] RDW 14.2 11.5 - 14.5 % LAB HEMATOLOGY METHOD 02/21/2025 6:08 AM EDT [facility] MPV 9.9 8.8 - 12.5 fL LAB HEMATOLOGY METHOD 02/21/2025 6:08 AM EDT [facility] nRBC 0.0 <=0.0 per 100 WBCs LAB HEMATOLOGY METHOD 02/21/2025 6:08 AM EDT [facility] Blood Venous blood specimen / Unknown Venipuncture / Unknown 02/21/2025 5:37 AM EDT 02/21/2025 5:53 AM EDT us Kathie Naqvi MD LAB BLOOD ORDERABLES Fi nal Result [facility] [address] [place] [address] * Methicillin Resistant Staphylococcus aureus (MRSA) by PCR (02/20/2025 1:01 PM EDT) Methicillin Resistant Staphylococcus aureus (MRSA) by PCR Not Detected Not Detected 02/20/2025 2:50 PM EDT [facility] Swab Both anterior nares / Unknown Non-blood Collection / Unknown 02/20/2025 1:01 PM EDT 02/20/2025 1:26 PM EDT Narrative [facility] - 02/20/2025 2:50 PM EDT [...] RAL ORDERABLES Final Result Performing Organization Address City/[facility]/[place] [address] * Phosphorus (02/20/2025 1:27 AM EDT) Phosphorus, Plasma 2.6 2.5 - 4.5 mg/dL 02/20/2025 2:06 AM EDT [facility] Blood Venous blood specimen / Unknown Venipuncture / Unknown 02/20/2025 1:27 AM EDT 02/20/2025 1:32 AM EDT Kathie Naqvi MD LAB BLOOD ORDERABLES Fi nal Result Performing Organization Address City/[facility]/[place] [address] * Magnesium, Plasma (02/20/2025 1:27 AM EDT) Only the most recent of2 resultswithin the time period is included. Magnesium, Plasma 2.0 1.9 - 2.4 mg/dL 02/20/2025 2:06 AM EDT [facility] Blood Venous blood specimen / Unknown Venipuncture / Unknown 02/20/2025 1:27 AM EDT 02/20/2025 1:32 AM EDT Kathie Naqvi MD LAB BLOOD ORDERABLES Fi nal Result [facility] [address] [place] [address] * (ABNORMAL) Basic metabolic panel (02/20/2025 1:27 AM EDT) Glucose, Plasma 200(H) 74 - 99 mg/dL 02/20/2025 2:06 AM EDT [facility] BUN, Plasma 22 8 - 23 mg/dL 02/20/2025 2:06 AM EDT [facility] Creatinine, Plasma 0.91 0.60 - 1.10 mg/dL 02/20/2025 2:06 AM EDT [facility] BUN/Creatinine Ratio 24 02/20/2025 2:06 AM EDT [facility] Sodium, Plasma 138 136 - 145 mmol/L 02/20/2025 2:06 AM EDT [facility] Potassium, Plasma 4.0 3.6 - 4.9 mmol/L 02/20/2025 2:06 AM EDT [facility] Chloride, Plasma 98 97 - 107 mmol/L 02/20/2025 2:06 AM EDT [facility] CO2, Plasma 27 22 - 29 mmol/L 02/20/2025 2:06 AM EDT [facility] Anion Gap 13 6 - 16 mmol/L 02/20/2025 2:06 AM EDT [facility] Total Calcium, Plasma 9.1 8.9 - 10.2 mg/dL 02/20/2025 2:06 AM EDT [facility] eGFRcr 64.7 mL/min/1.7 3m*2 02/20/2025 2:06 AM EDT [facility] Comment:Reported eGFRcr in m L/min/1.73m2 is based the CKD-EPI 2020 equation that does not use a race coefficient. Blood Venous blood specimen / Unknown Venipuncture / Unknown 02/20/2025 1:27 AM EDT 02/20/2025 1:32 AM EDT Kathie Naqvi MD LAB BLOOD ORDERABLES Fi nal Result [facility] [address] [place] [address] * XR Chest 1 View (02/19/2025 10:18 [...] Grady Jefferson MD on 02/19/2025 11:10 AM us Kathie Naqvi MD IMG XR PROCEDURES Final Result * ECG Adult (02/19/2025 9:04 AM EDT) EKG DIAGNOSIS CLASS Abnormal MUSE ECG Ventricular Rate 57 BPM MUSE ECG Atrial Rate 57 BPM MUSE ECG QRSD Interval 110 ms MUSE ECG QT Interval 460 ms MUSE ECG QTC Interval 447 ms MUSE ECG P [place] 68 degrees MUSE ECG R [place] 0 degrees MUSE ECG T Wave [place] 55 degrees MUSE ECG Diagnosis Atrial fibrillation MUSE ECG Diagnosis Minimal voltage criteria for LVH, may be normal variant ( Palmetto product ) MUSE ECG Diagnosis Borderline ECG MUSE ECG Diagnosis MUSE ECG Diagnosis Confirmed by Dennis Barker ([id number]) on 02/19/2025 3:19:10 PM MUSE ECG 02/19/2025 9:04 AM EDT 02/19/2025 3:19 PM EDT Kathie Naqvi MD ECG ORDERABLES Final R esult MUSE ECG * Blood Culture (Aerobic/Anaerobet Set) (02/19/2025 8:51 AM EDT) Only the most recent of2 resultswithin the time period is included. Culture No growth at day 5 02/24/2025 10:01 AM EDT [facility] Blood Structure of left hand / Unknown Venipuncture / Unknown 02/19/2025 8:51 AM EDT 02/19/2025 9:31 AM EDT Narrative [facility] - 02/24/2025 10:01 AM EDT Low blood volume submitted, results may be compromised Kathie Naqvi MD LAB MICROBIOLOGY - GENE RAL ORDERABLES Final Result [facility] [address] [place] [address] * (ABNORMAL) Blood gas panel, venous (02/19/2025 8:51 AM EDT) pH, Venous 7.37 7.32 - 7.43 LAB HEMATOLOGY METHOD 02/19/2025 9:23 AM EDT [facility] pCO2, Venous 65(HH) 37 - 52 mmHg LAB HEMATOLOGY METHOD 02/19/2025 9:23 AM EDT [facility] pO2, Venous 24(L) 25 - 40 mmHg LAB HEMATOLOGY METHOD 02/19/2025 9:23 AM EDT [facility] SO2, Measured, Venous 38(L) 65 - 80 % LAB HEMATOLOGY METHOD 02/19/2025 9:23 AM EDT [facility] Base Excess, Venous 10.0(H) -2.0 - 3.0 mmol/L LAB HEMATOLOGY METHOD 02/19/2025 9:23 AM EDT [facility] Bicarbonate, Calculated, Venous 37(H) 22 - 26 mmol/L LAB HEMATOLOGY METHOD 02/19/2025 9:23 AM EDT [facility] Hematocrit, Whole Blood 32.9(L) 34.0 - 45.0 % LAB HEMATOLOGY METHOD 02/19/2025 9:23 AM EDT [facility] Sodium, Whole Blood 141 136 - 145 mmol/L LAB HEMATOLOGY METHOD 02/19/2025 9:23 AM EDT [facility] Potassium, Whole Blood 4.3 3.6 - 4.9 mmol/L LAB HEMATOLOGY METHOD 02/19/2025 9:23 AM EDT [facility] Chloride, Whole Blood 95(L) 97 - 107 mmol/L LAB HEMATOLOGY METHOD 02/19/2025 9:23 AM EDT [facility] Glucose, Whole Blood 247(H) 74 - 99 mg/dL LAB HEMATOLOGY METHOD 02/19/2025 9:23 AM EDT [facility] Lactate, Venous, Whole Blood 1.5 0.5 - 2.2 mmol/L LAB HEMATOLOGY METHOD 02/19/2025 9:23 AM EDT [facility] Ionized Calcium, Whole Blood 4.6 4.6 - 5.1 mg/dL LAB HEMATOLOGY METHOD 02/19/2025 9:23 AM EDT [facility] Blood Venous blood specimen / Unknown Venipuncture / Unknown 02/19/2025 8:51 AM EDT 02/19/2025 8:58 AM EDT Kathie Naqvi MD LAB BLOOD ORDERABLES Fi nal Result [facility] [address] [place] [address] * Streptococcus pneumoniae and Legionella Urinary Antigen (02/19/2025 8:32 AM EDT) Legionella pneumophila serogroup 1 Antigen Result (Urine) Negative Negative 02/20/2025 6:20 AM EDT [facility] Streptococcus pneumoniae Antigen Result (Urine) Negative Negative 02/20/2025 6:20 AM EDT [facility] Urine Urine specimen obtained by clean catch procedure / Unknown Non-blood Collection / Unknown 02/19/2025 8:32 AM EDT 02/19/2025 9:36 AM EDT Kathie Naqvi MD LAB MICROBIOLOGY - GENE RAL ORDERABLES Final Result Performing Organization Address City/[facility]/ZIP Co de Phone Number [facility] [address] [place] [address] * Urine Verduzco Panel (02/19/2025 8:32 AM EDT) Extra Reflex urine culture not indicated 02/19/2025 11:02 AM EDT [facility] Urine Urine specimen obtained by clean catch procedure / Unknown Non-blood Collection / Unknown 02/19/2025 8:32 AM EDT 02/19/2025 9:03 AM EDT Kathie Naqvi MD LAB URINE ORDERABLES Fi nal Result Performing Organization Address [facility] Co de Phone Number [facility] [address] [place] [address] * Urinalysis Microscopic Examination (02/19/2025 8:32 AM EDT) Urine Urine specimen obtained by clean catch procedure / Unknown Non-blood Collection / Unknown 02/19/2025 8:32 AM EDT 02/19/2025 8:55 AM EDT Kathie Naqvi MD LAB URINE ORDERABLES Fi nal Result Performing Organization Address City/[facility] Co de Phone Number [facility] [address] [place] [address] * SARS CoV-2/COVID-19 by PCR - Rapid (02/19/2025 8:32 AM EDT) SARS CoV-2/COVID-1 9 RNA PCR Result Not Detected Not Detected 02/19/2025 10:38 AM EDT [facility] Swab Nasopharyngeal structure / Unknown Non-blood Collection / Unknown 02/19/2025 8:32 AM EDT 02/19/2025 9:37 AM EDT Narrative [facility] - 02/19/2025 10:38 AM EDT [...] COVID-19. Kathie Naqvi MD LAB MICROBIOLOGY - GENE [facility] ORDERABLES Final Result [facility] [address] [place] [address] * Nasopharyngeal Respiratory Panel (02/19/2025 8:32 AM EDT) Pathologist [facility] Nasopharyngeal Respiratory PCR Interpretation Not Detected for all analytes Not Detected for all analytes 02/19/2025 11:40 AM EDT [facility] Swab Nasopharyngeal structure / Unknown Non-blood Collection / Unknown 02/19/2025 8:32 AM EDT 02/19/2025 9:37 AM EDT Narrative [facility] - 02/19/2025 11:40 AM EDT [...] Respiratory PCR Panel is performed using the [employer] other things you bakelex instrument. This test is FDA approved for use with Nasopharyngeal swabs only. This test is used for clinical purposes. It should not be regarded as investigational or for research. The [facility] Laboratory is certified under the Clinical Laboratory Improvement Amendments of 1988 (CLIA-88) as qualified to perform high complexity clinical laboratory testing. Kathie Naqvi MD LAB MICROBIOLOGY - GENE RAL ORDERABLES Final Result Performing Organization Address City/[facility]/ZIP Co de Phone Number [facility] [address] [place] [address] * Multi Drug Resistance Test (02/19/2025 8:32 AM EDT) Culture No growth at day 1 02/20/2025 11:17 AM EDT [facility] Swab (Nares and Theodora Rectal) Non-blood Collection / Unknown 02/19/2025 8:32 AM EDT 02/19/2025 9:37 AM EDT Narrative [facility] - 02/20/2025 11:17 AM EDT This test was developed and its performance characteristics determined by the [facility]. Although the media is FDA-approved, it is not FDA-approved for all specimen types submitted. The FDA has determined that such clearance or approval is not necessary. This test is used for surveillance purposes. It should not be regarded as investigational or for research. The [facility] is certified under the Clinical Laboratory Improvement Amendments of 1988 (CLIA-88) as qualified to perform high complexity clinical laboratory testing. Kathie Naqvi MD LAB MICROBIOLOGY - GENE RAL ORDERABLES Final Result Performing Organization Address City/[facility]/ZIP Co de Phone Number [facility] [address] [place] [address] * (ABNORMAL) Urinalysis with reflex microscopic (Culture NOT Included) (02/19/2025 8:32 AM EDT) Color, Urine Yellow LAB URINALYSIS - AUTOMATED METHOD 02/19/2025 9:23 AM EDT [facility] Clarity, Urine Clear LAB URINALYSIS - AUTOMATED METHOD 02/19/2025 9:23 AM [facility] Spec [place], Urine >1.030(H) 1.005 - 1.030 LAB URINALYSIS - AUTOMATED METHOD 02/19/2025 9:23 AM T [facility] pH, Urine 6.5 5.0 - 8.0 LAB URINALYSIS - AUTOMATED METHOD 02/19/2025 9:23 AM T [facility] Protein, Urine Trace(A) Negative mg/dL LAB URINALYSIS - AUTOMATED METHOD 02/19/2025 9:23 AM [facility] Glucose, Urine Negative Negative mg/dL LAB URINALYSIS - AUTOMATED METHOD 02/19/2025 9:23 AM [facility] [facility] Ketones, Urine Trace(A) Negative mg/dL LAB URINALYSIS - AUTOMATED METHOD 02/19/2025 9:23 AM T [facility] Blood, Urine Trace(A) Negative LAB URINALYSIS - AUTOMATED METHOD 02/19/2025 9:23 AM [facility] Bilirubin, Urine Negative Negative LAB URINALYSIS - AUTOMATED METHOD 02/19/2025 9:23 AM [facility] Urobilinogen, Urine 0.2 0.2 to 1.0 mg/dL LAB URINALYSIS - AUTOMATED METHOD 02/19/2025 9:23 AM T [facility] Leukocytes, Urine Negative Negative LAB URINALYSIS - AUTOMATED METHOD 02/19/2025 9:23 AM [facility] Nitrite, Urine Negative Negative LAB URINALYSIS - AUTOMATED METHOD 02/19/2025 9:23 AM [facility] RBC, Urine 4 - 10(A) 0 to 3 /HPF LAB URINALYSIS - AUTOMATED METHOD 02/19/2025 9:23 AM [facility] Comment:This result was prev iously suppressed from the chart. WBC, Urine 0 - 5 0 to 5 /HPF LAB URINALYSIS - AUTOMATED METHOD 02/19/2025 9:23 AM T [facility] Comment:This result was prev iously suppressed from the chart. Squamous Epithelial Cells 0 - 2 0 to 5 /HPF LAB URINALYSIS - AUTOMATED METHOD 02/19/2025 9:23 AM EDT [facility] Comment:This result was prev iously suppressed from the chart. Hyaline Casts 0 - 2 0 to 5 /LPF LAB URINALYSIS - AUTOMATED METHOD 02/19/2025 9:23 AM EDT [facility] Comment:This result was prev iously suppressed from the chart. Bacteria, Urine Negative Negative LAB URINALYSIS - AUTOMATED METHOD 02/19/2025 9:23 AM EDT [facility] Comment:This result was prev iously suppressed from the chart. Urine Urine specimen obtained by clean catch procedure / Unknown Non-blood Collection / Unknown 02/19/2025 8:32 AM EDT 02/19/2025 8:55 AM EDT us Kathie Naqvi MD LAB URINE ORDERABLES Fi nal Result Performing Organization Address City/[facility]/ZIP Co de Phone Number [facility] [address] [place] [address] * ED HIV 1/2 Antibody/Antigen Screen w/Reflex to HIV 1/2 Differentiation (02/19/2025 7:18 AM EDT) Pathologist [facility] HIV 1 & 2 Antibody/Antigen Screen Non Reactive Non Reactive 02/19/2025 8:28 AM EDT [facility] Comment:Screening for HIV 1 & 2 antibodies, and P24 antigen is NONREACTIVE. No confirmatory testing is required. Blood Venous blood specimen / Unknown Venipuncture / Unknown 02/19/2025 7:18 AM EDT 02/19/2025 7:49 AM EDT us Benito Chakraborty MD LAB BLOOD ORDERABLES Final Resu lt Performing Organization Address City/[facility]/ZIP Co de Phone Number [facility] [address] [place] [address] * TSH Reflex FT4 (02/19/2025 7:18 AM EDT) Thyroid Stimulating Hormone, Plasma 0.63 0.40 - 4.20 uIU/mL 02/19/2025 8:58 AM EDT [facility] Blood Venous blood specimen / Unknown Venipuncture / Unknown 02/19/2025 7:18 AM EDT 02/19/2025 7:22 AM EDT Kathie Naqvi MD LAB BLOOD ORDERABLES Fi nal Result Performing Organization Address [facility] Co de Phone Number [facility] [address] [place] [address] * (ABNORMAL) Procalcitonin (02/19/2025 7:18 AM EDT) Procalcitonin, Plasma 0.10(H) <0.09 ng/mL 02/19/2025 10:10 AM EDT [facility] Blood Venous blood specimen / Unknown Venipuncture / Unknown 02/19/2025 7:18 AM EDT 02/19/2025 7:22 AM EDT Narrative [facility] - 02/19/2025 10:10 AM EDT [...] predict 28 day mortality risk. Please consult [email or web address] for more information. Test performed at [facility]. Kathie Naqvi MD LAB BLOOD ORDERABLES Fi nal Result Performing Organization Address [facility]/ZIP Co de Phone Number [facility] [address] [place] [address] * Hepatitis C Antibody - ED (02/19/2025 7:18 AM EDT) Hepatitis C Antibody Negative Negative 02/19/2025 8:32 AM EDT [facility] Blood Venous blood specimen / Unknown Venipuncture / Unknown 02/19/2025 7:18 AM EDT 02/19/2025 7:49 AM EDT us Benito Chakraborty MD LAB BLOOD ORDERABLES Final Resu lt Performing Organization Address [facility]/ZIP Co de Phone Number [facility] [address] [place] [address] * (ABNORMAL) N-Terminal Probnp, Plasma (02/19/2025 7:18 AM EDT) N-Terminal, PROBNP, Plasma 2,448(H) 0 - 1,799 pg/mL 02/19/2025 8:58 AM EDT [facility] Blood Venous blood specimen / Unknown Venipuncture / Unknown 02/19/2025 7:18 AM EDT 02/19/2025 7:22 AM EDT us Kathie Naqvi MD LAB BLOOD ORDERABLES Fi nal Result Performing Organization Address [facility] [place] [address] * (ABNORMAL) PT-INR (02/19/2025 7:18 AM EDT) Pathologist [facility] Prothrombin Time 16.6(H) 12.0 - 14.3 sec 02/19/2025 7:59 AM EDT [facility] INR 1.4(H) 0.9 - 1.1 02/19/2025 7:59 AM EDT [facility] Blood Venous blood specimen / Unknown Venipuncture / Unknown 02/19/2025 7:18 AM EDT 02/19/2025 7:22 AM EDT Narrative [facility] - 02/19/2025 7:59 AM EDT OPTIMAL INR RANGES FOR PATIENT ON ORAL ANTICOAGULANT THERAPY Prevention of venous thromboembolism INR 2.0 to 3.0 In patients with heart disease: Atrial fibrillation INR 2.0 to 3.0 Valvular heart disease INR 2.0 to 3.0 Tissue heart valves INR 2.0 to 3.0 Mechanical prosthetic valves INR 2.5 to 3.5 Prevention of recurrent MO INR 2.5 to 3.5 Benito Chakraborty MD LAB BLOOD ORDERABLES Final Resu lt Performing Organization Address [facility] Co de Phone Number [facility] [address] [place] [address] * Anti Xa Level Unfractionated Heparin (02/19/2025 7:18 AM EDT) Anti Xa Level Unfractionated Heparin 0.86 <1.00 IU/mL 02/19/2025 8:01 AM EDT [facility] Blood Venous blood specimen / Unknown Venipuncture / Unknown 02/19/2025 7:18 AM EDT 02/19/2025 7:22 AM EDT Narrative [facility] - 02/19/2025 8:01 AM EDT Therapeutic Range: UFH Full Dose and ACS/MO protocols*: 0.30 - 0.70 IU/mL UFH Low Dose protocol*: 0.25 - 0.50 IU/mL UFH prophylaxis: Not established us Benito Chakraborty MD LAB BLOOD ORDERABLES Final Resu lt Performing Organization Address [facility] de Phone Number [facility] [address] [place] [address] * (ABNORMAL) CBC w/diff (02/19/2025 7:18 AM EDT) WBC Count 16.73(H) 3.70 - 10.30 10*3/uL LAB HEMATOLOGY METHOD 02/19/2025 7:26 AM EDT [facility] RBC Count 4.00 3.90 - 5.20 10*6/uL LAB HEMATOLOGY METHOD 02/19/2025 7:26 AM EDT [facility] HGB 10.6(L) 11.2 - 15.7 g/dL LAB HEMATOLOGY METHOD 02/19/2025 7:26 AM EDT [facility] HCT 34.3 34.0 - 45.0 % LAB HEMATOLOGY METHOD 02/19/2025 7:26 AM EDT [facility] Platelet Count 222 155 - 369 10*3/uL LAB HEMATOLOGY METHOD 02/19/2025 7:26 AM EDT [facility] MCV 86 79 - 98 fL LAB HEMATOLOGY METHOD 02/19/2025 7:26 AM EDT [facility] MCH 26.5 26.0 - 32.0 pg LAB HEMATOLOGY METHOD 02/19/2025 7:26 AM EDT [facility] MCHC 30.9 30.7 - 35.5 g/dL LAB HEMATOLOGY METHOD 02/19/2025 7:26 AM EDT [facility] RDW 14.4 11.5 - 14.5 % LAB HEMATOLOGY METHOD 02/19/2025 7:26 AM EDT [facility] MPV 9.4 8.8 - 12.5 fL LAB HEMATOLOGY METHOD 02/19/2025 7:26 AM EDT [facility] nRBC 0.0 <=0.0 per 100 WBCs LAB HEMATOLOGY METHOD 02/19/2025 7:26 AM EDT [facility] Differential Type Automated LAB HEMATOLOGY METHOD 02/19/2025 7:26 AM EDT [facility] Neutrophils % 85 % LAB HEMATOLOGY METHOD 02/19/2025 7:26 AM EDT [facility] Lymphocytes % 9 % LAB HEMATOLOGY METHOD 02/19/2025 7:26 AM EDT [facility] Monocytes % 5 % LAB HEMATOLOGY METHOD 02/19/2025 7:26 AM EDT [facility] Eosinophils % 0 % LAB HEMATOLOGY METHOD 02/19/2025 7:26 AM EDT [facility] Basophils % 0 % LAB HEMATOLOGY METHOD 02/19/2025 7:26 AM EDT [facility] Immature Granulocytes % 1 % LAB HEMATOLOGY METHOD 02/19/2025 7:26 AM EDT [facility] Neutrophils Absolute 14.37(H) 1.60 - 6.10 10*3/uL LAB HEMATOLOGY METHOD 02/19/2025 7:26 AM EDT [facility] Lymphocytes Absolute 1.46 1.20 - 3.90 10*3/uL LAB HEMATOLOGY METHOD 02/19/2025 7:26 AM EDT [facility] Monocytes Absolute 0.77 0.30 - 0.90 10*3/uL LAB HEMATOLOGY METHOD 02/19/2025 7:26 AM EDT [facility] Eosinophils Absolute 0.01 0.00 - 0.50 10*3/uL LAB HEMATOLOGY METHOD 02/19/2025 7:26 AM EDT [facility] Basophils Absolute 0.04 0.00 - 0.10 10*3/uL LAB HEMATOLOGY METHOD 02/19/2025 7:26 AM EDT [facility] Immature Granulocytes Absolute 0.08(H) 0.00 - 0.06 10*3/uL LAB HEMATOLOGY METHOD 02/19/2025 7:26 AM EDT [facility] Blood Venous blood specimen / Unknown Venipuncture / Unknown 02/19/2025 7:18 AM EDT 02/19/2025 7:22 AM EDT Narrative [facility] - 02/19/2025 7:26 AM EDT Therapeutic decision making should be based on absolute values, rather than percentages. us Benito Chakraborty MD LAB BLOOD ORDERABLES Final Resu lt Performing Organization Address City/[facility]/ZIP Co de Phone Number [facility] [address] [place] [address] * (ABNORMAL) C-reactive protein (02/19/2025 7:18 AM EDT) Pathologist [facility] CRP, Plasma 38.1(H) <=8.0 mg/L 02/19/2025 10:10 AM EDT [facility] Blood Venous blood specimen / Unknown Venipuncture / Unknown 02/19/2025 7:18 AM EDT 02/19/2025 7:22 AM EDT Narrative [facility] - 02/19/2025 10:10 AM EDT This CRP test is appropriate for assessment of infection, systemic inflammation and/or tissue injury. To assess cardiovascular disease risk order high sensitivity CRP (CRPH). us Kathie Naqvi MD LAB BLOOD ORDERABLES Fi nal Result Performing Organization Address City/[facility]/ZIP Co de Phone Number [facility] [address] [place] [address] * (ABNORMAL) Hemoglobin A1c (02/19/2025 7:18 AM EDT) Hemoglobin A1c 7.4(H) <5.7 % 02/19/2025 11:39 AM EDT [facility] Blood Venous blood specimen / Unknown Venipuncture / Unknown 02/19/2025 7:18 AM EDT 02/19/2025 7:22 AM EDT Narrative [facility] - 02/19/2025 11:39 AM EDT HA1C Interpretive Data: Diagnosis of Diabetes: Diabetic > or = 6.5% Pre-diabetic 5.7 to 6.4% Non-diabetic < or = 5.6% Glycemic Targets for Type I and Type II Diabetics: Non- Adults <7.0% Adults <6.0% Children and Adolescents <7.5% Source: [place] [employer]. Standards of medical care in diabetes,2017. Diabetes Care.2017:40 (suppl 1):S1-S135. Kathie Naqvi MD LAB BLOOD ORDERABLES Fi nal Result [facility] [address] [place] [address] * (ABNORMAL) CMP (02/19/2025 7:18 AM EDT) Glucose, Plasma 249(H) 74 - 99 mg/dL 02/19/2025 7:44 AM EDT [facility] BUN, Plasma 23 8 - 23 mg/dL 02/19/2025 7:44 AM EDT [facility] Creatinine, Plasma 1.07 0.60 - 1.10 mg/dL 02/19/2025 7:44 AM EDT [facility] BUN/Creatinine Ratio 02/19/2025 7:44 AM EDT [facility] Sodium, Plasma 139 136 - 145 mmol/L 02/19/2025 7:44 AM EDT [facility] Potassium, Plasma 4.7 3.6 - 4.9 mmol/L 02/19/2025 7:44 AM EDT [facility] Chloride, Plasma 97 97 - 107 mmol/L 02/19/2025 7:44 AM EDT [facility] CO2, Plasma 30(H) 22 - 29 mmol/L 02/19/2025 7:44 AM EDT [facility] Anion Gap 12 6 - 16 mmol/L 02/19/2025 7:44 AM EDT [facility] Total Calcium, Plasma 9.0 8.9 - 10.2 mg/dL 02/19/2025 7:44 AM EDT [facility] Total Protein 6.7 6.3 - 7.9 g/dL 02/19/2025 7:44 AM EDT [facility] Albumin, Plasma 3.5 3.5 - 5.2 g/dL 02/19/2025 7:44 AM EDT [facility] AST, Plasma 13 10 - 35 U/L 02/19/2025 7:44 AM EDT [facility] ALT, Plasma 7(L) 10 - 35 U/L 02/19/2025 7:44 AM EDT [facility] Alkaline Phosphatase, Plasma 89 46 - 142 U/L 02/19/2025 7:44 AM EDT [facility] Total Bilirubin, Plasma 0.4 0.2 - 1.1 mg/dL 02/19/2025 7:44 AM EDT [facility] eGFRcr 53.3 mL/min/1.7 3m*2 02/19/2025 7:44 AM EDT [facility] Comment:Reported eGFRcr in m L/min/1.73m2 is based the CKD-EPI 2020 equation that does not use a race coefficient. Blood Venous blood specimen / Unknown Venipuncture / Unknown 02/19/2025 7:18 AM EDT 02/19/2025 7:22 AM EDT us Benito Chakraborty MD LAB BLOOD ORDERABLES Final Resu lt [facility] [address] [place] [address] * CT NEURO OUTSIDE IMAGES (02/18/2025 11:37 PM EDT) Anatomical Region Laterality Modality Computed Tomogra phy 02/18/2025 11:3 7 PM EDT us External Provider IMG CT PROCEDURES Final Result * XR THORACIC OUTSIDE IMAGES (02/18/2025 11:13 PM EDT) Anatomical Region Laterality Modality Radiographic Fallon ging 02/18/2025 11:1 3 PM EDT us External Provider IMG XR PROCEDURES Final Result from Last 3 Months Additional Health Concerns Infection Onset Date Last Indicated 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 No I have reviewed the capacity from the link above and, if needed, have updated to appropriate status: Yes * Full Code Date Activated Date Inactivated Comments 02/19/2025 8:21 AM 02/19/2025 6:36 PM Question Answer Comments I have reviewed the capacity from the link above and, if needed, have updated to appropriate status: Yes Care Teams Outboard Technician Relationship Specialty Start Date End Date Jamil Carey MD [address] [place] [address] PCP - General 10/22/22 Radha Russ LPN [facility] TCM Nurse 02/22/25
--- OUTSIDE RECORDS SUMMARY | 2025-03-10 15:36 | XMS_ITS | Encounter Summary ---
Author Organization Healthcare Address [address] [place] [address] Care Team Providers Care Senior Php Developer Name Role Phone Jamil Carey MD Primary Care Provider [phone] Radha Russ LPN Unavailable Unavailabl e Encounter Details Date Type Department Care Team (Late st Contact Info) Description 02/18/2025 Orders Only External Location [address] [place] [address] Provider, External Social History Tobacco Use Types Packs/Day Years [...] any time in the past 12 m [facility], were you homeless or living in a alf (including now)? No 02/21/2025 Utilities Answer Date [...] AM EDT documented as of this encounter Functional Status * Calculated C-SSRS Risk Score (Lifetime/Recent) Answer Date of Assessment Author No Risk Indicated 02/21/2025 8:00 AM EDT Alethea , Eli P * Question Answer Date of Assessment Author 1. Wish to be (Past 1 Month) No 025 8:00 AM EDT Alethea, Eli P 2. Non-Specific Active Suici ludy Thoughts (Past 1 Month) No 02/21/2025 8:00 AM EDT Royalarnaldo, Made line P 6. Suicidal Behavior (Lifetime) No 8:00 AM EDT Alethea Eli P documented as of this encounter Plan of Treatment Not on file documented as of this encounter Procedures Procedure Name Priority Date/Time Associated Diagnosis Comments CT NEURO OUTSIDE IMAGES 02/18/2025 11:37 PM EDT documented in this encounter Results * CT NEURO OUTSIDE IMAGES (02/18/2025 11:37 PM EDT) Anatomical Region Laterality Modality Computed Tomogra phy 02/18/2025 11:3 7 PM EDT External Provider IMG CT PROCEDURES Final Result documented in this encounter Visit Diagnoses Not on filedocumented in this encounter Additional Health Concerns Infection Onset Date Last Indicated Resolved Time MRSA 07/29/2022 07/29/2022 COVID-19 Rule-Out 02/19/2025 02/19/2025 02/19/2025 10:38 AM EDT Respiratory Rule-Out 02/19/2025 02/19/2025 025 11:40 AM EDT Assessment Noted Time A fall risk assessment has been complete d for the patient 08/14/2021 1:14 PM EST A Body Mass Index follow-up plan has been documented for the patient 10/31/2022 8:43 AM EST documented as of this encounter Care Teams Senior Php Developer Relationship Specialty Start Date End Date Jamil Carey MD [address] [place] [address] PCP - General 10/22/22 Radha Russ LPN [facility] TCM Nurse 02/22/25 documented as of this encounter
--- OUTSIDE RECORDS SUMMARY | 2025-03-10 15:36 | XMS_ITS | Encounter Summary ---
Author Organization Healthcare Address [address] [place] [address] Care Team Providers Care Cattle Care Worker Name Role Phone Jamil Carey MD Primary Care Provider [phone] Radha Russ LPN Unavailable Unavailabl e Reason for Visit * Reason Comments TCM Call Encounter Details Date Type Department Care Team (Late st Contact Info) Description 02/22/2025 Patient Outreach [facility] [address] [facility] [facility] [place] [address] Radha Russ LPN [facility] TCM Call Social History Tobacco Use Types Packs/Day Years [...] any time in the past 12 m [facility], were you homeless or living in a prison (including now)? No 02/21/2025 Utilities Answer Date Recorded In the past 12 months has th e [employer], gas, oil, or water company threatened to shut off services in your home? No 02/21/2025 Comments Unknown Sex and Gender Information Value Date Recorded Sex Assigned at Female 03/16/2021 10:44 AM EDT Legal Sex Female 8:13 PM EDT Gender Identity Female 03/16/2021 10:44 AM EDT Sexual Orientation Choose not to disclose 2020 10:44 AM EDT documented as of this encounter Miscellaneous Notes * Progress Notes - Radha Russ LPN - 02/22/2025 10:48 AM EDT Admit Date: 02/19/2025 Discharge Date: 02/21/2025 Hospital Service: Hospital Medicine Discharge Diagnosis: Altered mental status 02/22/2025 TCM call # 1 Patient Reached: Yes Outcome: Called patient for a TCM nurse call. Spoke with patients daughter Kaycee. Daughter reports patient did not sleep last night. Reports patient is having visitors that are not there. Reports patient has some dementia. Daughter reports patient did the same thing last time she was discharged from the hospital and it took patient a couple days to get adjusted. Daughter feels like it is from where her FSBS was in the 300's. Daughter reports FSBS this AM was 193. Daughter reports she is waitingon a phone call from patients PCP to make her a follow up appointment. Daughter reports patient hasan appointment with her neurologist on Friday02/28/2025. Daughter reports patient received her Ceftin at discharge.Daughter denies any [facility] needs for the patient.Daughter has no questions or concerns for this nurse at this time. Number provided should daughter have any questions or concerns arise. 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
--- OUTSIDE RECORDS SUMMARY | 2025-03-10 15:36 | XMS_ITS | Encounter Summary ---
Author Organization Healthcare Address [address] [place] [address] Care Team Providers Care Manager Sourcing Name Role Phone Jamil Carey MD Primary Care Provider [phone] Encounter Details Date Type Department Care Team (Latest Contact Info) Description 02/19/2025 Travel Social History Tobacco Use Types Packs/Day Years Used Date Smoking Tobacco: Never Smokeless Tobacco: Never Alcohol Use Standard Drinks/Week Comments No 0 (1 standard drink = 0.6 oz pur e alcohol) Comments Unknown Sex and Gender Information Value Date Recorded Sex Assigned at Female 03/16/2021 10:44 AM EDT Legal Sex Female 8:13 PM EDT Gender Identity Female 03/16/2021 10:44 AM EDT Sexual Orientation Choose not to disclose 2020 10:44 AM EDT documented as of this encounter Functional Status * Calculated C-SSRS Risk Score (Lifetime/Recent) Answer Date of Assessment Author No Risk Indicated 02/19/2025 6:20 PM EDT Irma Weiss RN * Question Answer Date of Assessment Author 1. Wish to be (Past 1 Month) No 025 6:20 PM EDT Irma Weiss RN 2. Non-Specific Active Suici ludy Thoughts (Past 1 Month) No 02/19/2025 6:20 PM EDT Briana Weiss RN 6. Suicidal Behavior (Lifetime) No 5 6:20 PM EDT Irma Weiss RN documented as of this encounter Plan of [...] documented as of this encounter Care Teams Manager Sourcing Relationship Specialty Start Date End Date Jamil Carey MD [address] [place] [address] PCP - General 10/22/22 documented as of this encounter
--- OUTSIDE RECORDS SUMMARY | 2025-03-10 15:36 | XMS_ITS | Encounter Summary ---
Author Organization Healthcare Address [address] [place] [address] Care Team Providers Care Wood Sawyer Name Role Phone Jamil Carey MD Primary Care Provider [phone] Radha Russ LPN Unavailable Unavailabl e Reason for Visit * Reason Comments Follow-up Encounter Details Date Type Department Care Team (Late st Contact Info) Description 03/07/2025 Patient Outreach [facility] [address] [facility] [address], [address] [place] [address] Radha Russ LPN [facility] Follow-up Social History Tobacco Use Types Packs/Day Years [...] any time in the past 12 m [facility], were you homeless or living in a longterm (including now)? No 02/21/2025 Utilities Answer Date Recorded In the past 12 months has th e [employer], gas, oil, or water company threatened to [...] Progress Notes - Radha Russ LPN - 03/07/2025 2:35 PM EDT 03/07/2025 TCM Follow-up Call Patient reached: No Outcome: Called patient for a follow up TCM nurse call. Unable to reach patient. left with a call back number provided. Action: N/A documented in this encounter Plan of [...] documented as of this encounter Care Teams Wood Sawyer Relationship Specialty Start Date End Date Jamil Carey MD [address] [place] [address] PCP - General 10/22/22 Radha Russ LPN [facility] TCM Nurse 02/22/25 documented as of this encounter
--- OUTSIDE RECORDS SUMMARY | 2025-03-10 15:36 | XMS_ITS | Encounter Summary ---
Author Organization Healthcare Address [address] [place] [address] Care Team Providers Care Construction Executive Name Role Phone Jamil Carey MD Primary Care Provider [phone] Radha Russ LPN Unavailable Unavailabl e Encounter Details Date Type Department Care Team (Late st Contact Info) Description 02/18/2025 Orders Only External Location [address] [place] [address] Provider, External Social History Tobacco Use Types [...] any time in the past 12 m [facility], were you homeless or living in a fdc (including now)? No 02/21/2025 Utilities Answer Date [...] Procedure Name Priority Date/Time Associated Diagnosis Comments XR THORACIC OUTSIDE IMAGES 02/18/2025 11:13 PM EDT documented in this encounter Results * XR THORACIC OUTSIDE IMAGES (02/18/2025 11:13 PM EDT) Anatomical Region Laterality Modality Radiographic [place] ging 02/18/2025 11:1 3 PM EDT us External Provider IMG XR PROCEDURES Final Result documented in this encounter [...] documented as of this encounter Care Teams Construction Executive Relationship Specialty Start Date End Date Jamil Carey MD [address] [place] [address] PCP - General 10/22/22 Radha Russ LPN [facility] TCM Nurse 02/22/25 documented as of this encounter
--- OUTSIDE RECORDS SUMMARY | 2025-03-10 15:36 | XMS_ITS | Encounter Summary ---
Author Organization Healthcare Address [address] [place] [address] Care Team Providers Care Epic Ambulatory Specialists Name Role Phone Chelsey Trejo Primary Care Provider Mini Fink Unavailable Unavailable Jamil Carey MD Primary Care Provider Radha Russ LPN Unavailable Unavailabl e Encounter Details Date Type Department Care Team (Late st Contact Info) Description 10/29/2019 Orders Only External Location [address] [place] [address] Provider, External Social History Tobacco Use Types Packs/Day Years Used Date Smoking Tobacco: Never Assessed Comments Unknown Sex and Gender Information Value Date Recorded Sex Assigned at Female 03/16/2021 10:44 AM EDT Legal Sex Female 8:13 PM EDT Gender Identity Female 03/16/2021 10:44 AM EDT Sexual Orientation Choose not to disclose 2020 10:44 AM EDT documented as of this encounter Plan of Treatment Not on file documented as of this encounter Procedures Procedure Name Priority Date/Time Associated Diagnosis Comments CT OUTSIDE IMAGES 10/29/2019 4:04 PM EST documented in this encounter Results * CT OUTSIDE IMAGES (10/29/2019 4:04 PM EST) Anatomical Region Laterality Modality Computed Tomogra phy 10/29/2019 4:04 PM EST us External Provider IMG CT PROCEDURES Final Result documented in this encounter Visit Diagnoses Not on filedocumented in this encounter Additional Health Concerns Infection Onset Date Last Indicated Resolved Time MRSA 07/29/2022 07/29/2022 COVID-19 Rule-Out 02/19/2025 02/19/2025 02/19/2025 10:38 AM EDT Respiratory Rule-Out 02/19/2025 02/19/2025 025 11:40 AM EDT documented as of this encounter Care Teams Epic Ambulatory Specialists Relationship Specialty Start Date End Date Chelsey Trejo PA [address] [place] [address] PCP - General 01/12/21 10/21/22 Jamil Carey MD [address] [facility] [address] [place] [address] PCP - General 10/22/22 [place] [address] [facility] 08/20/2109/20 Radha Russ, [facility] TCM Nurse 02/22/25 documented as of this encounter
--- OUTSIDE RECORDS SUMMARY | 2025-03-10 15:36 | XMS_ITS ---
Author Organization [facility] Address [address] [place] [address] Care Team Providers Care Industrial Seamstress Name Role Phone Jamil Carey MD Primary Care Provider Radha Russ LPN Unavailable Unavailabl e Transitional Care Management Status:Active (Active) Start date:02/22/2025 Enrollment date:02/22/2025 Enrollment reason:Identified using hospital discharge data Overview This episode type is for outpatient care managers enrolling patients in the [facility] Transitional Care Management program. Case Team Name Relationship Phone Radha Russ LPN(Responsible Staff) TCM Nurs e Continued Care and Services Coordination
[2025-03-10 16:19] LABS: Hematocrit 37.1 % (37.0-47.0); Hemoglobin 11.2 g/dL (12.2-16.2); Immature Granulocytes % 0.3 %; Mean Corpuscular HGB Conc 30.2 g/dL (31.8-35.4); Mean Corpuscular Hemoglobin 26.2 pg (27.0-31.2); Mean Corpuscular Volume 86.7 fl (81-99); Nucleated Red Blood Cells % 0 %; Platelet Count 259 K/mm3 (142-424); Red Blood Count 4.28 M/mm3 (4.20-5.40); Red Cell Distribution Width-SD 45.5 fL; White Blood Count 6.8 K/mm3 (4.8-10.8)
[2025-03-10 16:59] LABS: Albumin Level 3.9 g/dl (3.5-5.0); Chloride 87 mmol/L (98-107); Potassium 4.6 mmoL/L (3.5-5.1); Sodium 136 mmol/L (136-145)
[2025-03-10 17:01] LABS: Blood Urea Nitrogen 23 mg/dl (7-17); Creatinine,Serum 0.90 mg/dl (0.52-1.04); Estimated Glomerular Filt Rate 61 ml/min (>60); GFR (African American) 73 ML/MIN (>60)
[2025-03-10 17:02] LABS: Alanine Aminotransferase 12 U/L (12-78); Alkaline Phosphatase 101 U/L (38-126); Aspartate Amino Transferase 20 U/L (14-36); Bilirubin,Direct 0.1 mg/dl (0.0-0.4); Bilirubin,Indirect 0.2 mg/dL (0.0-0.9); Bilirubin,Total 0.3 mg/dl (0.2-1.3); Bilirubin,Unconjugated 0.1 mg/dL (0.0-1.1); Calcium 9.2 mg/dl (8.4-10.2); Cholesterol 173 mg/dl (140-200); Glucose 325 mg/dl (74-100); HDL Cholesterol 74 mg/dl (40-60); Total Protein,Serum 6.9 g/dl (6.3-8.2); Triglycerides 149 mg/dl (30-150)
[2025-03-10 17:09] LABS: Anion Gap 13.6 mEq/L (5-15); Carbon Dioxide 40 mmol/L (22.0-30.0)
[2025-03-10 17:19] LABS: Triiodothryronine (T3) Uptake 35 % (23.5-40.5)
[2025-03-10 17:20] LABS: Free Thyroxine Index 1.8 ug/dL (5.93-13.13); T4 (Thyroxine) 5.0 ug/dl (5.53-11.0)
[2025-03-10 17:34] LABS: Thyroid Stimulating Hormone 2.77 uIU/mL (0.465-4.68)
== END 2025-03-10 23:59 | disposition home or self-care (01) ==
PROVIDERS: PCP Emergency Medicine; Visit Provider Nurse Practitioner
DX: I25.10 Atherosclerotic heart disease of native coronary artery without angina pectoris (principal); I10 Essential (primary) hypertension; I48.20 Chronic atrial fibrillation, unspecified
CPT/HCPCS: 36415; 80048; 80061; 80076; 84436; 84443; 84479; 85025; 93225; 93227

== ENCOUNTER 2025-03-23 13:07 | Outpatient (POV) | payer MEDICARE, SELFPAY ==
--- OUTSIDE RECORDS SUMMARY | 2025-02-19 03:43 | XMS_ITS | Encounter Summary ---
Author Organization Healthcare Address [address] [place] [address] Care Team Providers Care Plant Operations Coordinator Name Role Phone Jamil Carey MD Primary Care Provider [phone] Reason for Referral * Home Health (Routine) - Authorized Specialty Diagnoses / Procedures Referred By Severiano ceron Referred To Contact Home Health Services / Case Management Diagnoses Altered mental status, unspecified altered mental status type Kathie Naqvi MD [address] [place] [address] Phone: tel: fax: Referral ID Status Reason Start Date Expiration Date Visits Requested Visits Authorized [id number] Authorized Specialty Services Required 02/21/2025 08/23/2026 999 999 Reason for Visit * Reason Comments Altered Mental Status * Auth/Cert (Routine) Specialty Diagnoses / Procedures Referred By Severiano ceron Referred To Contact Diagnoses Altered mental status Pneumonia of left lower lobe due to infectious organism Altered mental status, unspecified altered mental status type Pneumonia, Sepsis Kathie Naqvi MD [address] [place] [address] Phone: tel: fax: [facility] [address] [place] [address] Phone: tel: Referral ID Status Reason Start Date Expiration Date Visits Re quested Visits Authorized [id number] 1 1 Encounter Details Date Type Department Care Team (Late st Contact Info) Description 02/19/2025 3:43 AM EDT - 02/21/2025 5:26 PM EDT Hospital Encounter [facility] [address] [place] [address] Benito Chakraborty MD [address] [place] [address] Devonte Geller MD [address] [place] [address] Kathie Naqvi MD [address] [place] [address] Altered mental status, unspecified altered mental status type (Primary Dx); Pneumonia of left lower lobe due to infectious organism Discharge Disposition: Home or Self Care Social History Tobacco Use Types Packs/Day Years Used Date Smoking Tobacco: Never Smokeless Tobacco: Never Alcohol Use Standard Drinks/Week Comments No 0 (1 standard drink = 0.6 oz pur e alcohol) Humiliation, Afraid, Rape, and Kick questionnair e Answer Date Recorded Within the last year, have y ou been afraid of your partner or ex-partner? No 02/21/2025 Within the last year, have y ou been humiliated or emotionally abused in other ways by your partner or ex-partner? No Within the last year, have y ou been kicked, hit, slapped, or otherwise physically hurt by your partner or ex-partner? No 02/21/2025 Within the last year, have y ou been raped or forced to have any kind of sexual activity by your partner or ex-partner? No 02/21/2025 Hunger Vital Sign Answer Date Recorded Within the past 12 months, y ou worried that your food would run out before you got the money to buy more. Never true 02/22/20 25 Within the past 12 months, t he food you bought just didn't last and you didn't have money to get more. Never true 02/21/2025 PRAPARE - Transportation Answer Date Re corded In the past 12 months, has l ack of transportation kept you from medical appointments or from getting medications? No 01/31 In the past 12 months, has l ack of transportation kept you from meetings, work, or from getting things needed for daily living? No 02/21/2025 Housing Stability Vital Sign Answer Nolan e Recorded In the last 12 months, was t here a time when you were not able to pay the mortgage or rent on time? No 02/21/2025 Number of Times Moved in the Last Year Not on fi le 02/21/2025 At any time in the past 12 m [facility], were you homeless or living in a half-way (including now)? No 02/21/2025 Utilities Answer Date Recorded In the past 12 months has th e electric, gas, oil, or water company threatened to shut off services in your home? No 02/21/2025 Comments Unknown Sex and Gender Information Value Date Recorded Sex Assigned at Female 03/16/2021 10:44 AM EDT Legal Sex Female 8:13 PM EDT Gender Identity Female 03/16/2021 10:44 AM EDT Sexual Orientation Choose not to disclose 2020 10:44 AM EDT documented as of this encounter Last Filed Vital Signs Vital Sign Reading Time Taken Comments Blood Pressure 122/74 02/21/2025 11:30 AM EDT Pulse 91 02/21/2025 11:30 AM EDT Temperature 36.7 C (98 F) 02/21/2025 11:30 AM EDT Respiratory Rate 14 02/21/2025 11:30 AM EDT Oxygen Saturation 97% 02/21/2025 11:30 AM EDT Inhaled Oxygen Concentration - - Weight 138 kg (304 lb 7 oz) 02/19/2025 6:20 PM E DT Height 162.6 cm (5' 4 ) 02/19/2025 6:20 PM EDT Body Mass Index 52.26 02/19/2025 6:20 PM EDT documented in this encounter Functional Status * Calculated C-SSRS Risk Score (Lifetime/Recent) Answer Date of Assessment Author No Risk Indicated 02/21/2025 8:00 AM EDT Eli Claire * Question Answer Date of Assessment Author 1. Wish to be (Past 1 Month) No 025 8:00 AM EDT Eli Claire P 2. Non-Specific Active Suici ludy Thoughts (Past 1 Month) No 02/21/2025 8:00 AM EDT Josephine Claire P 6. Suicidal Behavior (Lifetime) No 8:00 AM EDT Eli Claire P documented as of this encounter Discharge Instructions * Discharge Instructions* Ivan Figueredo MD - 02/21/2025 2:54 PM EDT Please take your new antibiotic cefuroxime 500 mg twice a day for two more days starting tomorrow February 22. documented in this encounter Medications at Time of Discharge atorvastatin (Lipitor) 80 MG tablet Take 1 tablet by mouth daily. cyanocobalamin 2500 MCG tablet Take 1 tablet by mouth daily. donepezil (Aricept) 10 MG tablet Take 1 tablet by mouth nightly. DULoxetine (Cymbalta) [address] capsule Take 1 capsule by mouth daily. Do not crush or chew. ergocalciferol (Vitamin D-2) 1.25 MG (62977 UT) capsule Take 1 capsule by mouth 1 time per week. HYDROcodone-aceta minophen (Glendive) 5-325 MG tablet Take 1 tablet by mouth 4 times a day as needed. 09/05/2022 insulin NPH-insulin regular (INSULIN NPH ISOPHANE & REGULAR HUMAN INJ) (70-30) 100 UNIT/ML SC injection vial Inject 40 Units under the skin 2 (two) times a day. 30 mL 07/31/2022 levETIRAcetam (Keppra) 750 MG tablet Take 1 tablet (750 mg total) by mouth 2 (two) times a day. 60 tablet 11 07/31/2022 magnesium oxide (Mag-Ox) 400 (240 Mg) MG tablet Take 1 tablet by mouth 1 time each day with lunch. 07/02/2022 memantine (Namenda) 10 MG tablet Take 1 tablet by mouth 2 times a day. metoprolol succinate XL (Toprol-XL) 50 MG 24 hr tablet Take 1 tablet by mouth every morning. 08/02/2020 pregabalin (Lyrica) 75 MG capsule Take 1 capsule by mouth daily. 09/05/2022 QUEtiapine (SEROquel) 100 MG tablet TAKE 1 TABLET BY MOUTH IN THE MORNING AND 2 AT BEDTIME rivaroxaban (Xarelto) 20 MG tablet Take 1 tablet by mouth every evening. 07/20/2019 Symbicort 160-4.5 MCG/ACT inhaler Inhale 2 puffs 2 times a day. 06/04/2022 cefuroxime (Ceftin) 500 MG tabletIndications :Pneumonia of left lower lobe due to infectious organism Take 1 tablet by mouth 2 times a day for 2 days. 4 tablet 02/21/2025 02/23/2025 documented as of this encounter Miscellaneous Notes * Addendum Note - Karen Fernandes - 02/21/2025 5:26 PM EDTEncounter addended by: Karen Fernandes on: 03/01/2025 3:37 PM Actions taken: Utilization Review data saved * Discharge Summary - Shanon Abbott - 02/21/2025 5:26 PM EDT Hospitalization Admit Date/Time: 02/19/2025 3:43 AM Admitting Attending: Kathie Naqvi Discharge Date: 02/21/25 Discharge Attending Physician: Kathie Naqvi MD PCP name and Address: Jamil Carey MD [address] [place] [address] / [place] [address] Referring provider name and address: Gregoria Farias DO [address] [place] [id number] Chief Concern, Brief History of Present Illness, and Hospital Course Alicia Royal is a 76 y.o. female with a h/o DM, CKD, asthma, JESSICA, and Afib on Xarelto, CAD s/p multiple stents, meningioma who presents with acute encephalopathy. She was transferred to from an outside hospital due to concern for LLL pneumonia although no clear source could be identifiedto confirm. She was treated with full course of antibiotics for CAP and discharged with resolution of encephalopathy. Unclear if there is a component of baseline fluctuations in mentation to be followed up outpatient. Encephalopathy with possible acute CAP - Presented to OSH with tachycardia, tachypnea, altered mental status and thought to have LLL pneumonia and administered 1 dose of Vanc and Zosyn. On arrival to ED, found to have leukocytosis (16.7)., chronic hypercarbia with metabolic compensation. - Per prior documentation, patient has been having episodes of fluctuating mental status since several years. It is also likely that transient encephalopathy could be related to chronic hypercarbia coupled with opioid use with more acute fluctuation related to a resolved infectious process given imp rovement. While CAP of the LLL is a possibility there was no clear exam or imaging finding to strongly confirm. - Received 3 days PO azithromycin. Transitioning IV Ceftriaxone to PO cefuroxime for 2 more days for a total of 5 days treatment. 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 - VBG with pCO2 at 65 and Bicarb at 30. - Discharged on home medications and 2 L/min requirement. CAD s/p multiple stents Afib - ECG: sinus bradycardia. - Continued home Rivaroxaban and Atorvastatin, discontinued metoprolol due to bradycardia. Unclear if currently on home diuretics. - Primary physician to order VIOLA outpatient for further monitoring. T2DM - Continue home regiment insulin (70/30) 40 units BID Left Frontal Convexity Meningoma - Currently no focal neurologic deficits - Will continue empiric Keppra 750 mg BID Chronic Debility - PT/OT recommended home with assistance - Wheelchair per primary physician to help with ADL Chronic Medical Conditions: - Obesity: BMI 52.19 - Asthma: Home inhalers, Duonebs PRN - CKD: baseline creatinine 0.9 -1.1 - Lymphedema bilateral LE Surgeries and Procedures Medication List .. atorvastatin 80 MG tablet Commonly known as: Lipitor Take 1 tablet by mouth daily. cefuroxime 500 MG tablet Commonly known as: Ceftin Take 1 tablet by mouth 2 times a day for 2 days. cyanocobalamin 2500 MCG tablet Commonly known as: Vitamin B-12 Take 1 tablet by mouth daily. donepezil 10 MG tablet Commonly known as: Aricept Take 1 tablet by mouth nightly. DULoxetine [address] capsule Commonly known as: Cymbalta Take 1 capsule by mouth daily. Do not crush or chew. ergocalciferol 1.25 MG (53452 UT) capsule Commonly known as: Vitamin D-2 Take 1 capsule by mouth 1 time per week. HYDROcodone-acetaminophen 5-325 MG tablet Commonly known as: Glendive Take 1 tablet by mouth 4 times a day as needed. Insulin NPH Isophane & Regular Human Inj (70-30) 100 UNIT/ML injection Generic drug: insulin NPH-insulin regular Inject 40 Units under the skin 2 (two) times a day. levETIRAcetam 750 MG tablet Commonly known as: Keppra Take 1 tablet (750 mg total) by mouth 2 (two) times a day. magnesium oxide 400 (240 Mg) MG tablet Commonly known as: Mag-Ox Take 1 tablet by mouth 1 time each day with lunch. memantine 10 MG tablet Commonly known as: Namenda Take 1 tablet by mouth 2 times a day. metoprolol succinate XL 50 MG 24 hr tablet Commonly known as: Toprol-XL Take 1 tablet by mouth every morning. pregabalin 75 MG capsule Commonly known as: Lyrica Take 1 capsule by mouth daily. QUEtiapine 100 MG tablet Commonly known as: SEROquel TAKE 1 TABLET BY MOUTH IN THE MORNING AND 2 AT BEDTIME rivaroxaban 20 MG tablet Commonly known as: Xarelto Take 1 tablet by mouth every evening. Symbicort 160-4.5 MCG/ACT inhaler Generic drug: budesonide-formoterol Inhale 2 puffs 2 times a day. Where to Get Your Medications These medications were sent to [facility] - [place], [place] - [address] [facility] [id number] cefuroxime 500 MG tablet Discharge Diagnosis Medical Problems Active and Resolved Hospital Problems Hospital * (Principal) Altered mental status Post Discharge Instructions Per above Outpatient Follow-Up No future appointments. Test Results Pending At Discharge Pending Labs Order Current Status Blood Culture (Aerobic/Anaerobet Set) Preliminary result Blood Culture (Aerobic/Anaerobet Set) Preliminary result Pertinent Physical Exam At Time of Discharge Physical Exam Constitutional: General: She is not in acute distress. Appearance: Normal appearance. She is obese. Cardiovascular: Rate and Rhythm: Normal rate and regular rhythm. Pulses: Normal pulses. Heart sounds: Normal heart sounds. Pulmonary: Effort: Pulmonary effort is normal. Breath sounds: Normal breath sounds. Abdominal: General: Abdomen is flat. Palpations: Abdomen is soft. Neurological: Mental Status: She is alert. Discharge Disposition/Condition Disposition: Home Condition: Stable (s/sx potential problems absent or manageable) I spent >30 minutes of patient care and instruction time in preparation for this discharge. Cosigned by Kathie Naqvi MD at 02/22/2025 1:49 PM EDT Associated attestation - Kathie Naqvi MD - 02/22/2025 1:49 PM EDT I saw and evaluated the patient with the medical/WELT DRAWER/PA student. I discussed the case with the medical/WELT DRAWER/PA student and agree with the findings and plan as documented. I personally performed the Examand Medical Decision Making. * Progress Notes - Gregory Pagan - 02/21/2025 3:20 PM EDT Physical Therapy Evaluation Patient Name: Alicia Royal Today's Date: 02/21/2025 PT Discharge Recommendations: Home with assistance, Home health PT, Home health OT Equipment Recommended: Patient owns appropriate equipment History Alicia Royal is 79 y.o. female admitted 02/19/2025 for work-up of Altered mental status. Problem List Active Hospital Problems Diagnosis Date Noted Altered mental status 02/19/2025 Past Medical History Patient has a past medical history of Morbid (severe) obesity due to excess calories (CMS/HCC) and Personal history of other endocrine, nutritional and metabolic disease. Past Surgical History Patient has a past surgical history that includes Ankle surgery (N/A). Precautions Medical Precautions: Fall precautions Subjective OK to participate. Was working on sitting EOB at home with PT but has not in two weeks. Uses cara lift at home to get to a chair. Participants in Care Family/Caregiver Present: Yes Family/Caregiver: Adult Daughter Presentation Oxygen Therapy: Supplemental oxygen O2 Delivery Method: Nasal cannula O2 Flow Rate (L/min): 2 L/min (doffed for bed mobility) Lines and Tubes: Intravenous access Pre-Session: Supine, Head of bed elevated, Lines intact Pre-Session Comments: RN agreed to therapy Post-Session: Supine, Head of bed elevated, Lines intact, Call light in reach, RN notified Post-Session Comments: Pt positioned for comfort, all needs in reach. Home Living/Set-up Lives With: Adult, Daughter Home Type: House Home Adaptive Equipment: Rolling walker, Wheelchair-manual, Hospital bed, Rollator, standard walker, shower chair, Bedside commode (cara lift) Home Layout: One level Bathroom: Tub/Shower: Walk-in shower, Built-in shower seat Bathroom: Toilet: Standard Prior Level of Function Receives Help From: Daughter Level of Mobility: Non-ambulatory/bed-bound Mobility Holdrege: Assistance with transfers with device (cara lift for transfers) History of Falls: No ADL Performance: Needs assistance Patient/Family Goals return home Objective Pain 7/10 back and head pain, positioned for comfort in bed Delirium Screening Torre Agitation Sedation Scale (RASS): Alert and calm Confusion Assessment Method-ICU (CAM-ICU/PCAM-ICU) Feature 3: Altered Level of Consciousness: Negative Cognition Overall Cognitive Status: Within Functional Limits Arousal/Alertness: Appropriate responses to stimuli Mood/Behavior: Alert Orientation Level: Oriented to family Single Step Commands: Consistently Multi-Step Commands: Consistently Method of Communication: Verbal Right Upper Extremity Examination RUE Assessment: Within Functional Limits Manual Muscle Testing - RUE: Within functional limits Sensation Light Touch: Right Upper Extremity: Intact Left Upper Extremity Examination LUE ROM Assessment LUE Assessment: Within Functional Limits Manual Muscle Testing - LUE Manual Muscle Testing - LUE: Within functional limits Sensation Light Touch: Left Upper Extremity: Intact Right Lower Extremity Examination RLE ROM Assessment RLE Assessment: Within Functional Limits Manual Muscle Testing - RLE Manual Muscle Testing - RLE: Within functional limits except Hip flexion: 3- Hip Abduction: 3- Knee Flexion: 3- Knee Extension: 3- Ankle Plantarflexion: 4 Ankle Dorsiflexion: 4 Sensation Light Touch: Right Lower Extremity: Intact Left Lower Extremity Examination LLE Assessment: Exceptions to WFL (ankle limited grossly due to charcot foot) Manual Muscle Testing: Within functional limits except Hip flexion: 3- Hip Abduction: 3- Knee Flexion: 3- Knee Extension: 3- Ankle Plantarflexion: 2- Ankle Dorsiflexion: 2- Therapeutic Activity (15 minutes) Performed below tasks in bed mobility, transfers, and balance sections for improvement in functional strength, upright activity tolerance, and improved independence with mobility. No adverse responsenoted to functional tasks today and pt responded well to cues for safe movement. Sat EOB about 5 mins with CGA for sitting balance, posterior lean throughout. Easy to fatigue with sitting. Rolled left and right once back in supine to assist with cleaning BM. Also able to assist with scooting up in bed by using bed rails. Bed Mobility Bed Mobility Exam: Rolling/Turning Level of Holdrege: Minimum assist (75% patient effort) Physical/Nonphysical Assist: Verbal Cues, Nonverbal cues (demo/gestures) Bed Mobility Exam: Scooting/Bridging Level of Holdrege: Minimum assist (75% patient's effort) (to scoot towards EOB while seated upright; dependent assist required to scoot towards HOB while supine) Physical/Nonphysical Assist: Verbal Cues, Nonverbal cues (demo/gestures) Bed Mobility Exam: Supine to Sit Level of Holdrege: Minimum assist (75% patient's effort) Physical/Nonphysical Assist: Set-up required, Verbal Cues, Nonverbal cues (demo/gestures), HOB elevated Bed Mobility Exam: Sit to Supine Level of Holdrege: Maximum assist (25% patient's effort) Physical/Nonphysical Assist: Set-up required, Verbal Cues, Nonverbal cues (demo/gestures) Balance Static Sitting Balance Static Sitting-Balance Support: Feet supported, Right upper extremity support, Left upper extremitysupport Static Sitting-Level of Assistance: Contact guard Dynamic Sitting Balance Dynamic Sitting-Balance Support: Feet supported Level of Assistance: Minimum assistance Therapeutic Exercise Performed below exercises for improvement in muscular strength, ROM, circulation, and overall activity tolerance: heel slides x 5 each AAROM Standardized Assessments [facility] 6-Clicks Mobility Assessment Difficulty patient has turning over in bed (including adjusting bedclothes, sheets, and blankets)?:A little Difficulty patient has sitting down on and standing up from a chair with arms (wheelchair, bedside commode, etc.)?: Unable Difficulty patient has moving from lying on back to sitting on the side of the bed?: A lot How much help does the patient need moving to and from a bed to a chair (including a wheelchair)?: Unable How much help does the patient need to walk in hospital room?: Unable How much help does the patient need climbing 3-5 steps with a railing?: Unable [facility] 6-Clicks Mobility Assessment Total : 9 Assessment Pt is very near her most reent level of mobility at home. She has required assistance for all functional tasks and ADLs and has been using the cara lift for all transfers. She is expected to discharge to home today. Will recommend continuation of home health therapy to maximize functional mobilityand decrease caregiver burden at home. No further skilled PT is required in the hospital due to planned d/c. Impairments: Decreased endurance, ventilation, and/or gas exchange, Impaired functional mobility/transfers, Impaired motor cordination/control, Decreased strength, Decreased range of motion, Impairedmotor planning, Impaired balance, Impaired gait dynamics/performance, Impaired locomotion, Impairedmuscle tone, Impaired postural/trunk control Activity Limitations: Inability to sit independently, Inability to ambulate community distances, Inability to complete ADLs independently, Inability to ambulate household distances, Inability to ambulate independently, Inability to transfer independently Participation Restrictions: Self-care, Home management, Community leisure Activity Tolerance: Tolerates 10 - 20 min activity with multiple rests Evaluation/Treatment Tolerance: Patient limited by fatigue Diagnosis: impaired functional mobility Rehab Potential: Fair, will monitor progress closely Barriers to Discharge: Comorbidities Eval Complexity History Profile: 1 - 2 personal factors and/or comorbidities Clinical Presentation: Evolving clinical presentation with changing characteristics Clinical Decision Making: Moderate complexity PT Recommendations Discharge Destination: Home with assistance, Home health PT, Home health OT Discharge Equipment: Patient owns appropriate equipment Plan Patient no longer demonstrates need for inpatient physical therapy services. Patient to be discharged from physical therapy. Written by Gregory Pagan on 02/21/25 at 3:28 PM. * Progress Notes - Abbey Rondon - 02/21/2025 2:13 PM EDT OCCUPATIONAL THERAPY EVALUATION / DISCHARGE SUMMARY PATIENT DATA Patient Name Alicia Royal Session Date 02/21/2025 OT Discharge Recommendations Home with assistance, Home health PT, Home health OT Equipment Recommendations Patient owns appropriate equipment HISTORY Alicia Royal is 79 y.o. female admitted 02/19/2025 for work-up of Altered mental status. Hospital Course 1. Altered mental status, unspecified altered mental status type 2. Pneumonia of left lower lobe due to infectious organism Procedures Past Medical History Patient has a past medical history of Morbid (severe) obesity due to excess calories (CMS/HCC) and Personal history of other endocrine, nutritional and metabolic disease. Past Surgical History Patient has a past surgical history that includes Ankle surgery (N/A). PRECAUTIONS Medical Precautions Medical Precautions: Fall precautions SUBJECTIVE PARTICIPANTS IN CARE Patient/Caregiver Comments RN cleared pt for therapy. Pt agreeable for OT evaluation this morning. Visitors Present Family/Caregiver Present: Yes Family/Caregiver: Adult Daughter PRESENTATION Oxygen Supplemental oxygen Nasal cannula 2 L/min (doffed for bed mobility) Lines and Tubes Peripheral IV 02/19/25 Left Antecubital (Active) Pre-Session Supine, Head of bed elevated, Lines intact RN agreed to therapy Post-Session Supine, Head of bed elevated, Lines intact, Call light in reach, RN notified Pt positioned for comfort, all needs in reach. HOME LIVING/SET-UP Lives With Adult, Daughter Home Type House Home Equipment Rolling walker, Wheelchair-manual, Hospital bed, Rollator, standard walker, shower chair, Bedside commode (cara lift) Home Layout One level Bathroom Layout Walk-in shower, Built-in shower seat Bathroom: Toilet: Standard PRIOR LEVEL OF FUNCTION Receives help from Daughter Level of Mobility Non-ambulatory/bed-bound Mobility Holdrege Assistance with transfers with device (cara lift for transfers) History of Falls No ADL Performance ADL Performance: Needs assistance PATIENT/FAMILY GOALS To go home. OBJECTIVE PAIN Pt endorses 7/10 back pain. Pt positioned for comfort at end of session. DELIRIUM SCREENING Torre Agitation Sedation Scale (RASS): Alert and calm Confusion Assessment Method-ICU (CAM-ICU/PCAM-ICU) Feature 3: Altered Level of Consciousness: Negative COGNITION Overall Cognitive Status Within Functional Limits Arousal/Alertness Appropriate responses to stimuli Mood/Behavior Alert Orientation x4 Command Following Single Step Commands: Consistently Multi-Step Commands: Consistently Method of Communication Verbal VISION Current Vision (if different) Intact RIGHT UPPER EXTREMITY EXAMINATION Range of Motion Within Functional Limits Manual Muscle Testing Within functional limits Light Touch Sensation Intact LEFT UPPER EXTREMITY EXAMINATION Range of Motion Within Functional Limits Manual Muscle Testing Within functional limits Light Touch Sensation Intact BED MOBILITY Level of [place] Physical/Non-physical Assist Adaptive Equipment Utilized Rolling/ Turning Minimum assist (75% patient effort) Verbal Cues, Nonverbal cues (demo/gestures) Bed rails Scooting/ Bridging Minimum assist (75% patient's effort) (to scoot towards EOB while seated upright; dependent assist required to scoot towards HOB while supine) Verbal Cues, Nonverbal cues (demo/gestures) Bedrails Supine to Sit Minimum assist (75% patient's effort) Set-up required, Verbal Cues, Nonverbal cues (demo/gestures), HOB elevated Bed rails (heavy reliance on grab bars) Sit to Supine Maximum assist (25% patient's effort) Set-up required, Verbal Cues, Nonverbal cues (demo/gestures) Bed rails, Other (drawsheet) TRANSFERS Level of [place] Physical/Non-physical Assist Adaptive Equipment Utilized Sit to Stand Unable to perform (Deferred - pt cara dependent at baseline.) BALANCE Postural Appearance Posture: Stooped posture, Forward head, Rounded shoulders Level of [place] Balance Support Static Sit Contact guard Feet supported, Right upper extremity support, Left upper extremity support Dynamic Sit Minimum assistance Feet supported STANDARDIZED ASSESSMENTS [facility] 6-Click Daily Activities Help from Other: Don/Doff Regular Lower Body Clothings: Total Help From Other: Bathing: Total Help From Other: Toileting: Total Help From Other: Don/Doff Upper Body Clothings: A lot Help From Other: Grooming: Little Help From Other: Eating Meals: None [facility] 6 Click - Daily Activities Score: 12 OT INTERVENTIONS SELF-CARE Treatment Minutes (if applicable) 15 Comments: The patient engaged in skilled intervention for progression towards independence in basicself-cares, focusing on UB dressing, LB dressing, toileting, grooming, and functional ADL transfers. The patient benefited from the following OT interventions: Increased time provided for completion of task and to optimize participation. Skilled management of medical lines/tubes to reduce fall risk with functional ADL transfers. Encouragement and therapeutic use of self for maximized volitional effort and task attempts. Environmental set-up to ensure safety and accessibility to all needed areas of treatment space. Level of [place] Interventions Grooming SBA, Setup Bed level Anticipated, per clinical judgement. Upper Body Dressing Minimum assistance Bed level For clean gown change. Lower Body Dressing Sock Level of Assistance: Dependent To don non-slip socks while at bed level; assist required for this task at baseline. Toileting Dependent Patient incontinent of bladder/bowel prior to OT arrival. MIN A required for rolling right/left in prep for hygiene. Dependent assist required for anterior and perineal hygiene. Household/ Community Re-Entry Patient was challenged to complete transition to EOB and activity completion while seated upright at EOB in order to assess functional endurance, tolerance to upright position, and to prepare for upright ADLs. MAX multimodal cues provided to encourage movement of BLEs towards EOB and for contralateral reach to bed rail, however MIN assist required for completion of transition to EOB. Patient tolerated 5 min at EOB, with overall CGA required to maintain upright position. MAX A required for transition EOB>supine. Equal assist provided for trunk and BLE management. ASSESSMENT OT FINDINGS The patient is a 79yo F, seen today for OT evaluation. The patient was admitted due to acute encephalopathy and concern for LLL CAP. The patient tolerated OT evaluation well, demo's good effort and participation with all evaluation tasks. At baseline, requires cara lift for all functional transfers, and assist with all ADLs. Today, pt tolerated functional transition to/from EOB, total assist required for lower body ADLs, and MIN A required for upper body ADLs. Patient currently performing at functional baseline, continued skilled OT at this level of care not warranted. All questions answered, all concerns addressed. Pt will be discharged from OT services. Barriers to Discharge (if identified) Comorbidities EVAL COMPLEXITY Clinical Decision Making Moderate Overall Eval Complexity Low OT RECOMMENDATIONS Discharge Destination Home with assistance, Home health PT, Home health OT Discharge Equipment Patient owns appropriate equipment Written by Abbey Rondon on 02/21/25 at 2:40 PM. * Progress Notes - Bharat Lal - 02/21/2025 1:50 PM EDT Case Management Discharge Note Alicia Royal 79 y.o. female CSN: [id number] Admission: 02/19/2025 3:43 AM Primary Problem: Altered mental status Primary Mental Retardation Nurse: Primary Caregiver: Family Assistance Available at Discharge: Availability of Care Givers (#Hours): 24 hours Family/Mental Retardation Nurse(s) Willingness Assessed to care for patient at home: Yes Family/Mental Retardation Nurse(s) Readiness Assessed to care for patient at home: Yes Discharge Facility/Level of Care Needs: Discharge Facility/Level of Care Needs: 1-Home or Self Care Patient's Choice of Community Agency(s): Patient/Family Anticipated Services at Transition: Patient/Family Anticipated Services at Transition: none DME/Equipment Needed after Discharge: Equipment Currently Used at Home: hospital/specialty bed, lift device, wheelchair, manual Equipment Needed After Discharge: lift device, hospital bed, wheelchair, manual Medicare Documentation: Medicare Second Notice?: Yes Date Second Notice Completed: 02/21/25 Medicare Second Notice Recieved By: Family- Dtr Follow-up: No follow-up provider specified. Discharge Transportation: Transportation Anticipated: family or friend will provide Transportation Home at Discharge: Family/Friend will Provide Follow Up Transport: Transportation Needed to Follow up Appoinments: Family/Friend will Provide Additional Comments: POC reviewed with primary team. Refer to primary team's discharge note for details. Pt is medicallyready to discharge today via private vehicle. Patient is in agreement to dc home today and is in agreement with above DC plan. No further CM needs identified. ROSIE Adams * Care Plan - Michel Pendleton - 02/20/2025 11:00 PM EDT Problem: Adult Inpatient Plan of Care Goal: Plan of Care Review Outcome: Ongoing, Progressing Flowsheets (Taken 02/20/2025 1900) Progress: no change Outcome Evaluation: To rest comfortably and no fall injuries during the entire shift. Plan of Care Reviewed With: patient Goal: Patient-Specific Goal (Individualized) Outcome: Ongoing, Progressing Flowsheets (Taken 02/20/2025 1900) Patient/Family-Specific Goals (Include Timeframe): Pt will urinate within 4 hours after the crockett catheter was removed at 1830. Individualized Care Needs: safety and comfort Anxieties, Fears or Concerns: going home Goal: Absence of Hospital-Acquired Illness or Injury Outcome: Ongoing, Progressing Goal: Optimal Comfort and Wellbeing Outcome: Ongoing, Progressing Goal: Readiness for Transition of Care Outcome: Ongoing, Progressing Problem: Infection Goal: Absence of Infection Signs and Symptoms Outcome: Ongoing, Progressing Problem: Mobility Impairment Goal: Optimal Mobility Outcome: Ongoing, Progressing Problem: Fall Injury Risk Goal: Absence of Fall and Fall-Related Injury Outcome: Ongoing, Progressing * Progress Notes - Daneile Whittaker MBBS - 02/20/2025 11:58 AM EDT Images from the original note were not included. Hospital Medicine Progress Note Subjective Length of stay: 1 day Subjective Ms Royal seen with daughter at bedside this morning - reports feeling better although had an episode of vomiting this morning. Objective Objective Last Recorded Vitals Blood pressure (!) 151/66, pulse 53, temperature 36.8 ??C (98.3 ??F), temperature source Oral, resp. rate 18, height 1.626 m (5' 4 ), weight 138 kg (304 lb 7 oz), SpO2 94%. Physical Exam Constitutional: General: She is not in acute distress. Appearance: She is obese. She is ill-appearing. HENT: Nose: Nose normal. Eyes: Extraocular Movements: Extraocular movements intact. Pupils: Pupils are equal, round, and reactive to light. Cardiovascular: Rate and Rhythm: Normal rate and regular rhythm. Pulses: Normal pulses. Heart sounds: Normal heart sounds. No murmur heard. Pulmonary: Effort: Pulmonary effort is normal. No respiratory distress. Breath sounds: No rales. Comments: Bilateral decreased air entry with occasional rhonchi bilaterally. Abdominal: General: There is distension. Palpations: Abdomen is soft. There is no mass. Tenderness: There is no abdominal tenderness. There is no guarding. Musculoskeletal: Cervical back: Normal range of motion and neck supple. No rigidity. Right lower leg: Edema present. Left lower leg: Edema present. Comments: Bilateral chronic lymphedema, non-pitting, non-tender, no erythema Neurological: General: No focal deficit present. Mental Status: She is alert and oriented to person, place, and time. Mental status is at baseline. Cranial Nerves: No cranial nerve deficit. Sensory: No sensory deficit. Motor: No weakness. Coordination: Coordination normal. Psychiatric: Mood and Affect: Mood normal. Behavior: Behavior normal. Relevant Results Labs in last 18 hours CBC WBC 12.75 (H) Hb 9.5 (L) Plt 214 Hct 30.7 (L) BMP Na 138 Cl 98 BUN 22 Glu 200 (H) K 4.0 Co2 27 Cr 0.91 IMAGING (past 24h): CXR with bibasal lung opacities. Assessment/Plan Assessment & Plan Principal Problem: Altered mental status Alicia Royal is a 76 y.o. female with a h/o DM, CKD, asthma, JESSICA, and Afib on Xarelto, CAD s/p multiple stents, meningioma who presents with acute encephalopathy. This condition poses an acute threat to life/bodily function. Acute encephalopathy with concern for underlying infective process, possibly LLL CAP - improved - Presented to OSH with tachycardia, tachypnea, altered mental status and thought to have LLL pneumonia and administered 1 dose of Vanc and Zosyn. - On arrival to ED, found to have leukocytosis (16.7)., chronic hypercarbia with metabolic compensation. - CTH without acute intracranial process, showing known left frontal convexity meningioma. - CXR without evidence of consolidation. Pneumococcus, Legionella Ag negative, Nasopharyngeal panelnegative, Blood cx NGTD. MRSA nares pending. Plan: - Will continue empiric CAP coverage for now - IV Ceftriaxone and PO Azithromycin. De-escalate pending blood cultures. - Avoid opiods, benzos, anticholinergics. - Delirium precautions: lights on during the day, lights and tv off at night, frequent re-orientingto place, time and situation, encouragement of visitation by familiar people, and use of aides if hearing or vision impairment. Restraints should be minimized as much as possible given association with prolongation of delirium. 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 - VBG with pCO2 at 65 and Bicarb at 30. Plan: - Wean O2 to maintain sats 88 - 92% - Encourage use of CPAP - Duonebs q6h prn - Continue home inhalers CAD s/p multiple stents Afib - ECG: sinus bradycardia. No recent TTEs. - Continued home Rivaroxaban 20 mg and Atorvastatin 40 mg, holding metoprolol due to bradycardia. Unclear if currently on home diuretics. - TTE pending. T2DM - Home regimen: Insulin (70/30) 40 units BID - Insulin Glargine 10 units and SSI Left Frontal Convexity Meningoma - Currently no focal neurologic deficits - Will continue empiric Keppra 750 mg BID Chronic Lymphedema bilateral LE - No recent change in swelling or redness - Wells score 2; will hold off on LE duplex for now Chronic Medical Conditions: - Obesity: BMI 52.19 - Asthma: Home inhalers, Duonebs PRN - CKD: baseline creatinine 0.9 -1.1 - Dementia: Continue Donepezil and Memantine - Vit D Deficiency: Continue ergocalciferol D: Carb2 E: Monitor and replete prn F: PO DVT ppx: Rivaroxaban SANDRO Kunz PGY1 Internal Medicine/Neurology Cosigned by Kathie Naqvi MD at 02/21/2025 12:27 PM EDT Associated attestation - Kathie Naqvi MD - 02/21/2025 12:27 PM EDT I saw and evaluated the patient. I discussed the case with the resident/fellow and agree with the findings and plan as documented. Metabolic encephalopathy resolved * Care Plan - Kenneth Garcia RN - 02/20/2025 9:49 AM EDT Problem: Adult Inpatient Plan of Care Goal: Plan of Care Review Outcome: Ongoing, Not Progressing Goal: Patient-Specific Goal (Individualized) Outcome: Ongoing, Not Progressing Goal: Absence of Hospital-Acquired Illness or Injury Outcome: Ongoing, Not Progressing Goal: Optimal Comfort and Wellbeing Outcome: Ongoing, Not Progressing Goal: Readiness for Transition of Care Outcome: Ongoing, Not Progressing Problem: Infection Goal: Absence of Infection Signs and Symptoms Outcome: Ongoing, Not Progressing Problem: Mobility Impairment Goal: Optimal Mobility Outcome: Ongoing, Not Progressing Problem: Fall Injury Risk Goal: Absence of Fall and Fall-Related Injury Outcome: Ongoing, Not Progressing * Clinician Note - Lori Alva - 02/20/2025 8:31 AM EDT Physical Therapy Attempt Patient Name: Alicia Royal Today's Date: 02/20/2025 Patient was attempted to be seen by physical therapy 02/20/2025 for PT Evaluation however bedside care in progress. Physical therapy team will follow-up as schedule permits. Written by Lori Alva on 02/20/25 at 9:15 AM. * Care Plan - Albertina Ghosh - 02/20/2025 6:25 AM EDT Confused. 2 L NC- baseline. Nontele. Up with lift per daughter who was at bedside. Daughter lives with mother and takes care of her. Large BM overnight. Tylenol given for generalized pain. * H&P - Daniele Whittaker MBBS - 02/19/2025 11:18 AM EDTAssociated Order(s): Consult to [facility] Images from the original note were not included. [facility] Medicine History & Physical Consult to [facility] Consult performed by: Daniele Whittaker MBBS Consult ordered by: Benito Chakraborty MD Subjective 02/19/2025 Chief Complaint: Chief Complaint Patient presents with Altered Mental Status History Of Present Illness Alicia Royal is a 76 y.o. female with a h/o DM, CKD, asthma, JESSIAC, and Afib on Xarelto, CAD s/p multiple stents, meningioma who presents with acute encephalopathy. She reports that she was in her usual state of health until 02/17/2025, when she started having chills, rigors and feeling sick. She denies having fevers but she had not checked her temperature. She denies chest pain, shortness of breath, worsening cough, new expectoration. She denies abdominal pain, nausea, vomiting, diarrhea. She also does not have burning micturition, lower abdominal pain, incr eased frequency, or urgency. She says that she has some blurring of vision at baseline and this has not changed. She does not have a headache. She does not have new weakness, numbness on either side of her body. She denies swallowing difficulty, change in her voice, slurring of speech, drooping of her face. Denies pain while moving her neck. She states that she has some amount of shortness of breath at baseline and uses 2 L of oxygen at home during the day and night. She is largely bed-bound since 2020 after she apparently broke her foot. She also mentions that her daughter has reported that she frequently gets confused and has been known to talking inappropriately. She also endorses visual hallucinations and states that she sees flies. She does not have a history of alcohol use, smoking, illicit substance use. I reviewed prior records including her most recent ED note and most recent discharge summary Past Medical History Past Medical History[1] Surgical History Surgical History[2] Family History Family History[3] Social History Social History[4] Home Medications Current Outpatient Medications Medication Instructions acetaminophen (TYLENOL) 650 mg, Oral, Every 6 hours PRN albuterol (PROVENTIL) 2.5 mg, Nebulization, Every 6 hours PRN atorvastatin (LIPITOR) 40 mg, Oral, Nightly clindamycin (Cleocin) 300 MG capsule TAKE 1 CAPSULE BY MOUTH THREE TIMES DAILY FOR 7 DAYS DULoxetine (CYMBALTA) 60 mg, Oral, Every morning, Taken along side nightly 20mg duloxetine HYDROcodone-acetaminophen ([place]) 5-325 MG tablet No dose, route, or frequency recorded. insulin NPH-insulin regular (INSULIN NPH ISOPHANE & REGULAR HUMAN INJ) (70-30) 100 UNIT/ML SC injection vial 40 Units, Subcutaneous, 2 times daily levETIRAcetam (KEPPRA) 750 mg, Oral, 2 times daily magnesium oxide (Mag-Ox) 400 (240 Mg) MG tablet 1 tablet, Oral, Daily with lunch metFORMIN (Glucophage) 1000 MG tablet TAKE 1 TABLET TWICE DAILY WITH MEALS metoprolol succinate XL (TOPROL-XL) 50 mg, Oral, Every morning montelukast (Singulair) 10 MG tablet No dose, route, or frequency recorded. ofloxacin (Floxin) 0.3 % otic solution INSTILL 10 DROPS INTO AFFECTED EAR(S) ONCE DAILY pregabalin (Lyrica) 75 MG capsule No dose, route, or frequency recorded. promethazine-dextromethorphan (Phenergan-DM) 6.25-15 MG/5ML syrup TAKE 5 MLS BY MOUTH EVERY 4 HOURS rivaroxaban (XARELTO) 20 mg, Oral, Every evening Spiriva Respimat 1.25 MCG/ACT aerosol solution No dose, route, or frequency recorded. Symbicort 160-4.5 MCG/ACT inhaler 2 puffs, Inhalation, ZZ 2 times daily RT True Metrix Blood Glucose Test test strip No dose, route, or frequency recorded. Objective Blood pressure 115/85, pulse 76, temperature 36.7 ??C (98.1 ??F), temperature source Oral, resp. rate 13, weight 138 kg (304 lb 7.3 oz), SpO2 98%. Physical Exam Constitutional: General: She is not in acute distress. Appearance: She is obese. She is ill-appearing. HENT: Nose: Nose normal. Eyes: Extraocular Movements: Extraocular movements intact. Pupils: Pupils are equal, round, and reactive to light. Cardiovascular: Rate and Rhythm: Normal rate and regular rhythm. Pulses: Normal pulses. Heart sounds: Normal heart sounds. No murmur heard. Pulmonary: Effort: Pulmonary effort is normal. No respiratory distress. Breath sounds: No rales. Comments: Bilateral decreased air entry with occasional rhonchi bilaterally. Abdominal: General: There is distension. Palpations: Abdomen is soft. There is no mass. Tenderness: There is no abdominal tenderness. There is no guarding. Musculoskeletal: Cervical back: Normal range of motion and neck supple. No rigidity. Right lower leg: Edema present. Left lower leg: Edema present. Comments: Bilateral chronic lymphedema, non-pitting, non-tender, no erythema Neurological: General: No focal deficit present. Mental Status: She is alert and oriented to person, place, and time. Mental status is at baseline. Cranial Nerves: No cranial nerve deficit. Sensory: No sensory deficit. Motor: No weakness. Coordination: Coordination normal. Psychiatric: Mood and Affect: Mood normal. Behavior: Behavior normal. Data Labs personally reviewed CBC WBC 16.73 (H) Hb 10.6 (L) Plt 222 Hct 34.3 ANC 14.37 (H) INR 1.4 (H) BMP Na 139 Cl 97 BUN 23 Glu 249 (H) K 4.7 Co2 30 (H) Cr 1.07 Ca 9.0 iCa 4.6 Mg 2.0, LFT AST 13 AlkPhos 89 T Prot 6.7 ALK 7 (L) Bili 0.4 Alb ?? Imaging ECG personally reviewed, showing sinus bradycardia. CXR from OSH with questionable LLL opacity but film is rotated and overlying cardiac silhouette makes interpretation less reliable. CTH without acute intracranial process, showing known left frontal convexity meningioma. Assessment/Plan Assessment/ Plan Principal Problem: Altered mental status Alicia Royal is a 76 y.o. female with a h/o DM, CKD, asthma, JESSICA, and Afib on Xarelto, CAD s/p multiple stents, meningioma who presents with acute encephalopathy. This condition poses an acute threat to life/bodily function. Acute encephalopathy with concern for underlying infective process, possibly LLL CAP - Presented to OSH with tachycardia, tachypnea, altered mental status and thought to have LLL pneumonia and administered 1 dose of Vanc and Zosyn. - On arrival to ED, found to have leukocytosis (16.7)., chronic hypercarbia with metabolic compensation. - CXR from OSH with questionable LLL opacity but film is rotated and overlying cardiac silhouette makes interpretation less reliable. - CTH without acute intracranial process, showing known left frontal convexity meningioma. - Per prior documentation, patient has been having episodes of fluctuating mental status since several years. - Current change in mental status maybe related to an ongoing infective process, while CAP of the LLL is a possibility there is no clear exam or imaging finding that strongly suggests that this is the source. - It is also likely that transient encephalopathy could be related to chronic hypercarbia coupled with opioid use. Plan: - Nasopharyngeal respiratory panel - Will obtain Blood cultures, CRP, Procalcitonin, Strep and Legionella Ag and repeat CXR as part ofinfective workup - Will start empiric CAP coverage for now - IV Ceftriaxone and PO Azithromycin while work up is awaited. - Avoid opiods, benzos, anticholinergics. - Delirium precautions: lights on during the day, lights and tv off at night, frequent re-orientingto place, time and situation, encouragement of visitation by familiar people, and use of aides if hearing or vision impairment. Restraints should be minimized as much as possible given association with prolongation of delirium. Delirium may persist weeks to months after the initial insult. 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 - VBG with pCO2 at 65 and Bicarb at 30. Plan: - Wean O2 to maintain sats 88 - 92% - Encourage use of CPAP - Duonebs q6h prn - Continue home inhalers CAD s/p multiple stents Afib - ECG: sinus bradycardia. No recent TTEs. - Continued home Rivaroxaban 20 mg and Atorvastatin 40 mg, holding metoprolol due to bradycardia. Unclear if currently on home diuretics. - TTE ordered. T2DM - Home regimen: Insulin (70/30) 40 units BID - Started on Insulin Glargine 10 units and SSI for now Left Frontal Convexity Meningoma - Currently no focal neurologic deficits - Will continue empiric Keppra 750 mg BID Chronic Lymphedema bilateral LE - No recent change in swelling or redness - Wells score 2; will hold off on LE duplex for now Chronic Medical Conditions: - Obesity: BMI 52.19 - Asthma: Home inhalers, Duonebs PRN - CKD: baseline creatinine 0.9 -1.1 D: Carb2 E: Monitor and replete prn F: PO DVT ppx: Rivarpxaban Chronic Medical Conditions: SANDRO Kunz PGY1 Internal Medicine/Neurology Electronically Signed by: SANDRO Kunz - 02/19/2025 - 11:18 AM [1] Past Medical History: Diagnosis Date Morbid (severe) obesity due to excess calories (CMS/HCC) Morbidly obese Personal history of other endocrine, nutritional and metabolic disease History of type 2 diabetes mellitus [2] Past Surgical History: Procedure Laterality Date ANKLE SURGERY N/A Ankle Surgery from [facility] [3] Family History Problem Relation Name Age of Onset Heart disease Mother Heart disease Father [4] Social History Tobacco Use Smoking status: Never Smokeless tobacco: Never Substance Use Topics Alcohol use: No Drug use: Never Cosigned by Kathie Naqvi MD at 02/19/2025 2:54 PM EDT Associated attestation - Kathie Naqvi MD - 02/19/2025 2:54 PM EDT I saw and evaluated the patient. I discussed the case with the resident/fellow and agree with the findings and plan as documented. * Hospital Course - Shanon Abbott - 02/19/2025 10:05 AM EDT Alicia Royal is a 76 y.o. female with a h/o DM, CKD, asthma, JESSICA, and Afib on Xarelto, CAD s/p multiple stents, meningioma who presents with acute encephalopathy. She was transferred to from an outside hospital due to concern for LLL pneumonia although no clear source could be identifiedto confirm. She was treated with full course of antibiotics for CAP and discharged with resolution of encephalopathy. Unclear if there is a component of baseline fluctuations in mentation to be followed up outpatient. Encephalopathy with possible acute CAP - Presented to OSH with tachycardia, tachypnea, altered mental status and thought to have LLL pneumonia and administered 1 dose of Vanc and Zosyn. On arrival to ED, found to have leukocytosis (16.7)., chronic hypercarbia with metabolic compensation. - Per prior documentation, patient has been having episodes of fluctuating mental status since several years. It is also likely that transient encephalopathy could be related to chronic hypercarbia coupled with opioid use with more acute fluctuation related to a resolved infectious process given imp rovement. While CAP of the LLL is a possibility there was no clear exam or imaging finding to strongly confirm. - Received 3 days PO azithromycin. Transitioning IV Ceftriaxone to PO cefuroxime for 2 more days for a total of 5 days treatment. 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 - VBG with pCO2 at 65 and Bicarb at 30. - Discharged on home medications and 2 L/min requirement. CAD s/p multiple stents Afib - ECG: sinus bradycardia. - Continued home Rivaroxaban and Atorvastatin, discontinued metoprolol due to bradycardia. Unclear if currently on home diuretics. - Primary physician to order [facility] outpatient for further monitoring. 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 - HPI Chief Complaint Patient presents with Altered Mental Status HPI 76 yo F with T2DM, CKD, and atrial fibrillation on rivaroxaban, chronic debility presenting to ED from OSH for AMS in setting of pneumonia. Found by her daughter who lives with her with altered consciousness with a GCS of 11. Patient is reportedly GCS 15 at baseline. She was seen at an outside hospital initially were workup was completed that showed concerns for a left lower lobe pneumonia and leukocytosis concerning for underlying infection. She was given broad- spectrum antibiotics with vancomycin Zosyn and transferred to for further evaluation. On arrival patient is GCS 14 and unable to provide further history. She denies any chest pain, shortness of breath at this time. Patient History Past Medical History[1] Surgical History[2] Family History[3] Social History[4] Allergies: Allergies[5] Physical Exam ED Triage Vitals [02/19/25 0408] Temp Heart Rate Resp BP 36.6 ??C (97.8 ??F) 62 20 (!) 123/106 SpO2 Temp Source Heart Rate Source Patient Position 97 % Oral Monitor Lying BP Location FiO2 (%) Right arm -- Physical Exam Vitals and nursing note reviewed. Constitutional: General: She is not in acute distress. Appearance: She is well-developed. She is obese. She is ill-appearing (chronic). HENT: Head: Normocephalic and atraumatic. Eyes: Conjunctiva/sclera: Conjunctivae normal. Cardiovascular: Rate and Rhythm: Normal rate and regular rhythm. Heart sounds: No murmur heard. Pulmonary: Effort: Pulmonary effort is normal. No respiratory distress. Breath sounds: Normal breath sounds. Abdominal: Palpations: Abdomen is soft. Tenderness: There is no abdominal tenderness. Musculoskeletal: General: No swelling. Cervical back: Neck supple. Skin: General: Skin is warm and dry. Capillary Refill: Capillary refill takes less than 2 seconds. Neurological: General: No focal deficit present. Mental Status: She is alert. She is disoriented. Cranial Nerves: No cranial nerve deficit. Psychiatric: Mood and Affect: Mood normal. Shanna Coma Scale Score: 15 NIH Stroke Scale: 8 ED Course & MDM - Assessment: 79 y.o. female presents to ED with complaint of AMS, pneumonia. It should be noted that the chronicconditions includes chronic debility, afib on xarelto, T2DM, which currently is not at goal therapy. This complicates the clinical picture because it Comorbidities: may be exacerbating symptoms and increases the amount and complexity of data to be reviewed Differential Diagnosis: pneumonia, sepsis, ams, stroke, metabolic derangement, hypoglycemia, uti, infection, bacteremia In order to fully explore the differential diagnosis the following treatments and tests were ordered: All Other Orders Ordered Status Ordering Provider 02/19/25637 Consult to [facility] Once Specialty: Internal Medicine Provider: (Not yet assigned) LONNY Clement 02/19/25637 ED to floor bed request Once Acknowledged LONNY MCGOVERN 02/19/25620 CMP STAT Final result LONNY MCGOVERN 02/19/25620 Magnesium STAT Final result LONNY MCGOVERN 02/19/25620 CBC w/diff STAT Final result LONNY MCGOVERN 02/19/25620 PT-INR STAT In process LONNY MCGOVERN 02/19/25620 Anti Xa Level Unfractionated Heparin STAT In process LONNY MCGOVERN 02/19/25620 Hepatitis C Antibody - ED Once In process LONNY MCGOVERN 02/19/25620 ED Protocol - HIV 1/2 Antibody/Antigen Screen Once In process LONNY MCGOVERN 02/19/25621 ED HIV 1/2 Antibody/Antigen Screen w/Reflex to HIV 1/2 Differentiation PROCEDURE ONCE In process LONNY MCGOVERN To emergency department for evaluation of concerns of altered mental status in the setting of an infection. Outside hospital chart was personally reviewed and interpreted by me. Patient was evaluatedfor an initial GCS of 11 with a known baseline of GCS 15. There she had extensive altered mental status workup including CT imaging that was unremarkable and laboratory workup that showed a leukocytosis in the setting of patient's fever of 101. Chest x-ray concerning for left lower lobe pneumonia. She was started on broad-spectrum antibiotics including vancomycin and Zosyn for concerns of underlying sepsis. Based on her extensive medical history and need for admission she was transferred to for further evaluation. On arrival patient is GCS 14 which is still altered from her known baseline however does have improved clinical status from outside hospital presentation. Repeat laboratory workup was ordered in the emergency department with continual leukocytosis of 16.7. Based on her altered mental status likely we will need admission for continued IV antibiotics andworkup. I had interactive discussion with the hospital medicine team who were agreeable to evaluateand admit for further management. Clinical Impressions as of 02/19/25 0752 Altered mental status, unspecified altered mental status type Pneumonia of left lower lobe due to infectious organism Social Determinates of Health Risks (including Economic Stability, Education and level of understanding, Healthcare access and quality and concerning social factors): Lives far away Ultimately, this patient was Was admitted (Admission) The primary encounter diagnosis was Altered mental status, unspecified altered mental status type. A diagnosis of Pneumonia of left lower lobe due to infectious organism was also pertinent to this visit.. Patient believed to require admission for the listed diagnoses. The Internal Medicine service was consulted for admission and was agreeable to admit to Acute Floor (Med/Surg). ED Prescriptions None Disposition Admit - [1] Past Medical History: Diagnosis Date Morbid (severe) obesity due to excess calories (CMS/HCC) Morbidly obese Personal history of other endocrine, nutritional and metabolic disease History of type 2 diabetes mellitus [2] Past Surgical History: Procedure Laterality Date ANKLE SURGERY N/A Ankle Surgery from [facility] [3] Family History Problem Relation Name Age of Onset Heart disease Mother Heart disease Father [4] Tobacco Use Smoking status: Never Smokeless tobacco: Never Substance Use Topics Alcohol use: No Drug use: Never [5] Allergies Allergen Reactions Penicillins Unknown - Patient states they do not know rxn details Unknown, childhood allergy per daughter/caregiver Lonny Mcgovern MD Resident 02/19/25 0756 Cosigned by Benito Chakraborty MD at 02/19/2025 6:38 PM EDT Associated attestation - Benito Chakraborty MD - 02/19/2025 6:38 PM EDT I saw and evaluated the patient with the resident/fellow. I discussed the case with the resident/fellow and agree with the findings and plan as documented. * ED Triage Notes - Iona Fernando RN - 02/19/2025 3:42 AM EDT Patient arrives to [facility] via EMS from OSH. Patient's daughter called EMS for altered mental status, vomiting. Patient has hx of head bleed and has been bed bound for years now. Patient GCS 11 @ OSH, but has improved to GCS 15 on arrival to [facility]. documented in this encounter Plan of Treatment Scheduled Orders Name Type Priority Associated Diagnoses Orde r Schedule Respiratory Culture and Gram Stain Microbiology Routine Once (Lab) for 1 Occurrences starting 02/19/2025 until 02/19/2025 Scheduled Referrals Name Type Priority Associated Diagnoses Order Schedule Discharge Ambulatory referral to [facility] Referral Routine Altered mental status, unspecified altered mental status type 1 Occurrences starting 02/21/2025 until 08/25/2026 documented as of this encounter Procedures Procedure Name Priority Date/Time Associated Diagnosis Comments POCT GLUCOSE METER UNSOLICITED RESULTS Routine 02/21/2025 11:27 AM EDT POCT GLUCOSE METER UNSOLICITED RESULTS Routine 02/21/2025 7:47 AM EDT CBC W/O DIFFERENTIAL Routine 02/21/2025 5:37 AM EDT POCT GLUCOSE METER UNSOLICITED RESULTS Routine 02/20/2025 8:32 PM EDT POCT GLUCOSE METER UNSOLICITED RESULTS Routine 02/20/2025 5:16 PM EDT METHICILLIN RESISTANT STAPHYLOCOCCUS AUREUS (MRSA) BY PCR Routine 02/20/2025 1:01 PM EDT POCT GLUCOSE METER UNSOLICITED RESULTS Routine 02/20/2025 12:51 PM EDT POCT GLUCOSE METER UNSOLICITED RESULTS Routine 02/20/2025 8:49 AM EDT CBC W/O DIFFERENTIAL Routine 02/20/2025 1:27 AM EDT PHOSPHORUS, PLASMA Routine 02/20/2025 1: 27 AM EDT MAGNESIUM, PLASMA Routine 02/20/2025 1:2 7 AM EDT BASIC METABOLIC PANEL, PLASMA Routine 02/20/2025 1:27 AM EDT POCT GLUCOSE METER UNSOLICITED RESULTS Routine 02/19/2025 8:14 PM EDT POCT GLUCOSE METER UNSOLICITED RESULTS Routine 02/19/2025 4:32 PM EDT POCT GLUCOSE METER UNSOLICITED RESULTS Routine 02/19/2025 11:50 AM EDT XR CHEST 1 VIEW STAT 02/19/2025 10:18 AM EDT POCT GLUCOSE METER UNSOLICITED RESULTS Routine 02/19/2025 9:16 AM EDT ECG ADULT STAT 02/19/2025 9:04 AM EDT BLOOD CULTURE (AEROBIC/ANAEROBIC SET) Routine 02/19/2025 8:51 AM EDT BLOOD GAS PANEL, VENOUS Routine 02/20/20 8:51 AM EDT BLOOD CULTURE (AEROBIC/ANAEROBIC SET) Routine 02/19/2025 8:33 AM EDT STREPTOCOCCUS PNEUMONIAE AND LEGIONELLA URINARY ANTIGEN Routine 02/19/2025 8:32 AM EDT URINALYSIS WITH REFLEX MICROSCOPIC AND CULTURE Routine 02/19/2025 8:32 AM EDT URINE VERDUZCO PANEL Routine 02/19/2025 8:32 AM EDT URINALYSIS MICROSCOPIC FOR UA REFLEX Routine 02/19/2025 8:32 AM EDT SARS COV-2/COVID-19 BY PCR - RAPID Routine 02/19/2025 8:32 AM EDT NASOPHARYNGEAL RESPIRATORY PANEL Routine 02/19/2025 8:32 AM EDT MULTI DRUG RESISTANCE TEST Routine 02/19/2025 8:32 AM EDT URINALYSIS WITH REFLEX MICROSCOPIC Routine 02/19/2025 8:32 AM EDT ED HIV 1/2 ANTIBODY/ANTIGEN SCREEN WITH REFLEX TO HIV I/II DIFFERENTIATION STAT 02/19/2025 7:18 AM EDT TSH REFLEX FT4 Add-On 02/19/2025 7:18 AM EDT ED PROTOCOL HIV 1/2 ANTIBODY/ANTIGEN SCREEN W/REFLEX TO HIV 1/2 ANTIBODY DIFFERENTIATION STAT 02/19/2025 7:18 AM EDT PROCALCITONIN, PLASMA Add-On 02/19/2025 7:18 AM EDT HEPATITIS C ANTIBODY - ED W/REFLEX TO HCV QUANT PCR STAT 02/19/2025 7:18 AM EDT N-TERMINAL PROBNP, PLASMA Add-On 02/19/2025 7:18 AM EDT PROTHROMBIN TIME(PT) / INR STAT 02/19/2025 7:18 AM EDT ANTI XA LEVEL UNFRACTIONATED HEPARIN STAT 02/19/2025 7:18 AM EDT CBC WITH AUTO DIFFERENTIAL STAT 02/19/2025 7:18 AM EDT C-REACTIVE PROTEIN, PLASMA Add-On 02/19/2025 7:18 AM EDT MAGNESIUM, PLASMA STAT 02/19/2025 7:1 8 AM EDT HEMOGLOBIN A1C Add-On 02/19/2025 7:18 AM EDT COMPREHENSIVE METABOLIC PANEL, PLASMA STAT 02/19/2025 7:18 AM EDT documented in this encounter Results * (ABNORMAL) POCT glucose meter (02/21/2025 11:27 AM EDT) [facility] POCT Glucose 291(H) 74 - 99 mg/dL 02/21/2025 11:29 AM EDT [facility] Comment:Accuracy of a glucos e result obtained from a capillary whole blood specimen relies upon adequate, non-compromised capillary blood flow. If the capillary glucose result is not consistent with the patient's clinical signs and symptoms, glucose testing should be repeated with either an arterial or venous sample on the glucometer or sent to the main labortory for testing. Comment 02/21/2025 11:29 AM EDT [facility] [employer] Supervisor ID Ela Esteban 02/21/2025 11:29 AM EDT [facility] Device ID [id number] 02/21/2025 11:29 AM EDT [facility] Specimen Type POC Capillary 02/21/2025 11:29 AM EDT [facility] Blood Capillary blood specimen / Unknown 02/21/2025 11:27 AM EDT 02/21/2025 11:29 AM EDT Kathie Naqvi MD LAB POINT OF CA RE TEST DOCKED DEVICE UNSOLICITED RESULTS Final Result Performing Organization Address City/State/[facility] Co de Phone Number [facility] [address] [place] [address] * (ABNORMAL) POCT glucose meter (02/21/2025 7:47 AM EDT) POCT Glucose 258(H) 74 - 99 mg/dL 02/21/2025 7:48 AM EDT [facility] Comment:Accuracy of a glucos e result obtained from a capillary whole blood specimen relies upon adequate, non-compromised capillary blood flow. If the capillary glucose result is not consistent with the patient's clinical signs and symptoms, glucose testing should be repeated with either an arterial or venous sample on the glucometer or sent to the main labortory for testing. Comment 02/21/2025 7:48 AM EDT [facility] [employer] Mechan[employer] Supervisor ID Ela Esteban 02/21/2025 7:48 AM EDT [facility] Device ID [id number] 02/21/2025 7:48 AM EDT [facility] Specimen Type POC Capillary 02/21/2025 7:48 AM EDT [facility] Blood Capillary blood specimen / Unknown 02/21/2025 7:47 AM EDT 02/21/2025 7:48 AM EDT Kathie Naqvi MD LAB POINT OF CA RE TEST DOCKED DEVICE UNSOLICITED RESULTS Final Result [facility] [address] [place] [id number] * (ABNORMAL) CBC W/O Differential (02/21/2025 5:37 AM EDT) WBC Count 10.27 3.70 - 10.30 10*3/uL LAB HEMATOLOGY METHOD 02/21/2025 6:08 AM EDT [facility] RBC Count 4.00 3.90 - 5.20 10*6/uL LAB HEMATOLOGY METHOD 02/21/2025 6:08 AM EDT [facility] HGB 10.5(L) 11.2 - 15.7 g/dL LAB HEMATOLOGY METHOD 02/21/2025 6:08 AM EDT [facility] HCT 34.1 34.0 - 45.0 % LAB HEMATOLOGY METHOD 02/21/2025 6:08 AM EDT [facility] Platelet Count 213 155 - 369 10*3/uL LAB HEMATOLOGY METHOD 02/21/2025 6:08 AM EDT [facility] MCV 85 79 - 98 fL LAB HEMATOLOGY METHOD 02/21/2025 6:08 AM EDT [facility] MCH 26.3 26.0 - 32.0 pg LAB HEMATOLOGY METHOD 02/21/2025 6:08 AM EDT [facility] MCHC 30.8 30.7 - 35.5 g/dL LAB HEMATOLOGY METHOD 02/21/2025 6:08 AM EDT [facility] RDW 14.2 11.5 - 14.5 % LAB HEMATOLOGY METHOD 02/21/2025 6:08 AM EDT [facility] MPV 9.9 8.8 - 12.5 fL LAB HEMATOLOGY METHOD 02/21/2025 6:08 AM EDT [facility] nRBC 0.0 <=0.0 per 100 WBCs LAB HEMATOLOGY METHOD 02/21/2025 6:08 AM EDT [facility] Blood Venous blood specimen / Unknown Venipuncture / Unknown 02/21/2025 5:37 AM EDT 02/21/2025 5:53 AM EDT Kathie Naqvi MD LAB BLOOD ORDERABLES Fi nal Result Performing Organization Address City/[facility] Co de Phone Number [facility] [address] [place] [address] * (ABNORMAL) POCT glucose meter (02/20/2025 8:32 PM EDT) POCT Glucose 202(H) 74 - 99 mg/dL 02/20/2025 8:33 PM EDT [facility] Comment:Accuracy of a glucos e result obtained from a capillary whole blood specimen relies upon adequate, non-compromised capillary blood flow. If the capillary glucose result is not consistent with the patient's clinical signs and symptoms, glucose testing should be repeated with either an arterial or venous sample on the glucometer or sent to the main labortory for testing. Comment 02/20/2025 8:33 PM EDT [facility] Powerhouse Mechanic Supervisor ID Fariba Jean 025 8:33 PM EDT [facility] Device ID [id number] 02/20/2025 8:33 PM EDT [facility] Specimen Type POC Capillary 02/20/2025 8:33 PM EDT [facility] Blood Capillary blood specimen / Unknown 02/20/2025 8:32 PM EDT 02/20/2025 8:33 PM EDT Kathie Naqvi MD LAB POINT OF CA RE TEST DOCKED DEVICE UNSOLICITED RESULTS Final Result Performing Organization Address [facility] Co de Phone Number [facility] [address] [place] [address] * (ABNORMAL) POCT glucose meter (02/20/2025 5:16 PM EDT) POCT Glucose 220(H) 74 - 99 mg/dL 02/20/2025 5:23 PM EDT [facility] Comment:Accuracy of a glucos e result obtained from a capillary whole blood specimen relies upon adequate, non-compromised capillary blood flow. If the capillary glucose result is not consistent with the patient's clinical signs and symptoms, glucose testing should be repeated with either an arterial or venous sample on the glucometer or sent to the main labortory for testing. Comment 02/20/2025 5:23 PM EDT [facility] Powerhouse Mechan[employer] Supervisor ID Josue Cui 02/20/2025 5:23 PM EDT [facility] Device ID [id number] 02/20/2025 5:23 PM EDT [facility] Specimen Type POC Capillary 02/20/2025 5:23 PM EDT [facility] Blood Capillary blood specimen / Unknown 02/20/2025 5:16 PM EDT 02/20/2025 5:23 PM EDT Kathie Naqvi MD LAB POINT OF CA RE TEST DOCKED DEVICE UNSOLICITED RESULTS Final Result Performing Organization Address City/[facility]/ZIP Co de Phone Number [facility] [address] [place] [address] * Methicillin Resistant Staphylococcus aureus (MRSA) by PCR (02/20/2025 1:01 PM EDT) [facility] Methicillin Resistant Staphylococcus aureus (MRSA) by PCR Not Detected Not Detected 02/20/2025 2:50 PM EDT [facility] Swab Both anterior nares / Unknown Non-blood Collection / Unknown 02/20/2025 1:01 PM EDT 02/20/2025 1:26 PM EDT Narrative [facility] - 02/20/2025 2:50 PM EDT This test is FDA approved for use with nares swab specimens using the eSwabs. This test is used for clinical purposes. It should not be regarded as investigational or for research. This laboratory is certified under the Clinical Laboratory improvement Amendments of 1988 (CLIA-88 as qualified to perform high complexity clinical laboratory testing. Kathie Naqvi MD LAB MICROBIOLOGY - GENE RAL ORDERABLES Final Result [facility] [address] [place] [address] * (ABNORMAL) POCT glucose meter (02/20/2025 12:51 PM EDT) POCT Glucose 303(H) 74 - 99 mg/dL 02/20/2025 12:55 PM EDT [facility] Comment:Accuracy of a glucos e result obtained from a capillary whole blood specimen relies upon adequate, non-compromised capillary blood flow. If the capillary glucose result is not consistent with the patient's clinical signs and symptoms, glucose testing should be repeated with either an arterial or venous sample on the glucometer or sent to the main labortory for testing. Comment 02/20/2025 12:55 PM EDT [facility] Power[employer] Mechan[employer] Supervisor ID Josue Cui 02/20/2025 12:55 PM EDT [facility] Device ID [id number] 02/20/2025 12:55 PM EDT [facility] Specimen Type POC Capillary 02/20/2025 12:55 PM EDT [facility] Blood Capillary blood specimen / Unknown 02/20/2025 12:51 PM EDT 02/20/2025 12:55 PM EDT Kathie Naqvi MD LAB POINT OF CA RE TEST DOCKED DEVICE UNSOLICITED RESULTS Final Result [facility] [address] [place] [address] * (ABNORMAL) POCT glucose meter (02/20/2025 8:49 AM EDT) [facility] Signature POCT Glucose 263(H) 74 - 99 mg/dL 02/20/2025 8:55 AM EDT [facility] Comment:Accuracy of a glucos e result obtained from a capillary whole blood specimen relies upon adequate, non-compromised capillary blood flow. If the capillary glucose result is not consistent with the patient's clinical signs and symptoms, glucose testing should be repeated with either an arterial or venous sample on the glucometer or sent to the main labortory for testing. Comment 02/20/2025 8:55 AM EDT [facility] Power[employer] Mechan[employer] Supervisor ID Josue Cui 02/20/2025 8:55 AM EDT [facility] Device ID [id number] 02/20/2025 8:55 AM EDT [facility] Specimen Type POC Capillary 02/20/2025 8:55 AM EDT [facility] Blood Capillary blood specimen / Unknown 02/20/2025 8:49 AM EDT 02/20/2025 8:55 AM EDT us Kathie Naqvi MD LAB POINT OF CA RE TEST DOCKED DEVICE UNSOLICITED RESULTS Final Result Performing Organization Address City/[facility]/ZIP Co de Phone Number [facility] [address] [place] [address] * Phosphorus (02/20/2025 1:27 AM EDT) Phosphorus, Plasma 2.6 2.5 - 4.5 mg/dL 02/20/2025 2:06 AM EDT [facility] Blood Venous blood specimen / Unknown Venipuncture / Unknown 02/20/2025 1:27 AM EDT 02/20/2025 1:32 AM EDT Kathie Naqvi MD LAB BLOOD ORDERABLES Fi nal Result Performing Organization Address City/[facility]/ZIP Co de Phone Number [facility] [address] [place] [address] * Magnesium, Plasma (02/20/2025 1:27 AM EDT) Magnesium, Plasma 2.0 1.9 - 2.4 mg/dL 02/20/2025 2:06 AM EDT [facility] Blood Venous blood specimen / Unknown Venipuncture / Unknown 02/20/2025 1:27 AM EDT 02/20/2025 1:32 AM EDT Kathie Naqvi MD LAB BLOOD ORDERABLES Fi nal Result Performing Organization Address City/[facility]/ZIP Co de Phone Number [facility] [address] [place] [address] * (ABNORMAL) Basic metabolic panel (02/20/2025 1:27 AM EDT) Glucose, Plasma 200(H) 74 - 99 mg/dL 02/20/2025 2:06 AM EDT [facility] BUN, Plasma 22 8 - 23 mg/dL 02/20/2025 2:06 AM EDT [facility] Creatinine, Plasma 0.91 0.60 - 1.10 mg/dL 02/20/2025 2:06 AM EDT [facility] BUN/Creatinine Ratio 24 02/20/2025 2:06 AM EDT [facility] Sodium, Plasma 138 136 - 145 mmol/L 02/20/2025 2:06 AM EDT [facility] Potassium, Plasma 4.0 3.6 - 4.9 mmol/L 02/20/2025 2:06 AM EDT [facility] Chloride, Plasma 98 97 - 107 mmol/L 02/20/2025 2:06 AM EDT [facility] CO2, Plasma 27 22 - 29 mmol/L 02/20/2025 2:06 AM EDT [facility] Anion Gap 13 6 - 16 mmol/L 02/20/2025 2:06 AM EDT [facility] Total Calcium, Plasma 9.1 8.9 - 10.2 mg/dL 02/20/2025 2:06 AM EDT [facility] eGFRcr 64.7 mL/min/1.7 3m*2 02/20/2025 2:06 AM EDT [facility] Comment:Reported eGFRcr in m L/min/1.73m2 is based the CKD-EPI 2020 equation that does not use a race coefficient. Blood Venous blood specimen / Unknown Venipuncture / Unknown 02/20/2025 1:27 AM EDT 02/20/2025 1:32 AM EDT Kathie Naqvi MD LAB BLOOD ORDERABLES Fi nal Result [facility] [address] [place] [address] * (ABNORMAL) CBC (02/20/2025 1:27 AM EDT) WBC Count 12.75(H) 3.70 - 10.30 10*3/uL LAB HEMATOLOGY METHOD 02/20/2025 1:43 AM EDT [facility] RBC Count 3.61(L) 3.90 - 5.20 10*6/uL LAB HEMATOLOGY METHOD 02/20/2025 1:43 AM EDT [facility] HGB 9.5(L) 11.2 - 15.7 g/dL LAB HEMATOLOGY METHOD 02/20/2025 1:43 AM EDT [facility] HCT 30.7(L) 34.0 - 45.0 % LAB HEMATOLOGY METHOD 02/20/2025 1:43 AM EDT [facility] Platelet Count 214 155 - 369 10*3/uL LAB HEMATOLOGY METHOD 02/20/2025 1:43 AM EDT [facility] MCV 85 79 - 98 fL LAB HEMATOLOGY METHOD 02/20/2025 1:43 AM EDT [facility] MCH 26.3 26.0 - 32.0 pg LAB HEMATOLOGY METHOD 02/20/2025 1:43 AM EDT [facility] MCHC 30.9 30.7 - 35.5 g/dL LAB HEMATOLOGY METHOD 02/20/2025 1:43 AM EDT [facility] RDW 14.6(H) 11.5 - 14.5 % LAB HEMATOLOGY METHOD 02/20/2025 1:43 AM EDT [facility] MPV 9.9 8.8 - 12.5 fL LAB HEMATOLOGY METHOD 02/20/2025 1:43 AM EDT [facility] nRBC 0.0 <=0.0 per 100 WBCs LAB HEMATOLOGY METHOD 02/20/2025 1:43 AM EDT [facility] Blood Venous blood specimen / Unknown Venipuncture / Unknown 02/20/2025 1:27 AM EDT 02/20/2025 1:33 AM EDT us Kathie Naqvi MD LAB BLOOD ORDERABLES Fi nal Result [facility] [address] [place] [address] * (ABNORMAL) POCT glucose meter (02/19/2025 8:14 PM EDT) POCT Glucose 180(H) 74 - 99 mg/dL 02/19/2025 8:16 PM EDT [facility] Comment:Accuracy of a glucos e result obtained from a capillary whole blood specimen relies upon adequate, non-compromised capillary blood flow. If the capillary glucose result is not consistent with the patient's clinical signs and symptoms, glucose testing should be repeated with either an arterial or venous sample on the glucometer or sent to the main labortory for testing. Comment 02/19/2025 8:16 PM EDT [facility] [employer] Supervisor ID Fariba Jean 025 8:16 PM EDT [facility] Device ID [id number] 02/19/2025 8:16 PM EDT [facility] Specimen Type POC Capillary 02/19/2025 8:16 PM EDT [facility] Blood Capillary blood specimen / Unknown 02/19/2025 8:14 PM EDT 02/19/2025 8:16 PM EDT Kathie Naqvi MD LAB POINT OF CA RE TEST DOCKED DEVICE UNSOLICITED RESULTS Final Result Performing Organization Address City/State/[facility] Co de Phone Number HEALTHCARE LAB [address] [place] [address] * (ABNORMAL) POCT glucose meter (02/19/2025 4:32 PM EDT) [facility] Signature POCT Glucose 193(H) 74 - 99 mg/dL 02/19/2025 4:34 PM EDT [facility] Comment:Accuracy of a glucos e result obtained from a capillary whole blood specimen relies upon adequate, non-compromised capillary blood flow. If the capillary glucose result is not consistent with the patient's clinical signs and symptoms, glucose testing should be repeated with either an arterial or venous sample on the glucometer or sent to the main labortory for testing. Comment 02/19/2025 4:34 PM EDT [facility] Powerhouse Mechanic Supervisor ID Bridget Cordon 4:34 PM EDT [facility] LAB Device ID [id number] 02/19/2025 4:34 PM EDT [facility] Specimen Type POC Capillary 02/19/2025 4:34 PM EDT [facility] Blood Capillary blood specimen / Unknown 02/19/2025 4:32 PM EDT 02/19/2025 4:34 PM EDT Kathie Naqvi MD LAB POINT OF CA RE TEST DOCKED DEVICE UNSOLICITED RESULTS Final Result Performing Organization Address [facility] de Phone Number HEALTHCARE LAB [address] [place] [address] * (ABNORMAL) POCT glucose meter (02/19/2025 11:50 AM EDT) POCT Glucose 209(H) 74 - 99 mg/dL 02/19/2025 11:52 AM EDT [facility] Comment:Accuracy of a glucos e result obtained from a capillary whole blood specimen relies upon adequate, non-compromised capillary blood flow. If the capillary glucose result is not consistent with the patient's clinical signs and symptoms, glucose testing should be repeated with either an arterial or venous sample on the glucometer or sent to the main labortory for testing. Comment 02/19/2025 11:52 AM EDT [facility] Power[employer] Mechan[employer] Supervisor ID Bridget Cordon 11:52 AM EDT [facility] Device ID [id number] 02/19/2025 11:52 AM EDT [facility] Specimen Type POC Capillary 02/19/2025 11:52 AM EDT [facility] Blood Capillary blood specimen / Unknown 02/19/2025 11:50 AM EDT 02/19/2025 11:52 AM EDT Kathie Naqvi MD LAB POINT OF CA RE TEST DOCKED DEVICE UNSOLICITED RESULTS Final Result Performing Organization Address [facility] de Phone Number [facility] [address] [place] [address] * XR Chest 1 View (02/19/2025 10:18 AM EDT) Anatomical Region Laterality Modality Chest Digital Radiogra phy Impressions 02/19/2025 11:10 AM EDT Similar bibasal lung opacities which may represent atelectasis. No new lung consolidation. CRITICAL RESULT: No. COMMUNICATION: Per this written report. Drafted by Grady Jefferson MD on 02/19/2025 11:06 AM Final report signed by Grady Jefferson MD on 02/19/2025 11:10 AM Narrative 02/19/2025 11:10 AM EDT CLINICAL INDICATION: Concern for Pneumonia TECHNIQUE: Single AP view of chest. COMPARISON: Outside radiograph from 10 hours prior FINDINGS: The cardiomediastinal contours are unchanged. No pneumothorax. Trace pleural effusions. Persistent low lung volume. Similar bibasal lung opacities which may represent atelectasis. No new lung consolidation. Procedure Note Grady Jefferson MD - 02/19/2025 CLINICAL INDICATION: Concern for Pneumonia TECHNIQUE: Single AP view of chest. COMPARISON: Outside radiograph from 10 hours prior FINDINGS: The cardiomediastinal contours are unchanged. No pneumothorax. Tracepleural effusions. Persistent low lung volume. Similar bibasal lungopacities which may represent atelectasis. No new lung consolidation. IMPRESSION: Similar bibasal lung opacities which may represent atelectasis. No newlung consolidation. CRITICAL RESULT: No. COMMUNICATION: Per this written report. Drafted by Grady Jefferson MD on 02/19/2025 11:06 AM Final report signed by Grady Jefferson MD on 02/19/2025 11:10 AM Kathie Naqvi MD IMG XR PROCEDURES Final Result * (ABNORMAL) POCT glucose meter (02/19/2025 9:16 AM EDT) POCT Glucose 210(H) 74 - 99 mg/dL 02/19/2025 9:18 AM EDT [facility] Comment:Accuracy of a glucos e result obtained from a capillary whole blood specimen relies upon adequate, non-compromised capillary blood flow. If the capillary glucose result is not consistent with the patient's clinical signs and symptoms, glucose testing should be repeated with either an arterial or venous sample on the glucometer or sent to the main labortory for testing. Comment 02/19/2025 9:18 AM EDT [facility] Powerhouse Mechanic Supervisor ID Rekha Diaz 02/20/20 9:18 AM EDT [facility] Device ID [id number] 02/19/2025 9:18 AM EDT [facility]ALTH[facility]ARE LAB Specimen Type POC Capillary 02/19/2025 9:18 AM EDT [facility] Blood Capillary blood specimen / Unknown 02/19/2025 9:16 AM EDT 02/19/2025 9:18 AM EDT Kathie Naqvi MD LAB POINT OF CA RE TEST DOCKED DEVICE UNSOLICITED RESULTS Final Result [facility] [address] [place] [address] * ECG Adult (02/19/2025 9:04 AM EDT) EKG DIAGNOSIS CLASS Abnormal MUSE ECG Ventricular Rate 57 BPM MUSE ECG Atrial Rate 57 BPM MUSE ECG QRSD Interval 110 ms MUSE ECG QT Interval 460 ms MUSE ECG QTC Interval 447 ms MUSE ECG P [place] 68 degrees MUSE ECG R [place] 0 degrees MUSE ECG T Wave [place] 55 degrees MUSE ECG Diagnosis Atrial fibrillation MUSE ECG Diagnosis Minimal voltage criteria for LVH, may be normal variant ( Humza product ) MUSE ECG Diagnosis Borderline ECG MUSE ECG Diagnosis MUSE ECG Diagnosis Confirmed by Dennis Barker ([id number]) on 02/19/2025 3:19:10 PM MUSE ECG 02/19/2025 9:04 AM EDT 02/19/2025 3:19 PM EDT Kathie Naqvi MD ECG ORDERABLES Final R esult MUSE ECG * Blood Culture (Aerobic/Anaerobet Set) (02/19/2025 8:51 AM EDT) Culture No growth at day 5 02/24/2025 10:01 AM EDT [facility] Blood Structure of left hand / Unknown Venipuncture / Unknown 02/19/2025 8:51 AM EDT 02/19/2025 9:31 AM EDT Narrative [facility] - 02/24/2025 10:01 AM EDT Low blood volume submitted, results may be compromised Kathie Naqvi MD LAB MICROBIOLOGY - GENE RAL ORDERABLES Final Result [facility] [address] [place] [address] * (ABNORMAL) Blood gas panel, venous (02/19/2025 8:51 AM EDT) pH, Venous 7.37 7.32 - 7.43 LAB HEMATOLOGY METHOD 02/19/2025 9:23 AM EDT [facility] pCO2, Venous 65(HH) 37 - 52 mmHg LAB HEMATOLOGY METHOD 02/19/2025 9:23 AM EDT [facility] pO2, Venous 24(L) 25 - 40 mmHg LAB HEMATOLOGY METHOD 02/19/2025 9:23 AM EDT [facility] SO2, Measured, Venous 38(L) 65 - 80 % LAB HEMATOLOGY METHOD 02/19/2025 9:23 AM EDT [facility] Base Excess, Venous 10.0(H) -2.0 - 3.0 mmol/L LAB HEMATOLOGY METHOD 02/19/2025 9:23 AM EDT [facility] Bicarbonate, Calculated, Venous 37(H) 22 - 26 mmol/L LAB HEMATOLOGY METHOD 02/19/2025 9:23 AM EDT [facility] Hematocrit, Whole Blood 32.9(L) 34.0 - 45.0 % LAB HEMATOLOGY METHOD 02/19/2025 9:23 AM EDT [facility] Sodium, Whole Blood 141 136 - 145 mmol/L LAB HEMATOLOGY METHOD 02/19/2025 9:23 AM EDT [facility] Potassium, Whole Blood 4.3 3.6 - 4.9 mmol/L LAB HEMATOLOGY METHOD 02/19/2025 9:23 AM EDT [facility] Chloride, Whole Blood 95(L) 97 - 107 mmol/L LAB HEMATOLOGY METHOD 02/19/2025 9:23 AM EDT [facility] Glucose, Whole Blood 247(H) 74 - 99 mg/dL LAB HEMATOLOGY METHOD 02/19/2025 9:23 AM EDT [facility] Lactate, Venous, Whole Blood 1.5 0.5 - 2.2 mmol/L LAB HEMATOLOGY METHOD 02/19/2025 9:23 AM EDT [facility] Ionized Calcium, Whole Blood 4.6 4.6 - 5.1 mg/dL LAB HEMATOLOGY METHOD 02/19/2025 9:23 AM EDT [facility] Blood Venous blood specimen / Unknown Venipuncture / Unknown 02/19/2025 8:51 AM EDT 02/19/2025 8:58 AM EDT Kathie Naqvi MD LAB BLOOD ORDERABLES Fi nal Result Performing Organization Address City/[facility]/ZIP Co de Phone Number [facility] [address] [place] [address] * Blood Culture (Aerobic/Anaerobet Set) (02/19/2025 8:33 AM EDT) Culture No growth at day 5 02/24/2025 9:47 AM EDT [facility] Blood Upper limb structure / Unknown Venipuncture / Unknown 02/19/2025 8:33 AM EDT 02/19/2025 9:31 AM EDT Narrative [facility] - 02/24/2025 9:47 AM EDT Low blood volume submitted, results may be compromised Kathie Naqvi MD LAB MICROBIOLOGY - GENE RAL ORDERABLES Final Result Performing Organization Address City/[facility]/[place] [address] * Urinalysis Microscopic Examination (02/19/2025 8:32 AM EDT) Urine Urine specimen obtained by clean catch procedure / Unknown Non-blood Collection / Unknown 02/19/2025 8:32 AM EDT 02/19/2025 8:55 AM EDT Kathie Naqvi MD LAB URINE ORDERABLES Fi nal Result Performing Organization Address City/[facility]/[place] [address] * Urine Verduzco Panel (02/19/2025 8:32 AM EDT) Extra Reflex urine culture not indicated 02/19/2025 11:02 AM EDT [facility] Urine Urine specimen obtained by clean catch procedure / Unknown Non-blood Collection / Unknown 02/19/2025 8:32 AM EDT 02/19/2025 9:03 AM EDT Kathie Naqvi MD LAB URINE ORDERABLES Fi nal Result [facility] [address] [place] [address] * (ABNORMAL) Urinalysis with reflex microscopic (Culture NOT Included) (02/19/2025 8:32 AM EDT) Color, Urine Yellow LAB URINALYSIS - AUTOMATED METHOD 02/19/2025 9:23 AM EDT [facility] Clarity, Urine Clear LAB URINALYSIS - AUTOMATED METHOD 02/19/2025 9:23 AM EDT [facility] Spec [place], Urine >1.030(H) 1.005 - 1.030 LAB URINALYSIS - AUTOMATED METHOD 02/19/2025 9:23 AM EDT [facility] pH, Urine 6.5 5.0 - 8.0 LAB URINALYSIS - AUTOMATED METHOD 02/19/2025 9:23 AM EDT [facility] Protein, Urine Trace(A) Negative mg/dL LAB URINALYSIS - AUTOMATED METHOD 02/19/2025 9:23 AM EDT [facility] Glucose, Urine Negative Negative mg/dL LAB URINALYSIS - AUTOMATED METHOD 02/19/2025 9:23 AM EDT [facility] Ketones, Urine Trace(A) Negative mg/dL LAB URINALYSIS - AUTOMATED METHOD 02/19/2025 9:23 AM EDT [facility] Blood, Urine Trace(A) Negative LAB URINALYSIS - AUTOMATED METHOD 02/19/2025 9:23 AM EDT [facility] Bilirubin, Urine Negative Negative LAB URINALYSIS - AUTOMATED METHOD 02/19/2025 9:23 AM EDT [facility] Urobilinogen, Urine 0.2 0.2 to 1.0 mg/dL LAB URINALYSIS - AUTOMATED METHOD 02/19/2025 9:23 AM EDT [facility] Leukocytes, Urine Negative Negative LAB URINALYSIS - AUTOMATED METHOD 02/19/2025 9:23 AM EDT [facility] Nitrite, Urine Negative Negative LAB URINALYSIS - AUTOMATED METHOD 02/19/2025 9:23 AM EDT [facility] RBC, Urine 4 - 10(A) 0 to 3 /HPF LAB URINALYSIS - AUTOMATED METHOD 02/19/2025 9:23 AM EDT [facility] Comment:This result was prev iously suppressed from the chart. WBC, Urine 0 - 5 0 to 5 /HPF LAB URINALYSIS - AUTOMATED METHOD 02/19/2025 9:23 AM EDT [facility] Comment:This result was prev iously suppressed from the chart. Squamous Epithelial Cells 0 - 2 0 to 5 /HPF LAB URINALYSIS - AUTOMATED METHOD 02/19/2025 9:23 AM EDT [facility] Comment:This result was prev iously suppressed from the chart. Hyaline Casts 0 - 2 0 to 5 /LPF LAB URINALYSIS - AUTOMATED METHOD 02/19/2025 9:23 AM EDT [facility] Comment:This result was prev iously suppressed from the chart. Bacteria, Urine Negative Negative LAB URINALYSIS - AUTOMATED METHOD 02/19/2025 9:23 AM EDT [facility] Comment:This result was prev iously suppressed from the chart. Urine Urine specimen obtained by clean catch procedure / Unknown Non-blood Collection / Unknown 02/19/2025 8:32 AM EDT 02/19/2025 8:55 AM EDT Kathie Naqvi MD LAB URINE ORDERABLES Fi nal Result [facility] [address] [place] [address] * SARS CoV-2/COVID-19 by PCR - Rapid (02/19/2025 8:32 AM EDT) SARS CoV-2/COVID-1 9 RNA PCR Result Not Detected Not Detected 02/19/2025 10:38 AM EDT [facility] Swab Nasopharyngeal structure / Unknown Non-blood Collection / Unknown 02/19/2025 8:32 AM EDT 02/19/2025 9:37 AM EDT Narrative [facility] - 02/19/2025 10:38 AM EDT This test is FDA approved for use with nasopharyngeal specimens in Viral Transport Media (VTM). This test is used for clinical purposes. It should not be regarded as investigational or for research. This laboratory is certified under the Clinical Laboratory improvement Amendments of 1988 (CLIA-88 as qualified to perform high complexity clinical laboratory testing. This test was performed on the Xpert Xpress SARS CoV-2 Plus assay test, a PCR- based method. Negative results should be considered presumptive and do not preclude current or future infection obtained through community transmission or other exposures. Negative results must be considered in the context of an individual's recent exposures, history, presence of clinical signs and symptoms consistent with COVID-19. Kathie Naqvi MD LAB MICROBIOLOGY - [facility] ORDERABLES Final Result [facility] [address] [place] [address] * Nasopharyngeal Respiratory Panel (02/19/2025 8:32 AM EDT) Nasopharyngeal Respiratory PCR Interpretation Not Detected for all analytes Not Detected for all analytes 02/19/2025 11:40 AM EDT [facility] Swab Nasopharyngeal structure / Unknown Non-blood Collection / Unknown 02/19/2025 8:32 AM EDT 02/19/2025 9:37 AM EDT Narrative [facility] - 02/19/2025 11:40 AM EDT This assay can detect Adenovirus, Coronavirus, Human Metapneumovirus, Human Rhino/Enterovirus, Influenza A, Influenza A H1, Influenza A H1 2009, Influenza A H3, Influenza B, Parainfluenza Virus 1, Parainfluenza Virus 2, Parainfluenza Virus 3, Parainfluenza Virus 4, Respiratory Syncytial Virus A, Respiratory Syncytial Virus B, Chlamydia pneumoniae, and Mycoplasma pneumoniae. Note: This assay does NOT detect SARS/CoV, novel Coronavirus 2019-nCoV, Bordetella pertussis or Bordetella parapertussis. Nasopharyngeal Respiratory PCR Panel is performed using the [employer] ePlex instrument. This test is FDA approved for use with Nasopharyngeal swabs only. This test is used for clinical purposes. It should not be regarded as investigational or for research. The [facility] is certified under the Clinical Laboratory Improvement Amendments of 1988 (CLIA-88) as qualified to perform high complexity clinical laboratory testing. Kathie Navqi MD LAB MICROBIOLOGY - GENE RAL ORDERABLES Final Result Performing Organization Address [facility] [place] [address] * Streptococcus pneumoniae and Legionella Urinary Antigen (02/19/2025 8:32 AM EDT) Legionella pneumophila serogroup 1 Antigen Result (Urine) Negative Negative 02/20/2025 6:20 AM EDT [facility] Streptococcus pneumoniae Antigen Result (Urine) Negative Negative 02/20/2025 6:20 AM EDT [facility] Urine Urine specimen obtained by clean catch procedure / Unknown Non-blood Collection / Unknown 02/19/2025 8:32 AM EDT 02/19/2025 9:36 AM EDT Kathie Naqvi MD LAB MICROBIOLOGY - GENE RAL ORDERABLES Final Result Performing Organization Address [facility] [place] [address] * Multi Drug Resistance Test (02/19/2025 8:32 AM EDT) Culture No growth at day 1 02/20/2025 11:17 AM EDT [facility] Swab (Nares and Theodora Rectal) Non-blood Collection / Unknown 02/19/2025 8:32 AM EDT 02/19/2025 9:37 AM EDT Narrative [facility] - 02/20/2025 11:17 AM EDT This test was developed and its performance characteristics determined by the [facility]. Although the media is FDA-approved, it is not FDA-approved for all specimen types submitted. The FDA has determined that such clearance or approval is not necessary. This test is used for surveillance purposes. It should not be regarded as investigational or for research. The [facility] is certified under the Clinical Laboratory Improvement Amendments of 1988 (CLIA-88) as qualified to perform high complexity clinical laboratory testing. Kathie Naqvi MD LAB MICROBIOLOGY - GENE RAL ORDERABLES Final Result Performing Organization Address [facility] [place] [address] * (ABNORMAL) C-reactive protein (02/19/2025 7:18 AM EDT) CRP, Plasma 38.1(H) <=8.0 mg/L 02/19/2025 10:10 AM EDT [facility] Blood Venous blood specimen / Unknown Venipuncture / Unknown 02/19/2025 7:18 AM EDT 02/19/2025 7:22 AM EDT Narrative [facility] - 02/19/2025 10:10 AM EDT This CRP test is appropriate for assessment of infection, systemic inflammation and/or tissue injury. To assess cardiovascular disease risk order high sensitivity CRP (CRPH). Kathie Naqvi MD LAB BLOOD ORDERABLES Fi nal Result Performing Organization Address [facility] [place] [place] [address] * (ABNORMAL) Procalcitonin (02/19/2025 7:18 AM EDT) Procalcitonin, Plasma 0.10(H) <0.09 ng/mL 02/19/2025 10:10 AM EDT [facility] Blood Venous blood specimen / Unknown Venipuncture / Unknown 02/19/2025 7:18 AM EDT 02/19/2025 7:22 AM EDT Narrative [facility] - 02/19/2025 10:10 AM EDT Procalcitonin concentrations in healthy individuals are <0.09 ng/mL. Published data support the following interpretive risk assessment: An elevated procalcitonin result does not always indicate sepsis. Various non-infectious conditions are known to increase procalcitonin. Results should be considered in the context of clinical symptoms and other laboratory tests. Procalcitonin >2.0 ng/mL: Concentrations >2.0 ng/mL on the first day of ICU admission are associated with a higher risk of progression to severe sepsis and/or septic shock. The change in PCT over time may help predict 28 day mortality risk. Please consult www.frlkbc-get-[email or web address] for more information. Test performed at [facility], [facility] Laboratory. Kathie Naqvi MD LAB BLOOD ORDERABLES Fi nal Result Performing Organization Address City/[facility]/[place] [address] * (ABNORMAL) N-Terminal Probnp, Plasma (02/19/2025 7:18 AM EDT) N-Terminal, PROBNP, Plasma 2,448(H) 0 - 1,799 pg/mL 02/19/2025 8:58 AM EDT [facility] Blood Venous blood specimen / Unknown Venipuncture / Unknown 02/19/2025 7:18 AM EDT 02/19/2025 7:22 AM EDT Kathie Naqvi MD LAB BLOOD ORDERABLES Fi nal Result Performing Organization Address City/[facility]/ZIP Co de Phone Number [facility] [address] [place] [address] * (ABNORMAL) Hemoglobin A1c (02/19/2025 7:18 AM EDT) Hemoglobin A1c 7.4(H) <5.7 % 02/19/2025 11:39 AM EDT [facility] Blood Venous blood specimen / Unknown Venipuncture / Unknown 02/19/2025 7:18 AM EDT 02/19/2025 7:22 AM EDT Narrative [facility] - 02/19/2025 11:39 AM EDT HA1C Interpretive Data: Diagnosis of Diabetes: Diabetic > or = 6.5% Pre-diabetic 5.7 to 6.4% Non-diabetic < or = 5.6% Glycemic Targets for Type I and Type II Diabetics: Non- Adults <7.0% Adults <6.0% Children and Adolescents <7.5% Source: [place] [employer]. Standards of medical care in diabetes,2017. Diabetes Care.2017:40 (suppl 1):S1-S135. Kathie Naqvi MD LAB BLOOD ORDERABLES Fi nal Result Performing Organization Address [facility] de Phone Number [facility] [address] [place] [address] * TSH Reflex FT4 (02/19/2025 7:18 AM EDT) Thyroid Stimulating Hormone, Plasma 0.63 0.40 - 4.20 uIU/mL 02/19/2025 8:58 AM EDT [facility] Blood Venous blood specimen / Unknown Venipuncture / Unknown 02/19/2025 7:18 AM EDT 02/19/2025 7:22 AM EDT Kathie Naqvi MD LAB BLOOD ORDERABLES Fi nal Result Performing Organization Address [facility] de Phone Number [facility] [address] [place] [address] * ED HIV 1/2 Antibody/Antigen Screen w/Reflex to HIV 1/2 Differentiation (02/19/2025 7:18 AM EDT) Pathologist [facility] HIV 1 & 2 Antibody/Antigen Screen Non Reactive Non Reactive 02/19/2025 8:28 AM EDT [facility] Comment:Screening for HIV 1 & 2 antibodies, and P24 antigen is NONREACTIVE. No confirmatory testing is required. Blood Venous blood specimen / Unknown Venipuncture / Unknown 02/19/2025 7:18 AM EDT 02/19/2025 7:49 AM EDT Benito Chakraborty MD LAB BLOOD ORDERABLES Final Resu lt Performing Organization Address City/[facility]/ZIP Co de Phone Number [facility] [address] [place] [address] * Hepatitis C Antibody - ED (02/19/2025 7:18 AM EDT) Hepatitis C Antibody Negative Negative 02/19/2025 8:32 AM EDT [facility] Blood Venous blood specimen / Unknown Venipuncture / Unknown 02/19/2025 7:18 AM EDT 02/19/2025 7:49 AM EDT us Benito Chakraborty MD LAB BLOOD ORDERABLES Final Resu lt Performing Organization Address [facility] Co de Phone Number [facility] [address] [place] [address] * Anti Xa Level Unfractionated Heparin (02/19/2025 7:18 AM EDT) Anti Xa Level Unfractionated Heparin 0.86 <1.00 IU/mL 02/19/2025 8:01 AM EDT [facility] Blood Venous blood specimen / Unknown Venipuncture / Unknown 02/19/2025 7:18 AM EDT 02/19/2025 7:22 AM EDT Narrative [facility] - 02/19/2025 8:01 AM EDT Therapeutic Range: UFH Full Dose and ACS/NH protocols*: 0.30 - 0.70 IU/mL UFH Low Dose protocol*: 0.25 - 0.50 IU/mL UFH prophylaxis: Not established us Benito Chakraborty MD LAB BLOOD ORDERABLES Final Resu lt Performing Organization Address City/[facility]/ZIP Co de Phone Number [facility] [address] [place] [address] * (ABNORMAL) PT-INR (02/19/2025 7:18 AM EDT) Prothrombin Time 16.6(H) 12.0 - 14.3 sec 02/19/2025 7:59 AM EDT [facility] INR 1.4(H) 0.9 - 1.1 02/19/2025 7:59 AM EDT [facility] Blood Venous blood specimen / Unknown Venipuncture / Unknown 02/19/2025 7:18 AM EDT 02/19/2025 7:22 AM EDT Narrative [facility] - 02/19/2025 7:59 AM EDT OPTIMAL INR RANGES FOR PATIENT ON ORAL ANTICOAGULANT THERAPY Prevention of venous thromboembolism INR 2.0 to 3.0 In patients with heart disease: Atrial fibrillation INR 2.0 to 3.0 Valvular heart disease INR 2.0 to 3.0 Tissue heart valves INR 2.0 to 3.0 Mechanical prosthetic valves INR 2.5 to 3.5 Prevention of recurrent NH INR 2.5 to 3.5 us Benito Chakraborty MD LAB BLOOD ORDERABLES Final Resu lt [facility] [address] [place] [address] * (ABNORMAL) CBC w/diff (02/19/2025 7:18 AM EDT) WBC Count 16.73(H) 3.70 - 10.30 10*3/uL LAB HEMATOLOGY METHOD 02/19/2025 7:26 AM EDT [facility] RBC Count 4.00 3.90 - 5.20 10*6/uL LAB HEMATOLOGY METHOD 02/19/2025 7:26 AM EDT [facility] HGB 10.6(L) 11.2 - 15.7 g/dL LAB HEMATOLOGY METHOD 02/19/2025 7:26 AM EDT [facility] HCT 34.3 34.0 - 45.0 % LAB HEMATOLOGY METHOD 02/19/2025 7:26 AM EDT [facility] Platelet Count 222 155 - 369 10*3/uL LAB HEMATOLOGY METHOD 02/19/2025 7:26 AM EDT [facility] MCV 86 79 - 98 fL LAB HEMATOLOGY METHOD 02/19/2025 7:26 AM EDT [facility] MCH 26.5 26.0 - 32.0 pg LAB HEMATOLOGY METHOD 02/19/2025 7:26 AM EDT [facility] MCHC 30.9 30.7 - 35.5 g/dL LAB HEMATOLOGY METHOD 02/19/2025 7:26 AM EDT [facility] RDW 14.4 11.5 - 14.5 % LAB HEMATOLOGY METHOD 02/19/2025 7:26 AM EDT [facility] MPV 9.4 8.8 - 12.5 fL LAB HEMATOLOGY METHOD 02/19/2025 7:26 AM EDT [facility] nRBC 0.0 <=0.0 per 100 WBCs LAB HEMATOLOGY METHOD 02/19/2025 7:26 AM EDT [facility] Differential Type Automated LAB HEMATOLOGY METHOD 02/19/2025 7:26 AM EDT [facility] Neutrophils % 85 % LAB HEMATOLOGY METHOD 02/19/2025 7:26 AM EDT [facility] Lymphocytes % 9 % LAB HEMATOLOGY METHOD 02/19/2025 7:26 AM EDT [facility] Monocytes % 5 % LAB HEMATOLOGY METHOD 02/19/2025 7:26 AM EDT [facility] Eosinophils % 0 % LAB HEMATOLOGY METHOD 02/19/2025 7:26 AM EDT [facility] Basophils % 0 % LAB HEMATOLOGY METHOD 02/19/2025 7:26 AM EDT [facility] Immature Granulocytes % 1 % LAB HEMATOLOGY METHOD 02/19/2025 7:26 AM EDT [facility] Neutrophils Absolute 14.37(H) 1.60 - 6.10 10*3/uL LAB HEMATOLOGY METHOD 02/19/2025 7:26 AM EDT [facility] Lymphocytes Absolute 1.46 1.20 - 3.90 10*3/uL LAB HEMATOLOGY METHOD 02/19/2025 7:26 AM EDT [facility] Monocytes Absolute 0.77 0.30 - 0.90 10*3/uL LAB HEMATOLOGY METHOD 02/19/2025 7:26 AM EDT [facility] Eosinophils Absolute 0.01 0.00 - 0.50 10*3/uL LAB HEMATOLOGY METHOD 02/19/2025 7:26 AM EDT [facility] Basophils Absolute 0.04 0.00 - 0.10 10*3/uL LAB HEMATOLOGY METHOD 02/19/2025 7:26 AM EDT [facility] Immature Granulocytes Absolute 0.08(H) 0.00 - 0.06 10*3/uL LAB HEMATOLOGY METHOD 02/19/2025 7:26 AM EDT [facility] Blood Venous blood specimen / Unknown Venipuncture / Unknown 02/19/2025 7:18 AM EDT 02/19/2025 7:22 AM EDT Narrative [facility] - 02/19/2025 7:26 AM EDT Therapeutic decision making should be based on absolute values, rather than percentages. us Benito Chakraborty MD LAB BLOOD ORDERABLES Final Resu lt Performing Organization Address City/[facility]/ZIP Co de Phone Number [facility] [address] [place] [address] * Magnesium (02/19/2025 7:18 AM EDT) Magnesium, Plasma 2.0 1.9 - 2.4 mg/dL 02/19/2025 7:44 AM EDT [facility] Blood Venous blood specimen / Unknown Venipuncture / Unknown 02/19/2025 7:18 AM EDT 02/19/2025 7:22 AM EDT us Benito Chakraborty MD LAB BLOOD ORDERABLES Final Resu lt Performing Organization Address City/[facility] Co de Phone Number [facility] [address] [place] [address] * (ABNORMAL) CMP (02/19/2025 7:18 AM EDT) Glucose, Plasma 249(H) 74 - 99 mg/dL 02/19/2025 7:44 AM EDT [facility] BUN, Plasma 23 8 - 23 mg/dL 02/19/2025 7:44 AM EDT [facility] Creatinine, Plasma 1.07 0.60 - 1.10 mg/dL 02/19/2025 7:44 AM EDT [facility] BUN/Creatinine Ratio 02/19/2025 7:44 AM EDT [facility] Sodium, Plasma 139 136 - 145 mmol/L 02/19/2025 7:44 AM EDT [facility] Potassium, Plasma 4.7 3.6 - 4.9 mmol/L 02/19/2025 7:44 AM EDT [facility] Chloride, Plasma 97 97 - 107 mmol/L 02/19/2025 7:44 AM EDT [facility] CO2, Plasma 30(H) 22 - 29 mmol/L 02/19/2025 7:44 AM EDT [facility] Anion Gap 12 6 - 16 mmol/L 02/19/2025 7:44 AM EDT [facility] Total Calcium, Plasma 9.0 8.9 - 10.2 mg/dL 02/19/2025 7:44 AM EDT [facility] Total Protein 6.7 6.3 - 7.9 g/dL 02/19/2025 7:44 AM EDT [facility] Albumin, Plasma 3.5 3.5 - 5.2 g/dL 02/19/2025 7:44 AM EDT [facility] AST, Plasma 13 10 - 35 U/L 02/19/2025 7:44 AM EDT [facility] ALT, Plasma 7(L) 10 - 35 U/L 02/19/2025 7:44 AM EDT [facility] Alkaline Phosphatase, Plasma 89 46 - 142 U/L 02/19/2025 7:44 AM EDT [facility] Total Bilirubin, Plasma 0.4 0.2 - 1.1 mg/dL 02/19/2025 7:44 AM EDT [facility] eGFRcr 53.3 mL/min/1.7 3m*2 02/19/2025 7:44 AM EDT [facility] Comment:Reported eGFRcr in m L/min/1.73m2 is based the CKD-EPI 2020 equation that does not use a race coefficient. Blood Venous blood specimen / Unknown Venipuncture / Unknown 02/19/2025 7:18 AM EDT 02/19/2025 7:22 AM EDT us Benito Chakraborty MD LAB BLOOD ORDERABLES Final Resu lt [facility] [address] [place] [address] documented in this encounter Visit Diagnoses Diagnosis Altered mental status- Primary Altered mental status, unspecified altered mental status type Pneumonia of left lower lobe due to infectious organism documented in this encounter Admitting Diagnoses Diagnosis Altered mental status documented in this encounter Administered Medications Inactive Administered Medications - up to 3 most recent administrations Medication Order MAR Action Action Date Dose Rate Site acetaminophen (Tylenol) tablet 650 mg 650 mg, Oral, Every 8 hours PRN, Starting on Fri02/19/25 at 0813, Until Fri02/21/25 at 1926, Routine, mild pain Given 02/20/2025 11:24 AM EDT 650 mg Given 02/19/2025 9:11 PM EDT 650 mg atorvastatin (Lipitor) tablet 80 mg 80 mg, Oral, Nightly, First dose (after last modification) on Fri02/19/25 at 2100, Until Discontinued Given 02/20/2025 10:00 PM EDT 80 mg Given 02/19/2025 9:10 PM EDT 80 mg azithromycin (Zithromax) 500 mg in sodium chloride 0.9% 250 mL IVPB (vial adapter required) 500 mg, Intravenous, Every 24 hours, 3 doses, First dose on Fri02/19/25 at 1010, Last dose on Fri02/21/25 at 1010, Routine New Bag 02/20/2025 9:29 AM EDT 500 mg 275 mL /hr New Bag 02/19/2025 11:20 AM EDT 500 mg 275 mL/hr azithromycin (Zithromax) tablet 500 mg 500 mg, Oral, Daily, 1 dose, First dose on Fri02/21/25 at 0900, Routine Given 02/21/2025 8:37 AM EDT 500 mg cqvdcpqyji-mbgusfjskaeek-uoxibaqw 50-325-40 MG per tablet 1 tablet 1 tablet, Oral, Once, 1 dose, On Fri02/20/25 at 1645, Routine Given 02/20/2025 5:21 PM EDT 1 tablet cefTRIAXone (Rocephin) 2 g in sodium chloride 0.9% 100 mL IVPB (vial adapter required) 2 g, Intravenous, Daily, 3 doses, First dose on Fri02/19/25 at 1010, Last dose on Fri02/21/25 at 0900, STAT New Bag 02/21/2025 8:36 AM EDT 2 g 220 mL/hr New Bag 02/20/2025 8:07 AM EDT 2 g 220 mL/hr New Bag 02/19/2025 10:43 AM EDT 2 g 220 mL/hr dextrose 50 % solution 12.5-25 g 12.5-25 g, Intravenous, Every 15 min PRN, Starting on 02/19/25 at 0813, Until 02/21/25 at 1926, Routine, low blood sugar donepezil (Aricept) tablet 10 mg 10 mg, Oral, Nightly, First dose on 02/19/25 at 2100, Until Discontinued, Routine Given 02/20/2025 10:0 0 PM EDT 10 mg Given 02/19/2025 9:05 PM EDT 10 mg DULoxetine (Cymbalta) DR capsule 60 mg 60 mg, Oral, Daily, First dose on 02/19/25 at 1430, Until Discontinued, Routine Given 02/21/2025 8:37 AM EDT 60 mg Given 02/20/2025 9:36 AM EDT 60 mg Given 02/19/2025 3:21 PM EDT 60 mg glucagon (human recombinant) injection 1 mg 1 mg, Intramuscular, Every 15 min PRN, Starting on 02/19/25 at 0813, Until 02/21/25 at 1926, Routine, low blood sugar per Hypoglycemia Prevention and Treatment protocol glucose (Glutose) 40 % oral gel 15-30 grams of glucose 15-30 grams of glucose, Sublingual, Every 15 min PRN, Starting on 02/19/25 at 0813, Until Fri02/21/25 at 1926, Routine, low blood sugar, per Hypoglycemia Prevention and Treatment protocol insulin glargine-yfgn 100 UNIT/ML injection 10 Units 10 Units, Subcutaneous, Nightly, First dose on 02/20/25 at 2100, Until Discontinued, Routine Given 02/20/2025 10:00 PM EDT 10 Units Right Upper Arm (Back) insulin lispro (Admelog) 100 units/mL injection - Correction - Resistant Dose 0-10 Units, Subcutaneous, 3 times daily with meals, First dose on 02/19/25 at 0830, Until Discontinued, Routine Given 02/21/2025 12:51 PM EDT 6 Units Right Upper Arm (Back) Given 02/21/2025 8:36 AM EDT 6 Units Le ft Lower Abdomen Given 02/20/2025 5:22 PM EDT 4 Units Ot her insulin lispro (Admelog) injection - Correction - Nighttime Dose 0-3 Units, Subcutaneous, 2 times nightly (2100 & 0300), First dose on 02/19/25 at 2100, Until Discontinued, Routine levETIRAcetam (Keppra) tablet 750 mg 750 mg, Oral, 2 times daily, First dose on 02/19/25 at 1100, Until Discontinued, Routine Given 02/21/2025 8:37 AM EDT 750 mg Given 02/20/2025 10:00 PM EDT 750 mg Given 02/20/2025 9:35 AM EDT 750 mg loperamide (Imodium A-D) tablet 2 mg 2 mg, Oral, 4 times daily PRN, Starting on 02/20/25 at 1551, Until 02/21/25 at 1926, Routine, diarrhea Given 02/21/2025 6:38 AM EDT 2 mg magnesium oxide (Mag-Ox) tablet 400 mg 400 mg (1 tablet), Oral, Daily with lunch, First dose on 02/20/25 at 1200, Until Discontinued Given 02/21/2025 12:51 PM EDT 400 mg Given 02/20/2025 11:24 AM EDT 400 mg melatonin tablet 9 mg 9 mg, Oral, Nightly PRN, Starting on 02/19/25 at 0813, Until 02/21/25 at 1926, Routine, sleep Given 02/19/2025 9:10 PM EDT 9 mg memantine (Namenda) tablet 10 mg 10 mg, Oral, 2 times daily, First dose on 02/19/25 at 1430, Until Discontinued, Routine Given 02/21/2025 8:37 AM EDT 10 mg Given 02/20/2025 10:00 PM EDT 10 mg Given 02/20/2025 9:36 AM EDT 10 mg mometasone-formoterol (Dulera 100) 100-5 MCG/ACT inhaler 2 puff 2 puff, Inhalation, 2 times daily, First dose on 02/19/25 at 1015, Until Discontinued Given 02/19/2025 10:43 AM EDT 2 puffs mometasone-formoterol (Dulera 200) 200-5 MCG/ACT inhaler 2 puff 2 puff, Inhalation, 2 times daily, First dose on 02/19/25 at 2100, Until Discontinued, Routine Given 02/21/2025 8:38 AM EDT 2 puffs Given 02/20/2025 10:02 PM EDT 2 puffs Given 02/20/2025 9:44 AM EDT 2 puffs mupirocin (Bactroban) 2 % ointment 1 Application Each Nostril, 2 times daily, 10 doses, First dose on Fri02/19/25 at 1205, Last dose on Fri02/23/25 at 2100, Routine Given 02/21/2025 8:38 AM EDT 1 Application Given 02/20/2025 10:00 PM EDT 1 Application Given 02/20/2025 9:30 AM EDT 1 Application ondansetron (Zofran) 4 MG/5ML solution 4 mg 4 mg, Oral, Every 6 hours PRN, Starting on Fri02/19/25 at 0813, Until 02/21/25 at 1926, Routine, nausea, vomiting ondansetron (Zofran) injection 4 mg 4 mg, Intravenous, Every 6 hours PRN, Starting on Fri02/19/25 at 0813, Until Fri02/21/25 at 1926, Routine, vomiting, nausea Given 02/20/2025 8:40 AM EDT 4 mg ondansetron ODT (Zofran-ODT) disintegrating tablet 4 mg 4 mg, Oral, Every 6 hours PRN, Starting on Fri02/19/25 at 0813, Until Fri02/21/25 at 1926, Routine, nausea, vomiting Given 02/21/2025 5:28 AM EDT 4 mg rivaroxaban (Xarelto) tablet 20 mg 20 mg, Oral, Every evening, First dose on Fri02/19/25 at 1700, Until Discontinued, Routine Given 02/20/2025 5:22 PM EDT 20 mg Given 02/19/2025 4:43 PM EDT 20 mg senna (Senokot) tablet 17.2 mg 17.2 mg (2 tablet), Oral, Nightly, First dose on Fri02/19/25 at 2100, Until Discontinued, Routine Given 02/19/2025 9:05 PM EDT 17.2 mg sodium chloride 0.9 % flush 10 mL 10 mL, Intravenous, Every 12 hours, First dose on Fri02/19/25 at 0825, Until Discontinued, Routine Given 02/21/2025 8:37 AM EDT 10 mL Given 02/20/2025 10:02 PM EDT 10 mL Given 02/20/2025 9:12 AM EDT 10 mL sodium chloride 0.9 % flush 10 mL 10 mL, Intravenous, As needed, Starting on 02/19/25 at 0813, Until 02/21/25 at 1926, Routine, line care documented in this encounter Active and Recently Administered Medications Times are shown in EDT. Scheduled Medication Order 02/19/2025 02/20/2025 02/21/2025 atorvastatin (Lipitor) tablet 80 mg 80 mg, Oral, Nightly, First dose (after last modification) on 02/19/25 at 2100, Until Discontinued 2109 (Given - Provider: Albertina Ghosh) 2199 (Given - Provider: Michel Pendleton) azithromycin (Zithromax) 500 mg in sodium chloride 0.9% 250 mL IVPB (vial adapter required) (CANCELED) 500 mg, Intravenous, Every 24 hours, 3 doses, First dose on 02/19/25 at 1010, Last dose on Fri02/21/25 at 1010, Routine 1120 (New Bag - Provider: Macy Friedman RN)1220 (Stopped - Provider: Macy Friedman RN) 0929 (New Bag - Provider: Kenneth Garcia RN) azithromycin (Zithromax) tablet 500 mg (COMPLETED) 500 mg, Oral, Daily, 1 dose, First dose on 02/21/25 at 0900, Routine 0837 (Given - Provid er: Eli Claire) butalbital-acetaminoph en-caffeine 50-325-40 MG per tablet 1 tablet (COMPLETED) 1 tablet, Oral, Once, 1 dose, On 02/20/25 at 1645, Routine 1721 (Given - Provider: Kenneth Garcia RN) cefTRIAXone (Rocephin) 2 g in sodium chloride 0.9% 100 mL IVPB (vial adapter required) (COMPLETED) 2 g, Intravenous, Daily, 3 doses, First dose on 02/19/25 at 1010, Last dose on Fri02/21/25 at 0900, STAT 1043 (New Bag - Provider: Rekha Diaz RN)1117 (Stopped - Provider: Macy Friedman RN) 0807 (New Bag - Provider: Kenneth Garcia RN) 0836 (New Bag - Provider: Eli Claire) donepezil (Aricept) tablet 10 mg 10 mg, Oral, Nightly, First dose on 02/19/25 at 2100, Until Discontinued, Routine 2105 (Given - Provider: Albertina Ghosh) 2200 (Given - Provider: Michel Pendleton) DULoxetine (Cymbalta) DR capsule 60 mg 60 mg, Oral, Daily, First dose on 02/19/25 at 1430, Until Discontinued, Routine 1521 (Given - Provider: Macy Friedman RN) 0936 (Given - Provider: Kenneth Garcia RN) 0837 (Given - Provider: Eli Claire) ergocalciferol (Vitamin D-2) capsule 50,000 Units 50,000 Units, Oral, Weekly, First dose on Zulay 02/24/25 at 0900, Until Discontinued, Routine insulin glargine-yfgn 100 UNIT/ML injection 10 Units 10 Units, Subcutaneous, Nightly, First dose on 02/20/25 at 2100, Until Discontinued, Routine 2200 (Given - Provider: Michel Pendleton) insulin lispro (Admelog) 100 units/mL injection - Correction - Resistant Dose 0-10 Units, Subcutaneous, 3 times daily with meals, First dose on 02/19/25 at 0830, Until Discontinued, Routine 0919 (Given - Provider: Rekha Diaz RN)1202 (Given - Provider: Macy Friedman RN)1643 (Given - Provider: Macy Friedman RN) 0936 (Given - Provider: Kenneth Garcia, CORAL)1258 (Given - Provider: Kenneth Garcia, RN)1722 (Given - Provider: Kenneth Garcia RN) 0836 (Given - Provider: Eli Claire)1251 (Given - Provider: Eli Claire)1730 (Canceled Entry - Provider: Automatic Discharge Provider - Comment: Automatically canceled at discontinue of medication order) insulin lispro (Admelog) injection - Correction - Nighttime Dose 0-3 Units, Subcutaneous, 2 times nightly (2100 & 0300), First dose on 02/19/25 at 2100, Until Discontinued, Routine 2050 (Not Given - Provider: Albertina Ghosh - Reason: Order parameters not met - Comment: bg 180) 030 (Canceled Entry - Provider: Albertina Ghosh - Comment: 2100 bg 180)2056 (Not Given - Provider: Michel Pendleton - Reason: Order parameters not met) 024 (Not Given - Provider: Michel Pendleton - Reason: Order parameters not met - Comment: Pt's blood sugar was 202mg/dl taken 02/20 at 2056) levETIRAcetam (Keppra) tablet 750 mg 750 mg, Oral, 2 times daily, First dose on 02/19/25 at 1100, Until Discontinued, Routine 1138 (Given - Provider: Macy Friedman RN)2105 (Given - Provider: Albertina Ghosh) 0935 (Given - Provider: Kenneth Garcia RN)220 (Given - Provider: Michel Pendleton) 0837 (Given - Provider: Eli Claire) magnesium oxide (Mag-Ox) tablet 400 mg 400 mg (1 tablet), Oral, Daily with lunch, First dose on 02/20/25 at 1200, Until Discontinued 1124 (Given - Provider: Kenneth Garcia RN) 1251 (Given - Provider: Eli Claire) memantine (Namenda) tablet 10 mg 10 mg, Oral, 2 times daily, First dose on 02/19/25 at 1430, Until Discontinued, Routine 1521 (Given - Provider: Macy Friedman RN)210 (Given - Provider: Albertina Ghosh) 0936 (Given - Provider: Kenneth Garcia RN)220 (Given - Provider: Michel Pendleton) 0837 (Given - Provider: Eli Claire) mometasone-formoterol (Dulera 100) 100-5 MCG/ACT inhaler 2 puff (CANCELED) 2 puff, Inhalation, 2 times daily, First dose on 02/19/25 at 1015, Until Discontinued 1043 (Given - Provider: Rekha Diaz RN) mometasone-formoterol (Dulera 200) 200-5 MCG/ACT inhaler 2 puff 2 puff, Inhalation, 2 times daily, First dose on Fri02/19/25 at 2100, Until Discontinued, Routine 210 (Given - Provider: Albertina Ghosh) 09 (Given - Provider: Kenneth Garcia, CORAL)2201 (Given - Provider: Michel Pendleton) 0838 (Given - Provider: Eli Cobbty) mupirocin (Bactroban) 2 % ointment 1 Application Each Nostril, 2 times daily, 10 doses, First dose on Fri02/19/25 at 1205, Last dose on Fri02/23/25 at 2100, Routine 1227 (Given - Provider: Macy Friedman RN)2104 (Given - Provider: Albertina Ghosh) 09 (Given - Provider: Kenneth Garcia, CORAL)2199 (Given - Provider: Michel Pendleton) 0838 (Given - Provider: Eli Claire) rivaroxaban (Xarelto) tablet 20 mg 20 mg, Oral, Every evening, First dose on Fri02/19/25 at 1700, Until Discontinued, Routine 1643 (Given - Provider: Macy Friedman RN) 1722 (Given - Provider: Kenneth Garcia RN) 1700 (Canceled Entry - Provider: Automatic Discharge Provider - Comment: Automatically canceled at discontinue of medication order) senna (Senokot) tablet 17.2 mg (CANCELED) 17.2 mg (2 tablet), Oral, Nightly, First dose on Fri02/19/25 at 2100, Until Discontinued, Routine 2104 (Given - Provider: Albertina Ghosh) sodium chloride 0.9 % flush 10 mL(Linked Group 1) 10 mL, Intravenous, Every 12 hours, First dose on 02/19/25 at 0825, Until Discontinued, Routine 0836 (Given - Provider: Rekha Diaz RN)210 (Given - Provider: Albertina hGosh) 09 (Given - Provider: Kenneth Garcia RN)220 (Given - Provider: Michel Pendleton) 0837 (Given - Provider: Eli lCaire) PRN Medication Order 02/19/2025 02/20/2025 02/21/2025 acetaminophen (Tylenol) tablet 650 mg 650 mg, Oral, Every 8 hours PRN, Starting on 02/19/25 at 0813, Until Fri02/21/25 at 192, Routine, mild pain 2110 (Given - Provider: Albertina Ghosh) 1124 (Given - Provider: Kenneth Garcia RN) albuterol (Proventil) (2.5 MG/3ML) 0.083% nebulizer solution 2.5 mg 2.5 mg, Nebulization, Every 6 hours PRN, Starting on 02/19/25 at 1012, Until Fri02/21/25 at 192, Routine, wheezing, shortness of breath dextrose 50 % solution 12.5-25 g(Linked Group 2) 12.5-25 g, Intravenous, Every 15 min PRN, Starting on 02/19/25 at 0813, Until 02/21/25 at 192, Routine, low blood sugar glucagon (human recombinant) injection 1 mg(Linked Group 2) 1 mg, Intramuscular, Every 15 min PRN, Starting on 02/19/25 at 0813, Until Fri02/21/25 at 192, Routine, low blood sugar per Hypoglycemia Prevention and Treatment protocol glucose (Glutose) 40 % oral gel 15-30 grams of glucose(Linked Group 2) 15-30 grams of glucose, Sublingual, Every 15 min PRN, Starting on 02/19/25 at 0813, Until 02/21/25 at 192, Routine, low blood sugar, per Hypoglycemia Prevention and Treatment protocol loperamide (Imodium A-D) tablet 2 mg 2 mg, Oral, 4 times daily PRN, Starting on 02/20/25 at 1551, Until Fri02/21/25 at 192, Routine, diarrhea 0638 (Given - Provider: Michel Pendleton) melatonin tablet 9 mg 9 mg, Oral, Nightly PRN, Starting on 02/19/25 at 0813, Until Fri02/21/25 at 192, Routine, sleep 2109 (Given - Provider: Albertina Ghosh) ondansetron (Zofran) 4 MG/5ML solution 4 mg(Linked Group 3) 4 mg, Oral, Every 6 hours PRN, Starting on 02/19/25 at 0813, Until 02/21/25 at 1926, Routine, nausea, vomiting 0840 (See Alternative - Provider: Kenneth Garcia RN) 0528 (See Alternative - Provider: Michel Pendleton) ondansetron (Zofran) injection 4 mg(Linked Group 3) 4 mg, Intravenous, Every 6 hours PRN, Starting on 02/19/25 at 0813, Until 02/21/25 at 1926, Routine, vomiting, nausea 0840 (Given - Provider: Kenneth Garcia RN) 0528 (See Alternative - Provider: Michel Pendleton) ondansetron ODT (Zofran-ODT) disintegrating tablet 4 mg(Linked Group 3) 4 mg, Oral, Every 6 hours PRN, Starting on 02/19/25 at 0813, Until Fri02/21/25 at 192, Routine, nausea, vomiting 0840 (See Alternative - Provider: Kenneth Garcia RN) 0528 (Given - Provider: Michel Pendleton) sodium chloride 0.9 % flush 10 mL(Linked Group 1) 10 mL, Intravenous, As needed, Starting on 02/19/25 at 0813, Until 02/21/25 at 1926, Routine, line care Linked Groups Order Group 1: Insert peripheral IV (CANCELED) Once, On 02/19/25 at 0814, For 1 occurrence And Saline lock IV (CANCELED) Once, On 02/19/25 at 0814, For 1 occurrence And sodium chloride 0.9 % flush 10 mLJump to med 10 mL, Intravenous, Every 12 hours, First dose on 02/19/25 at 0825, Until Discontinued, Routine And sodium chloride 0.9 % flush 10 mLJump to med 10 mL, Intravenous, As needed, Starting on 02/19/25 at 0813, Until 02/21/25 at 1926, Routine, line care Group 2: glucose (Glutose) 40 % oral gel 15-30 grams of glucoseJump to med 15-30 grams of glucose, Sublingual, Every 15 min PRN, Starting on 02/19/25 at 0813, Until 02/21/25 at 1926, Routine, low blood sugar, per Hypoglycemia Prevention and Treatment protocol Or dextrose 50 % solution 12.5-25 gJump to med 12.5-25 g, Intravenous, Every 15 min PRN, Starting on 02/19/25 at 0813, Until 02/21/25 at 1926, Routine, low blood sugar Or glucagon (human recombinant) injection 1 mgJump to med 1 mg, Intramuscular, Every 15 min PRN, Starting on 02/19/25 at 0813, Until 02/21/25 at 1926, Routine, low blood sugar per Hypoglycemia Prevention and Treatment protocol Group 3: ondansetron ODT (Zofran-ODT) disintegrating tablet 4 mgJump to med 4 mg, Oral, Every 6 hours PRN, Starting on 02/19/25 at 0813, Until 02/21/25 at 1926, Routine, nausea, vomiting Or ondansetron (Zofran) injection 4 mgJump to med 4 mg, Intravenous, Every 6 hours PRN, Starting on 02/19/25 at 0813, Until 02/21/25 at 192, Routine, vomiting, nausea Or ondansetron (Zofran) 4 MG/5ML solution 4 mgJump to med 4 mg, Oral, Every 6 hours PRN, Starting on 02/19/25 at 0813, Until 02/21/25 at 192, Routine, nausea, vomiting documented in this encounter Additional Health Concerns Infection Onset Date Last Indicated Resolved Time 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
--- OUTSIDE RECORDS SUMMARY | 2025-03-23 13:13 | XMS_ITS | Continuity of Care Document ---
Author Organization [facility] & [facility]- [facility] Address [address] [place] [address] Care Team Providers Care Standard Machine Stitcher Name Role Phone JAMIL JOHNSON Primary Care Provider JAMIL JOHNSON Primary Care Provider [phone] Assessment No assessment recorded. Plan of Treatment Reminders Order Date Submit Date Provider Last Modified By Organization Details Last Modified Time Details Appointments OV EST 15 026 01:00PM Ken Tovar M.D Not available Not available Not available Lab None record ed. Referral None record ed. Procedures None record ed. Surgeries None record ed. Imaging None record ed. Medication Orders None record ed. Patient TargetsNo targets recorded. Patient InstructionsNo instructions recorded. Reason for Referral None Reported. Problems Name Problem SNOMED Code Status Onset Date Resolution Date Notes Provider Name and Address Organization Details Recorded Time Infective cystitis 947985856 Active Matthias green [facility] 5 16:18:06 Obesity 486712156 Active REECE Dao [facility] 5 10:24:59 Callus of heel 158513931 Active Not Available [facility] 3 10:01:22 Body mass index 40+ - severely obese 323548945 Active Not Available [facility] 3 10:01:22 Exacerbati on of moderate persistent asthma 645813491 Active Not Available [facility] 3 10:01:22 Dyslipidem ia 009652147 Active Not Available [facility] 3 10:01:22 Recurrent major depressive episodes, mild 403590866 Active REECE Dao [facility] & [place] 5 10:24:19 Pain in cervical spine 447487170 Active [place]EECE Dao [place] [facility] [place] 5 10:24:45 Chronic neck pain 6155204187196 Active Not Available [facility] 3 10:01:21 Intertrigo 09346430 Active [place]EECE Dao [place] [facility] [place] 5 10:35:39 Asymmetric al sensorineu ral hearing loss 680383349 Active Not Available [facility] 3 10:01:22 Breast lump 00541758 Active Not Available [facility] 3 10:01:22 Dupuytren' s contractur e of finger 666623247 Active Not Available [facility] 3 10:01:22 Acute urinary tract infection 232131209 Active Not Available [facility] 3 10:01:22 History of invasive malignant neoplasm of breast 9516767860023 3 Active Not Available [facility] 3 10:01:22 Acute cystitis 27923673 Active Not Available [facility] 3 10:01:22 Pain of right hip joint 8513550689892 02 Active REECE Dao [facility] & [place] 5 10:24:36 Chronic pain 12184228 Active Not Available [facility] 3 10:01:22 Charcot's joint of foot 216704439 Active Not Available [facility] 3 10:01:22 Peripheral neuropathy due to type 2 diabetes mellitus 6743943542726 Active REECE Dao [place] [facility] [place] 5 10:24:23 Allergic rhinitis caused by pollen 47949251 Active Not Available [facility] 3 10:01:22 Base allergy Active Not Available [facility] 3 10:01:22 Hearing loss of left ear 294973155 Active Not Available [facility] 3 10:01:22 Lymphedema 451329325 Active [facility]EECE Dao [facility] [place] [facility] [place] 5 10:25:19 Mild depression 196712954 Active [facility]EECE Dao [facility] [place] [facility] [place] 5 10:25:10 Community acquired pneumonia 707030771 Active Not Available [facility] 3 10:01:22 Mixed hyperlipid emia 629716420 Active Not Available [facility] 3 10:01:22 Ankle pain 180205188 Active Not Available [facility] 3 10:01:22 Abduction deformity of foot 691028513 Active Not Available [facility] 3 10:01:22 Long-term current use of systemic steroid 2225099371741 03 Active Not Available [facility] 3 10:01:22 Paroxysmal atrial fibrillati on 864503460 Active REECE Dao - [place] [facility] [place] 5 10:24:29 Essential hypertensi on 64047395 Active Not Available [facility] 3 10:01:22 Generalize d osteoarthr itis 758580054 Active Not Available [facility] 3 10:01:22 Moderate persistent asthma 414578900 Active [facility]EECE Dao [facility] [place] [facility] [place] 5 10:25:04 Allergic rhinitis 67699850 Active Not Available [facility] 3 10:01:22 Pain in left thumb 8031827628465 100 Active [facility]EECE Dao [facility] [place] [facility] [place] 5 10:24:41 Morbid obesity 022507729 Active [facility]EECE Dao [facility] [place] [facility] [place] 5 10:24:54 Abnormal gait 63610137 Active Not Available [facility] 3 10:01:22 Atrial fibrillati on 39295387 Active Not Available [facility] 3 10:01:22 Bilateral sacroiliit is 9716706135980 9102 Active Not Available [facility] 3 10:01:21 Uncomplica rona severe persistent asthma 910099615 Active REECE Dao - [facility] & [place] 5 10:24:11 Obstructiv e sleep apnea syndrome 21342655 [facility] [place] 5 10:24:50 Severe persistent asthma 806566119 Active 2021 REECE Dao [facility] & [place] 5 10:24:14 Dyspnea on exertion 22008071 Active 2021 Not Available [facility] 3 10:01:22 Chronic rhinitis 55338363 Active 2021 Not Available [facility] 3 10:01:22 Mixed anxiety and depressive disorder 293016695 Active 2021 Not Available [facility] 3 10:01:22 Chronic cough 75230264 Active 2022 Not Available [facility] 3 10:01:22 Type 2 diabetes mellitus 20470456 Active 2022 Not Available [facility] 3 10:01:22 Hyperlipid emia 29718465 Active 2022 Not Available [facility] 3 10:01:22 Renal insufficie ncy 488945135 Active 2022 Not Available [facility] 3 10:01:22 Chronic anemia 550545407 Active 2022 Not Available [facility] 3 10:01:21 Seizure disorder 348024034 Active 2022 Not Available [facility] 3 10:01:21 Notes:Some problems listed i n Documents: #[id number], #[id number] could not be added to this patient's chart. Please review these documents and add these problems to the patient's chart manually as needed. Problem Notes None recorded. Procedures Surgical History Date Name Laterality Status Provider Name and Address Organization Details Recorded Time 11/28/19 23 Medicare Annual Wellness Visit Health Risk Assessment completed Latesha Pardewey [facility] & [place] 11/27/2022 09:18:51 09/01/19 22 [facility] [place] 11/27/2022 09:13:45 07/02/20 19 Stent Placement completed Judith Calvin [place] - [facility] [place] [facility] [place] 05/14/2024 16:34:06 10/20/19 19 Cataract Surgery completed Judith Calvin [place] [facility] [place] [facility] [place] 05/14/2024 16:33:04 09/01/19 18 Stent Placement completed Judith Calvin [place] [facility] [place] [facility] [place] 05/14/2024 16:34:17 07/13/20 14 Most Recent Mammogram completed Vijaya Yuridia [place] [facility] [place] [facility] [place] 11/28/2022 13:31:45 07/14/20 12 Date of Last Colonoscopy completed Vijaya Yuridia [place] [facility] [place] [facility] [place] 11/28/2022 13:32:19 04/23/20 12 Colonoscopy completed Vijaya Yuridia [place] [facility] [place] [facility] [place] 11/28/2022 13:33:36 09/01/19 03 Breast Surgery completed Vijaya Yuridia [place] [facility] [place] [facility] [place] 11/28/2022 13:26:05 09/01/18 97 Breast Surgery completed Latesha Pardini [place] [facility] [place] [facility] [place] 11/27/2022 09:13:45 09/01/18 75 cholecystectomy completed Vijaya Yuridia [place] [facility] [place] [facility] [place] 11/28/2022 13:27:39 09/01/18 74 Tubal Ligation completed Vijaya Yuridia [place] [facility] [place] [facility] [place] 11/28/2022 13:28:24 09/01/18 53 Tonsillectomy/Adeno idectomy completed Judith Calvin [place] [facility] [place] [facility] [place] 05/14/2024 16:34:27 LASIK completed Latesha [place]ardini [place] [facility] [place] [facility] [place] 11/27/2022 09:13:45 Cardiovascular Surgery completed Latesha [place]ardini [place] [facility] [place] [facility] [place] 11/27/2022 09:13:45 Joint Replacement completed Latesha [place]ardini [place] [facility] [place] [facility] [place] 11/27/2022 09:13:45 Knee Surgery completed Vijaya [facility] & [place] 11/28/2022 13:29:39 Carpal Tunnel [facility] [place] 11/28/2022 13:30:28 Imaging Results None recorded. Procedure Notes None recorded. Medical Equipment None Reported. Allergies Allergen ID Allergen Name Allergen Category Reaction Reaction Severity Criticality Documentation Date Start Date Code Code System Note Provider Name and Address Organization Details Recorded Time 9970 Product containin g penicilli n (product) medicatio n anaphylax is severe high 05/13/2022 14524 8001 SNOMED Michelle Colon [facility] & [place] 5 14:13:35 9971 penicilli n G Not available rash Not available Not available 05/13/2022 7980 RxNorm Beau Herrera [facility] & [place] 2 15:43:05 Medications Name Sig Start Date Stop Date Status Note LastModified by Organization Details LastModified Time xarelto no dispense - new NO DISPENSE 07/17 completed Not Available Not Available Not Available xarelto no dispense - refill NO DISPENSE 07/17 completed Not Available Not Available Not Available furosemide 40 mg tablet 1 tablet by oral route. active Not Available Not Available No t Available methocarbam ol 500 mg tablet 06/24 completed Not Available Not Available Not Available promethazin e-DM 6.25 mg-15 mg/5 mL oral syrup 12/06 completed Not Available Not Available Not Available Novolin 70/30 U-100 Insulin 100 unit/mL subcutaneou s suspension INJECT 40 UNITS UNDER THE SKIN TWICE DAILY active Not Available Not Available No t Available atorvastati n 80 mg tablet 1 tablet by oral route. active Not Available Not [...] No t Available cetirizine 10 mg tablet 1 tablet by oral route. active Not Available Not Available No t Available azithromyci n 250 mg tablet TAKE 2 TABLETS BY MOUTH ON DAY 1, AND THEN TAKE 1 TABLET BY MOUTH ONCE A DAY ON DAY 2 THROUGH DAY 5 12/05 completed Not Available Not Available Not Available metoprolol succinate ER 50 mg tablet,exte nded release 24 hr TAKE 1 TABLET BY MOUTH ONCE DAILY DIRECTED FOR 30 DAYS active Not Available Not Available No t Available hydrocodone 5 mg-acetamin ophen 325 mg tablet TAKE 1 TABLET BY MOUTH 4 TIMES DAILY NEEDED FOR PAIN active Not Available Not Available No t Available donepezil 10 mg tablet TAKE 1/2 TABLET BY MOUTH AT BEDTIME FOR 1 WEEK, THEN ONE THEREAFTE R AT BEDTIME. active Not Available Not Available No t Available potassium chloride ER 10 mEq tablet,exte nded release TAKE 1 TABLET BY MOUTH ONCE DAILY DIRECTED active Not Available Not Available No t Available allopurinol 100 mg tablet 2 tablets by oral route. active Not Available Not Available No t Available Plavix 75 mg tablet Take 1 tablet every day by oral route. 03/02 completed Not Available Not Available Not Available ciprofloxac in 500 mg tablet TAKE [...] completed Not Available Not Available Not Available ferrous sulfate 325 mg (65 mg iron) tablet 1 tablet by oral route. active Not Available Not Available No t Available metformin 1,000 mg tablet 06/29 completed Not Available Not Available Not Available clotrimazol e-betametha sone 1 %-0.05 % topical cream 01/08 completed Not Available Not Available Not Available lidocaine 5 % topical patch 06/24 completed Not Available Not Available Not Available metoprolol tartrate 50 mg tablet 0.5 tablets by oral route. active Not Available Not Available No t Available gentamicin 0.1 % topical cream active Not Available Not Available Not Available montelukast 10 mg tablet 1 tablet by oral route. active Not Available Not Available No t Available levetiracet am 750 mg tablet 1 tablet by oral route. active Not Available Not Available No t Available cefuroxime axetil 500 mg tablet TAKE 1 TABLET BY MOUTH TWICE DAILY 07/17 completed Not Available Not Available Not Available levofloxaci n 500 mg tablet active Not Available Not Available Not Available levofloxaci n 750 mg tablet active Not Available Not Available Not Available methylpredn [...] Not Available Not Available No t Available Nyamyc 100,000 unit/gram topical powder APPLY 1 APPLICATI ON EXTERNALL Y TWICE A DAY 2024 active Not Available Not Available Not Avai lable pregabalin 25 mg capsule TAKE 1 CAPSULE BY MOUTH TWICE DAILY 10/03 completed Not Available Not Available Not Available pregabalin 75 mg capsule TAKE 1 CAPSULE BY MOUTH ONCE DAILY active Not Available Not Available No t Available albuterol sulfate (bulk) 06/21 completed Not Available Not Available Not Available Symbicort 160 mcg-4.5 mcg/actuati on HFA aerosol inhaler Inhale 2 puffs by mouth twice daily 2024 active Not Available Not Available Not Avai lable Xarelto 20 mg tablet TAKE 1 TABLET [...] N ot Available colchicine 0.6 mg capsule 03/02 completed Not Available Not Available Not Available Flonase Allergy Relief 50 mcg/actuati on nasal spray,suspe nsion [place] 1 spray every day by intranasa l [...] Not Available Not Available No t Available Afluria Qd (36 mos up)(PF)60 mcg (15 mcg x4)/0.5 mL IM syringe 0.5 mL by intramusc . route. 07/04 completed Not Available Not Available Not Available Breztri Aerosphere 160 mcg-9mcg-4. 8mcg/actuat ion [...] Not Available No t Available Dexcom G7 [employer] USE DIRECTED 12/06 completed Not Available Not Available Not Available Dexcom G7 Sensor device USE DIRECTED 12/06 completed Not Available Not Available Not Available Vitals Date Recorded Body height Body mass index (BMI) Body weight Body temperature Oxygen saturation Oxygen saturation in Arterial blood by Pulse oximetry Inhaled oxygen flow rate Heart rate Respiratory rate Systolic And Diastolic Provider Name and Address Organization Details Last Updated DateTime 5 167.64 cm 48.3 kg/m2 167882. 12 g 97.2 [degF] 90 % 90 % 2 L/min 51 /min 14 /min 104/58 mm[Hg] Lateshatyler Jerome [facility] & [place] 5 09:08:49 Social History Question Answer Notes LastModified by Organizat ion Details LastModified Time Tobacco Smoking Status Never Smoker Not Available [facility] 07/17/2023 14:35:44 Do You Have An Advance Directive? Yes CHART_MERGE Information n ot available 07/17/2023 Do You Wear A Helmet When Biking? Yes [email or web address] Information not available 10/06/2024 Are You Blind Or Do You Have Difficulty Seeing? No CHART_MERGE Information n ot available 07/17/2023 What Is Your Level Of Caffeine Consumption? Occasional CHART_MERGE Information not available 07/17/2023 In The 14 Days Before Symptom Onset, Have You Had Close Contact With A Laboratory-confirm ed COVID-19 While That Case Was Ill? No [email or web address] Information n ot available 10/06/2024 In The 14 Days Before Symptom Onset, Have You Had Close Contact With A Person Who Is Under Investigation For COVID-19 While That Person Was Ill? No [email or web address] Information not available 10/06/2024 Have You Been To An Area Known To Be High Risk For COVID-19? No [email or web address] Information not available 10/06/2024 Are You Deaf Or Do You Have Serious Difficulty Hearing? No [email or web address] Information not available 10/06/2024 What Type Of Diet Are You Following? REGULAR [email or web address] Information n ot available 10/06/2024 Have You Processed Blood Or Body Fluids From An Ebola Virus Disease Patient Without Appropriate PPE? No Information not available 10/06/2024 Do You Reside In Or Have You Traveled To An Area Where Ebola Virus Transmission Is Active? No [email or web address] Information not available 10/06/2024 Have There Been Any Changes To Your Family Or Social Situation? No [email or web address] Information no t available 10/06/2024 What Is The Fluoride Status Of Your Home? Unknown [email or web address] Information not available 10/06/2024 Are There Any Guns Present In Your Home? No [email or web address] Information not available 10/06/2024 Have You Recently Or Are You Planning To Travel To An Area With Zika Virus? No [email or web address] Information not available 10/06/2024 Do You Use Insect Repellent Routinely? Yes [email or web address] Information not available 10/06/2024 Do You Feel Safe At Home? Yes [email or web address] Information not available 10/06/2024 Do You Have A Medical Power Of Drop Count Associate? Yes Information not available 10/06/2024 What Was The Date Of Your Most Recent Tobacco Screening? 06/26/2022 Information not available 05/14/2024 Do You Have Any Pets? No [email or web address] Information not available 10/06/2024 Do You Use Your Seat Belt Or Car Seat Routinely? Yes [email or web address] Information not available 10/06/2024 Are You Passively Exposed To Smoke? No CHART_MERGE Information no t available 07/17/2023 Do You Use Sunscreen Routinely? Yes [email or web address] Information not available 10/06/2024 Has Tobacco Cessation Counseling Been Provided? No CHART_MERGE Information not available 07/17/2023 How Many Years Have You Smoked Tobacco? 0 CHART_MERGE Information not available 07/17/2023 Do You Have Difficulty Walking Or Climbing Stairs? No Information not available 10/06/2024 Are You Currently In School? No [email or web address] Information not available 10/06/2024 Sex: Female Functional Status Question Answer Note LastModified by Organizat ion Details LastModified Time Do you use any illicit or recreational drugs? No CHART_MERGE Information not available 07/17/2023 Do you or have you ever used any other forms of tobacco or nicotine? No CHART_MERGE Information not available 07/17/2023 What is your level of alcohol consumption? None CHART_MERGE Information not available 07/17/2023 Are you currently employed? No [email or web address] Information not available 10/06/2024 Do you have transportation difficulties? No Information not available 10/06/2024 Are you able to walk? YESWOREST [email or web address] Information not available 10/06/2024 Do you have difficulty doing errands alone? No [email or web address] Information not available 10/06/2024 Are you able to care for yourself? Yes [email or web address] Information not available 10/06/2024 Do you have difficulty dressing or bathing? No [email or web address] Information not available 10/06/2024 What is your exercise level? None CHART_MERGE Information not available 07/17/2023 Mental Status Question Answer Note LastModified by Organizat ion Details LastModified Time Do you feel stressed (tense, restless, nervous, or anxious, or unable to sleep at night)? [id number] Information not available 05/14/2024 Do you have difficulty concentrating, remembering or making decisions? No [email or web address] Information no t available 10/06/2024 Family History Relationship Description Onset Age of this Age Resolved Age Notes LastModified by Organization Details LastModified Time Mother Cancerous ulcer [email or web address] Not available 03/15 16:09:06 Mother Burn of larynx [email or web address] Not available 03/15 16:09:06 Mother Family member [email or web address] Not available 03/15 16:09:06 Mother Heart disease Not available 2023 16:37:36 Father Heart disease CHART_MERGE Not available 07/02 14:35:40 Father Myocardial infarction CHART_MERGE Not available 14:35:40 Father Family member [email or web address] Not available 03/15 16:09:06 Medical History Condition Response Diabetes Y Gout [...] Michelle Colon null, [place] [facility] [place] [facility] [place] 10/28/2024 14:13:10 COVID-19, mRNA, LNP-S, PF, 100 mcg/0.5mL dose or 50 mcg/0.25mL dose 1 completed Michelle Colon [place] [facility] [place] [facility] [place] 10/28/2024 14:13:10 Tdap 2 completed Michelle [place] [facility] [place] [facility] [place] 10/28/2024 14:13:10 Influenza, split virus, quadrivalent, PF 0 completed Michelle Colon null[place] [facility] & [place] 10/28/2024 14:13:10 Influenza, split virus, trivalent, preservative 5 completed Michelle Colon null[place] [facility] & [place] 10/28/2024 14:13:10 Influenza, adjuvanted, quadrivalent, PF 1 completed Michelle [place] [facility] [place] [facility] [place] 10/28/2024 14:13:10 Influenza, split virus, trivalent, PF 7 completed Michelle [place] [facility] [place] [facility] [place] 10/28/2024 14:13:10 Influenza, split virus, trivalent, preservative 6 completed Not Available [facility] 10/17/2023 04:24:14 Influenza, split virus, quadrivalent, PF 8 completed Michelle Colon [place] [facility] [place] [facility] [place] 10/28/2024 14:13:10 Influenza, split virus, quadrivalent, PF 7 completed Michelle [place] [facility] [place] [facility] [place] 10/28/2024 14:13:10 Influenza, split virus, trivalent, preservative 7 completed Not Available [facility] 10/17/2023 04:24:14 Influenza, high-dose, quadrivalent, PF 5 completed Michelle Colon null[place] [facility] [place] [facility] [place] 10/28/2024 14:12:20 Past Encounters Encounter ID Performer Location Encounter Start Date Encounter Closed Date Diagnosis/Indication Diagnosis SNOMED-CT Code Diagnosis ICD10 Code Diagnosis Note [id number] Jamil Johnson MD [address] [place] [address] 03/02/2025 08:46:35 03/02/2025 09:22:41 History of sepsis 7736626404 76911 Z86.19 appears to be resolved. Patient to continue with the current medication regimen. She has been under the care of Infectious diseases. She has been encouraged to reach out to them should she have any other infectious issue.raul ent is requesting a manual bariatric wheelchair . Lymphedema 859176002 I89 .0 chronic lymphedema . Hyperlipidemia 43008799 E78.5 Stable Morbid obesity 193013384 E66.01 patient to continue with diet and lifestyle modificati ons. Health Concerns Section Related Observation LastModified by Organization Detai ls LastModified Time None Recorded Concern Status LastModified by Organization Details LastModified Time None Recorded Payers Encounter Date Sequence Insurance Name Policy Number Policy [employer] Covered Member ID [employer] Member ID Guarantor Name 03/02/2025 1 [employer] (MEDICARE REPLACEMENT/A DVANTAGE - HMO) Alicia Royal [id number] Alicia Royal Notes Date Note Type Note Provider Name and Address Organization Details Recorded Time 03/02/2025 text/html patient presents today to follow-up on hospital admission. Patient was admitted to [facility]. She was diagnosed with sepsis and pneumonia. She reports that she has doing a lot better. She is present today with a daughter. Jamil Johnson MD [address] [place] [address], [id number], [place] - [facility] [place] [facility] [place] 03/02/2025 09:25:30 OBGyn Episode No OBEpisode recorded.
--- NOTE | 2025-03-23 13:14 | EXP.PAIN.SOA ---
[facility] Disclaimer: The information contained in this section may have been updated after the patient was seen, as this information can be updated by other users. 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: None household members: children housing: house current occupational exposures/hazards: No caffeine: Yes PM Subjective & Objective Subjective Subjective:: Patient is a pleasant 79-year-old female who presents today for her medication refill and follow-up. She does rate her pain today a 4 out of 10. Patient states most of that is in her right hip. Patient has had a lot going on since our last appointment. Patient has been hospitalized on multiple occasions for fluid as well as heart and lung related issues. Patient is currently managed with pregabalin 75 mg once a day and [place] 5 mg 4 times a day. She denies any side effects. Her Compa has been reviewed and is appropriate. Review of Systems: General: No recent weight changes, no fever, no sleep disturbances Respiratory: No cough, no shortness of air, no recurring pulmonary infections Cardiovascular/peripheral vascular: No chest pain, no palpitations, no edema, no shortness of breath Gastrointestinal: No new onset incontinence, normal bowel movements reported Genitourinary: No new onset incontinence Musculoskeletal: Right hip pain Psychiatric: [Normal mood/affect] Neurological: [Denies weakness in extremities], [denies balance issues] Pain at rest (0-10 scale): 4 Objective Objective:: Physical Exam: General: Alert and oriented x3, no acute distress, pleasant and cooperative Lungs: Respirations even and unlabored, symmetrical chest expansion Eyes: PERRL Musculoskeletal: Flexion and extension of lumbar [spine] somewhat guarded secondary to pain, [antalgic gait noted] Neurological: Speech clear, no gross sensory deficit Has patient had previous pain injection?: No Conservative treatment options previously tried: Prescription medications Length of treatment: Longer than 12 weeks Meds Home Medications and Allergies Home Medications ?Medication ?Instructions ?Recorded ?Confirmed ?Type atorvastatin 80 mg tablet 80 mg PO HS Cholesterol 06/08/19 03/10/25 History montelukast 10 mg tablet 10 mg PO HS Asthma 02/14/20 03/10/25 History (Singulair) cetirizine 10 mg tablet (Zyrtec) 10 mg PO DAILY Allergy symptoms 11/07/20 03/10/25 History duloxetine 60 mg capsule,delayed 60 mg PO DAILY MOOD 05/10/22 03/10/25 History release albuterol sulfate 2.5 mg/3 mL 2.5 mg inhalation ONCE PRN 01/22/23 03/10/25 History (0.083 %) solution for nebulization Breathing Problems albuterol sulfate 90 mcg/actuation 2 puff inhalation Q4-6H PRN 01/22/23 03/10/25 History aerosol inhaler Breathing Problems levetiracetam 750 mg tablet 750 mg PO BID SEIZURES 01/22/23 03/10/25 History tiotropium bromide 1.25 2 puff inhalation DAILY Breathing 01/22/23 03/10/25 History mcg/actuation mist for inhalation Problems (Spiriva Respimat) allopurinol 100 mg tablet 100 mg PO DAILY 07/28/23 03/10/25 History ferrous sulfate 325 mg (65 mg 325 mg PO DAILY 07/28/23 03/10/25 History iron) tablet insulin human U-100 NPH-regulr 45 unit SQ BID Diabetes 07/28/23 03/10/25 History 70-30 mix 100 unit/mL subcutaneous susp (Novolin 70/30 U-100 Insulin) furosemide 40 mg tablet See Rx Instructions .Route 09/08/23 03/10/25 Rx .COMPLEX #270 tabs metoprolol succinate 50 mg See Rx Instructions .Route 11/24/23 03/10/25 Rx tablet,extended release 24 hr .COMPLEX #90 tabs rivaroxaban 20 mg tablet (Xarelto) See Rx Instructions .Route 09/30/24 12/16/24 Rx .COMPLEX #90 tabs donepezil 10 mg tablet 10 mg PO DIRECTED [place]SONS 11/15/24 03/10/25 History hydrocodone 5 mg-acetaminophen 325 1 tab PO QID PRN Pain 30 days #120 12/16/24 03/10/25 Rx mg tablet tabs pregabalin 75 mg capsule (Lyrica) 75 mg PO DAILY #30 caps 12/16/24 03/10/25 Rx New Prescriptions to Start Prescriptions: Allergies Allergy/AdvReac Type Severity Reaction Status Date / Time Penicillins Allergy Unknown Verified 03/10/25 14:41 Assessment and Plan *Assessment and plan (1) Degenerative disc disease, lumbar: Status: Acute Category: Medical Code(s): M51.369 - Other intervertebral disc degeneration, lumbar region without mention of lumbar back pain or lower extremity pain (2) Right hip pain: Status: Acute Category: Medical Code(s): M25.551 - Pain in right hip Plan I will refill the patient's Pine [place] and pregabalin and send in a 1 month supply of this medication. Patient will tentatively follow-up in 1 month. Patient agrees with this plan of care. Patient has been instructed to contact the clinic with any concerns before the next appointment. Dr. Uribe has reviewed this note and agrees with this plan of care. This note was dictated using voice recognition software and make contain errors or omissions. All injections are used with Lidocaine, Bupivacaine and dexamethasone. Occasionally urine drug screen is needed to verify patient's compliance with our office pain contract. This is ordered based off specific treatments related to chronic pain with the potential to abuse certain medications.
--- OUTSIDE RECORDS SUMMARY | 2025-03-23 13:14 | XMS_ITS ---
Author Organization [facility] Address [address] [place] [address] Care Team Providers Care Yard Spotter Name Role Phone Jamil Carey MD Primary Care Provider Radha Russ LPN Unavailable Unavailabl e Transitional Care Management Status:Active (Active) Start date:02/22/2025 Enrollment date:02/22/2025 Enrollment reason:Identified using hospital discharge data Overview This episode type is for outpatient care managers enrolling patients in the [facility] Transitional Care Management program. Case Team Name Relationship Phone Radha Russ LPN(Responsible Staff) TCM Nurs e Continued Care and Services Coordination
--- OUTSIDE RECORDS SUMMARY | 2025-03-23 13:14 | XMS_ITS | Encounter Summary ---
Author Organization Healthcare Address [address] [place] [address] Care Team Providers Care Staff Electronic Warfare Officer Name Role Phone Jamil Carey MD Primary Care Provider [phone] Radha Russ LPN Unavailable Unavailabl e Reason for Visit * Reason Comments Follow-up Encounter Details Date Type Department Care Team (Late st Contact Info) Description 03/07/2025 Patient Outreach POPULATION [facility] [address], [address] [place] [address] Radha Russ LPN [facility] Follow-up Social History Tobacco [...] any time in the past [address] [facility], were you homeless or living in a penitentiary (including now)? No 02/21/2025 Utilities Answer Date Recorded In the past 12 months has th e [employer], gas, oil, or water company threatened to [...] documented as of this encounter Care Teams Staff Electronic Warfare Officer Relationship Specialty Start Date End Date Jamil Carey MD [address] [place] [address] PCP - General 10/22/22 Radha Russ LPN [facility] TCM Nurse 02/22/25 documented as of this encounter
--- OUTSIDE RECORDS SUMMARY | 2025-03-23 13:14 | XMS_ITS | Clinical Summary ---
Author Organization [facility] Address [address] [place] [address] Care Team Providers Care Woven Label Designer Name Role Phone Jamil Carey MD Primary Care Provider [phone] Radha Russ LPN Unavailable Unavailabl e Allergies Active Allergy Reactions Criticality Noted Date Comments Penicillins Unknown - Patient st ates they do not know rxn details High 09/23/2016 Unknown, childhood allergy per daughter/caregiver Medications rivaroxaban (Xarelto) 20 MG tablet Take 1 tablet by mouth every evening. 07/20/2019 Active metoprolol succinate XL (Toprol-XL) 50 MG 24 hr tablet Take 1 tablet by mouth every morning. 08/02/2020 Active magnesium oxide (Mag-Ox) 400 (240 Mg) MG tablet Take 1 tablet by mouth 1 time each day with lunch. 07/02/2022 Active Symbicort 160-4.5 MCG/ACT inhaler Inhale 2 puffs 2 times a day. 06/04/2022 Active levETIRAcetam (Keppra) 750 MG tablet Take 1 tablet (750 mg total) by mouth 2 (two) times a day. 60 tablet 11 07/31/2022 Active insulin NPH-insulin regular (INSULIN NPH ISOPHANE & REGULAR HUMAN INJ) (70-30) 100 UNIT/ML SC injection vial Inject 40 Units under the skin 2 (two) times a day. 30 mL 07/31/2022 Active HYDROcodone-raquel taminophen (Victoria) 5-325 MG tablet Take 1 tablet by mouth 4 times a day as needed. 09/05/2022 Active pregabalin (Lyrica) 75 MG capsule Take 1 capsule by mouth daily. 09/05/2022 Active donepezil (Aricept) 10 MG tablet Take [...] daily. Active ergocalciferol (Vitamin D-2) 1.25 MG (53331 UT) capsule Take 1 capsule by mouth 1 time per week. Active cefuroxime (Ceftin) 500 MG tabletIndicatio ns:Pneumonia of left lower lobe due to infectious organism Take 1 tablet by mouth 2 times a day for 2 days. 4 tablet 02/21/2025 02/24/20 25 Active Problems Problem Noted Date Diagnosed Date [...] (05/16/2021): Added automatically from request for surgery [id number] Foot pain 04/18/2017 07/31/2022 Pseudarthrosis after fusion or arthrodesis 03/24/2017 07/31/2022 Ankle pain 08/19/2016 07/31/2022 Posterior tibial tendon dysfunction 08/19/2016 07/31/2022 Encounters Date Type Department Care Team Description 03/07/2025 Patient Outreach [address], [facility] [address] [place] [address] Radha Russ LPN Follow-up 02/22/2025 Patient Outreach POPULATION [address], [facility] [address] [place] [address] Radha Russ LPN TCM Call 02/19/2025 3:43 AM EDT - 02/21/2025 5:26 PM EDT Hospital Encounter [facility] Inpatient [address] [place] [address] Benito Chakraborty MD Doty, Christopher I, MD Khalid, Kathie Douglas MD Altered mental status, unspecified altered mental status type (Primary Dx); Pneumonia of left lower lobe due to infectious organism Discharge Disposition: Home or Self Care 02/19/2025 Travel 02/18/2025 Orders Only External Location [address] [place] [address] Provider, External 02/18/2025 Orders Only External Location [address] [place] [address] Provider, External from Last 3 Months Immunizations [...] [facility] were you [facility] or living in a fpc (including now)? No 02/21/2025 Utilities Answer Date [...] [facility]-Bone Density Scan 1946 [facility]-Depression Screening 1945 [facility]-/Child/Adol SDOH Screenings 1946 Diabetes: Dental Exam 1956 [facility]-Pneumococcal Vaccine: 50+ Years (1 of 2 - PCV) 1965 [facility]-Zoster Vaccines (1 of 2) 1996 [facility]-RSV Vaccine: 60+ Years or (1 - 1-dose 75+ series) 2021 [facility]-Medicare Annual Wellness (AWV) 11/28/2023 11/27/2022 [id number] Vaccine ( season) 2024 03/19/2021, 02/08/2021 [facility]-Influenza Vaccine (#1) 05/02/202509/20, 06/01/2021, 11/10/2019, Additional history exists [facility]-Diabetes: Hemoglobin A1C 05/21/2025 02/19/2025, 11/09/2019, 02/13/2019, Additional history exists [facility]- SDOH Screenings 08/23/2025 [facility]-Adult SDOH Screenings 08/23/2025 02/21/2025 [facility]-DTaP,Tdap,and Td Vaccines (2 - Td or Tdap) 06/10/2032 06/10/2022 [facility]-Hepatitis C Screening Completed 02/19/2025 [facility]-Obesity Intervention Completed 02/19/2025, 0310/2022 HPV Vaccines Aged Out No longer eligi [...] of10 resultswithin the time period is included. Pathologist [facility] POCT Glucose 291(H) 74 - 99 mg/dL 02/21/2025 11:29 AM EDT [facility] Comment:Accuracy of a glucos e result [...] for testing. Comment 02/21/2025 11:29 AM EDT [facility] Vegetable Packer ID Ela Esteban Eleni 02/21/2025 11:29 AM EDT [facility] Device ID [id number] 02/21/2025 11:29 AM EDT [facility] Specimen Type POC Capillary 02/21/2025 11:29 AM EDT [facility] Blood Capillary blood specimen / Unknown 02/21/2025 11:27 AM EDT 02/21/2025 11:29 AM EDT Vázquezarun Naqvi MD LAB POINT OF CA RE TEST DOCKED DEVICE UNSOLICITED RESULTS Final Result [facility] [address] [place] [id number] * (ABNORMAL) CBC W/O Differential (02/21/2025 5:37 AM EDT) Only the most recent of2 resultswithin the time period is included. Pathologist [facility] WBC Count 10.27 3.70 - 10.30 10*3/uL LAB HEMATOLOGY METHOD 02/21/2025 6:08 AM EDT [facility] RBC Count 4.00 3.90 - 5.20 10*6/uL LAB HEMATOLOGY METHOD 02/21/2025 6:08 AM EDT [facility] HGB 10.5(L) 11.2 - 15.7 g/dL LAB HEMATOLOGY METHOD 02/21/2025 6:08 AM EDT [facility] HCT 34.1 34.0 - 45.0 % LAB HEMATOLOGY METHOD 02/21/2025 6:08 AM EDT [facility] Platelet Count 213 155 - 369 10*3/uL LAB HEMATOLOGY METHOD 02/21/2025 6:08 AM EDT [facility] MCV 85 79 - 98 fL LAB HEMATOLOGY METHOD 02/21/2025 6:08 AM EDT [facility] MCH 26.3 26.0 - 32.0 pg LAB HEMATOLOGY METHOD 02/21/2025 6:08 AM EDT [facility] MCHC 30.8 30.7 - 35.5 g/dL LAB HEMATOLOGY METHOD 02/21/2025 6:08 AM EDT [facility] RDW 14.2 11.5 - 14.5 % LAB HEMATOLOGY METHOD 02/21/2025 6:08 AM EDT [facility] MPV 9.9 8.8 - 12.5 fL LAB HEMATOLOGY METHOD 02/21/2025 6:08 AM EDT [facility] nRBC 0.0 <=0.0 per 100 WBCs LAB HEMATOLOGY METHOD 02/21/2025 6:08 AM EDT [facility] Blood Venous blood specimen / Unknown Venipuncture / Unknown 02/21/2025 5:37 AM EDT 02/21/2025 5:53 AM EDT Kathie Naqvi MD LAB BLOOD ORDERABLES Fi nal Result [facility] [address] [place] [address] * Methicillin Resistant Staphylococcus aureus (MRSA) by PCR (02/20/2025 1:01 PM EDT) Methicillin Resistant Staphylococcus aureus (MRSA) by PCR Not Detected Not Detected 02/20/2025 2:50 PM EDT [facility] Swab Both anterior nares / Unknown Non-blood Collection / Unknown 02/20/2025 1:01 PM EDT 02/20/2025 1:26 PM EDT Narrative [facility] - 02/20/2025 2:50 PM [...] RAL ORDERABLES Final Result Performing Organization Address City/[facility]/[place] [address] * Phosphorus (02/20/2025 1:27 AM EDT) Phosphorus, Plasma 2.6 2.5 - 4.5 mg/dL 02/20/2025 2:06 AM EDT [facility] Blood Venous blood specimen / Unknown Venipuncture / Unknown 02/20/2025 1:27 AM EDT 02/20/2025 1:32 AM EDT Kathie Naqvi MD LAB BLOOD ORDERABLES Fi nal Result Performing Organization Address City/[facility]/[place] [address] * Magnesium, Plasma (02/20/2025 1:27 AM EDT) Only the most recent of2 resultswithin the time period is included. Magnesium, Plasma 2.0 1.9 - 2.4 mg/dL 02/20/2025 2:06 AM EDT [facility] Blood Venous blood specimen / Unknown Venipuncture / Unknown 02/20/2025 1:27 AM EDT 02/20/2025 1:32 AM EDT Kathie Naqvi MD LAB BLOOD ORDERABLES Fi nal Result [facility] [address] [place] [address] * (ABNORMAL) Basic metabolic panel (02/20/2025 1:27 AM EDT) Glucose, Plasma 200(H) 74 - 99 mg/dL 02/20/2025 2:06 AM EDT [facility] BUN, Plasma 22 8 - 23 mg/dL 02/20/2025 2:06 AM EDT [facility] Creatinine, Plasma 0.91 0.60 - 1.10 mg/dL 02/20/2025 2:06 AM EDT [facility] BUN/Creatinine Ratio 24 02/20/2025 2:06 AM EDT [facility] Sodium, Plasma 138 136 - 145 mmol/L 02/20/2025 2:06 AM EDT [facility] Potassium, Plasma 4.0 3.6 - 4.9 mmol/L 02/20/2025 2:06 AM EDT [facility] Chloride, Plasma 98 97 - 107 mmol/L 02/20/2025 2:06 AM EDT [facility] CO2, Plasma 27 22 - 29 mmol/L 02/20/2025 2:06 AM EDT [facility] Anion Gap 13 6 - 16 mmol/L 02/20/2025 2:06 AM EDT [facility] Total Calcium, Plasma 9.1 8.9 - 10.2 mg/dL 02/20/2025 2:06 AM EDT [facility] eGFRcr 64.7 mL/min/1.7 3m*2 02/20/2025 2:06 AM EDT [facility] Comment:Reported eGFRcr in m L/min/1.73m2 is based the CKD-EPI 2020 equation that does not use a race coefficient. Blood Venous blood specimen / Unknown Venipuncture / Unknown 02/20/2025 1:27 AM EDT 02/20/2025 1:32 AM EDT Kathie Naqvi MD LAB BLOOD ORDERABLES Fi nal Result [facility] [address] [address] * XR Chest 1 View (02/19/2025 10:18 [...] QTC Interval 447 ms MUSE ECG P [place] 68 degrees MUSE ECG R [place] 0 degrees MUSE ECG T Wave [place] 55 degrees MUSE ECG Diagnosis Atrial fibrillation [...] at day 5 02/24/2025 10:01 AM EDT [facility] Blood Structure of left hand / Unknown Venipuncture / Unknown 02/19/2025 8:51 AM EDT 02/19/2025 9:31 AM EDT Narrative [facility] - 02/24/2025 10:01 AM EDT Low blood volume submitted, results may be compromised Kathie Naqvi MD LAB MICROBIOLOGY - GENE RAL ORDERABLES Final Result Performing Organization Address City/[facility]/ZIP Co de Phone Number [facility] [address] [place] [address] * (ABNORMAL) Blood gas panel, venous (02/19/2025 8:51 AM EDT) pH, Venous 7.37 7.32 - 7.43 LAB HEMATOLOGY METHOD 02/19/2025 9:23 AM EDT [facility] pCO2, Venous 65(HH) 37 - 52 mmHg LAB HEMATOLOGY METHOD 02/19/2025 9:23 AM EDT [facility] pO2, Venous 24(L) 25 - 40 mmHg LAB HEMATOLOGY METHOD 02/19/2025 9:23 AM EDT [facility] SO2, Measured, Venous 38(L) 65 - 80 % LAB HEMATOLOGY METHOD 02/19/2025 9:23 AM EDT [facility] Base Excess, Venous 10.0(H) -2.0 - 3.0 mmol/L LAB HEMATOLOGY METHOD 02/19/2025 9:23 AM EDT [facility] Bicarbonate, Calculated, Venous 37(H) 22 - 26 mmol/L LAB HEMATOLOGY METHOD 02/19/2025 9:23 AM EDT [facility] Hematocrit, Whole Blood 32.9(L) 34.0 - 45.0 % LAB HEMATOLOGY METHOD 02/19/2025 9:23 AM EDT [facility] Sodium, Whole Blood 141 136 - 145 mmol/L LAB HEMATOLOGY METHOD 02/19/2025 9:23 AM EDT [facility] Potassium, Whole Blood 4.3 3.6 - 4.9 mmol/L LAB HEMATOLOGY METHOD 02/19/2025 9:23 AM EDT [facility] Chloride, Whole Blood 95(L) 97 - 107 mmol/L LAB HEMATOLOGY METHOD 02/19/2025 9:23 AM EDT [facility] Glucose, Whole Blood 247(H) 74 - 99 mg/dL LAB HEMATOLOGY METHOD 02/19/2025 9:23 AM EDT [facility] Lactate, Venous, Whole Blood 1.5 0.5 - 2.2 mmol/L LAB HEMATOLOGY METHOD 02/19/2025 9:23 AM EDT [facility] Ionized Calcium, Whole Blood 4.6 4.6 - 5.1 mg/dL LAB HEMATOLOGY METHOD 02/19/2025 9:23 AM EDT [facility] Blood Venous blood specimen / Unknown Venipuncture / Unknown 02/19/2025 8:51 AM EDT 02/19/2025 8:58 AM EDT Kathie Naqvi MD LAB BLOOD ORDERABLES Fi nal Result [facility] [address] [place] [address] * Streptococcus pneumoniae and Legionella Urinary Antigen (02/19/2025 8:32 AM EDT) Legionella pneumophila serogroup 1 Antigen Result (Urine) Negative Negative 02/20/2025 6:20 AM EDT [facility] Streptococcus pneumoniae Antigen Result (Urine) Negative Negative 02/20/2025 6:20 AM EDT [facility] Urine Urine specimen obtained by clean catch procedure / Unknown Non-blood Collection / Unknown 02/19/2025 8:32 AM EDT 02/19/2025 9:36 AM EDT Kathie Naqvi MD LAB MICROBIOLOGY - GENE RAL ORDERABLES Final Result Performing Organization Address City/[facility]/ZIP Co de Phone Number [facility] [address] [place] [address] * Urine Verduzco Panel (02/19/2025 8:32 AM EDT) Extra Reflex urine culture not indicated 02/19/2025 11:02 AM EDT [facility] Urine Urine specimen obtained by clean catch procedure / Unknown Non-blood Collection / Unknown 02/19/2025 8:32 AM EDT 02/19/2025 9:03 AM EDT Kathie Naqvi MD LAB URINE ORDERABLES Fi nal Result Performing Organization Address [facility] Co de Phone Number [facility] [address] [place] [address] * Urinalysis Microscopic Examination (02/19/2025 8:32 AM EDT) Urine Urine specimen obtained by clean catch procedure / Unknown Non-blood Collection / Unknown 02/19/2025 8:32 AM EDT 02/19/2025 8:55 AM EDT Kathie Naqvi MD LAB URINE ORDERABLES Fi nal Result Performing Organization Address [facility] Co de Phone Number [facility] [address] [place] [address] * SARS CoV-2/COVID-19 by PCR - Rapid (02/19/2025 8:32 AM EDT) SARS CoV-2/COVID-1 9 RNA PCR Result Not Detected Not Detected 02/19/2025 10:38 AM EDT [facility] Swab Nasopharyngeal structure / Unknown Non-blood Collection / Unknown 02/19/2025 8:32 AM EDT 02/19/2025 9:37 AM EDT Narrative [facility] - 02/19/2025 10:38 AM [...] COVID-19. Kathie Naqvi MD LAB MICROBIOLOGY - [facility] ORDERABLES Final Result [facility] [address] [place] [address] * Nasopharyngeal Respiratory Panel (02/19/2025 8:32 AM EDT) Nasopharyngeal Respiratory PCR Interpretation Not Detected for all analytes Not Detected for all analytes 02/19/2025 11:40 AM EDT [facility] Swab Nasopharyngeal structure / Unknown Non-blood Collection / Unknown 02/19/2025 8:32 AM EDT 02/19/2025 9:37 AM EDT Narrative [facility] - 02/19/2025 11:40 AM [...] Respiratory PCR Panel is performed using the Pictour.uslex instrument. This test is FDA approved for use with Nasopharyngeal swabs only. This test is used for clinical purposes. It should not be regarded as investigational or for research. The [facility] is certified under the Clinical Laboratory Improvement Amendments of 1988 (CLIA-88) as qualified to perform high complexity clinical laboratory testing. Kathie Naqvi MD LAB MICROBIOLOGY - GENE RAL ORDERABLES Final Result Performing Organization Address City/[facility]/ZIP Co de Phone Number [facility] [address] [place] [address] * Multi Drug Resistance Test (02/19/2025 8:32 AM EDT) Culture No growth at day 1 02/20/2025 11:17 AM EDT [facility] Swab (Nares and Theodora Rectal) Non-blood Collection / Unknown 02/19/2025 8:32 AM EDT 02/19/2025 9:37 AM EDT Narrative [facility] - 02/20/2025 11:17 AM EDT This test was developed and its performance characteristics determined by the [facility]. Although the media is FDA-approved, it is not FDA-approved for all specimen types submitted. The FDA has determined that such clearance or approval is not necessary. This test is used for surveillance purposes. It should not be regarded as investigational or for research. The [facility] is certified under the Clinical Laboratory Improvement Amendments of 1988 (CLIA-88) as qualified to perform high complexity clinical laboratory testing. Kathie Naqvi MD LAB MICROBIOLOGY - GENE RAL ORDERABLES Final Result Performing Organization Address City/[facility]/ZIP Co de Phone Number [facility] [address] [place] [address] * (ABNORMAL) Urinalysis with reflex microscopic (Culture NOT Included) (02/19/2025 8:32 AM EDT) Color, Urine Yellow LAB URINALYSIS - AUTOMATED METHOD 02/19/2025 9:23 AM [facility] Clarity, Urine Clear LAB URINALYSIS - AUTOMATED METHOD 02/19/2025 9:23 AM [facility] Spec [place], Urine >1.030(H) 1.005 - 1.030 LAB URINALYSIS - AUTOMATED METHOD 02/19/2025 9:23 AM [facility] pH, Urine 6.5 5.0 - 8.0 LAB URINALYSIS - AUTOMATED METHOD 02/19/2025 9:23 AM [facility] Protein, Urine Trace(A) Negative mg/dL LAB URINALYSIS - AUTOMATED METHOD 02/19/2025 9:23 AM [facility] Glucose, Urine Negative Negative mg/dL LAB URINALYSIS - AUTOMATED METHOD 02/19/2025 9:23 AM [facility] Ketones, Urine Trace(A) Negative mg/dL LAB URINALYSIS - AUTOMATED METHOD 02/19/2025 9:23 AM [facility] Blood, Urine Trace(A) Negative LAB URINALYSIS - AUTOMATED METHOD 02/19/2025 9:23 AM [facility] Bilirubin, Urine Negative Negative LAB URINALYSIS - AUTOMATED METHOD 02/19/2025 9:23 AM [facility] Urobilinogen, Urine 0.2 0.2 to 1.0 mg/dL LAB URINALYSIS - AUTOMATED METHOD 02/19/2025 9:23 AM [facility] Leukocytes, Urine Negative Negative LAB URINALYSIS - AUTOMATED METHOD 02/19/2025 9:23 AM [facility] Nitrite, Urine Negative Negative LAB URINALYSIS - AUTOMATED METHOD 02/19/2025 9:23 AM [facility] RBC, Urine 4 - 10(A) 0 to 3 /HPF LAB URINALYSIS - AUTOMATED METHOD 02/19/2025 9:23 AM [facility] Comment:This result was prev iously suppressed from the chart. WBC, Urine 0 - 5 0 to 5 /HPF LAB URINALYSIS - AUTOMATED METHOD 02/19/2025 9:23 AM [facility] Comment:This result was prev iously suppressed from the chart. Squamous Epithelial Cells 0 - 2 0 to 5 /HPF LAB URINALYSIS - AUTOMATED METHOD 02/19/2025 9:23 AM EDT [facility] Comment:This result was prev iously suppressed from the chart. Hyaline Casts 0 - 2 0 to 5 /LPF LAB URINALYSIS - AUTOMATED METHOD 02/19/2025 9:23 AM EDT [facility] Comment:This result was prev iously suppressed from the chart. Bacteria, Urine Negative Negative LAB URINALYSIS - AUTOMATED METHOD 02/19/2025 9:23 AM EDT [facility] Comment:This result was prev iously suppressed from the chart. Urine Urine specimen obtained by clean catch procedure / Unknown Non-blood Collection / Unknown 02/19/2025 8:32 AM EDT 02/19/2025 8:55 AM EDT us Kathie Naqvi MD LAB URINE ORDERABLES Fi nal Result Performing Organization Address City/[facility]/ZIP Co de Phone Number [facility] [address] [place] [address] * ED HIV 1/2 Antibody/Antigen Screen w/Reflex to HIV 1/2 Differentiation (02/19/2025 7:18 AM EDT) Pathologist [facility] HIV 1 & 2 Antibody/Antigen Screen Non Reactive Non Reactive 02/19/2025 8:28 AM EDT [facility] Comment:Screening for HIV 1 & 2 antibodies, and P24 antigen is NONREACTIVE. No confirmatory testing is required. Blood Venous blood specimen / Unknown Venipuncture / Unknown 02/19/2025 7:18 AM EDT 02/19/2025 7:49 AM EDT us Benito Chakraborty MD LAB BLOOD ORDERABLES Final Resu lt Performing Organization Address City/[facility]/ZIP Co de Phone Number [facility] [address] [place] [address] * TSH Reflex FT4 (02/19/2025 7:18 AM EDT) Thyroid Stimulating Hormone, Plasma 0.63 0.40 - 4.20 uIU/mL 02/19/2025 8:58 AM EDT [facility] Blood Venous blood specimen / Unknown Venipuncture / Unknown 02/19/2025 7:18 AM EDT 02/19/2025 7:22 AM EDT Kathie Naqvi MD LAB BLOOD ORDERABLES Fi nal Result Performing Organization Address [facility] de Phone Number [facility] [address] [place] [address] * (ABNORMAL) Procalcitonin (02/19/2025 7:18 AM EDT) Procalcitonin, Plasma 0.10(H) <0.09 ng/mL 02/19/2025 10:10 AM EDT [facility] Blood Venous blood specimen / Unknown Venipuncture / Unknown 02/19/2025 7:18 AM EDT 02/19/2025 7:22 AM EDT Narrative [facility] - 02/19/2025 10:10 AM [...] predict 28 day mortality risk. Please consult [email or web address] for more information. Test performed at [facility]. us Kathie Naqvi MD LAB BLOOD ORDERABLES Fi nal Result Performing Organization Address City/[facility]/ZIP Co de Phone Number [facility] [address] [place] [address] * Hepatitis C Antibody - ED (02/19/2025 7:18 AM EDT) Pathologist [facility] Hepatitis C Antibody Negative Negative 02/19/2025 8:32 AM EDT [facility] Blood Venous blood specimen / Unknown Venipuncture / Unknown 02/19/2025 7:18 AM EDT 02/19/2025 7:49 AM EDT us Benito Chakraborty MD LAB BLOOD ORDERABLES Final Resu lt Performing Organization Address [facility] [place] [address] * (ABNORMAL) N-Terminal Probnp, Plasma (02/19/2025 7:18 AM EDT) Pathologist [facility] N-Terminal, PROBNP, Plasma 2,448(H) 0 - 1,799 pg/mL 02/19/2025 8:58 AM EDT [facility] Blood Venous blood specimen / Unknown Venipuncture / Unknown 02/19/2025 7:18 AM EDT 02/19/2025 7:22 AM EDT us Kathie Naqvi MD LAB BLOOD ORDERABLES Fi nal Result Performing Organization Address [facility] [place] [address] * (ABNORMAL) PT-INR (02/19/2025 7:18 AM EDT) Pathologist [facility] Prothrombin Time 16.6(H) 12.0 - 14.3 sec 02/19/2025 7:59 AM EDT [facility] INR 1.4(H) 0.9 - 1.1 02/19/2025 7:59 AM EDT [facility] Blood Venous blood specimen / Unknown Venipuncture / Unknown 02/19/2025 7:18 AM EDT 02/19/2025 7:22 AM EDT Narrative [facility] - 02/19/2025 7:59 AM EDT OPTIMAL INR RANGES FOR PATIENT ON ORAL ANTICOAGULANT THERAPY Prevention of venous thromboembolism INR 2.0 to 3.0 In patients with heart disease: Atrial fibrillation INR 2.0 to 3.0 Valvular heart disease INR 2.0 to 3.0 Tissue heart valves INR 2.0 to 3.0 Mechanical prosthetic valves INR 2.5 to 3.5 Prevention of recurrent CA INR 2.5 to 3.5 Benito Chakraborty MD LAB BLOOD ORDERABLES Final Resu lt Performing Organization Address [facility] de Phone Number [facility] [address] [place] [address] * Anti Xa Level Unfractionated Heparin (02/19/2025 7:18 AM EDT) Anti Xa Level Unfractionated Heparin 0.86 <1.00 IU/mL 02/19/2025 8:01 AM EDT [facility] Blood Venous blood specimen / Unknown Venipuncture / Unknown 02/19/2025 7:18 AM EDT 02/19/2025 7:22 AM EDT [facility] [facility] - 02/19/2025 8:01 AM EDT Therapeutic Range: UFH Full Dose and ACS/CA protocols*: 0.30 - 0.70 IU/mL UFH Low Dose protocol*: 0.25 - 0.50 IU/mL UFH prophylaxis: Not established us Benito Chakraborty MD LAB BLOOD ORDERABLES Final Resu lt Performing Organization Address [facility] de Phone Number [facility] [address] [place] [address] * (ABNORMAL) CBC w/diff (02/19/2025 7:18 AM EDT) WBC Count 16.73(H) 3.70 - 10.30 10*3/uL LAB HEMATOLOGY METHOD 02/19/2025 7:26 AM EDT [facility] RBC Count 4.00 3.90 - 5.20 10*6/uL LAB HEMATOLOGY METHOD 02/19/2025 7:26 AM EDT [facility] HGB 10.6(L) 11.2 - 15.7 g/dL LAB HEMATOLOGY METHOD 02/19/2025 7:26 AM EDT [facility] HCT 34.3 34.0 - 45.0 % LAB HEMATOLOGY METHOD 02/19/2025 7:26 AM EDT [facility] Platelet Count 222 155 - 369 10*3/uL LAB HEMATOLOGY METHOD 02/19/2025 7:26 AM EDT [facility] MCV 86 79 - 98 fL LAB HEMATOLOGY METHOD 02/19/2025 7:26 AM EDT [facility] MCH 26.5 26.0 - 32.0 pg LAB HEMATOLOGY METHOD 02/19/2025 7:26 AM EDT [facility] MCHC 30.9 30.7 - 35.5 g/dL LAB HEMATOLOGY METHOD 02/19/2025 7:26 AM EDT [facility] RDW 14.4 11.5 - 14.5 % LAB HEMATOLOGY METHOD 02/19/2025 7:26 AM EDT [facility] MPV 9.4 8.8 - 12.5 fL LAB HEMATOLOGY METHOD 02/19/2025 7:26 AM EDT [facility] nRBC 0.0 <=0.0 per 100 WBCs LAB HEMATOLOGY METHOD 02/19/2025 7:26 AM EDT [facility] Differential Type Automated LAB HEMATOLOGY METHOD 02/19/2025 7:26 AM EDT [facility] Neutrophils % 85 % LAB HEMATOLOGY METHOD 02/19/2025 7:26 AM EDT [facility] Lymphocytes % 9 % LAB HEMATOLOGY METHOD 02/19/2025 7:26 AM EDT [facility] Monocytes % 5 % LAB HEMATOLOGY METHOD 02/19/2025 7:26 AM EDT [facility] Eosinophils % 0 % LAB HEMATOLOGY METHOD 02/19/2025 7:26 AM EDT [facility] Basophils % 0 % LAB HEMATOLOGY METHOD 02/19/2025 7:26 AM EDT [facility] Immature Granulocytes % 1 % LAB HEMATOLOGY METHOD 02/19/2025 7:26 AM EDT [facility] Neutrophils Absolute 14.37(H) 1.60 - 6.10 10*3/uL LAB HEMATOLOGY METHOD 02/19/2025 7:26 AM EDT [facility] Lymphocytes Absolute 1.46 1.20 - 3.90 10*3/uL LAB HEMATOLOGY METHOD 02/19/2025 7:26 AM EDT [facility] Monocytes Absolute 0.77 0.30 - 0.90 10*3/uL LAB HEMATOLOGY METHOD 02/19/2025 7:26 AM EDT [facility] Eosinophils Absolute 0.01 0.00 - 0.50 10*3/uL LAB HEMATOLOGY METHOD 02/19/2025 7:26 AM EDT [facility] Basophils Absolute 0.04 0.00 - 0.10 10*3/uL LAB HEMATOLOGY METHOD 02/19/2025 7:26 AM EDT [facility] Immature Granulocytes Absolute 0.08(H) 0.00 - 0.06 10*3/uL LAB HEMATOLOGY METHOD 02/19/2025 7:26 AM EDT [facility] Blood Venous blood specimen / Unknown Venipuncture / Unknown 02/19/2025 7:18 AM EDT 02/19/2025 7:22 AM EDT Narrative [facility] - 02/19/2025 7:26 AM EDT Therapeutic decision making should be based on absolute values, rather than percentages. us Benito Chakraborty MD LAB BLOOD ORDERABLES Final Resu lt Performing Organization Address City/[facility]/ZIP Co de Phone Number [facility] [address] [place] [address] * (ABNORMAL) C-reactive protein (02/19/2025 7:18 AM EDT) CRP, Plasma 38.1(H) <=8.0 mg/L 02/19/2025 10:10 AM EDT [facility] Blood Venous blood specimen / Unknown Venipuncture / Unknown 02/19/2025 7:18 AM EDT 02/19/2025 7:22 AM EDT Narrative [facility] - 02/19/2025 10:10 AM EDT This CRP test is appropriate for assessment of infection, systemic inflammation and/or tissue injury. To assess cardiovascular disease risk order high sensitivity CRP (CRPH). us Kathie Naqvi MD LAB BLOOD ORDERABLES Fi nal Result Performing Organization Address City/[facility]/ZIP Co de Phone Number [facility] [address] [place] [address] * (ABNORMAL) Hemoglobin A1c (02/19/2025 7:18 AM EDT) Hemoglobin A1c 7.4(H) <5.7 % 02/19/2025 11:39 AM EDT [facility] Blood Venous blood specimen / Unknown Venipuncture / Unknown 02/19/2025 7:18 AM EDT 02/19/2025 7:22 AM EDT Narrative [facility] - 02/19/2025 11:39 AM EDT HA1C Interpretive Data: Diagnosis of Diabetes: Diabetic > or = 6.5% Pre-diabetic 5.7 to 6.4% Non-diabetic < or = 5.6% Glycemic Targets for Type I and Type II Diabetics: Non- Adults <7.0% Adults <6.0% Children and Adolescents <7.5% Source: [place] [employer]. Standards of medical care in diabetes,2017. Diabetes Care.2017:40 (suppl 1):S1-S135. Kathie Naqvi MD LAB BLOOD ORDERABLES Fi nal Result [facility] [address] [place] [address] * (ABNORMAL) CMP (02/19/2025 7:18 AM EDT) Glucose, Plasma 249(H) 74 - 99 mg/dL 02/19/2025 7:44 AM EDT [facility] BUN, Plasma 23 8 - 23 mg/dL 02/19/2025 7:44 AM EDT [facility] Creatinine, Plasma 1.07 0.60 - 1.10 mg/dL 02/19/2025 7:44 AM EDT [facility] BUN/Creatinine Ratio 02/19/2025 7:44 AM EDT [facility] Sodium, Plasma 139 136 - 145 mmol/L 02/19/2025 7:44 AM EDT [facility] Potassium, Plasma 4.7 3.6 - 4.9 mmol/L 02/19/2025 7:44 AM EDT [facility] Chloride, Plasma 97 97 - 107 mmol/L 02/19/2025 7:44 AM EDT [facility] CO2, Plasma 30(H) 22 - 29 mmol/L 02/19/2025 7:44 AM EDT [facility] Anion Gap 12 6 - 16 mmol/L 02/19/2025 7:44 AM EDT [facility] Total Calcium, Plasma 9.0 8.9 - 10.2 mg/dL 02/19/2025 7:44 AM EDT [facility] Total Protein 6.7 6.3 - 7.9 g/dL 02/19/2025 7:44 AM EDT [facility] Albumin, Plasma 3.5 3.5 - 5.2 g/dL 02/19/2025 7:44 AM EDT [facility] AST, Plasma 13 10 - 35 U/L 02/19/2025 7:44 AM EDT [facility] ALT, Plasma 7(L) 10 - 35 U/L 02/19/2025 7:44 AM EDT [facility] Alkaline Phosphatase, Plasma 89 46 - 142 U/L 02/19/2025 7:44 AM EDT [facility] Total Bilirubin, Plasma 0.4 0.2 - 1.1 mg/dL 02/19/2025 7:44 AM EDT [facility] eGFRcr 53.3 mL/min/1.7 3m*2 02/19/2025 7:44 AM EDT [facility] Comment:Reported eGFRcr in m L/min/1.73m2 is based the CKD-EPI 2020 equation that does not use a race coefficient. Blood Venous blood specimen / Unknown Venipuncture / Unknown 02/19/2025 7:18 AM EDT 02/19/2025 7:22 AM EDT us Benito Chakraborty MD LAB BLOOD ORDERABLES Final Resu lt [facility] [address] [place] [address] * CT NEURO OUTSIDE IMAGES (02/18/2025 11:37 [...] Date Last Indicated MRSA 07/29/2022 07/29/2022 Insurance [employer] MEDICARE Advance Directives Documents on File Type Date Recorded Patient Pyrometer Temperature Regulator Expl anation Advance Directives and Living Will [...] updated to appropriate status: Yes Care Teams Woven Label Designer Relationship Specialty Start Date End Date Jamil Carey MD [address] [place] [id number] PCP - General 10/22/22 Radha Russ LPN [facility] TCM Nurse 02/22/25
--- OUTSIDE RECORDS SUMMARY | 2025-03-23 13:14 | XMS_ITS | Encounter Summary ---
Author Organization Healthcare Address [address] [place] [address] Care Team Providers Care Fast Food Cashier Name Role Phone Jamil Carey MD Primary Care Provider [phone] Radha Russ LPN Unavailable Unavailabl e Encounter Details Date Type Department Care Team (Late st Contact Info) Description 02/18/2025 Orders Only External Location [address] [place] [address] Provider, External Social History Tobacco Use Types [...] documented as of this encounter Care Teams Fast Food Cashier Relationship Specialty Start Date End Date Jamil Carey MD [address] [address] PCP - General 10/22/22 Radha Russ LPN [facility] TCM Nurse 02/22/25 documented as of this encounter
--- OUTSIDE RECORDS SUMMARY | 2025-03-23 13:14 | XMS_ITS | Encounter Summary ---
Author Organization Healthcare Address [address] [place] [address] Care Team Providers Care Field Artillery Crewmember Name Role Phone Jamil Carey MD Primary Care Provider [phone] Encounter Details Date Type Department Care Team [...] documented as of this encounter Care Teams Field Artillery Crewmember Relationship Specialty Start Date End Date Jamil Carey MD [address] [place] [address] PCP - General 10/22/22 documented as of this encounter
--- OUTSIDE RECORDS SUMMARY | 2025-03-23 13:14 | XMS_ITS | Continuity of Care Document ---
Author Organization [facility] Address [address] [place] [address] Care Team Providers Care Beautician Apprentice Name Role Phone JAMIL JOHNSON Primary Care Provider [phone] JAMIL JOHNSON Primary Care Provider Assessment Encounter Date Assessment Date Assessment LastModified by Organization Details LastModified Time 03/15/2025 03/15/2025 -d/c AM Quetiapine -reviewed hospital records -continue Xarelto for stroke prevention -continue donepezil -continue home health PT/OT -f/u as scheduled [facility] Not available 03/15/2025 16:57:08 Plan of Treatment Reminders Order Date Submit [...] Abnormal Flag Note LastModifiedBy Organization Detail LastModifiedTime Result Notes None recorded. Problems Name Problem SNOMED Code Status Onset Date Resolution Date Notes Provider Name and Address Organization Details Recorded Time Infective cystitis 680533895 Active Matthias green [place] Shadia LEANDRO [facility] & [place] 5 16:18:06 Obesity 002449633 Active Bharat Cooper peter [facility] & [place] 5 10:24:59 Callus of heel 369890549 Active Not Available [facility] 3 10:01:22 Body mass index 40+ - severely obese 926314043 Active Not Available [facility] 3 10:01:22 Exacerbati on of moderate persistent asthma 380998987 Active Not Available [facility] 3 10:01:22 Dyslipidem ia 327273002 Active Not Available [facility] 3 10:01:22 Recurrent major depressive episodes, mild 755876726 Active Bharat Cooper null, [place] - [facility] & [place] 5 10:24:19 Pain in cervical spine 264328680 Active Bharat Cooper null, [place] - [facility] & [place] 5 10:24:45 Chronic neck pain 0559857461429 Active Not Available [facility] 3 10:01:21 Intertrigo 99947052 Active Bharat Cooper null, [place] - [facility] & [place] 5 10:35:39 Asymmetric al sensorineu ral hearing loss 386139630 Active Not Available [facility] 3 10:01:22 Breast lump 44625175 Active Not Available [facility] 3 10:01:22 Dupuytren' s contractur e of finger 204622339 Active Not Available [facility] 3 10:01:22 Acute urinary tract infection 790198665 Active Not Available [facility] 3 10:01:22 History of invasive malignant neoplasm of breast 8727162985707 3 Active Not Available [facility] 3 10:01:22 Acute cystitis 13217758 Active Not Available [facility] 3 10:01:22 Pain of right hip joint 4389379002346 02 Active Bharat Cooper null, [place] - [facility] & [place] 5 10:24:36 Chronic pain 89698769 Active Not Available [facility] 3 10:01:22 Charcot's joint of foot 154494028 Active Not Available [facility] 3 10:01:22 Peripheral neuropathy due to type 2 diabetes mellitus 4993650961024 Active REECE aDo [place] & [place] 5 10:24:23 Allergic rhinitis caused by pollen 81489477 Active Not Available [facility] 3 10:01:22 Base allergy Active Not Available [facility] 3 10:01:22 Hearing loss of left ear 323665047 Active Not Available [facility] 3 10:01:22 Lymphedema 275500687 Active REECE Dao [place] & [place] 5 10:25:19 Mild depression 549254450 Active REECE Dao [place] & [place] 5 10:25:10 Community acquired pneumonia 357478728 Active Not Available [facility] 3 10:01:22 Mixed hyperlipid emia 566414830 Active Not Available [facility] 3 10:01:22 Ankle pain 581991894 Active Not Available [facility] 3 10:01:22 Abduction deformity of foot 610626825 Active Not Available [facility] 3 10:01:22 Long-term current use of systemic steroid 0861348674862 03 Active Not Available [facility] 3 10:01:22 Paroxysmal atrial fibrillati on 768758869 Active REECE Dao [place] & [place] 5 10:24:29 Essential hypertensi on 33176723 Active Not Available [facility] 3 10:01:22 Generalize d osteoarthr itis 064751978 Active Not Available [facility] 3 10:01:22 Moderate persistent asthma 805417642 Active REECE Dao [place] & [place] 5 10:25:04 Allergic rhinitis 30927004 Active Not Available [facility] 3 10:01:22 Pain in left thumb 8001083153433 100 Active REECE Dao [place] & [place] 5 10:24:41 Morbid obesity 269733796 Active REECE Dao [place] & [place] 5 10:24:54 Abnormal gait 21523619 Active Not Available [facility] 3 10:01:22 Atrial fibrillati on 24017481 Active Not Available [facility] 3 10:01:22 Bilateral sacroiliit is 9978580932250 9102 Active Not Available [facility] 3 10:01:21 Uncomplica rona severe persistent asthma 466001589 Active Bharat Cooper null, [place] - [facility] - [place] & [place] 5 10:24:11 Obstructiv e sleep apnea syndrome 28218101 Active Bharat Cooper null, [place] - [facility] [place] & [place] 5 10:24:50 Severe persistent asthma 272441322 Active 2021 Bharat Cooper null, [place] - [facility] [place] & [place] 5 10:24:14 Dyspnea on exertion 82577739 Active 2021 Not Available [facility] 3 10:01:22 Chronic rhinitis 10998534 Active 2021 Not Available [facility] 3 10:01:22 Mixed anxiety and depressive disorder 438935406 Active 2021 Not Available [facility] 3 10:01:22 Chronic cough 02132500 Active 2022 Not Available [facility] 3 10:01:22 Type 2 diabetes mellitus 93749335 Active 2022 Not Available [facility] 3 10:01:22 Hyperlipid emia 93860939 Active 2022 Not Available [facility] 3 10:01:22 Renal insufficie ncy 356460509 Active 2022 Not Available [facility] 3 10:01:22 Chronic anemia 255491879 Active 2022 Not Available [facility] 3 10:01:21 Seizure disorder 987956673 Active 2022 Not Available [facility] 3 10:01:21 Notes:Some problems listed i n Documents: #[id number], #[id number] could not be added to this patient's chart. Please review these documents and add these problems to the patient's chart manually as needed. Problem Notes None recorded. Procedures Surgical History Date Name Laterality Status Provider Name and Address Organization Details Recorded Time 11/28/19 23 Medicare Annual Wellness Visit Health Risk Assessment completed Latesha Pardini [place] - [facility] - [place] & [place] 11/27/2022 09:18:51 09/01/19 22 Back Surgery completed Latesha Pardini [place] [facility] [place] & [place] 11/27/2022 09:13:45 07/02/20 19 Stent Placement completed Judith Calvin [place] [facility] [place] & [place] 05/14/2024 16:34:06 10/20/19 19 Cataract Surgery completed Judith Calvin [place] [facility] [place] & [place] 05/14/2024 16:33:04 09/01/19 18 Stent Placement completed Judith Calvin [place] [facility] [place] & [place] 05/14/2024 16:34:17 07/13/20 14 Most Recent Mammogram completed Vijaya Yuridia [place] [facility] [place] & [place] 11/28/2022 13:31:45 07/14/20 12 Date of Last Colonoscopy completed Vijaya Yuridia [place] [facility] [place] & [place] 11/28/2022 13:32:19 04/23/20 12 Colonoscopy completed Vijaya Yuridia [place] [facility] [place] & [place] 11/28/2022 13:33:36 09/01/19 03 Breast Surgery completed Vijaya Yuridia [place] [facility] [place] & [place] 11/28/2022 13:26:05 09/01/18 97 Breast Surgery completed Latesha Pardini [place] [facility] [place] & [place] 11/27/2022 09:13:45 09/01/18 75 cholecystectomy completed Vijaya Yuridia [place] [facility] [place] & [place] 11/28/2022 13:27:39 09/01/18 74 Tubal Ligation completed Vijaya Yuridia [place] [facility] [place] & [place] 11/28/2022 13:28:24 09/01/18 53 Tonsillectomy/Adeno idectomy completed Judith Calvin [place] [facility] [place] & [place] 05/14/2024 16:34:27 LASIK completed Latesha NEWELL [facility] & [place] 11/27/2022 09:13:45 Cardiovascular Surgery completed Latesha NEWELL [facility] & [place] 11/27/2022 09:13:45 Joint Replacement completed Lateshatyler NEWELL [facility] & [place] 11/27/2022 09:13:45 Knee Surgery completed Vijaya NEWELL [facility] & [place] 11/28/2022 13:29:39 Carpal Tunnel Surgery completed Vijaya NEWELL [facility] & [place] 11/28/2022 13:30:28 Imaging Results None recorded. Procedure Notes None recorded. Medical Equipment None Reported. Allergies Allergen ID Allergen Name Allergen Category Reaction Reaction Severity Criticality Documentation Date Start Date Code Code System Note Provider Name and Address Organization Details Recorded Time 9970 Product containin g penicilli n (product) medicatio n anaphylax is severe high 05/13/2022 94890 8001 SNOMED [facility] [place] 5 14:13:35 9971 penicilli n G Not available rash Not available Not available 05/13/2022 7980 [facility] [place] 2 15:43:05 Medications Name Sig Start Date [...] Not Available Not Available No t Available [facility] 100,000 unit/gram topical powder APPLY 1 [...] Relief 50 mcg/actuati on nasal spray,suspe nsion [place] 1 spray every day by intranasa l [...] Not Available No t Available Afluria Qd 2019- (36 mos up)(PF)60 mcg (15 mcg x4)/0.5 mL IM syringe 0.5 mL by intramusc . route. 07/04 completed Not Available Not Available Not Available Loistri Aerosphere 160 mcg-9mcg-4. 8mcg/actuat ion HFA aerosol inhaler Inhale 2 puffs twice a day by inhalatio n route. 07/17 completed Not Available Not Available Not Available Trelegy Ellipta 200 mcg-62.5 mcg-25 mcg powder for inhalation 06/24 completed Not Available Not Available Not Available DropSafe Alcohol Prep Pads USE DIRECTED TWO TIMES DAILY active Not Available Not Available No t Available Dexcom G7 [employer] USE DIRECTED 12/06 completed Not Available Not Available Not Available Dexcom G7 Sensor device USE DIRECTED 12/06 completed Not Available Not Available Not Available Vitals Date Recorded Body height Body temperature Oxygen saturation Oxygen saturation in Arterial blood by Pulse oximetry Inhaled oxygen flow rate Heart rate Systolic And Diastolic Provider Name and Address Organization Details Last Updated DateTime 5 167.64 cm 97.1 [degF] 90 % 90 % 2 L/min 45 /min 166/101 mm[Hg] Matthias Barrios [facility] & [place] 5 16:46:09 Social History Question Answer Notes LastModified by Organizat ion Details LastModified Time Tobacco Smoking Status Never Smoker Not Available [facility] 07/17/2023 14:35:44 Do You Have An Advance Directive? Yes CHART_MERGE Information n ot available 07/17/2023 Do You Wear A Helmet When Biking? Yes [email or web address] Information not available 10/06/2024 Are You Blind Or Do You Have Difficulty Seeing? No CHART_MERGE Information n ot available 07/17/2023 What Is Your Level Of Caffeine Consumption? Occasional CHART_MERGE Information not available 07/17/2023 In The 14 Days Before Symptom Onset, Have You Had Close Contact With A Laboratory-confirm ed COVID-19 While That Case Was Ill? No [email or web address] Information n ot available 10/06/2024 In The 14 Days Before Symptom Onset, Have You Had Close Contact With A Person Who Is Under Investigation For COVID-19 While That Person Was Ill? No Information not available 10/06/2024 Have You Been To An Area Known To Be High Risk For COVID-19? No [email or web address] Information not available 10/06/2024 Are You Deaf Or Do You Have Serious Difficulty Hearing? No [email or web address] Information not available 10/06/2024 What Type Of Diet Are You Following? REGULAR [email or web address] Information n ot available 10/06/2024 Have You Processed Blood Or Body Fluids From An Ebola Virus Disease Patient Without Appropriate PPE? No [email or web address] Information not available 10/06/2024 Do You Reside In Or Have You Traveled To An Area Where Ebola Virus Transmission Is Active? No [email or web address] Information not available 10/06/2024 Have There Been Any Changes To Your Family Or Social Situation? No [email or web address] Information no t available 10/06/2024 What Is The Fluoride Status Of Your Home? Unknown [email or web address] Information not available 10/06/2024 Are There Any Guns Present In Your Home? No [email or web address] Information not available 10/06/2024 Have You Recently Or Are You Planning To Travel To An Area With Zika Virus? No [email or web address] Information not available 10/06/2024 Do You Use Insect Repellent Routinely? Yes [email or web address] Information not available 10/06/2024 Do You Feel Safe At Home? Yes [email or web address] Information not available 10/06/2024 Do You Have A Medical Power Of Counter Dish Carrier? Yes [email or web address] Information not available 10/06/2024 What Was The Date Of Your Most Recent Tobacco Screening? 06/26/2022 Information not available 05/14/2024 Do You Have Any Pets? No [email or web address] Information not available 10/06/2024 Do You Use Your Seat Belt Or Car Seat Routinely? Yes Information not available 10/06/2024 Are You Passively Exposed To Smoke? No CHART_MERGE Information no t available 07/17/2023 Do You Use Sunscreen Routinely? Yes [email or web address] Information not available 10/06/2024 Has Tobacco Cessation Counseling Been Provided? No CHART_MERGE Information not available 07/17/2023 How Many Years Have You Smoked Tobacco? 0 CHART_MERGE Information not available 07/17/2023 Do You Have Difficulty Walking Or Climbing Stairs? No [email or web address] Information not available 10/06/2024 Are You Currently In School? No [email or web address] Information not available 10/06/2024 Sex: Female Functional [...] available 07/17/2023 Are you currently employed? No [email or web address] Information not available 10/06/2024 Do you have transportation difficulties? No [email or web address] Information not available 10/06/2024 Are you able to walk? YESWOREST [email or web address] Information not available 10/06/2024 Do you have difficulty doing errands alone? No [email or web address] Information not available 10/06/2024 Are you able to care for yourself? Yes [email or web address] Information not available 10/06/2024 Do you have difficulty dressing or bathing? No [email or web address] Information not available 10/06/2024 What is your exercise level? None CHART_MERGE Information not available 07/17/2023 Mental Status Question Answer Note LastModified by Organizat ion Details LastModified Time Do you feel stressed (tense, restless, nervous, or anxious, or unable to sleep at night)? [id number] Information not available 05/14/2024 Do you have difficulty concentrating, remembering or making decisions? No [email or web address] Information no t available 10/06/2024 Family History Relationship Description Onset Age of this Age Resolved Age Notes LastModified by Organization Details LastModified Time Mother Cancerous ulcer [email or web address] Not available 03/15 16:09:06 Mother Burn of larynx [email or web address] Not available 03/15 16:09:06 Mother Family member [email or web address] Not available 03/15 16:09:06 Mother Heart disease Not available 2023 16:37:36 Father Heart disease [email or web address] Not available 07/02 14:35:40 Father Myocardial infarction CHART_MERGE Not available 14:35:40 Father Family member [email or web address] Not available 03/15 16:09:06 Medical History Condition Response Gout Y Ear or Hearing Problems Y Kidney or Bladder Problems Y COPD Y Clotting Disorder Y Osteoporosis/Osteopenia Y Obstructive Sleep Apnea Y Diabetes Y Obesity Y Vision or Eye Problems Y Arthritis Y Seizures/Epilepsy Y Congestive Heart Failure (CHF) Y Back Problems Y High Cholesterol Y Heart Disease Y Headaches Y Gynecological History Statement/Question Response Most Recent Mammogram 07/13/2014 Date of Last Colonoscopy 07/14/2012 Obstetrics History GPAL:G 0 P 0 0 0 0 Immunizations Vaccine Type Date Status Note Provider Nam e and Address Organization Details Recorded Time COVID-19, mRNA, LNP-S, PF, 100 mcg/0.5mL dose or 50 mcg/0.25mL dose 1 completed Michelle Colon null, [place] - [facility] & [place] 10/28/2024 14:13:10 COVID-19, mRNA, LNP-S, PF, 100 mcg/0.5mL dose or 50 mcg/0.25mL dose 1 completed Michelle Colon null, [place] [facility] & [place] 10/28/2024 14:13:10 Tdap 2 completed Michelle Colon null[place] [facility] & [place] 10/28/2024 14:13:10 Influenza, split virus, quadrivalent, PF 0 completed Michelle Colon null[place] [facility] & [place] 10/28/2024 14:13:10 Influenza, split virus, trivalent, preservative 5 completed Michelle Colon null[place] [facility] & [place] 10/28/2024 14:13:10 Influenza, adjuvanted, quadrivalent, PF 1 completed Michelle Colon null[place] [facility] & [place] 10/28/2024 14:13:10 Influenza, split virus, trivalent, PF 7 completed Michelle Colon null[place] 10/28/2024 14:13:10 Influenza, split virus, trivalent, preservative 6 completed Not Available [facility] 10/17/2023 04:24:14 Influenza, split virus, quadrivalent, PF 8 completed Michelle Colon null[place] 10/28/2024 14:13:10 Influenza, split virus, quadrivalent, PF 7 completed Michelle Colon null[place] [facility] [place] 10/28/2024 14:13:10 Influenza, split virus, trivalent, preservative 7 completed Not Available [facility] 10/17/2023 04:24:14 Influenza, high-dose, quadrivalent, PF 5 completed Michelle Colon null, [place] [facility] & [place] 10/28/2024 14:12:20 Past Encounters Encounter ID Performer Location Encounter Start Date Encounter Closed Date Diagnosis/Indication Diagnosis SNOMED-CT Code Diagnosis ICD10 Code Diagnosis Note [id number] Jamil Johnson MD [facility] [address] [id number] 03/02/2025 08:46:35 03/02/2025 09:22:41 History of sepsis 3891887217 38295 Z86.19 appears to be resolved. Patient to continue with the current medication regimen. She has been under the care of Infectious diseases. She has been encouraged to reach out to them should she have any other infectious issue.raul ent is requesting a manual bariatric wheelchair . Lymphedema 632629748 I89 .0 chronic lymphedema . Hyperlipidemia 82239958 E78.5 Stable Morbid obesity 770798937 E66.01 patient to continue with diet and lifestyle modificati ons. 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 Alicia Royal is a 79 y/o F who returns for f/u today. She has been having progressive short term memory loss. Also recently has been having frequent visual hallucinations. In August 2024 she had a fall and hit her head.She then had an episode in early September 2024 during which she had tremors and what was described as seizure-like activity. She was brought to the hospital and was encephalopathic and was hospitalized for three days. She was transferred to [facility].She is in a wheelchair and has limited mobility. She continues to have frequent visual hallucinations. She forgets recent conversations, names, appointments, etc.She had another episode of shaking during which she could not speak or communicate about two years ago and was hospitalized and started on Keppra at that time.Since last visit she had hospitalization with pneumonia. Had some visual hallucinations at the time. Is doing better but has had a lot of chronic illness most recently bradycardia and hypersomnia. Ken Tovar M.D [address] [place] [address], [address], [place], [address] [place] 03/15/2025 16:57:53 OBGyn Episode No OBEpisode recorded.
--- OUTSIDE RECORDS SUMMARY | 2025-03-23 13:14 | XMS_ITS | Clinical Summary ---
Author Organization [facility] Address [address] [place] [address] Care Team Providers Care Mechanical Project Manager Name Role Phone Chelsey Trejo Primary Care Provider [phone] Allergies Active Allergy Reactions Criticality Noted Date Comments Penicillins Anaphylaxis High 05/03/2018 Medications albuterol (VENTOLIN HFA) 108 (90 Base) MCG/ACT inhaler Inhale 2 puffs Every 4 (Four) Hours As Needed for Wheezing. Active gabapentin (NEURONTIN) 300 MG capsule Take 300 mg by mouth 3 (Three) Times a Day. Active metFORMIN (GLUCOPHAGE) 1000 MG tablet Take 500 mg by mouth 2 (Two) Times a Day With Meals. Active insulin NPH-insulin regular (humuLIN 70/30,novoLIN 70/30) (70-30) 100 UNIT/ML injection Inject under the skin into the appropriate area as directed 2 (Two) Times a Day With Meals. Active clopidogrel (PLAVIX) 75 MG tablet Take 1 tablet by mouth Daily. 30 tablet 11 06/19/20 18 Active rivaroxaban (XARELTO) 20 MG tablet Take 20 mg by mouth Daily. Active metoprolol tartrate (LOPRESSOR) 50 MG tablet Take 50 mg by mouth Daily. Active traMADol (ULTRAM) 50 MG tablet Take 50 mg by mouth Every 8 (Eight) Hours As Needed for Moderate Pain . Active LORazepam (ATIVAN) 0.5 MG tabletIndications: Occasional tremors,Stress Take 1 tablet by mouth Every 8 (Eight) Hours As Needed (tremores). 10 tablet 10/29/19 20 Active sertraline (ZOLOFT) 25 MG tablet Take 25 mg by mouth Daily. Active montelukast (SINGULAIR) 10 MG tablet Take 10 mg by mouth Every Night. Active atorvastatin (LIPITOR) 80 MG tablet 07/10/20 20 Active furosemide (LASIX) 20 MG tablet Take 20 mg by mouth Daily. 06/19/20 20 Active metoprolol succinate XL (TOPROL-XL) 50 MG 24 hr tablet 08/02/20 20 Active methocarbamol (Robaxin) 500 MG tabletIndications: Cervical spondylosis without myelopathy,Degener ation of cervical intervertebral disc,Neck pain Take 1 tablet by mouth 3 (Three) Times a Day. 60 tablet 1 03/07/20 21 Active Active Problems Problem Noted Date Diagnosed Date Transient ischemic attack (TIA) 11/09/2019 CAD (coronary artery disease) 11/08/2019 DM2 (diabetes mellitus, type 2) 11/08/2019 A-fib 11/08/2019 Obesity, morbid, BMI 50 or higher 11/08/2019 Lymphedema 11/08/2019 Debility 11/08/2019 Abnormal stress test 06/15/2018 Overview (06/15/2018): Added automatically from request for surgery [id number] Resolved Problems Problem Noted Date Diagnosed Date Resolved Date Dysarthria 11/08/2019 11/09/2019 Immunizations Immunization Administration Dates Next Due Fluzone (or Fluarix & Flulaval for VFC) >6mos Family History Medical History Relation Name Comments Heart disease Father Heart disease Mother Relation Name Status Comments Father Mother Social History Tobacco Use Types Packs/Day Years Used Date Smoking Tobacco: Never Smokeless Tobacco: Never Alcohol Use Standard Drinks/Week Comments No 0 (1 standard drink = 0.6 oz pur e alcohol) Abuse Screen Answer Date Recorded Unsafe at Home or Work/School Not on file Feels Threatened by Someone? Not on file 05/2023 Does Anyone Keep You from Co ntacting Others or Doint Things Outside the Home? Not on file 06/09/2023 Physical Sign of Abuse Present Not on file 1 Housing Stability Answer Date Recorded Current Living Arrangements Not on file 05/2023 Potentially Unsafe Housing Conditions Not on gilberot e 06/09/2023 Family and Community Support Answer Nolan e Recorded Help with Day-to-Day Activities Not on file 06/09/2023 Lonely or Isolated Not on file 06/09/2023 Employment Answer Date Recorded Do you want help finding or keeping work or a hernando b? Not on file 06/09/2023 Disabilities Answer Date Recorded Concentrating, Remembering, or Making Decisions Difficulty Not on file 06/09/2023 Doing Errands Independently Difficulty Not on fi le 06/09/2023 Education Answer Date Recorded Help with school or training? Not on file Preferred Language Not on file 06/09/2023 Comments No Sex and Gender Information Value Date Recorded Sex Assigned at Not on file Legal Sex Female 12:01 PM EDT Gender Identity Not on file Sexual Orientation Not on file Last Filed Vital Signs Vital Sign Reading Time Taken Comments Blood Pressure 120/70 08/11/2020 9:29 AM EST Pulse 74 11/10/2019 7:32 AM EDT Temperature 37 C (98.6 F) 08/11/2020 9:29 AM EST Respiratory Rate 16 11/10/2019 7:32 AM EDT Oxygen Saturation 100% 11/10/2019 7:32 AM EDT Inhaled Oxygen Concentration - - Weight 124 kg (274 lb) 08/11/2020 9:29 AM EST Height 162.6 cm (5' 4 ) 08/11/2020 9:29 AM EST Body Mass Index 47.03 08/11/2020 9:29 AM EST Plan of Treatment Health Maintenance Due Date Last Done Comments DXA SCAN 1945 DIABETIC EYE EXAM 1956 DIABETIC FOOT EXAM 1956 URINE MICROALBUMIN-CREATININ E RATIO (uACR) 1955 Pneumococcal Vaccine 50+ (1 of 2 - PCV) 1965 COLOGUARD 11/08/1991 COLON CANCER SCREENING 5 YEA R SIGMOIDOSCOPY 11/08/1991 CT COLONOGRAPHY 11/08/1991 FECAL OCCULT BLOOD TEST 11/08/1991 FIT Testing (1 year) 11/08/1991 ZOSTER VACCINE (1 of 2) 1996 HEAD SCREEN WORKER PLAN OF CARE 02/07/2020 11/09/2019 RSV Vaccine - Adults (1 - 1- dose 75+ series) 2021 COLONOSCOPY 07/14/2022 07/14/2012, 04/23/2012 COLORECTAL CANCER SCREENING 07/14/2022 ANNUAL WELLNESS VISIT 11/28/2023 11/27/2022 COVID-19 Vaccine (3 - 2023-2 5 season) 2024 03/19/2021, 02/08/2021 INFLUENZA VACCINE 06/01/2025 09/20/2024, , 11/10/2019, Additional history exists HEMOGLOBIN A1C 08/21/2025 02/19/2025, 10/30, 02/13/2019, Additional history exists TDAP/TD VACCINES (2 - Td or Tdap) 06/10/2032 022 HEPATITIS C SCREENING Completed 02/19/2025 Medical Devices Implanted Type Area Director Corporate Sales Device Identifier Shelf Expiration Date Model / Serial / Lot Stent Xience Lesvia Everolimus Manuelito [id number] - [id number] Implanted:Qty: 1 on 06/19/2018 by Home Hurley MD at [facility] Right: Coronary [employer] VASCULAR [id number] / / [id number] Stent Xience Lesvia Everolimus Manuelito 2.5x12mm - [id number] Implanted:Qty: 1 on 06/19/2018 by Home Hurley MD at [facility] Left: Coronary PERAZA VASCULAR [id number] / / [id number] Procedures Procedure Name Priority Date/Time Associated Diagnosis Comments HEMOGLOBIN A1C Routine 11/09/2019 5:50 AM EDT from Last 3 Months or Most Recently Relevant to Health Maintenance Results * (ABNORMAL) Hemoglobin A1c (11/09/2019 5:50 AM EDT) Hemoglobin A1C 7.50(H) 4.80 - 5.60 % 11/09/2019 8:38 AM EDT [facility] Blood Venipuncture / Unknown 11/09/2019 5:50 AM EDT 11/09/2019 6:32 AM EDT Narrative [facility] - 11/09/2019 8:38 AM EDT Hemoglobin A1C Ranges: Increased Risk for Diabetes 5.7% to 6.4% Diabetes >= 6.5% Diabetic Goal < 7.0% Erick Mckeon MD LAB BLOOD ORDERABLES Final Result [facility]
[address] [id number], from Last 3 Months or Most Recently Relevant to Health Maintenance Insurance [employer] Advance Directives Documents on File Type Date Recorded Patient Clinical Transformation Specialist Expl anation LIVING WILL - SCAN 06/06/2020 4:29 PM [facility]NA [facility], 04/10/2020 * CPR (Attempt to Resuscitate) (Latest Code Status on File) Date Activated Date Inactivated Comments 11/08/2019 1:01 PM 11/10/2019 2:02 PM Question Answer Comments Code Status (Patient has no pulse and is not breathing): CPR (Attempt to Resuscitate) Medical Interventions (Patie nt has pulse or is breathing): Full Level Of Support Discussed With: Patient Care Teams Mechanical Project Manager Relationship Specialty Start Date End Date Chelsey Trejo PA [address] [address] PCP - General Family Medicine 05/03/18
--- OUTSIDE RECORDS SUMMARY | 2025-03-23 13:14 | XMS_ITS | Encounter Summary ---
Author Organization Healthcare Address [address] [place] [address] Care Team Providers Care Leaf Sorter Name Role Phone Chelsey Trejo Primary Care Provider [phone] Mini Fink Unavailable Unavailable Jamil Carey MD Primary Care Provider Radha Russ LPN Unavailable Unavailabl e Encounter Details Date Type Department Care Team (Late st Contact Info) Description 10/29/2019 Orders Only External Location [address] [place] [address] Provider, External Social History Tobacco Use Types [...] documented as of this encounter Care Teams Leaf Sorter Relationship Specialty Start Date End Date Chelsey Trejo PA [address] [place] [address] PCP - General 01/12/21 10/21/22 Jmail Carey MD [address] [facility] [address] [address] PCP - General 10/22/22 [place] [address] [employer] [facility] 08/20/2109/20 Radha Russ, [facility] TCM Nurse 02/22/25 documented as of this encounter
--- OUTSIDE RECORDS SUMMARY | 2025-03-23 13:14 | XMS_ITS | Encounter Summary ---
Author Organization Healthcare Address [address] [place] [address] Care Team Providers Care Mechanist Name Role Phone Jamil Carey MD Primary Care Provider [phone] Radha Russ LPN Unavailable Unavailabl e Encounter Details Date Type Department Care Team (Late st Contact Info) Description 02/18/2025 Orders Only External Location [address] [place] [address] Provider, External Social History Tobacco Use Types [...] time in the past 12 m [facility], were you homeless or living in a skilled nursing (including now)? No 02/21/2025 Utilities Answer Date [...] documented as of this encounter Care Teams Mechanist Relationship Specialty Start Date End Date Jamil Carey MD [address] [address] PCP - General 10/22/22 Radha Russ LPN [facility] TCM Nurse 02/22/25 documented as of this encounter
--- OUTSIDE RECORDS SUMMARY | 2025-03-23 13:14 | XMS_ITS | Encounter Summary ---
Author Organization Healthcare Address [address] [place] [address] Care Team Providers Care Addressograph Operator Name Role Phone Jamil Carey MD Primary Care Provider [phone] Radha Russ LPN Unavailable Unavailabl e Reason for Visit * Reason Comments TCM Call Encounter Details Date Type Department Care Team (Late st Contact Info) Description 02/22/2025 Patient Outreach POP[facility] [address] [facility], [address] [place] [address] Radha Russ LPN [facility] TCM Call Social History [...] time in the past 12 m [facility], were you homeless or living in a senior living (including now)? No 02/21/2025 Utilities Answer Date Recorded In the past 12 months has th e [employer], gas, oil, or water company threatened to [...] documented as of this encounter Care Teams Addressograph Operator Relationship Specialty Start Date End Date Jamil Carey MD [address] [address] PCP - General 10/22/22 Radha Russ LPN [facility] TCM Nurse 02/22/25 documented as of this encounter
[2025-03-23 14:28] VITALS: BP 101/50; PULSE 50; RESP 14; O2SAT 92; BMI 51.2
== END 2025-03-23 23:59 | disposition home or self-care (01) ==
PROVIDERS: PCP Emergency Medicine; Visit Provider Nurse Practitioner Family
DX: M51.361 Other intervertebral disc degeneration, lumbar region with lower extremity pain only (principal); M25.551 Pain in right hip; Z79.891 Long term (current) use of opiate analgesic; Z79.899 Other long term (current) drug therapy
CPT/HCPCS: 99212; G0463

== ENCOUNTER 2025-03-30 11:40 | Outpatient (CLI) | payer MEDICARE, SELFPAY ==
--- OUTSIDE RECORDS SUMMARY | 2025-02-19 03:43 | XMS_ITS | Encounter Summary ---
Author Organization Healthcare Address [address] [place] [address] Care Team Providers [facility] Former Name Role Phone Jamil Carey MD Primary Care Provider [phone] Reason for Referral * Home Health (Routine) - Authorized Specialty Diagnoses / Procedures Referred By Severiano ceron Referred To Contact Home Health Services / Case Management Diagnoses Altered mental status, unspecified altered mental status type Kathie Naqvi MD [address] [place] [address] Phone: tel: fax: Referral ID Status Reason Start Date Expiration Date Visits Requested Visits Authorized [id number] Authorized Specialty Services Required 02/21/2025 08/23/2026 999 999 Reason for Visit * Reason Comments Altered Mental Status * Auth/Cert (Routine) Specialty Diagnoses / Procedures Referred By Severiano ceron Referred To Contact Diagnoses Altered mental status Pneumonia of left lower lobe due to infectious organism Altered mental status, unspecified altered mental status type Pneumonia, Sepsis Kathie Naqvi MD [address] [place] [address] Phone: tel: fax: [facility] [address] [place] [address] Phone: tel: Referral ID Status Reason Start Date Expiration Date Visits Re quested Visits Authorized [id number] 1 1 Encounter Details Date Type Department Care Team (Late st Contact Info) Description 02/19/2025 3:43 AM EDT - 02/21/2025 5:26 PM EDT Hospital Encounter [facility] [address] [place] [address] Benito Chakraborty MD [address] [place] [address] Devonte Geller MD [address] [place] [address] Kathie Naqvi MD [address] [place] [address] Altered mental status, unspecified altered [...] any time in the past 12 m [facility], were you homeless or living in a [...] or chew. ergocalciferol (Vitamin D-2) 1.25 MG (48514 UT) capsule Take 1 capsule by mouth 1 time per week. HYDROcodone-aceta minophen (Mize) 5-325 MG tablet Take 1 tablet by [...] PCP name and Address: Jamil Carey MD [address] [place] [address] / [place] [address] Referring provider name and address: Gregoria Farias DO [address] [place] [address] Chief Concern, Brief History of Present Illness, [...] not crush or chew. ergocalciferol 1.25 MG (61518 UT) capsule Commonly known as: Vitamin D-2 Take 1 capsule by mouth 1 time per week. HYDROcodone-acetaminophen 5-325 MG tablet Commonly known as: Mize Take 1 tablet by mouth 4 times [...] Your Medications These medications were sent to [facility] - [place], [place] - [address] [facility] [id number] cefuroxime 500 MG tablet Discharge Diagnosis Medical [...] saw and evaluated the patient with the medical/FLEET ADMINISTRATOR/PA student. I discussed the case with the medical/FLEET ADMINISTRATOR/PA student and agree with the findings and [...] From: Daughter Level of Mobility: Non-ambulatory/bed-bound Mobility [place]: Assistance with transfers with device (cara lift [...] Mobility Bed Mobility Exam: Rolling/Turning Level of [place]: Minimum assist (75% patient effort) Physical/Nonphysical Assist: Verbal Cues, Nonverbal cues (demo/gestures) Bed Mobility Exam: Scooting/Bridging Level of [place]: Minimum assist (75% patient's effort) (to scoot towards EOB while seated upright; dependent assist required to scoot towards HOB while supine) Physical/Nonphysical Assist: Verbal Cues, Nonverbal cues (demo/gestures) Bed Mobility Exam: Supine to Sit Level of [place]: Minimum assist (75% patient's effort) Physical/Nonphysical Assist: Set-up required, Verbal Cues, Nonverbal cues (demo/gestures), HOB elevated Bed Mobility Exam: Sit to Supine Level of [place]: Maximum assist (25% patient's effort) Physical/Nonphysical Assist: [...] slides x 5 each AAROM Standardized Assessments [facility] 6-Clicks Mobility Assessment Difficulty patient has [...] climbing 3-5 steps with a railing?: Unable [facility] 6-Clicks Mobility Assessment Total : 9 [...] from Daughter Level of Mobility Non-ambulatory/bed-bound Mobility [place] Assistance with transfers with device (cara lift [...] Touch Sensation Intact BED MOBILITY Level of [place] Physical/Non-physical Assist Adaptive Equipment Utilized Rolling/ Turning [...] Bed rails, Other (drawsheet) TRANSFERS Level of [place] Physical/Non-physical Assist Adaptive Equipment Utilized Sit to Stand Unable to perform (Deferred - pt cara dependent at baseline.) BALANCE Postural Appearance Posture: Stooped posture, Forward head, Rounded shoulders Level of [place] Balance Support Static Sit Contact guard Feet supported, Right upper extremity support, Left upper extremity support Dynamic Sit Minimum assistance Feet supported STANDARDIZED ASSESSMENTS [facility] 6-Click Daily Activities Help from Other: Don/Doff Regular Lower Body Clothings: Total Help From Other: Bathing: Total Help From Other: Toileting: Total Help From Other: Don/Doff Upper Body Clothings: A lot Help From Other: Grooming: Little Help From Other: Eating Meals: None [facility] 6 Click - Daily Activities Score: [...] needed areas of treatment space. Level of [place] Interventions Grooming SBA, Setup Bed level Anticipated, [...] Note Alicia Royal 79 y.o. female CSN: [id number] Admission: 02/19/2025 3:43 AM Primary Problem: Altered mental status Primary Contact Manager: Primary Caregiver: Family Assistance Available at Discharge: Availability of Care Givers (#Hours): 24 hours Family/Contact Manager(s) Willingness Assessed to care for patient at home: Yes Family/Contact Manager(s) Readiness Assessed to care for patient at [...] 02/19/2025 11:18 AM EDTAssociated Order(s): Consult to [facility] Images from the original note were not included. [facility] Medicine History & Physical Consult to [facility] Consult performed by: Daniele Whittaker MBBS [...] Taken along side nightly 20mg duloxetine HYDROcodone-acetaminophen (Mize) 5-325 MG tablet No dose, route, or [...] Date ANKLE SURGERY N/A Ankle Surgery from [employer] [employer] [3] Family History Problem Relation Name Age [...] Ordered Status Ordering Provider 02/19/25637 Consult to [facility] Once Specialty: Internal Medicine Provider: (Not [...] Date ANKLE SURGERY N/A Ankle Surgery from [employer] [3] Family History Problem Relation Name Age [...] 02/19/2025 3:42 AM EDT Patient arrives to [facility] via EMS from OSH. Patient's daughter called EMS for altered mental status, vomiting. Patient has hx of head bleed and has been bed bound for years now. Patient GCS 11 @ OSH, but has improved to GCS 15 on arrival to [facility]. documented in this encounter Plan of Treatment Scheduled Orders Name Type Priority Associated Diagnoses Orde r Schedule Respiratory Culture and Gram Stain Microbiology Routine Once (Lab) for 1 Occurrences starting 02/19/2025 until 02/19/2025 Scheduled Referrals Name Type Priority Associated Diagnoses Order Schedule Discharge Ambulatory referral to [facility] Referral Routine Altered mental status, [...] POCT glucose meter (02/21/2025 11:27 AM EDT) [facility] POCT Glucose 291(H) 74 - 99 mg/dL 02/21/2025 11:29 AM EDT [facility] Comment:Accuracy of a glucos e result [...] Comment 02/21/2025 11:29 AM EDT [facility] Baseball Hand Sewer ID Ela Esteban 02/21/2025 11:29 AM EDT [facility] Device ID [id number] 02/21/2025 11:29 AM EDT [facility] Specimen Type POC Capillary 02/21/2025 11:29 AM EDT [facility] Blood Capillary blood specimen / Unknown 02/21/2025 11:27 AM EDT 02/21/2025 11:29 AM EDT Kathie Naqvi MD LAB POINT OF CA RE TEST DOCKED DEVICE UNSOLICITED RESULTS Final Result Performing Organization Address City/State/[facility] Co de Phone Number [facility] [address] [place] [address] * (ABNORMAL) POCT glucose meter (02/21/2025 7:47 [...] 02/21/2025 7:48 AM EDT [facility] Baseball Hand Sewer ID Ela Esteban 02/21/2025 7:48 AM EDT [facility]ARE [facility] Device ID [id number] 02/21/2025 7:48 AM EDT [facility] Specimen Type POC Capillary 02/21/2025 7:48 AM EDT [facility] Blood Capillary blood specimen / Unknown 02/21/2025 7:47 AM EDT 02/21/2025 7:48 AM EDT Kathie Naqvi MD LAB POINT OF CA RE TEST DOCKED DEVICE UNSOLICITED RESULTS Final Result [facility] [address] [place] [address] * (ABNORMAL) CBC W/O Differential (02/21/2025 5:37 AM EDT) WBC Count 10.27 3.70 - 10.30 10*3/uL LAB HEMATOLOGY METHOD 02/21/2025 6:08 AM EDT [facility] RBC Count 4.00 3.90 - 5.20 10*6/uL LAB HEMATOLOGY METHOD 02/21/2025 6:08 AM EDT [facility] HGB 10.5(L) 11.2 - 15.7 g/dL LAB HEMATOLOGY METHOD 02/21/2025 6:08 AM EDT [facility] HCT 34.1 34.0 - 45.0 % LAB HEMATOLOGY METHOD 02/21/2025 6:08 AM EDT [facility] Platelet Count 213 155 - 369 10*3/uL LAB HEMATOLOGY METHOD 02/21/2025 6:08 AM EDT [facility] MCV 85 79 - 98 fL LAB HEMATOLOGY METHOD 02/21/2025 6:08 AM EDT [facility] MCH 26.3 26.0 - 32.0 pg LAB HEMATOLOGY METHOD 02/21/2025 6:08 AM EDT [facility] MCHC 30.8 30.7 - 35.5 g/dL LAB HEMATOLOGY METHOD 02/21/2025 6:08 AM EDT [facility] RDW 14.2 11.5 - 14.5 % LAB HEMATOLOGY METHOD 02/21/2025 6:08 AM EDT [facility] MPV 9.9 8.8 - 12.5 fL LAB HEMATOLOGY METHOD 02/21/2025 6:08 AM EDT [facility] nRBC 0.0 <=0.0 per 100 WBCs LAB HEMATOLOGY METHOD 02/21/2025 6:08 AM EDT [facility] Blood Venous blood specimen / Unknown Venipuncture / Unknown 02/21/2025 5:37 AM EDT 02/21/2025 5:53 AM EDT Kathie Naqvi MD LAB BLOOD ORDERABLES Fi nal Result Performing Organization Address City/[facility] Co de Phone Number [facility] [address] [place] [address] * (ABNORMAL) POCT glucose meter (02/20/2025 8:32 [...] for testing. Comment 02/20/2025 8:33 PM EDT [facility] Baseball Hand Sewer ID Fariba Jean 025 8:33 PM EDT [facility] Device ID [id number] 02/20/2025 8:33 PM EDT [facility] Specimen Type POC Capillary 02/20/2025 8:33 PM EDT [facility] Blood Capillary blood specimen / Unknown 02/20/2025 8:32 PM EDT 02/20/2025 8:33 PM EDT Kathie Naqvi MD LAB POINT OF CA RE TEST DOCKED DEVICE UNSOLICITED RESULTS Final Result Performing Organization Address [facility] Co de Phone Number [facility] [address] [place] [address] * (ABNORMAL) POCT glucose meter (02/20/2025 5:16 [...] Comment 02/20/2025 5:23 PM EDT [facility] Baseball Hand Sewer ID Josue Cui 02/20/2025 5:23 PM EDT [facility] Device ID [id number] 02/20/2025 5:23 PM EDT [facility] Specimen Type POC Capillary 02/20/2025 5:23 PM EDT [facility] Blood Capillary blood specimen / Unknown 02/20/2025 5:16 PM EDT 02/20/2025 5:23 PM EDT Kathie Naqvi MD LAB POINT OF CA RE TEST DOCKED DEVICE UNSOLICITED RESULTS Final Result Performing Organization Address City/[facility]/ZIP Co de Phone Number [facility] [address] [place] [address] * Methicillin Resistant Staphylococcus aureus (MRSA) by PCR (02/20/2025 1:01 PM EDT) [facility] Methicillin Resistant Staphylococcus aureus (MRSA) by PCR Not Detected Not Detected 02/20/2025 2:50 PM EDT [facility] Swab Both anterior nares / Unknown Non-blood Collection / Unknown 02/20/2025 1:01 PM EDT 02/20/2025 1:26 PM EDT Narrative [facility] - 02/20/2025 2:50 PM EDT This [...] MICROBIOLOGY - GENE RAL ORDERABLES Final Result [facility] [address] [place] [address] * (ABNORMAL) POCT glucose meter (02/20/2025 12:51 [...] 02/20/2025 12:55 PM EDT [facility] Baseball Hand Sewer ID Josue Cui 02/20/2025 12:55 PM EDT [facility] Device ID [id number] 02/20/2025 12:55 PM EDT [facility] Specimen Type POC Capillary 02/20/2025 12:55 PM EDT [facility] Blood Capillary blood specimen / Unknown 02/20/2025 12:51 PM EDT 02/20/2025 12:55 PM EDT Kathie Naqvi MD LAB POINT OF CA RE TEST DOCKED DEVICE UNSOLICITED RESULTS Final Result [facility] [address] [place] [address] * (ABNORMAL) POCT glucose meter (02/20/2025 8:49 AM EDT) [facility] Signature POCT Glucose 263(H) 74 - 99 [...] 02/20/2025 8:55 AM EDT [facility] Baseball Hand Sewer ID Josue Cui 02/20/2025 8:55 AM EDT [facility] Device ID [id number] 02/20/2025 8:55 AM EDT [facility] Specimen Type POC Capillary 02/20/2025 8:55 AM EDT [facility] Blood Capillary blood specimen / Unknown 02/20/2025 8:49 AM EDT 02/20/2025 8:55 AM EDT us Kathie Naqvi MD LAB POINT OF CA RE TEST DOCKED DEVICE UNSOLICITED RESULTS Final Result Performing Organization Address City/[facility]/ZIP Co de Phone Number [facility] [address] [place] [address] * Phosphorus (02/20/2025 1:27 AM EDT) Phosphorus, Plasma 2.6 2.5 - 4.5 mg/dL 02/20/2025 2:06 AM EDT [facility] Blood Venous blood specimen / Unknown Venipuncture / Unknown 02/20/2025 1:27 AM EDT 02/20/2025 1:32 AM EDT Kathie Naqvi MD LAB BLOOD ORDERABLES Fi nal Result Performing Organization Address City/[facility]/ZIP Co de Phone Number [facility] [address] [place] [address] * Magnesium, Plasma (02/20/2025 1:27 AM EDT) Magnesium, Plasma 2.0 1.9 - 2.4 mg/dL 02/20/2025 2:06 AM EDT [facility] Blood Venous blood specimen / Unknown Venipuncture / Unknown 02/20/2025 1:27 AM EDT 02/20/2025 1:32 AM EDT Kathie Naqvi MD LAB BLOOD ORDERABLES Fi nal Result Performing Organization Address City/[facility]/ZIP Co de Phone Number [facility] [address] [place] [address] * (ABNORMAL) Basic metabolic panel (02/20/2025 1:27 AM EDT) Glucose, Plasma 200(H) 74 - 99 mg/dL 02/20/2025 2:06 AM EDT [facility] BUN, Plasma 22 8 - 23 mg/dL 02/20/2025 2:06 AM EDT [facility] Creatinine, Plasma 0.91 0.60 - 1.10 mg/dL 02/20/2025 2:06 AM EDT [facility] BUN/Creatinine Ratio 24 02/20/2025 2:06 AM EDT [facility] Sodium, Plasma 138 136 - 145 mmol/L 02/20/2025 2:06 AM EDT [facility] Potassium, Plasma 4.0 3.6 - 4.9 mmol/L 02/20/2025 2:06 AM EDT [facility] Chloride, Plasma 98 97 - 107 mmol/L 02/20/2025 2:06 AM EDT [facility] CO2, Plasma 27 22 - 29 mmol/L 02/20/2025 2:06 AM EDT [facility] Anion Gap 13 6 - 16 mmol/L 02/20/2025 2:06 AM EDT [facility] Total Calcium, Plasma 9.1 8.9 - 10.2 mg/dL 02/20/2025 2:06 AM EDT [facility] eGFRcr 64.7 mL/min/1.7 3m*2 02/20/2025 2:06 AM EDT [facility] Comment:Reported eGFRcr in m L/min/1.73m2 is based the CKD-EPI 2020 equation that does not use a race coefficient. Blood Venous blood specimen / Unknown Venipuncture / Unknown 02/20/2025 1:27 AM EDT 02/20/2025 1:32 AM EDT Kathie Naqvi MD LAB BLOOD ORDERABLES Fi nal Result [facility] [address] [place] [address] * (ABNORMAL) CBC (02/20/2025 1:27 AM EDT) WBC Count 12.75(H) 3.70 - 10.30 10*3/uL LAB HEMATOLOGY METHOD 02/20/2025 1:43 AM EDT [facility] RBC Count 3.61(L) 3.90 - 5.20 10*6/uL LAB HEMATOLOGY METHOD 02/20/2025 1:43 AM EDT [facility] HGB 9.5(L) 11.2 - 15.7 g/dL LAB HEMATOLOGY METHOD 02/20/2025 1:43 AM EDT [facility] HCT 30.7(L) 34.0 - 45.0 % LAB HEMATOLOGY METHOD 02/20/2025 1:43 AM EDT [facility] Platelet Count 214 155 - 369 10*3/uL LAB HEMATOLOGY METHOD 02/20/2025 1:43 AM EDT [facility] MCV 85 79 - 98 fL LAB HEMATOLOGY METHOD 02/20/2025 1:43 AM EDT [facility] MCH 26.3 26.0 - 32.0 pg LAB HEMATOLOGY METHOD 02/20/2025 1:43 AM EDT [facility] MCHC 30.9 30.7 - 35.5 g/dL LAB HEMATOLOGY METHOD 02/20/2025 1:43 AM EDT [facility] RDW 14.6(H) 11.5 - 14.5 % LAB HEMATOLOGY METHOD 02/20/2025 1:43 AM EDT [facility] MPV 9.9 8.8 - 12.5 fL LAB HEMATOLOGY METHOD 02/20/2025 1:43 AM EDT [facility] nRBC 0.0 <=0.0 per 100 WBCs LAB HEMATOLOGY METHOD 02/20/2025 1:43 AM EDT [facility] Blood Venous blood specimen / Unknown Venipuncture / Unknown 02/20/2025 1:27 AM EDT 02/20/2025 1:33 AM EDT us Kathie Naqvi MD LAB BLOOD ORDERABLES Fi nal Result [facility] [address] [place] [address] * (ABNORMAL) POCT glucose meter (02/19/2025 8:14 [...] Comment 02/19/2025 8:16 PM EDT [facility] Baseball Hand Sewer ID Fariba Jean 025 8:16 PM EDT [facility] Device ID [id number] 02/19/2025 8:16 PM EDT [facility] Specimen Type POC Capillary 02/19/2025 8:16 PM EDT [facility] Blood Capillary blood specimen / Unknown 02/19/2025 8:14 PM EDT 02/19/2025 8:16 PM EDT Kathie Naqvi MD LAB POINT OF CA RE TEST DOCKED DEVICE UNSOLICITED RESULTS Final Result Performing Organization Address City/State/[facility] Co de Phone Number [facility] [address] [place] [address] * (ABNORMAL) POCT glucose meter (02/19/2025 4:32 PM EDT) [facility] Signature POCT Glucose 193(H) 74 - 99 [...] Comment 02/19/2025 4:34 PM EDT [facility] Baseball Hand Sewer ID Bridget Cordon 4:34 PM EDT [facility] LAB Device ID [id number] 02/19/2025 4:34 PM EDT [facility] Specimen Type POC Capillary 02/19/2025 4:34 PM EDT [facility] Blood Capillary blood specimen / Unknown 02/19/2025 4:32 PM EDT 02/19/2025 4:34 PM EDT Kathie Naqvi MD LAB POINT OF CA RE TEST DOCKED DEVICE UNSOLICITED RESULTS Final Result Performing Organization Address [facility] de Phone Number [facility]ARE [facility] [address] [place] [address] * (ABNORMAL) POCT glucose meter (02/19/2025 11:50 [...] 02/19/2025 11:52 AM EDT [facility] Baseball Hand [employer]er ID Bridget Cordon 11:52 AM EDT [facility] Device ID [id number] 02/19/2025 11:52 AM EDT [facility] Specimen Type POC Capillary 02/19/2025 11:52 AM EDT [facility] Blood Capillary blood specimen / Unknown 02/19/2025 11:50 AM EDT 02/19/2025 11:52 AM EDT Kathie Naqvi MD LAB POINT OF CA RE TEST DOCKED DEVICE UNSOLICITED RESULTS Final Result Performing Organization Address [facility] de Phone Number [facility] [address] [place] [address] * XR Chest 1 View (02/19/2025 10:18 [...] for testing. Comment 02/19/2025 9:18 AM EDT [employer] [facility] Baseball Hand Sewer ID Rekha Diaz 02/20/20 9:18 AM EDT [facility] Device ID [id number] 02/19/2025 9:18 AM EDT [facility]ALTH[facility]ARE [facility] Specimen Type POC Capillary 02/19/2025 9:18 AM EDT [facility] Blood Capillary blood specimen / Unknown 02/19/2025 9:16 AM EDT 02/19/2025 9:18 AM EDT Kathie Naqvi MD LAB POINT OF CA RE TEST DOCKED DEVICE UNSOLICITED RESULTS Final Result [facility] [address] [place] [address] * ECG Adult (02/19/2025 9:04 AM EDT) EKG DIAGNOSIS CLASS Abnormal MUSE ECG Ventricular Rate 57 BPM MUSE ECG Atrial Rate 57 BPM MUSE ECG QRSD Interval 110 ms MUSE ECG QT Interval 460 ms MUSE ECG QTC Interval 447 ms MUSE ECG P Goodman 68 degrees MUSE ECG R Goodman 0 degrees MUSE ECG T Wave Goodman 55 degrees MUSE ECG Diagnosis Atrial fibrillation [...] at day 5 02/24/2025 10:01 AM EDT [facility] Blood Structure of left hand / Unknown Venipuncture / Unknown 02/19/2025 8:51 AM EDT 02/19/2025 9:31 AM EDT Narrative [facility] - 02/24/2025 10:01 AM EDT Low blood volume submitted, results may be compromised Kathie Naqvi MD LAB MICROBIOLOGY - GENE RAL ORDERABLES Final Result [facility] [address] [place] [address] * (ABNORMAL) Blood gas panel, venous (02/19/2025 8:51 AM EDT) pH, Venous 7.37 7.32 - 7.43 LAB HEMATOLOGY METHOD 02/19/2025 9:23 AM EDT [facility] pCO2, Venous 65(HH) 37 - 52 mmHg LAB HEMATOLOGY METHOD 02/19/2025 9:23 AM EDT [facility] pO2, Venous 24(L) 25 - 40 mmHg LAB HEMATOLOGY METHOD 02/19/2025 9:23 AM EDT [facility] SO2, Measured, Venous 38(L) 65 - 80 % LAB HEMATOLOGY METHOD 02/19/2025 9:23 AM EDT [facility] Base Excess, Venous 10.0(H) -2.0 - 3.0 mmol/L LAB HEMATOLOGY METHOD 02/19/2025 9:23 AM EDT [facility] Bicarbonate, Calculated, Venous 37(H) 22 - 26 mmol/L LAB HEMATOLOGY METHOD 02/19/2025 9:23 AM EDT [facility] Hematocrit, Whole Blood 32.9(L) 34.0 - 45.0 % LAB HEMATOLOGY METHOD 02/19/2025 9:23 AM EDT [facility] Sodium, Whole Blood 141 136 - 145 mmol/L LAB HEMATOLOGY METHOD 02/19/2025 9:23 AM EDT [facility] Potassium, Whole Blood 4.3 3.6 - 4.9 mmol/L LAB HEMATOLOGY METHOD 02/19/2025 9:23 AM EDT [facility] Chloride, Whole Blood 95(L) 97 - 107 mmol/L LAB HEMATOLOGY METHOD 02/19/2025 9:23 AM EDT [facility] Glucose, Whole Blood 247(H) 74 - 99 mg/dL LAB HEMATOLOGY METHOD 02/19/2025 9:23 AM EDT [facility] Lactate, Venous, Whole Blood 1.5 0.5 - 2.2 mmol/L LAB HEMATOLOGY METHOD 02/19/2025 9:23 AM EDT [facility] Ionized Calcium, Whole Blood 4.6 4.6 - 5.1 mg/dL LAB HEMATOLOGY METHOD 02/19/2025 9:23 AM EDT [facility] Blood Venous blood specimen / Unknown Venipuncture / Unknown 02/19/2025 8:51 AM EDT 02/19/2025 8:58 AM EDT Kathie Naqvi MD LAB BLOOD ORDERABLES Fi nal Result Performing Organization Address City/[facility]/ZIP Co de Phone Number [facility] [address] [place] [address] * Blood Culture (Aerobic/Anaerobet Set) (02/19/2025 8:33 AM EDT) Culture No growth at day 5 02/24/2025 9:47 AM EDT [facility] Blood Upper limb structure / Unknown Venipuncture / Unknown 02/19/2025 8:33 AM EDT 02/19/2025 9:31 AM EDT Narrative [facility] - 02/24/2025 9:47 AM EDT Low blood volume submitted, results may be compromised Kathie Naqvi MD LAB MICROBIOLOGY - GENE RAL ORDERABLES Final Result Performing Organization Address City/[facility]/[place] [address] * Urinalysis Microscopic Examination (02/19/2025 8:32 AM EDT) Urine Urine specimen obtained by clean catch procedure / Unknown Non-blood Collection / Unknown 02/19/2025 8:32 AM EDT 02/19/2025 8:55 AM EDT Kathie Naqvi MD LAB URINE ORDERABLES Fi nal Result Performing Organization Address City/[facility]/[place] [address] * Urine Verduzco Panel (02/19/2025 8:32 AM EDT) Extra Reflex urine culture not indicated 02/19/2025 11:02 AM EDT [facility] Urine Urine specimen obtained by clean catch procedure / Unknown Non-blood Collection / Unknown 02/19/2025 8:32 AM EDT 02/19/2025 9:03 AM EDT Kathie Naqvi MD LAB URINE ORDERABLES Fi nal Result [facility] [address] [place] [address] * (ABNORMAL) Urinalysis with reflex microscopic (Culture NOT Included) (02/19/2025 8:32 AM EDT) Color, Urine Yellow LAB URINALYSIS - AUTOMATED METHOD 02/19/2025 9:23 AM EDT [facility] Clarity, Urine Clear LAB URINALYSIS - AUTOMATED METHOD 02/19/2025 9:23 AM EDT [facility] Spec [place], Urine >1.030(H) 1.005 - 1.030 LAB URINALYSIS - AUTOMATED METHOD 02/19/2025 9:23 AM EDT [facility] pH, Urine 6.5 5.0 - 8.0 LAB URINALYSIS - AUTOMATED METHOD 02/19/2025 9:23 AM EDT [facility] Protein, Urine Trace(A) Negative mg/dL LAB URINALYSIS - AUTOMATED METHOD 02/19/2025 9:23 AM EDT [facility] Glucose, Urine Negative Negative mg/dL LAB URINALYSIS - AUTOMATED METHOD 02/19/2025 9:23 AM EDT [facility] Ketones, Urine Trace(A) Negative mg/dL LAB URINALYSIS - AUTOMATED METHOD 02/19/2025 9:23 AM EDT [facility] [facility] Blood, Urine Trace(A) Negative LAB URINALYSIS - AUTOMATED METHOD 02/19/2025 9:23 AM EDT [facility] Bilirubin, Urine Negative Negative LAB URINALYSIS - AUTOMATED METHOD 02/19/2025 9:23 AM EDT [facility] Urobilinogen, Urine 0.2 0.2 to 1.0 mg/dL LAB URINALYSIS - AUTOMATED METHOD 02/19/2025 9:23 AM EDT [facility] Leukocytes, Urine Negative Negative LAB URINALYSIS - AUTOMATED METHOD 02/19/2025 9:23 AM EDT [facility] Nitrite, Urine Negative Negative LAB URINALYSIS - AUTOMATED METHOD 02/19/2025 9:23 AM EDT [facility] RBC, Urine 4 - 10(A) 0 to 3 /HPF LAB URINALYSIS - AUTOMATED METHOD 02/19/2025 9:23 AM EDT [facility] Comment:This result was prev iously suppressed from the chart. WBC, Urine 0 - 5 0 to 5 /HPF LAB URINALYSIS - AUTOMATED METHOD 02/19/2025 9:23 AM EDT [facility] Comment:This result was prev iously suppressed from the chart. Squamous Epithelial Cells 0 - 2 0 to 5 /HPF LAB URINALYSIS - AUTOMATED METHOD 02/19/2025 9:23 AM EDT [facility] Comment:This result was prev iously suppressed from the chart. Hyaline Casts 0 - 2 0 to 5 /LPF LAB URINALYSIS - AUTOMATED METHOD 02/19/2025 9:23 AM EDT [facility] Comment:This result was prev iously suppressed from the chart. Bacteria, Urine Negative Negative LAB URINALYSIS - AUTOMATED METHOD 02/19/2025 9:23 AM EDT [facility] Comment:This result was prev iously suppressed from the chart. Urine Urine specimen obtained by clean catch procedure / Unknown Non-blood Collection / Unknown 02/19/2025 8:32 AM EDT 02/19/2025 8:55 AM EDT Kathie Naqvi MD LAB URINE ORDERABLES Fi nal Result [facility] [address] [place] [address] * SARS CoV-2/COVID-19 by PCR - Rapid (02/19/2025 8:32 AM EDT) SARS CoV-2/COVID-1 9 RNA PCR Result Not Detected Not Detected 02/19/2025 10:38 AM EDT [facility] Swab Nasopharyngeal structure / Unknown Non-blood Collection / Unknown 02/19/2025 8:32 AM EDT 02/19/2025 9:37 AM EDT Narrative [facility] - 02/19/2025 10:38 AM EDT This [...] COVID-19. Kathie Naqvi MD LAB MICROBIOLOGY - [facility] ORDERABLES Final Result [facility] [address] [place] [address] * Nasopharyngeal Respiratory Panel (02/19/2025 8:32 AM EDT) Nasopharyngeal Respiratory PCR Interpretation Not Detected for all analytes Not Detected for all analytes 02/19/2025 11:40 AM EDT [facility] Swab Nasopharyngeal structure / Unknown Non-blood Collection / Unknown 02/19/2025 8:32 AM EDT 02/19/2025 9:37 AM EDT Narrative [facility] - 02/19/2025 11:40 AM EDT This [...] Respiratory PCR Panel is performed using the [employer] ePlex instrument. This test is FDA approved for use with Nasopharyngeal swabs only. This test is used for clinical purposes. It should not be regarded as investigational or for research. The [facility] Clinical [facility]biology [facility] is certified under the Clinical Laboratory Improvement Amendments of 1988 (CLIA-88) as qualified to perform high complexity clinical laboratory testing. Kathie Naqvi MD LAB MICROBIOLOGY - GENE RAL ORDERABLES Final Result Performing Organization Address [facility] [place] [address] * Streptococcus pneumoniae and Legionella Urinary Antigen (02/19/2025 8:32 AM EDT) Legionella pneumophila serogroup 1 Antigen Result (Urine) Negative Negative 02/20/2025 6:20 AM EDT [facility] Streptococcus pneumoniae Antigen Result (Urine) Negative Negative 02/20/2025 6:20 AM EDT [facility] Urine Urine specimen obtained by clean catch procedure / Unknown Non-blood Collection / Unknown 02/19/2025 8:32 AM EDT 02/19/2025 9:36 AM EDT Kathie Naqvi MD LAB MICROBIOLOGY - GENE RAL ORDERABLES Final Result Performing Organization Address [facility] [place] [address] * Multi Drug Resistance Test (02/19/2025 8:32 AM EDT) Culture No growth at day 1 02/20/2025 11:17 AM EDT [facility] Swab (Nares and Theodora Rectal) Non-blood Collection / Unknown 02/19/2025 8:32 AM EDT 02/19/2025 9:37 AM EDT Narrative [facility] - 02/20/2025 11:17 AM EDT This test was developed and its performance characteristics determined by the [facility]biology [facility]. Although the media is FDA-approved, it is not FDA-approved for all specimen types submitted. The FDA has determined that such clearance or approval is not necessary. This test is used for surveillance purposes. It should not be regarded as investigational or for research. The [facility]biology [facility] is certified under the Clinical Laboratory Improvement Amendments of 1988 (CLIA-88) as qualified to perform high complexity clinical laboratory testing. Kathie Naqvi MD LAB MICROBIOLOGY - GENE RAL ORDERABLES Final Result Performing Organization Address [facility] [place] [address] * (ABNORMAL) C-reactive protein (02/19/2025 7:18 AM EDT) CRP, Plasma 38.1(H) <=8.0 mg/L 02/19/2025 10:10 AM EDT [facility] Blood Venous blood specimen / Unknown Venipuncture / Unknown 02/19/2025 7:18 AM EDT 02/19/2025 7:22 AM EDT Narrative [facility] - 02/19/2025 10:10 AM EDT This CRP test is appropriate for assessment of infection, systemic inflammation and/or tissue injury. To assess cardiovascular disease risk order high sensitivity CRP (CRPH). Kathie Naqvi MD LAB BLOOD ORDERABLES Fi nal Result Performing Organization Address [facility] [place] [address] * (ABNORMAL) Procalcitonin (02/19/2025 7:18 AM EDT) Procalcitonin, Plasma 0.10(H) <0.09 ng/mL 02/19/2025 10:10 AM EDT [facility] Blood Venous blood specimen / Unknown Venipuncture / Unknown 02/19/2025 7:18 AM EDT 02/19/2025 7:22 AM EDT Narrative [facility] - 02/19/2025 10:10 AM EDT Procalcitonin [...] predict 28 day mortality risk. Please consult [email or web address] for more information. Test performed at [facility]. Kathie Naqvi MD LAB BLOOD ORDERABLES Fi nal Result Performing Organization Address City/[facility]/[place] [address] * (ABNORMAL) N-Terminal Probnp, Plasma (02/19/2025 7:18 AM EDT) N-Terminal, PROBNP, Plasma 2,448(H) 0 - 1,799 pg/mL 02/19/2025 8:58 AM EDT [facility] Blood Venous blood specimen / Unknown Venipuncture / Unknown 02/19/2025 7:18 AM EDT 02/19/2025 7:22 AM EDT Kathie Naqvi MD LAB BLOOD ORDERABLES Fi nal Result Performing Organization Address City/[facility]/ZIP Co de Phone Number [facility] [address] [place] [address] * (ABNORMAL) Hemoglobin A1c (02/19/2025 7:18 AM EDT) Hemoglobin A1c 7.4(H) <5.7 % 02/19/2025 11:39 AM EDT [facility] Blood Venous blood specimen / Unknown Venipuncture / Unknown 02/19/2025 7:18 AM EDT 02/19/2025 7:22 AM EDT Narrative [facility] - 02/19/2025 11:39 AM EDT HA1C Interpretive Data: Diagnosis of Diabetes: Diabetic > or = 6.5% Pre-diabetic 5.7 to 6.4% Non-diabetic < or = 5.6% Glycemic Targets for Type I and Type II Diabetics: Non- Adults <7.0% Adults <6.0% Children and Adolescents <7.5% Source: [place] [employer]. Standards of medical care in diabetes,2017. Diabetes Care.2017:40 (suppl 1):S1-S135. Kathie Naqvi MD LAB BLOOD ORDERABLES Fi nal Result Performing Organization Address [facility] de Phone Number [facility] [address] [place] [address] * TSH Reflex FT4 (02/19/2025 7:18 AM EDT) Thyroid Stimulating Hormone, Plasma 0.63 0.40 - 4.20 uIU/mL 02/19/2025 8:58 AM EDT [facility] Blood Venous blood specimen / Unknown Venipuncture / Unknown 02/19/2025 7:18 AM EDT 02/19/2025 7:22 AM EDT Kathie Naqvi MD LAB BLOOD ORDERABLES Fi nal Result Performing Organization Address [facility] de Phone Number [facility] [address] [place] [address] * ED HIV 1/2 Antibody/Antigen Screen w/Reflex to HIV 1/2 Differentiation (02/19/2025 7:18 AM EDT) Pathologist [facility] HIV 1 & 2 Antibody/Antigen Screen Non Reactive Non Reactive 02/19/2025 8:28 AM EDT [facility] Comment:Screening for HIV 1 & 2 antibodies, and P24 antigen is NONREACTIVE. No confirmatory testing is required. Blood Venous blood specimen / Unknown Venipuncture / Unknown 02/19/2025 7:18 AM EDT 02/19/2025 7:49 AM EDT Benito Chakraborty MD LAB BLOOD ORDERABLES Final Resu lt Performing Organization Address City/[facility]/ZIP Co de Phone Number [facility] [address] [place] [address] * Hepatitis C Antibody - ED (02/19/2025 7:18 AM EDT) Hepatitis C Antibody Negative Negative 02/19/2025 8:32 AM EDT [facility] Blood Venous blood specimen / Unknown Venipuncture / Unknown 02/19/2025 7:18 AM EDT 02/19/2025 7:49 AM EDT us Benito Chakraborty MD LAB BLOOD ORDERABLES Final Resu lt Performing Organization Address [facility] Co de Phone Number [facility] [address] [place] [address] * Anti Xa Level Unfractionated Heparin (02/19/2025 7:18 AM EDT) Anti Xa Level Unfractionated Heparin 0.86 <1.00 IU/mL 02/19/2025 8:01 AM EDT [facility] Blood Venous blood specimen / Unknown Venipuncture / Unknown 02/19/2025 7:18 AM EDT 02/19/2025 7:22 AM EDT Narrative [facility] - 02/19/2025 8:01 AM EDT Therapeutic Range: UFH Full Dose and ACS/RI protocols*: 0.30 - 0.70 IU/mL UFH Low Dose protocol*: 0.25 - 0.50 IU/mL UFH prophylaxis: Not established us Benito Chakraborty MD LAB BLOOD ORDERABLES Final Resu lt Performing Organization Address City/[facility]/ZIP Co de Phone Number [facility] [address] [place] [address] * (ABNORMAL) PT-INR (02/19/2025 7:18 AM EDT) Prothrombin Time 16.6(H) 12.0 - 14.3 sec 02/19/2025 7:59 AM EDT [facility] INR 1.4(H) 0.9 - 1.1 02/19/2025 7:59 AM EDT [facility] Blood Venous blood specimen / Unknown Venipuncture / Unknown 02/19/2025 7:18 AM EDT 02/19/2025 7:22 AM EDT Narrative [facility] - 02/19/2025 7:59 AM EDT OPTIMAL INR RANGES FOR PATIENT ON ORAL ANTICOAGULANT THERAPY Prevention of venous thromboembolism INR 2.0 to 3.0 In patients with heart disease: Atrial fibrillation INR 2.0 to 3.0 Valvular heart disease INR 2.0 to 3.0 Tissue heart valves INR 2.0 to 3.0 Mechanical prosthetic valves INR 2.5 to 3.5 Prevention of recurrent RI INR 2.5 to 3.5 us Benito Chakraborty MD LAB BLOOD ORDERABLES Final Resu lt [facility] [address] [place] [address] * (ABNORMAL) CBC w/diff (02/19/2025 7:18 AM EDT) WBC Count 16.73(H) 3.70 - 10.30 10*3/uL LAB HEMATOLOGY METHOD 02/19/2025 7:26 AM EDT [facility] RBC Count 4.00 3.90 - 5.20 10*6/uL LAB HEMATOLOGY METHOD 02/19/2025 7:26 AM EDT [facility] HGB 10.6(L) 11.2 - 15.7 g/dL LAB HEMATOLOGY METHOD 02/19/2025 7:26 AM EDT [facility] HCT 34.3 34.0 - 45.0 % LAB HEMATOLOGY METHOD 02/19/2025 7:26 AM EDT [facility] Platelet Count 222 155 - 369 10*3/uL LAB HEMATOLOGY METHOD 02/19/2025 7:26 AM EDT [facility] MCV 86 79 - 98 fL LAB HEMATOLOGY METHOD 02/19/2025 7:26 AM EDT [facility] MCH 26.5 26.0 - 32.0 pg LAB HEMATOLOGY METHOD 02/19/2025 7:26 AM EDT [facility] MCHC 30.9 30.7 - 35.5 g/dL LAB HEMATOLOGY METHOD 02/19/2025 7:26 AM EDT [facility] RDW 14.4 11.5 - 14.5 % LAB HEMATOLOGY METHOD 02/19/2025 7:26 AM EDT [facility] MPV 9.4 8.8 - 12.5 fL LAB HEMATOLOGY METHOD 02/19/2025 7:26 AM EDT [facility] nRBC 0.0 <=0.0 per 100 WBCs LAB HEMATOLOGY METHOD 02/19/2025 7:26 AM EDT [facility] Differential Type Automated LAB HEMATOLOGY METHOD 02/19/2025 7:26 AM EDT [facility] Neutrophils % 85 % LAB HEMATOLOGY METHOD 02/19/2025 7:26 AM EDT [facility] Lymphocytes % 9 % LAB HEMATOLOGY METHOD 02/19/2025 7:26 AM EDT [facility] Monocytes % 5 % LAB HEMATOLOGY METHOD 02/19/2025 7:26 AM EDT [facility] Eosinophils % 0 % LAB HEMATOLOGY METHOD 02/19/2025 7:26 AM EDT [facility] Basophils % 0 % LAB HEMATOLOGY METHOD 02/19/2025 7:26 AM EDT [facility] Immature Granulocytes % 1 % LAB HEMATOLOGY METHOD 02/19/2025 7:26 AM EDT [facility] Neutrophils Absolute 14.37(H) 1.60 - 6.10 10*3/uL LAB HEMATOLOGY METHOD 02/19/2025 7:26 AM EDT [facility] Lymphocytes Absolute 1.46 1.20 - 3.90 10*3/uL LAB HEMATOLOGY METHOD 02/19/2025 7:26 AM EDT [facility] Monocytes Absolute 0.77 0.30 - 0.90 10*3/uL LAB HEMATOLOGY METHOD 02/19/2025 7:26 AM EDT [facility] Eosinophils Absolute 0.01 0.00 - 0.50 10*3/uL LAB HEMATOLOGY METHOD 02/19/2025 7:26 AM EDT [facility] Basophils Absolute 0.04 0.00 - 0.10 10*3/uL LAB HEMATOLOGY METHOD 02/19/2025 7:26 AM EDT [facility] Immature Granulocytes Absolute 0.08(H) 0.00 - 0.06 10*3/uL LAB HEMATOLOGY METHOD 02/19/2025 7:26 AM EDT [facility] Blood Venous blood specimen / Unknown Venipuncture / Unknown 02/19/2025 7:18 AM EDT 02/19/2025 7:22 AM EDT Narrative [facility] - 02/19/2025 7:26 AM EDT Therapeutic decision making should be based on absolute values, rather than percentages. us Benito Chakraborty MD LAB BLOOD ORDERABLES Final Resu lt Performing Organization Address City/[facility]/ZIP Co de Phone Number [facility] [address] [place] [address] * Magnesium (02/19/2025 7:18 AM EDT) Magnesium, Plasma 2.0 1.9 - 2.4 mg/dL 02/19/2025 7:44 AM EDT [facility] Blood Venous blood specimen / Unknown Venipuncture / Unknown 02/19/2025 7:18 AM EDT 02/19/2025 7:22 AM EDT us Benito Chakraborty MD LAB BLOOD ORDERABLES Final Resu lt Performing Organization Address City/[facility] Co de Phone Number [facility] [address] [place] [address] * (ABNORMAL) CMP (02/19/2025 7:18 AM EDT) Glucose, Plasma 249(H) 74 - 99 mg/dL 02/19/2025 7:44 AM EDT [facility] BUN, Plasma 23 8 - 23 mg/dL 02/19/2025 7:44 AM EDT [facility] Creatinine, Plasma 1.07 0.60 - 1.10 mg/dL 02/19/2025 7:44 AM EDT [facility] BUN/Creatinine Ratio 02/19/2025 7:44 AM EDT [facility] Sodium, Plasma 139 136 - 145 mmol/L 02/19/2025 7:44 AM EDT [facility] Potassium, Plasma 4.7 3.6 - 4.9 mmol/L 02/19/2025 7:44 AM EDT [facility] Chloride, Plasma 97 97 - 107 mmol/L 02/19/2025 7:44 AM EDT [facility] CO2, Plasma 30(H) 22 - 29 mmol/L 02/19/2025 7:44 AM EDT [facility] Anion Gap 12 6 - 16 mmol/L 02/19/2025 7:44 AM EDT [facility] Total Calcium, Plasma 9.0 8.9 - 10.2 mg/dL 02/19/2025 7:44 AM EDT [facility] Total Protein 6.7 6.3 - 7.9 g/dL 02/19/2025 7:44 AM EDT [facility] Albumin, Plasma 3.5 3.5 - 5.2 g/dL 02/19/2025 7:44 AM EDT [facility] AST, Plasma 13 10 - 35 U/L 02/19/2025 7:44 AM EDT [facility] ALT, Plasma 7(L) 10 - 35 U/L 02/19/2025 7:44 AM EDT [facility] Alkaline Phosphatase, Plasma 89 46 - 142 U/L 02/19/2025 7:44 AM EDT [facility] Total Bilirubin, Plasma 0.4 0.2 - 1.1 mg/dL 02/19/2025 7:44 AM EDT [facility] eGFRcr 53.3 mL/min/1.7 3m*2 02/19/2025 7:44 AM EDT [facility] Comment:Reported eGFRcr in m L/min/1.73m2 is based the CKD-EPI 2020 equation that does not use a race coefficient. Blood Venous blood specimen / Unknown Venipuncture / Unknown 02/19/2025 7:18 AM EDT 02/19/2025 7:22 AM EDT us Benito Chakraborty MD LAB BLOOD ORDERABLES Final Resu lt [facility] [address] [place] [address] documented in this encounter Visit Diagnoses Diagnosis [...] Given 02/21/2025 8:37 AM EDT 500 mg [id number]-[id number] 50-325-40 MG per tablet 1 tablet 1 [...] documented as of this encounter Care Teams Mainspring Former Relationship Specialty Start Date End Date Jamil Carey MD [address] [place], [place] [id number] PCP - General 10/22/22 documented as of this encounter
--- OUTSIDE RECORDS SUMMARY | 2025-03-30 11:44 | XMS_ITS | Encounter Summary ---
Author Organization Healthcare Address [address] [place] [address] Care Team Providers Care Mechanical Design Engineer Facilities Name Role Phone Jamil Carey MD Primary Care Provider [phone] Radha Russ LPN Unavailable Unavailabl e Encounter Details Date Type Department Care Team (Late st Contact Info) Description 02/18/2025 Orders Only External Location [address] [place] [address] Provider, External Social History Tobacco Use Types [...] any time in the past 12 m [facility], were you homeless or living in a [facility] (including now)? No 02/21/2025 Utilities Answer Date [...] documented as of this encounter Care Teams Mechanical Design Engineer Facilities Relationship Specialty Start Date End Date Jamil Carey MD [address] [address] PCP - General 10/22/22 Radha Russ LPN [facility] TCM Nurse 02/22/25 03/24/25 documented as of this encounter
--- OUTSIDE RECORDS SUMMARY | 2025-03-30 11:44 | XMS_ITS | Encounter Summary ---
Author Organization Healthcare Address [address] [place] [address] Care Team Providers Care Packaging Machine Operator Name Role Phone Jamil Carey MD Primary Care Provider [phone] Radha Russ LPN Unavailable Unavailabl e Reason for Visit * Reason Comments Follow-up Encounter Details Date Type Department Care Team (Late st Contact Info) Description 03/07/2025 Patient Outreach POP[facility] [address] [facility] [address], [address] [place] [address] Radha Russ LPN [facility] Follow-up Social History [...] in the past 12 m [facility], were you homeless or living in a nursing home (including now)? No 02/21/2025 Utilities Answer Date Recorded In the past 12 months has th e [email or web address], gas, oil, or water company threatened to [...] documented as of this encounter Care Teams Packaging Machine Operator Relationship Specialty Start Date End Date Jamil Carey MD [address] [address] PCP - General 10/22/22 Radha Russ LPN [facility] TCM Nurse 02/22/25 03/24/25 documented as of this encounter
--- OUTSIDE RECORDS SUMMARY | 2025-03-30 11:44 | XMS_ITS | Clinical Summary ---
Author Organization [facility] Address [address] [place] [address] Care Team Providers Care Lab Manager Name Role Phone Chelsey Trejo Primary Care Provider [phone] Allergies Active Allergy Reactions Criticality Noted Date [...] (06/15/2018): Added automatically from request for surgery [id number] Resolved Problems Problem Noted Date Diagnosed Date [...] 05/2023 Potentially Unsafe Housing Conditions Not on gilberto e 06/09/2023 Family and Community Support Answer [...] 11/08/1991 ZOSTER VACCINE (1 of 2) 1996 DIRECTOR OF RESTAURANTS PLAN OF CARE 02/07/2020 11/09/2019 RSV Vaccine [...] Completed 02/19/2025 Medical Devices Implanted Type Area Carbon Electrodes Supervisor Device Identifier Shelf Expiration Date Model / Serial / Lot Stent Xience Lesvia Everolimus Manuelito [id number] - [id number] Implanted:Qty: 1 on 06/19/2018 by Home Hurley MD at [facility] Right: Coronary PER[employer]A VASCULAR [id number] / / [id number] Stent Xience Lesvia Everolimus Manuelito 2.5x12mm - [id number] Implanted:Qty: 1 on 06/19/2018 by Home Hurley MD at [facility] Left: Coronary PERAZA VASCULAR [id number] / / [id number] Procedures Procedure Name Priority Date/Time Associated Diagnosis Comments HEMOGLOBIN A1C Routine 11/09/2019 5:50 AM EDT from Last 3 Months or Most Recently Relevant to Health Maintenance Results * (ABNORMAL) Hemoglobin A1c (11/09/2019 5:50 AM EDT) Hemoglobin A1C 7.50(H) 4.80 - 5.60 % 11/09/2019 8:38 AM EDT [facility] Blood Venipuncture / Unknown 11/09/2019 5:50 AM EDT 11/09/2019 6:32 AM EDT Narrative [facility] - 11/09/2019 8:38 AM EDT Hemoglobin A1C Ranges: Increased Risk for Diabetes 5.7% to 6.4% Diabetes >= 6.5% Diabetic Goal < 7.0% Erick Mckeon MD LAB BLOOD ORDERABLES Final Result [facility]
[address] [id number], from Last 3 Months or Most Recently Relevant to Health Maintenance Insurance [employer] MEDIC[employer] ADVANTAGE Advance Directives Documents on File Type Date Recorded Patient Footwear Sales Associate Expl anation LIVING WILL - SCAN 06/06/2020 4:29 PM [facility]LENA [facility], 04/10/2020 * CPR (Attempt to Resuscitate) (Latest Code Status on File) Date Activated Date Inactivated Comments 11/08/2019 1:01 PM 11/10/2019 2:02 PM Question Answer Comments Code Status (Patient has no pulse and is not breathing): CPR (Attempt to Resuscitate) Medical Interventions (Patie nt has pulse or is breathing): Full Level Of Support Discussed With: Patient Care Teams Lab Manager Relationship Specialty Start Date End Date Chelsey Trejo PA [address] [address] PCP - General Family Medicine 05/03/18
--- OUTSIDE RECORDS SUMMARY | 2025-03-30 11:44 | XMS_ITS | Encounter Summary ---
Author Organization Healthcare Address [address] [place] [address] Care Team Providers Care Directional Driller Name Role Phone Jamil Carey MD Primary Care Provider [phone] Radha Russ LPN Unavailable Unavailabl e Reason for Visit * Reason Comments TCM Call Encounter Details Date Type Department Care Team (Late st Contact Info) Description 02/22/2025 Patient Outreach [facility] [address] [facility] [place] [address] Radha Russ LPN [facility] TCM Call Social History [...] any time in the past [address] [facility], were you homeless or living in a correction (including now)? No 02/21/2025 Utilities Answer Date Recorded In the past 12 months has th e [employer], gas, oil, or water company threatened to [...] documented as of this encounter Care Teams Directional Driller Relationship Specialty Start Date End Date Jamil Carey MD [address] [address] PCP - General 10/22/22 Radha Russ LPN [facility] TCM Nurse 02/22/25 03/24/25 documented as of this encounter
--- OUTSIDE RECORDS SUMMARY | 2025-03-30 11:44 | XMS_ITS | Clinical Summary ---
Author Organization [facility] Address [address] [place] [address] Care Team Providers Care Stone Grader Name Role Phone Jamil Carey MD Primary Care Provider [phone] Allergies Active Allergy Reactions Criticality Noted Date [...] day. 30 mL 07/31/2022 Active HYDROcodone-raquel taminophen (Logan) 5-325 MG tablet Take 1 tablet by [...] daily. Active ergocalciferol (Vitamin D-2) 1.25 MG (50217 UT) capsule Take 1 capsule by mouth 1 time per week. 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 07/31/2022 Ankle pain 08/19/2016 07/31/2022 Posterior tibial tendon dysfunction 08/19/2016 07/31/2022 Encounters Date Type Department Care Team Description 03/07/2025 Patient Outreach [address]ULATION [address], [facility] [address] [place] [address] Radha Russ LPN Follow-up 02/22/2025 Patient Outreach POPULATION [address], [facility] [address] [place] [address] Radha Russ LPN TCM Call 02/19/2025 3:43 AM EDT - 02/21/2025 5:26 PM EDT Hospital Encounter [facility] Inpatient [address] [place] [address] Benito Chakraborty MD Doty, MD Driss Morfin, Kathie Douglas MD Altered mental status, unspecified altered mental status type (Primary Dx); Pneumonia of left lower lobe due to infectious organism Discharge Disposition: Home or Self Care 02/19/2025 Travel 02/18/2025 Orders Only External Location [address] [place] [id number] Provider, External 02/18/2025 Orders Only External Location [address] [place] [id number] Provider, External from Last 3 Months Immunizations [...] any time in the past 12 m [facility], were you homeless or living in a care home (including now)? No 02/21/2025 Utilities Answer [...] 1965 UKY-Zoster Vaccines (1 of 2) 1996 ENA-BUIUH-45 Vaccine (3 - Moderna risk series) 04/16/2021 03/19/2021, 02/08/2021 UKY-RSV Vaccine: 60+ Years or (1 - 1-dose 75+ series) 2021 [facility]-Medicare Annual Wellness (AWV) 11/28/2023 11/27/2022 [facility]Y-Influenza Vaccine (#1) 05/02/202509/20, 06/01/2021, 11/10/2019, Additional [...] of10 resultswithin the time period is included. [facility] POCT Glucose 291(H) 74 - 99 [...] Comment 02/21/2025 11:29 AM EDT [facility] Insurance Legal Assistant ID Ela Esteban 02/21/2025 11:29 AM EDT HEALTH[facility]ARE LAB Device ID [id number] 02/21/2025 11:29 AM EDT [facility] Specimen Type POC Capillary 02/21/2025 11:29 AM EDT [facility] Blood Capillary blood specimen / Unknown 02/21/2025 11:27 AM EDT 02/21/2025 11:29 AM EDT Kathie Naqvi MD LAB POINT OF CA RE TEST DOCKED DEVICE UNSOLICITED RESULTS Final Result Performing Organization Address City/State/[facility] Co de Phone Number HEALTHCARE LAB [address] [place] [address] * (ABNORMAL) CBC W/O Differential (02/21/2025 5:37 AM EDT) Only the most recent of2 resultswithin the time period is included. [facility] WBC Count 10.27 3.70 - 10.30 10*3/uL LAB HEMATOLOGY METHOD 02/21/2025 6:08 AM EDT [facility] RBC Count 4.00 3.90 - 5.20 10*6/uL LAB HEMATOLOGY METHOD 02/21/2025 6:08 AM EDT [facility] HGB 10.5(L) 11.2 - 15.7 g/dL LAB HEMATOLOGY METHOD 02/21/2025 6:08 AM EDT [facility] HCT 34.1 34.0 - 45.0 % LAB HEMATOLOGY METHOD 02/21/2025 6:08 AM EDT [facility] Platelet Count 213 155 - 369 10*3/uL LAB HEMATOLOGY METHOD 02/21/2025 6:08 AM EDT [facility] MCV 85 79 - 98 fL LAB HEMATOLOGY METHOD 02/21/2025 6:08 AM EDT [facility] MCH 26.3 26.0 - 32.0 pg LAB HEMATOLOGY METHOD 02/21/2025 6:08 AM EDT [facility] MCHC 30.8 30.7 - 35.5 g/dL LAB HEMATOLOGY METHOD 02/21/2025 6:08 AM EDT [facility] RDW 14.2 11.5 - 14.5 % LAB HEMATOLOGY METHOD 02/21/2025 6:08 AM EDT [facility] MPV 9.9 8.8 - 12.5 fL LAB HEMATOLOGY METHOD 02/21/2025 6:08 AM EDT [facility] nRBC 0.0 <=0.0 per 100 WBCs LAB HEMATOLOGY METHOD 02/21/2025 6:08 AM EDT [facility] Blood Venous blood specimen / Unknown Venipuncture / Unknown 02/21/2025 5:37 AM EDT 02/21/2025 5:53 AM EDT Kathie Naqvi MD LAB BLOOD ORDERABLES Fi nal Result [facility] [address] [place] [address] * Methicillin Resistant Staphylococcus aureus (MRSA) by PCR (02/20/2025 1:01 PM EDT) Methicillin Resistant Staphylococcus aureus (MRSA) by PCR Not Detected Not Detected 02/20/2025 2:50 PM EDT [facility] Swab Both anterior nares / Unknown Non-blood Collection / Unknown 02/20/2025 1:01 PM EDT 02/20/2025 1:26 PM EDT Narrative [facility] - 02/20/2025 2:50 PM EDT This test is FDA approved for use with nares swab specimens using the eSwabs. This test is used for clinical purposes. It should not be regarded as investigational or for research. This laboratory is certified under the Clinical Laboratory improvement Amendments of 1988 (CLIA-88 as qualified to perform high complexity clinical laboratory testing. us Kathie Naqvi MD LAB MICROBIOLOGY - GENE RAL ORDERABLES Final Result Performing Organization Address City/[facility]/ZIP Co de Phone Number [facility] [address] [place] [address] * Phosphorus (02/20/2025 1:27 AM EDT) Phosphorus, Plasma 2.6 2.5 - 4.5 mg/dL 02/20/2025 2:06 AM EDT [facility] Blood Venous blood specimen / Unknown Venipuncture / Unknown 02/20/2025 1:27 AM EDT 02/20/2025 1:32 AM EDT Kathie Naqvi MD LAB BLOOD ORDERABLES Fi nal Result Performing Organization Address [facility] [place] [address] * Magnesium, Plasma (02/20/2025 1:27 AM EDT) Only the most recent of2 resultswithin the time period is included. Magnesium, Plasma 2.0 1.9 - 2.4 mg/dL 02/20/2025 2:06 AM EDT [facility] Blood Venous blood specimen / Unknown Venipuncture / Unknown 02/20/2025 1:27 AM EDT 02/20/2025 1:32 AM EDT Kathie Naqvi MD LAB BLOOD ORDERABLES Fi nal Result Performing Organization Address City/[facility]/ZIP Co de Phone Number [facility] [address] [place] [address] * (ABNORMAL) Basic metabolic panel (02/20/2025 1:27 AM EDT) Glucose, Plasma 200(H) 74 - 99 mg/dL 02/20/2025 2:06 AM EDT [facility] BUN, Plasma 22 8 - 23 mg/dL 02/20/2025 2:06 AM EDT [facility] Creatinine, Plasma 0.91 0.60 - 1.10 mg/dL 02/20/2025 2:06 AM EDT [facility] BUN/Creatinine Ratio 24 02/20/2025 2:06 AM EDT [facility] Sodium, Plasma 138 136 - 145 mmol/L 02/20/2025 2:06 AM EDT [facility] Potassium, Plasma 4.0 3.6 - 4.9 mmol/L 02/20/2025 2:06 AM EDT [facility] Chloride, Plasma 98 97 - 107 mmol/L 02/20/2025 2:06 AM EDT [facility] CO2, Plasma 27 22 - 29 mmol/L 02/20/2025 2:06 AM EDT [facility] Anion Gap 13 6 - 16 mmol/L 02/20/2025 2:06 AM EDT [facility] Total Calcium, Plasma 9.1 8.9 - 10.2 mg/dL 02/20/2025 2:06 AM EDT [facility] eGFRcr 64.7 mL/min/1.7 3m*2 02/20/2025 2:06 AM EDT [facility] Comment:Reported eGFRcr in m L/min/1.73m2 is based the CKD-EPI 2020 equation that does not use a race coefficient. Blood Venous blood specimen / Unknown Venipuncture / Unknown 02/20/2025 1:27 AM EDT 02/20/2025 1:32 AM EDT us Kathie Naqvi MD LAB BLOOD ORDERABLES Fi nal Result [facility] [address] [place] [address] * XR Chest 1 View (02/19/2025 10:18 [...] QTC Interval 447 ms MUSE ECG P [place] 68 degrees MUSE ECG R [place]re[place] 0 degrees MUSE ECG T Wave [place] 55 degrees MUSE ECG Diagnosis Atrial fibrillation [...] at day 5 02/24/2025 10:01 AM EDT [facility] Blood Structure of left hand / Unknown Venipuncture / Unknown 02/19/2025 8:51 AM EDT 02/19/2025 9:31 AM EDT Narrative [facility] - 02/24/2025 10:01 AM EDT Low blood volume submitted, results may be compromised Kathie Naqvi MD LAB MICROBIOLOGY - GENE RAL ORDERABLES Final Result Performing Organization Address City/[facility] Co de Phone Number [facility] [address] [place] [address] * (ABNORMAL) Blood gas panel, venous (02/19/2025 8:51 AM EDT) pH, Venous 7.37 7.32 - 7.43 LAB HEMATOLOGY METHOD 02/19/2025 9:23 AM EDT [facility] pCO2, Venous 65(HH) 37 - 52 mmHg LAB HEMATOLOGY METHOD 02/19/2025 9:23 AM EDT [facility] pO2, Venous 24(L) 25 - 40 mmHg LAB HEMATOLOGY METHOD 02/19/2025 9:23 AM EDT [facility] SO2, Measured, Venous 38(L) 65 - 80 % LAB HEMATOLOGY METHOD 02/19/2025 9:23 AM EDT [facility] Base Excess, Venous 10.0(H) -2.0 - 3.0 mmol/L LAB HEMATOLOGY METHOD 02/19/2025 9:23 AM EDT [facility] Bicarbonate, Calculated, Venous 37(H) 22 - 26 mmol/L LAB HEMATOLOGY METHOD 02/19/2025 9:23 AM EDT [facility] Hematocrit, Whole Blood 32.9(L) 34.0 - 45.0 % LAB HEMATOLOGY METHOD 02/19/2025 9:23 AM EDT [facility] Sodium, Whole Blood 141 136 - 145 mmol/L LAB HEMATOLOGY METHOD 02/19/2025 9:23 AM EDT [facility] Potassium, Whole Blood 4.3 3.6 - 4.9 mmol/L LAB HEMATOLOGY METHOD 02/19/2025 9:23 AM EDT [facility] Chloride, Whole Blood 95(L) 97 - 107 mmol/L LAB HEMATOLOGY METHOD 02/19/2025 9:23 AM EDT [facility] Glucose, Whole Blood 247(H) 74 - 99 mg/dL LAB HEMATOLOGY METHOD 02/19/2025 9:23 AM EDT [facility] Lactate, Venous, Whole Blood 1.5 0.5 - 2.2 mmol/L LAB HEMATOLOGY METHOD 02/19/2025 9:23 AM EDT [facility] Ionized Calcium, Whole Blood 4.6 4.6 - 5.1 mg/dL LAB HEMATOLOGY METHOD 02/19/2025 9:23 AM EDT [facility] Blood Venous blood specimen / Unknown Venipuncture / Unknown 02/19/2025 8:51 AM EDT 02/19/2025 8:58 AM EDT Kathie Naqvi MD LAB BLOOD ORDERABLES Fi nal Result [facility] [address] [place] [address] * Streptococcus pneumoniae and Legionella Urinary Antigen (02/19/2025 8:32 AM EDT) Legionella pneumophila serogroup 1 Antigen Result (Urine) Negative Negative 02/20/2025 6:20 AM EDT [facility] Streptococcus pneumoniae Antigen Result (Urine) Negative Negative 02/20/2025 6:20 AM EDT [facility] Urine Urine specimen obtained by clean catch procedure / Unknown Non-blood Collection / Unknown 02/19/2025 8:32 AM EDT 02/19/2025 9:36 AM EDT us Kathie Naqvi MD LAB MICROBIOLOGY - GENE RAL ORDERABLES Final Result Performing Organization Address [facility] Co de Phone Number [facility] [address] [place] [address] * Urine Verduzco Panel (02/19/2025 8:32 AM EDT) Extra Reflex urine culture not indicated 02/19/2025 11:02 AM EDT [facility] Urine Urine specimen obtained by clean catch procedure / Unknown Non-blood Collection / Unknown 02/19/2025 8:32 AM EDT 02/19/2025 9:03 AM EDT us Kathie Naqvi MD LAB URINE ORDERABLES Fi nal Result Performing Organization Address City/[facility] Co de Phone Number [facility] [address] [place] [address] * Urinalysis Microscopic Examination (02/19/2025 8:32 AM EDT) Urine Urine specimen obtained by clean catch procedure / Unknown Non-blood Collection / Unknown 02/19/2025 8:32 AM EDT 02/19/2025 8:55 AM EDT us Kathie Naqvi MD LAB URINE ORDERABLES Fi nal Result Performing Organization Address [facility] Co de Phone Number [facility] [address] [place] [address] * SARS CoV-2/COVID-19 by PCR - Rapid (02/19/2025 8:32 AM EDT) SARS CoV-2/COVID-1 9 RNA PCR Result Not Detected Not Detected 02/19/2025 10:38 AM EDT [facility] Swab Nasopharyngeal structure / Unknown Non-blood Collection / Unknown 02/19/2025 8:32 AM EDT 02/19/2025 9:37 AM EDT Narrative [facility] - 02/19/2025 10:38 AM EDT This [...] COVID-19. Kathie Naqvi MD LAB MICROBIOLOGY - [facility] ORDERABLES Final Result [facility] [address] [place] [address] * Nasopharyngeal Respiratory Panel (02/19/2025 8:32 AM EDT) Nasopharyngeal Respiratory PCR Interpretation Not Detected for all analytes Not Detected for all analytes 02/19/2025 11:40 AM EDT [facility] Swab Nasopharyngeal structure / Unknown Non-blood Collection / Unknown 02/19/2025 8:32 AM EDT 02/19/2025 9:37 AM EDT Narrative [facility] - 02/19/2025 11:40 AM EDT [...] Respiratory PCR Panel is performed using the Firethorn instrument. This test is FDA approved for use with Nasopharyngeal swabs only. This test is used for clinical purposes. It should not be regarded as investigational or for research. The [facility] Clinical Microbiology Laboratory is certified under the Clinical Laboratory Improvement Amendments of 1988 (CLIA-88) as qualified to perform high complexity clinical laboratory testing. Kathie Naqvi MD LAB MICROBIOLOGY - GENE RAL ORDERABLES Final Result Performing Organization Address [facility] Co de Phone Number [facility] [address] [place] [address] * Multi Drug Resistance Test (02/19/2025 8:32 AM EDT) Culture No growth at day 1 02/20/2025 11:17 AM EDT [facility] Swab (Nares and Theodora Rectal) Non-blood Collection / Unknown 02/19/2025 8:32 AM EDT 02/19/2025 9:37 AM EDT Narrative [facility] - 02/20/2025 11:17 AM EDT This test was developed and its performance characteristics determined by the [facility] Clinical Microbiology Laboratory. Although the media is FDA-approved, it is not FDA-approved for all specimen types submitted. The FDA has determined that such clearance or approval is not necessary. This test is used for surveillance purposes. It should not be regarded as investigational or for research. The [facility] Clinical Microbiology Laboratory is certified under the Clinical Laboratory Improvement Amendments of 1988 (CLIA-88) as qualified to perform high complexity clinical laboratory testing. Kathie Naqvi MD LAB MICROBIOLOGY - GENE RAL ORDERABLES Final Result Performing Organization Address [facility] Co de Phone Number [facility] [address] [place] [address] * (ABNORMAL) Urinalysis with reflex microscopic (Culture NOT Included) (02/19/2025 8:32 AM EDT) Color, Urine Yellow LAB URINALYSIS - AUTOMATED METHOD 02/19/2025 9:23 AM EDT [facility] Clarity, Urine Clear LAB URINALYSIS - AUTOMATED METHOD 02/19/2025 9:23 AM EDT [facility] Spec [place], Urine >1.030(H) 1.005 - 1.030 LAB URINALYSIS - AUTOMATED METHOD 02/19/2025 9:23 AM EDT [facility] pH, Urine 6.5 5.0 - 8.0 LAB URINALYSIS - AUTOMATED METHOD 02/19/2025 9:23 AM T [facility] Protein, Urine Trace(A) Negative mg/dL LAB URINALYSIS - AUTOMATED METHOD 02/19/2025 9:23 AM T [facility] Glucose, Urine Negative Negative mg/dL LAB URINALYSIS - AUTOMATED METHOD 02/19/2025 9:23 AM EDT [facility] Ketones, Urine Trace(A) Negative mg/dL LAB URINALYSIS - AUTOMATED METHOD 02/19/2025 9:23 AM [facility] Blood, Urine Trace(A) Negative LAB URINALYSIS - AUTOMATED METHOD 02/19/2025 9:23 AM T [facility] Bilirubin, Urine Negative Negative LAB URINALYSIS - AUTOMATED METHOD 02/19/2025 9:23 AM T [facility] Urobilinogen, Urine 0.2 0.2 to 1.0 mg/dL LAB URINALYSIS - AUTOMATED METHOD 02/19/2025 9:23 AM [facility] Leukocytes, Urine Negative Negative LAB URINALYSIS - AUTOMATED METHOD 02/19/2025 9:23 AM [facility] Nitrite, Urine Negative Negative LAB URINALYSIS - AUTOMATED METHOD 02/19/2025 9:23 AM [facility] RBC, Urine 4 - 10(A) 0 to 3 /HPF LAB URINALYSIS - AUTOMATED METHOD 02/19/2025 9:23 AM EDT [facility] Comment:This result was prev iously suppressed from the chart. WBC, Urine 0 - 5 0 to 5 /HPF LAB URINALYSIS - AUTOMATED METHOD 02/19/2025 9:23 AM T [facility] Comment:This result was prev iously suppressed from the chart. Squamous Epithelial Cells 0 - 2 0 to 5 /HPF LAB URINALYSIS - AUTOMATED METHOD 02/19/2025 9:23 AM EDT [facility] Comment:This result was prev iously suppressed from the chart. Hyaline Casts 0 - 2 0 to 5 /LPF LAB URINALYSIS - AUTOMATED METHOD 02/19/2025 9:23 AM EDT [facility] Comment:This result was prev iously suppressed from the chart. Bacteria, Urine Negative Negative LAB URINALYSIS - AUTOMATED METHOD 02/19/2025 9:23 AM EDT [facility] Comment:This result was prev iously suppressed from the chart. Urine Urine specimen obtained by clean catch procedure / Unknown Non-blood Collection / Unknown 02/19/2025 8:32 AM EDT 02/19/2025 8:55 AM EDT us Kathie Naqvi MD LAB URINE ORDERABLES Fi nal Result Performing Organization Address [facility] Co de Phone Number [facility] [address] [place] [address] * ED HIV 1/2 Antibody/Antigen Screen w/Reflex to HIV 1/2 Differentiation (02/19/2025 7:18 AM EDT) HIV 1 & 2 Antibody/Antigen Screen Non Reactive Non Reactive 02/19/2025 8:28 AM EDT [facility] Comment:Screening for HIV 1 & 2 antibodies, and P24 antigen is NONREACTIVE. No confirmatory testing is required. Blood Venous blood specimen / Unknown Venipuncture / Unknown 02/19/2025 7:18 AM EDT 02/19/2025 7:49 AM EDT us Benito Chakraborty MD LAB BLOOD ORDERABLES Final Resu lt Performing Organization Address City/[facility]/ZIP Co de Phone Number [facility] [address] [place] [address] * TSH Reflex FT4 (02/19/2025 7:18 AM EDT) Thyroid Stimulating Hormone, Plasma 0.63 0.40 - 4.20 uIU/mL 02/19/2025 8:58 AM EDT [facility] Blood Venous blood specimen / Unknown Venipuncture / Unknown 02/19/2025 7:18 AM EDT 02/19/2025 7:22 AM EDT Kathie Naqvi MD LAB BLOOD ORDERABLES Fi nal Result Performing Organization Address [facility] Co de Phone Number [facility] [address] [place] [address] * (ABNORMAL) Procalcitonin (02/19/2025 7:18 AM EDT) Pathologist [facility] Procalcitonin, Plasma 0.10(H) <0.09 ng/mL 02/19/2025 10:10 AM EDT [facility] Blood Venous blood specimen / Unknown Venipuncture / Unknown 02/19/2025 7:18 AM EDT 02/19/2025 7:22 AM EDT Narrative [facility] - 02/19/2025 10:10 AM EDT [...] predict 28 day mortality risk. Please consult [email or web address] for more information. Test performed at [facility], [facility] Laboratory. Kathie Naqvi MD LAB BLOOD ORDERABLES Fi nal Result Performing Organization Address City/[facility]/ZIP Co de Phone Number [facility] [address] [place] [address] * Hepatitis C Antibody - ED (02/19/2025 7:18 AM EDT) Pathologist [facility] Hepatitis C Antibody Negative Negative 02/19/2025 8:32 AM EDT [facility] Blood Venous blood specimen / Unknown Venipuncture / Unknown 02/19/2025 7:18 AM EDT 02/19/2025 7:49 AM EDT us Benito Chakraborty MD LAB BLOOD ORDERABLES Final Resu lt Performing Organization Address City/[facility]/ZIP Co de Phone Number [facility] [address] [place] [address] * (ABNORMAL) N-Terminal Probnp, Plasma (02/19/2025 7:18 AM EDT) N-Terminal, PROBNP, Plasma 2,448(H) 0 - 1,799 pg/mL 02/19/2025 8:58 AM EDT [facility] Blood Venous blood specimen / Unknown Venipuncture / Unknown 02/19/2025 7:18 AM EDT 02/19/2025 7:22 AM EDT us Kathie Naqvi MD LAB BLOOD ORDERABLES Fi nal Result Performing Organization Address City/[facility] Co de Phone Number [facility] [address] [place] [address] * (ABNORMAL) PT-INR (02/19/2025 7:18 AM EDT) Prothrombin Time 16.6(H) 12.0 - 14.3 sec 02/19/2025 7:59 AM EDT [facility] INR 1.4(H) 0.9 - 1.1 02/19/2025 7:59 AM EDT [facility] Blood Venous blood specimen / Unknown Venipuncture / Unknown 02/19/2025 7:18 AM EDT 02/19/2025 7:22 AM EDT Narrative [facility] - 02/19/2025 7:59 AM EDT OPTIMAL INR RANGES FOR PATIENT ON ORAL ANTICOAGULANT THERAPY Prevention of venous thromboembolism INR 2.0 to 3.0 In patients with heart disease: Atrial fibrillation INR 2.0 to 3.0 Valvular heart disease INR 2.0 to 3.0 Tissue heart valves INR 2.0 to 3.0 Mechanical prosthetic valves INR 2.5 to 3.5 Prevention of recurrent NC INR 2.5 to 3.5 us Benito Chakraborty MD LAB BLOOD ORDERABLES Final Resu lt Performing Organization Address [facility]/ZIP Co de Phone Number [facility] [address] [place] [address] * Anti Xa Level Unfractionated Heparin (02/19/2025 7:18 AM EDT) Anti Xa Level Unfractionated Heparin 0.86 <1.00 IU/mL 02/19/2025 8:01 AM EDT [facility] Blood Venous blood specimen / Unknown Venipuncture / Unknown 02/19/2025 7:18 AM EDT 02/19/2025 7:22 AM EDT [facility] - 02/19/2025 8:01 AM EDT Therapeutic Range: UFH Full Dose and ACS/NC protocols*: 0.30 - 0.70 IU/mL UFH Low Dose protocol*: 0.25 - 0.50 IU/mL UFH prophylaxis: Not established Benito Chakraborty MD LAB BLOOD ORDERABLES Final Resu lt Performing Organization Address [facility] Co de Phone Number [facility] [address] [place] [address] * (ABNORMAL) CBC w/diff (02/19/2025 7:18 AM EDT) WBC Count 16.73(H) 3.70 - 10.30 10*3/uL LAB HEMATOLOGY METHOD 02/19/2025 7:26 AM EDT [facility] RBC Count 4.00 3.90 - 5.20 10*6/uL LAB HEMATOLOGY METHOD 02/19/2025 7:26 AM EDT [facility] HGB 10.6(L) 11.2 - 15.7 g/dL LAB HEMATOLOGY METHOD 02/19/2025 7:26 AM EDT [facility] HCT 34.3 34.0 - 45.0 % LAB HEMATOLOGY METHOD 02/19/2025 7:26 AM EDT [facility] Platelet Count 222 155 - 369 10*3/uL LAB HEMATOLOGY METHOD 02/19/2025 7:26 AM EDT [facility] MCV 86 79 - 98 fL LAB HEMATOLOGY METHOD 02/19/2025 7:26 AM EDT [facility] MCH 26.5 26.0 - 32.0 pg LAB HEMATOLOGY METHOD 02/19/2025 7:26 AM EDT [facility] MCHC 30.9 30.7 - 35.5 g/dL LAB HEMATOLOGY METHOD 02/19/2025 7:26 AM EDT [facility] RDW 14.4 11.5 - 14.5 % LAB HEMATOLOGY METHOD 02/19/2025 7:26 AM EDT [facility] MPV 9.4 8.8 - 12.5 fL LAB HEMATOLOGY METHOD 02/19/2025 7:26 AM EDT [facility] nRBC 0.0 <=0.0 per 100 WBCs LAB HEMATOLOGY METHOD 02/19/2025 7:26 AM EDT [facility] Differential Type Automated LAB HEMATOLOGY METHOD 02/19/2025 7:26 AM EDT [facility] Neutrophils % 85 % LAB HEMATOLOGY METHOD 02/19/2025 7:26 AM EDT [facility] Lymphocytes % 9 % LAB HEMATOLOGY METHOD 02/19/2025 7:26 AM EDT [facility] Monocytes % 5 % LAB HEMATOLOGY METHOD 02/19/2025 7:26 AM EDT [facility] Eosinophils % 0 % LAB HEMATOLOGY METHOD 02/19/2025 7:26 AM EDT [facility] Basophils % 0 % LAB HEMATOLOGY METHOD 02/19/2025 7:26 AM EDT [facility] Immature Granulocytes % 1 % LAB HEMATOLOGY METHOD 02/19/2025 7:26 AM EDT [facility] Neutrophils Absolute 14.37(H) 1.60 - 6.10 10*3/uL LAB HEMATOLOGY METHOD 02/19/2025 7:26 AM EDT [facility] Lymphocytes Absolute 1.46 1.20 - 3.90 10*3/uL LAB HEMATOLOGY METHOD 02/19/2025 7:26 AM EDT [facility] Monocytes Absolute 0.77 0.30 - 0.90 10*3/uL LAB HEMATOLOGY METHOD 02/19/2025 7:26 AM EDT [facility] [facility] Eosinophils Absolute 0.01 0.00 - 0.50 10*3/uL LAB HEMATOLOGY METHOD 02/19/2025 7:26 AM EDT [facility] Basophils Absolute 0.04 0.00 - 0.10 10*3/uL LAB HEMATOLOGY METHOD 02/19/2025 7:26 AM EDT [facility] Immature Granulocytes Absolute 0.08(H) 0.00 - 0.06 10*3/uL LAB HEMATOLOGY METHOD 02/19/2025 7:26 AM EDT [facility] Blood Venous blood specimen / Unknown Venipuncture / Unknown 02/19/2025 7:18 AM EDT 02/19/2025 7:22 AM EDT Narrative [facility] - 02/19/2025 7:26 AM EDT Therapeutic decision making should be based on absolute values, rather than percentages. us Benito Chakraborty MD LAB BLOOD ORDERABLES Final Resu lt Performing Organization Address [facility] Co de Phone Number [facility] [address] [place] [address] * (ABNORMAL) C-reactive protein (02/19/2025 7:18 AM EDT) CRP, Plasma 38.1(H) <=8.0 mg/L 02/19/2025 10:10 AM EDT [facility] Blood Venous blood specimen / Unknown Venipuncture / Unknown 02/19/2025 7:18 AM EDT 02/19/2025 7:22 AM EDT Narrative [facility] - 02/19/2025 10:10 AM EDT This CRP test is appropriate for assessment of infection, systemic inflammation and/or tissue injury. To assess cardiovascular disease risk order high sensitivity CRP (CRPH). us Kathie Naqvi MD LAB BLOOD ORDERABLES Fi nal Result Performing Organization Address City/[facility]/ZIP Co de Phone Number [facility] [address] [place] [address] * (ABNORMAL) Hemoglobin A1c (02/19/2025 7:18 AM EDT) Hemoglobin A1c 7.4(H) <5.7 % 02/19/2025 11:39 AM EDT [facility] Blood Venous blood specimen / Unknown Venipuncture / Unknown 02/19/2025 7:18 AM EDT 02/19/2025 7:22 AM EDT Narrative [facility] - 02/19/2025 11:39 AM EDT HA1C Interpretive Data: Diagnosis of Diabetes: Diabetic > or = 6.5% Pre-diabetic 5.7 to 6.4% Non-diabetic < or = 5.6% Glycemic Targets for Type I and Type II Diabetics: Non- Adults <7.0% Adults <6.0% Children and Adolescents <7.5% Source: [place] [employer]. Standards of medical care in diabetes,2017. Diabetes Care.2017:40 (suppl 1):S1-S135. Kathie Naqvi MD LAB BLOOD ORDERABLES Fi nal Result [facility] [address] [place] [address] * (ABNORMAL) CMP (02/19/2025 7:18 AM EDT) Glucose, Plasma 249(H) 74 - 99 mg/dL 02/19/2025 7:44 AM EDT [facility] BUN, Plasma 23 8 - 23 mg/dL 02/19/2025 7:44 AM EDT [facility] Creatinine, Plasma 1.07 0.60 - 1.10 mg/dL 02/19/2025 7:44 AM EDT [facility] BUN/Creatinine Ratio 02/19/2025 7:44 AM EDT [facility] Sodium, Plasma 139 136 - 145 mmol/L 02/19/2025 7:44 AM EDT [facility] Potassium, Plasma 4.7 3.6 - 4.9 mmol/L 02/19/2025 7:44 AM EDT [facility] Chloride, Plasma 97 97 - 107 mmol/L 02/19/2025 7:44 AM EDT [facility] CO2, Plasma 30(H) 22 - 29 mmol/L 02/19/2025 7:44 AM EDT [facility] Anion Gap 12 6 - 16 mmol/L 02/19/2025 7:44 AM EDT [facility] Total Calcium, Plasma 9.0 8.9 - 10.2 mg/dL 02/19/2025 7:44 AM EDT [facility] Total Protein 6.7 6.3 - 7.9 g/dL 02/19/2025 7:44 AM EDT [facility] Albumin, Plasma 3.5 3.5 - 5.2 g/dL 02/19/2025 7:44 AM EDT [facility] AST, Plasma 13 10 - 35 U/L 02/19/2025 7:44 AM EDT [facility] ALT, Plasma 7(L) 10 - 35 U/L 02/19/2025 7:44 AM EDT [facility] Alkaline Phosphatase, Plasma 89 46 - 142 U/L 02/19/2025 7:44 AM EDT [facility] Total Bilirubin, Plasma 0.4 0.2 - 1.1 mg/dL 02/19/2025 7:44 AM EDT [facility] eGFRcr 53.3 mL/min/1.7 3m*2 02/19/2025 7:44 AM EDT [facility] Comment:Reported eGFRcr in m L/min/1.73m2 is based the CKD-EPI 2020 equation that does not use a race coefficient. Blood Venous blood specimen / Unknown Venipuncture / Unknown 02/19/2025 7:18 AM EDT 02/19/2025 7:22 AM EDT us Benito Chakraborty MD LAB BLOOD ORDERABLES Final Resu lt [facility] [address] [place] [address] * CT NEURO OUTSIDE IMAGES (02/18/2025 11:37 [...] Date Last Indicated MRSA 07/29/2022 07/29/2022 Insurance [facility] MEDIC[facility] Advance Directives Documents on File Type Date Recorded Patient Learning And Development Officer Expl anation Advance Directives and Living Will [...] updated to appropriate status: Yes Care Teams Stone Grader Relationship Specialty Start Date End Date Jamil Carey MD [address] [address] PCP - General 10/22/22
--- OUTSIDE RECORDS SUMMARY | 2025-03-30 11:44 | XMS_ITS ---
Author Organization [facility] Address [address] [place] [address] Care Team Providers Care Resident Care Technician Name Role Phone Jamil Carey MD Primary Care Provider Transitional Care Management Status:Closed (Closed) Start date:02/22/2025 Enrollment date:02/22/2025 Enrollment reason:Identified using hospital discharge data End date:03/24/2025 Close reason:Patient graduated Overview This episode type is for outpatient care managers enrolling patients in the CMS Transitional Care Management program. Continued Care and Services Coordination
--- OUTSIDE RECORDS SUMMARY | 2025-03-30 11:44 | XMS_ITS | Encounter Summary ---
Author Organization Healthcare Address [address] [place] [address] Care Team Providers Care Manager Of Hospital Name Role Phone Jamil Carey MD Primary Care Provider [phone] Encounter Details Date Type Department Care Team [...] as of this encounter Care Teams Manager Of Hospital Relationship Specialty Start Date End Date Jamil Carey MD [address] [address] PCP - General 10/22/22 documented as of this encounter
--- OUTSIDE RECORDS SUMMARY | 2025-03-30 11:44 | XMS_ITS | Encounter Summary ---
Author Organization Healthcare Address [address] [place] [address] Care Team Providers Care Painting And Coating Worker Name Role Phone Jamil Carey MD Primary Care Provider [phone] Radha Russ LPN Unavailable Unavailabl e Encounter Details Date Type Department Care Team (Late st Contact Info) Description 02/18/2025 Orders Only External Location [address] [place] [address] Provider, External Social History Tobacco Use Types [...] any time in the past 12 m [facility], were you homeless or living in a [facility] (including now)? No 02/21/2025 Utilities Answer Date [...] documented as of this encounter Care Teams Painting And Coating Worker Relationship Specialty Start Date End Date Jamil Carey MD [address] [address] PCP - General 10/22/22 Radha Russ LPN [facility] TCM Nurse 02/22/25 03/24/25 documented as of this encounter
--- OUTSIDE RECORDS SUMMARY | 2025-03-30 11:44 | XMS_ITS | Encounter Summary ---
Author Organization Healthcare Address [address] [place] [address] Care Team Providers Care Hide Spreader Name Role Phone Chelsey Trejo Primary Care Provider [phone] Mini Fink Unavailable Unavailable Jamil Carey MD Primary Care Provider Radha Russ LPN Unavailable Unavailabl e Encounter Details Date Type Department Care Team (Late st Contact Info) Description 10/29/2019 Orders Only External Location [address] [place] [address] Provider, External Social History Tobacco Use Types [...] documented as of this encounter Care Teams Hide Spreader Relationship Specialty Start Date End Date Chelsey Trejo PA [address] [place] [address] PCP - General 01/12/21 10/21/22 Jamil Carey MD [address] [facility] [address] [address] PCP - General 10/22/22 [place] [address] [employer] [facility] 08/20/2109/20 Radha Russ, [facility] TCM Nurse 02/22/25 03/24/25 documented as of this encounter
--- NOTE | 2025-03-30 14:30 | CA_ITS ---
APPROVED REPORT EXAM: Comprehensive 2D, Doppler, and color-flow Echocardiogram Emergency Veterinary Technician: LAURA Barrios, RVS Ht: 5 ft 4 in Wt: 299lbs BSA: 2.32 BP: 115/58 mmHg Indications: Dyspnea, wheelchair bound Echo Enhancing Agent Comments: TDS: Scanned upright in electric wheelchair 2D Dimensions Left Atrium 3.80 cm LA Volume 112.20 mL LA Volume Index 48.836547 mL/m2 (M/F) 16-34 M-Mode Dimensions RVDd 3.94 cm (0.9-2.6) LA Diam 4.23 cm (1.9-4.0) LVDd 4.25 cm (3.5-5.7) LVDs 2.54 cm (3.5-5.7) IVSd 1.29 cm (0.6-1.1) PWd 1.44 cm (0.6-1.1) EF (Teich) 71.30% EPSs 1.22 cm FS 40.20% EDV (Teich) 80.80 mL TAPSE 1.57 (<1.7) ESV (Teich) 23.20 mL LV Diastology E Decel Time 160 (160-240 msec) E/A Ratio 4.38 MED A' 2.70 cm/s LAT A' 2.40 cm/s Aortic Valve JOY Index 1.12 cm2/m2 AoV Peak Monty. 86.0 (50-130 cm/s) AO Peak GR. 3.00 mmHg AO Mean GR. 1.50 (<5 mmHg) AO VTI 21.2 (18-25 cm) JOY (VTI) 2.66 (2.5-4.5 cm2) Mitral Valve MV A Velocity 20.0 (40-130 cm/s) E/A Ratio 4.38 Pulmonary Valve PV Peak Velocity 98.0 (50-150 cm/s) NV End VMAX 244.0 cm/s Tricuspid Valve TR P. Velocity 418.00 cm/s RAP Estimate 10.00 mmHg RVSP 79.90 mmHg Left Ventricle The left ventricle is normal size. The left ventricular systolic function is normal. The left ventricular ejection fraction is within the normal range. There is increased LV wall thickness. There is normal LV segmental wall motion. Grade 3 diastolic dysfunction is present. LVEF is 55%. Right Ventricle Right ventricle is severely dilated. Right ventricle is moderately hypokinetic. Atria Left atrium is severely dilated. Right atrium is severely dilated. There is no Doppler evidence of interatrial shunt. Aortic Valve The aortic valve is mildly thickened. There is no aortic valvular stenosis. Trace aortic regurgitation. Mitral Valve The mitral valve is normal in structure. No evidence of mitral valve stenosis. Mild mitral regurgitation. Tricuspid Valve Tricuspid valve is grossly normal in structure and function. Moderate tricuspid regurgitation. RVSP is 55-60 mmHg. Pulmonic Valve The pulmonary valve is normal in structure. Moderate pulmonic regurgitation. Great Vessels The aortic root is normal in size. IVC is normal in size and collapses >50% with inspiration. Pericardium There is no pericardial effusion. Other Information Study Quality: Fair Conclusion Normal LV systolic function. Grade 3 diastolic dysfunction. Severe RV dilation with moderate reduction in RV function. Severe biatrial dilation. Moderate TR, moderate PI. Mild MR. Markedly elevated RVSP 55-60 mmHg. Electronically signed by : Marcie Jimenez MD 03/31/2025 11:27:45
== END 2025-03-30 23:59 | disposition home or self-care (01) ==
LOC: RAD 11:41
PROVIDERS: PCP Emergency Medicine; Visit Provider Nurse Practitioner
DX: I08.8 Other rheumatic multiple valve diseases (principal); I25.10 Atherosclerotic heart disease of native coronary artery without angina pectoris; I11.9 Hypertensive heart disease without heart failure
CPT/HCPCS: 93306